=== PATIENT | female | born 1955 | race Caucasian/White ===

== ENCOUNTER 2017-12-01 12:46 | Emergency (ER) | payer BC, SELFPAY ==
--- NOTE | 2017-12-01 12:51 | ED.HA ---
HPI - Headache <CHERYL Cruz - Last Filed: 12/01/17 20:50> General Chief Complaint: Headache Stated Complaint: MIGRAINES Time Seen by Provider: 12/01/17 12:51 History of Present Illness HPI Narrative: 62-year-old female with history of migraine sent here by primary care provider office for treatment of her migraine. She states that she had a migraine that started since yesterday her migraine is to the right forehead area and into her area behind her right eye ball. She has positive photophobia and nausea vomiting. She presents today with a fever. She denies any cold-like symptoms. She denies any abdominal pain no urinary symptoms. She denies any decreased range of motion in her neck or pain into her neck or back area. No other symptoms in the headache is reported. She states that this is a typical headache for her. Patient is ambulatory no other concerns or complaints MD Complaint: headache Related Data Home Medications Medication Instructions Recorded Confirmed Vitamin C 1 tab PO QDAY #0 11/18/16 12/02/17 multivitamin tablet 1 tab PO QDAY #0 12/01/17 12/02/17 Previous Rx's Medication Instructions Recorded metoprolol succinate [Toprol XL] 25 mg PO QDAY #90 ter 07/21/17 rosuvastatin 10 mg PO HS #90 tab 07/21/17 ondansetron 4 mg disintegrating 4 mg PO TID PRN #20 tab 12/01/17 tablet sumatriptan 50 mg tablet 50 mg PO ONCE #10 tab 12/01/17 Allergies Allergy/AdvReac Type Severity Reaction Status Date / Time No Known Drug Allergies Allergy Verified 12/02/17 11:32 Review of Systems <CHERYL Cruz - Last Filed: 12/01/17 20:50> Constitutional Reports fever(s) and Reports headache(s) Eyes Comments: Photophobia ENT Ears, Nose, Mouth, and Throat: Reports headache(s) Cardiovascular Denies chest pain, Denies irregular heart rhythm, Denies lightheadedness, Denies palpitations, Denies dyspnea, Denies dyspnea on exertion and Denies orthopnea Respiratory Denies cough, Denies dyspnea, Denies dyspnea on exertion and Denies wheezing Gastrointestinal Gastrointestinal: Reports vomiting Genitourinary Denies hematuria, Denies flank pain, Denies urinary incontinence and Denies urinary urgency Musculoskeletal Denies back pain, Denies muscle weakness, Denies numbness and Denies tingling Integumentary/Breasts Denies pruritus, Denies erythema, Denies rash and Denies wounds Neurologic Denies confusion, Reports headache(s), Denies numbness and Denies tingling Psychiatric Denies anxiety, Denies confusion, Denies depression, Denies homicidal ideation and Denies suicidal ideation Endocrine Denies palpitations Allergic/Immunologic Denies wheezing Exam <CHERYL Cruz - Last Filed: 12/01/17 20:50> Initial Vital Signs Initial Vital Signs: Vital Signs Temperature 102.1 F H 12/01/17 12:52 Pulse Rate 73 12/01/17 12:52 Respiratory Rate 18 12/01/17 12:52 Blood Pressure 130/53 H 12/01/17 12:52 Pulse Oximetry 98 12/01/17 12:52 Const General: cooperative and well developed Nutritional Appearance: well nourished Orientation: alert, awake, oriented x3 and not confused HENMT Head: normal to inspection, normocephalic, atraumatic and No temporal artery tenderness Mouth: oropharynx normal and mucous membranes abnormal (Mucous membranes are pink and dry) Eyes Conjunctivae: conjunctivae normal Sclera: sclerae normal Pupils: PERRL EOM: EOM intact bilaterally Neck Neck: normal visual inspection, full ROM, trachea midline, No lymphadenopathy, No midline deformity and No JVD Lymphatic: No lymphedema Resp Effort & Inspection: normal respiratory effort, able to speak in complete sentences, no respiratory distress and no use of accessory muscles Auscultation: clear to auscultation bilaterally, no rales, no rhonchi and no wheezes Cardio Rate: regular rate Rhythm: regular rhythm Heart Sounds: no click, no gallops, no murmurs and no rubs GI Inspection: non-distended Palpation: soft, no hepatosplenomegaly, No guarding, No pulsatile mass and No tender Auscultation: normal bowel sounds General: No CVA tenderness Skin General: no rashes or lesions noted, No jaundice and No petechiae Neuro Cognition: normal cognition Speech: speech normal <Nuno Gomez DO - Last Filed: 12/04/17 08:37> Initial Vital Signs Initial Vital Signs: Vital Signs Temperature 102.1 F H 12/01/17 12:52 Pulse Rate 73 12/01/17 12:52 Respiratory Rate 18 12/01/17 12:52 Blood Pressure 130/53 H 12/01/17 12:52 Pulse Oximetry 98 12/01/17 12:52 Course <CEHRYL Cruz - Last Filed: 12/01/17 20:50> Orders Ordered: Discontinued Medications Diphenhydramine HCl (Benadryl) 25 mg IV NOW ONE Stop: 12/01/17 13:02 Last Admin: 12/01/17 13:19 Dose: 25 mg Sodium Chloride (Normal Saline 0.9%) 1,000 mls @ 1,000 mls/hr IV BOLUS ONE Stop: 12/01/17 14:00 Last Infusion: 12/01/17 15:38 Dose: 0 mls/hr Admin: 12/01/17 13:23 Dose: 1,000 mls/hr Ketorolac Tromethamine (Toradol) 30 mg IV NOW ONE Stop: 12/01/17 13:02 Last Admin: 12/01/17 13:22 Dose: 30 mg Prochlorperazine (Compazine) 10 mg IV NOW ONE Stop: 12/01/17 13:02 Last Admin: 12/01/17 13:21 Dose: 10 mg Vital Signs - 8 hr 12/01/17 12:52 12/01/17 13:21 12/01/17 13:44 Temperature 102.1 F H Pulse Rate 73 78 93 H Respiratory Rate 18 18 Blood Pressure 130/53 H 130/53 H Blood Pressure [Left Arm] 148/65 H Pulse Oximetry 98 99 12/01/17 15:05 Temperature 100.7 F H Pulse Rate 88 Respiratory Rate Blood Pressure Blood Pressure [Left Arm] 123/49 H Pulse Oximetry 98 <Nuno Gomez DO - Last Filed: 12/04/17 08:37> Orders Ordered: Discontinued Medications Diphenhydramine HCl (Benadryl) 25 mg IV NOW ONE Stop: 12/01/17 13:02 Last Admin: 12/01/17 13:19 Dose: 25 mg Sodium Chloride (Normal Saline 0.9%) 1,000 mls @ 1,000 mls/hr IV BOLUS ONE Stop: 12/01/17 14:00 Last Infusion: 12/01/17 15:38 Dose: 0 mls/hr Admin: 12/01/17 13:23 Dose: 1,000 mls/hr Ketorolac Tromethamine (Toradol) 30 mg IV NOW ONE Stop: 12/01/17 13:02 Last Admin: 12/01/17 13:22 Dose: 30 mg Prochlorperazine (Compazine) 10 mg IV NOW ONE Stop: 12/01/17 13:02 Last Admin: 12/01/17 13:21 Dose: 10 mg Vital Signs - 8 hr 12/01/17 12:52 12/01/17 13:21 12/01/17 13:44 Temperature 102.1 F H Pulse Rate 73 78 93 H Respiratory Rate 18 18 Blood Pressure 130/53 H 130/53 H Blood Pressure [Left Arm] 148/65 H Pulse Oximetry 98 99 12/01/17 15:05 Temperature 100.7 F H Pulse Rate 88 Respiratory Rate Blood Pressure Blood Pressure [Left Arm] 123/49 H Pulse Oximetry 98 MDM - Headache <CHERYL Cruz - Last Filed: 12/01/17 20:50> Lab Data Result diagrams: 12/01/17 13:15 12/01/17 13:15 Lab Results 12/01/17 12/01/17 12/01/17 Range/Units 13:15 13:15 13:15 WBC 14.3 H (4.5-11.0) X10^3/uL RBC 5.11 (4.0-5.2) X10^6/uL Hgb 15.0 (12.0-16.0) g/dL Hct 44.3 (36-46) % MCV 86.6 (80-100) fL MCH 29.3 (26-34) PG MCHC 33.9 (30-36) % RDW 13.5 (11.6-14.8) % Plt Count 265 (150-400) X10^3/uL Neut % (Auto) 87.0 H (50-75) % Lymph % (Auto) 8.4 L (25-40) % [place] % (Auto) 4.4 (3-14) % Eos % (Auto) 0.0 L (2-4) % Baso % (Auto) 0.2 (0-2) % Neut # (Auto) 12045 H (5451-3291) /uL Sodium 139 (137-145) mmol/L Potassium 3.9 (3.4-5.1) mmol/L Chloride 100 (98-107) mmol/L Carbon Dioxide 24 (22-32) mmol/L BUN 12 (7-17) mg/dL Creatinine 0.70 (0.52-1.04) mg/dL Estimated GFR > 60.0 (>60) mL/min BUN/Creatinine Ratio 17.1 (6-22) Glucose 113 H (80-110) mg/dL Lactate (0.7-2.1) mmol/L Calcium 9.7 (8.4-10.2) mg/dL Total Bilirubin 1.2 (0.2-1.3) mg/dL AST 26 (14-36) IU/L ALT 30 (9-52) IU/L Alkaline Phosphatase 93 (38-126) U/L Total Protein 8.2 (6.3-8.2) g/dL Albumin 4.8 (3.5-5.0) g/dL Globulin 3.4 (1.7-4.1) g/dL Albumin/Globulin Ratio 1.4 (1.0-2.8) Procalcitonin < 0.05 (<0.5) ng/mL Urine RBC (0-5/HPF) Urine WBC (0-5/HPF) Ur Squamous Epith Cells Urine Bacteria (None) Urine Mucus (Negative) Ur Culture Indicated? Micro UA Comment Influenza A & B (PCR) (Negative) 12/01/17 12/01/17 12/01/17 Range/Units 13:15 13:42 13:58 WBC (4.5-11.0) X10^3/uL RBC (4.0-5.2) X10^6/uL Hgb (12.0-16.0) g/dL Hct (36-46) % MCV (80-100) fL MCH (26-34) PG MCHC (30-36) % RDW (11.6-14.8) % Plt Count (150-400) X10^3/uL Neut % (Auto) (50-75) % Lymph % (Auto) (25-40) % [place] % (Auto) (3-14) % Eos % (Auto) (2-4) % Baso % (Auto) (0-2) % Neut # (Auto) (3529-6122) /uL Sodium (137-145) mmol/L Potassium (3.4-5.1) mmol/L Chloride (98-107) mmol/L Carbon Dioxide (22-32) mmol/L BUN (7-17) mg/dL Creatinine (0.52-1.04) mg/dL Estimated GFR (>60) mL/min BUN/Creatinine Ratio (6-22) Glucose (80-110) mg/dL Lactate 1.5 (0.7-2.1) mmol/L Calcium (8.4-10.2) mg/dL Total Bilirubin (0.2-1.3) mg/dL AST (14-36) IU/L ALT (9-52) IU/L Alkaline Phosphatase (38-126) U/L Total Protein (6.3-8.2) g/dL Albumin (3.5-5.0) g/dL Globulin (1.7-4.1) g/dL Albumin/Globulin Ratio (1.0-2.8) Procalcitonin (<0.5) ng/mL Urine RBC None seen (0-5/HPF) Urine WBC 5-10/hpf H (0-5/HPF) Ur Squamous Epith Cells 10-30 /hpf H Urine Bacteria Few (2-10) H (None) Urine Mucus 2+ H (Negative) Ur Culture Indicated? Cult not indicated Micro UA Comment Not Reportable Influenza A & B (PCR) Negative (Negative) Imaging Data CT scan - head: Radiologist's impression: PROCEDURE: CT HEAD/BRAIN WO CON INDICATIONS: 62 year-old female with headaches and fever. TECHNIQUE: Noncontrast 4.5 mm thick angled axial sections acquired from the foramen magnum to the vertex, with coronal and sagittal reformats. For radiation dose reduction, the following was used: automated exposure control, adjustment of mA and/or kV according to patient size. COMPARISON: None. FINDINGS: Image quality: Excellent. CSF spaces: Basal cisterns are patent. No extra-axial fluid collections. Ventricles are normal in size and shape. Brain: No midline shift. No intracranial masses or hemorrhage. [place]lee-white matter interface is normal. Skull and face: Calvarium and visualized facial bones are intact, without suspicious lesions. Sinuses: Visualized sinuses and mastoids are clear. IMPRESSION: No acute intracranial abnormalities. Dictated by: Matt Wang M.D. on 12/01/2017 at 13:59 Approved by: Matt Wang M.D. on 12/01/2017 at 14:01 [facility] Narrative Medical decision making narrative: Patient presents with headache today is consistent with her prior migraines she states it is 1 of her more painful once however the characteristics or similar to her prior migraines. She does not have any neck rigidity or neck pain. Pain is limited to the right frontal area and scalp and behind the eye. She does not have any temporal tenderness. She presents with fever. She had elevated white count of 14 k . Urinalysis was negative for urinary tract infection. Influenza swab was also obtained was negative. No source of infection is found. Her symptoms of headache and nausea reduced after medications and fluids. Had in-depth conversation with patient with risks versus reward for LP puncture to rule out meningitis/encephalitis. Patient decided that she was not comfortable and obtaining LP at this time. Differential between viral illness causing fever and possible trigger for her headache versus meningitis. She is encouraged to follow up with her primary care provider in the next day or 2 for re-evaluation. For any worsening symptoms return to the emergency room. Plenty of fluids and rest. [id number] Tylenol Motrin as needed for any discomfort. Follow up with primary care provider. For any worsening symptoms return emergency room. <Nuno Gomez, DO - Last Filed: 12/04/17 08:37> Lab Data Lab Results 12/01/17 12/01/17 12/01/17 Range/Units 13:15 13:15 13:15 WBC 14.3 H (4.5-11.0) X10^3/uL RBC 5.11 (4.0-5.2) X10^6/uL Hgb 15.0 (12.0-16.0) g/dL Hct 44.3 (36-46) % MCV 86.6 (80-100) fL MCH 29.3 (26-34) PG MCHC 33.9 (30-36) % RDW 13.5 (11.6-14.8) % Plt Count 265 (150-400) X10^3/uL Neut % (Auto) 87.0 H (50-75) % Lymph % (Auto) 8.4 L (25-40) % [place] % (Auto) 4.4 (3-14) % Eos % (Auto) 0.0 L (2-4) % Baso % (Auto) 0.2 (0-2) % Neut # (Auto) 20726 H (1143-3664) /uL Sodium 139 (137-145) mmol/L Potassium 3.9 (3.4-5.1) mmol/L Chloride 100 (98-107) mmol/L Carbon Dioxide 24 (22-32) mmol/L BUN 12 (7-17) mg/dL Creatinine 0.70 (0.52-1.04) mg/dL Estimated GFR > 60.0 (>60) mL/min BUN/Creatinine Ratio 17.1 (6-22) Glucose 113 H (80-110) mg/dL Lactate (0.7-2.1) mmol/L Calcium 9.7 (8.4-10.2) mg/dL Total Bilirubin 1.2 (0.2-1.3) mg/dL AST 26 (14-36) IU/L ALT 30 (9-52) IU/L Alkaline Phosphatase 93 (38-126) U/L Total Protein 8.2 (6.3-8.2) g/dL Albumin 4.8 (3.5-5.0) g/dL Globulin 3.4 (1.7-4.1) g/dL Albumin/Globulin Ratio 1.4 (1.0-2.8) Procalcitonin < 0.05 (<0.5) ng/mL Urine RBC (0-5/HPF) Urine WBC (0-5/HPF) Ur Squamous Epith Cells Urine Bacteria (None) Urine Mucus (Negative) Ur Culture Indicated? Micro UA Comment Influenza A & B (PCR) (Negative) 12/01/17 12/01/17 12/01/17 Range/Units 13:15 13:42 13:58 WBC (4.5-11.0) X10^3/uL RBC (4.0-5.2) X10^6/uL Hgb (12.0-16.0) g/dL Hct (36-46) % MCV (80-100) fL MCH (26-34) PG MCHC (30-36) % RDW (11.6-14.8) % Plt Count (150-400) X10^3/uL Neut % (Auto) (50-75) % Lymph % (Auto) (25-40) % [place] % (Auto) (3-14) % Eos % (Auto) (2-4) % Baso % (Auto) (0-2) % Neut # (Auto) (0845-9319) /uL Sodium (137-145) mmol/L Potassium (3.4-5.1) mmol/L Chloride (98-107) mmol/L Carbon Dioxide (22-32) mmol/L BUN (7-17) mg/dL Creatinine (0.52-1.04) mg/dL Estimated GFR (>60) mL/min BUN/Creatinine Ratio (6-22) Glucose (80-110) mg/dL Lactate 1.5 (0.7-2.1) mmol/L Calcium (8.4-10.2) mg/dL Total Bilirubin (0.2-1.3) mg/dL AST (14-36) IU/L ALT (9-52) IU/L Alkaline Phosphatase (38-126) U/L Total Protein (6.3-8.2) g/dL Albumin (3.5-5.0) g/dL Globulin (1.7-4.1) g/dL Albumin/Globulin Ratio (1.0-2.8) Procalcitonin (<0.5) ng/mL Urine RBC None seen (0-5/HPF) Urine WBC 5-10/hpf H (0-5/HPF) Ur Squamous Epith Cells 10-30 /hpf H Urine Bacteria Few (2-10) H (None) Urine Mucus 2+ H (Negative) Ur Culture Indicated? Cult not indicated Micro UA Comment Not Reportable Influenza A & B (PCR) Negative (Negative) Discharge Plan Departure Patient Disposition: Home, Self-Care Clinical Impression: Migraine headache, Fever Discharge Date/Time: 12/01/17 15:39 Interventions: ED Discharge Assessment Last Done: 12/01/17 15:38 Instructions: DI for Migraine Activity Restrictions/Additional Instructions: Signs and symptoms progress as migraine headache. Although with fever and elevated white count there is possibility that there could be an infection called meningitis. Use [id number] Tylenol or Motrin as needed for any discomfort. Plenty of fluids and rest. Follow up with her primary care provider in the next day or 2 for re-evaluation. Home to quite environment and rest. If there are any worsening symptoms such as worsening fever and neck pain worsening headache or change in cognition return to the emergency room. Prescriptions: No Action sumatriptan succinate 50 mg tablet 50 mg PO ONCE Qty: 10 RF: 3 ondansetron 4 mg tablet,disintegrating 4 mg PO TID PRN (Reason: nausea and vomiting) Qty: 20 RF: 0 Vitamin C 1 tab PO QDAY Qty: 0 RF: 0 metoprolol succinate [Toprol XL] 25 MG tablet extended release 24 hr 25 mg PO QDAY Qty: 90 RF: 3 rosuvastatin 10 MG tablet 10 mg PO HS Qty: 90 RF: 1 multivitamin [Multiple Vitamins] tablet 1 tab PO QDAY Qty: 0 RF: 0 Referrals: Debbie Paredes PA-C [Primary Care Provider] - <Nuno Gomez DO - Last Filed: 12/04/17 08:37> Cosign ED Attending Merry Attestation: I was available for consultation during this patient's emergency department encounter
[2017-12-01 12:52] VITALS: BP 130/53; PULSE 73; RESP 18; TEMP 38.9; O2SAT 98; BMI 25.7
[2017-12-01] MEDS: diphenhydrAMINE 50 MG/ML VIAL 25 MG IV (13:19)
[2017-12-01 13:21] VITALS: BP 130/53; PULSE 78
[2017-12-01] MEDS: PROCHLORPERAZINE 10 MG/2 ML VIAL IV (13:21)
[2017-12-01] MEDS: KETOROLAC 60 MG/2 ML VIAL 30 MG IV (13:22)
[2017-12-01] MEDS: SODIUM CHLORIDE 0.9% 1,000 ML 1000 ML IV (13:23)
[2017-12-01 13:29] LABS: Add Manual Diff / Slide Review NO; Basophils Percent Auto 0.2 % (0-2); Hematocrit 44.3 % (36-46); Lymphocytes Percent Auto 8.4 % (25-40); Mean Corpuscular HGB Conc 33.9 % (30-36); Mean Corpuscular Hemoglobin 29.3 PG (26-34); Mean Corpuscular Volume 86.6 fL (80-100); Monocytes Percent Auto 4.4 % (3-14); Neutrophils Absolute Auto 12500 /uL (3000-5900); Platelet Count 265 X10^3/uL (150-400); Red Blood Cell Count 5.11 X10^6/uL (4.0-5.2); Red Cell Distribution Width 13.5 % (11.6-14.8); White Blood Cell Count 14.3 X10^3/uL (4.5-11.0)
--- NOTE | 2017-12-01 13:38 | DI.CT.S_ITS ---
PROCEDURE: CT HEAD/BRAIN WO CON INDICATIONS: 62 year-old female with headaches and fever. TECHNIQUE: Noncontrast 4.5 mm thick angled axial sections acquired from the foramen magnum to the vertex, with coronal and sagittal reformats. For radiation dose reduction, the following was used: automated exposure control, adjustment of mA and/or kV according to patient size. COMPARISON: None. FINDINGS: Image quality: Excellent. CSF spaces: Basal cisterns are patent. No extra-axial fluid collections. Ventricles are normal in size and shape. Brain: No midline shift. No intracranial masses or hemorrhage. [place]lee-white matter interface is normal. Skull and face: Calvarium and visualized facial bones are intact, without suspicious lesions. Sinuses: Visualized sinuses and mastoids are clear. IMPRESSION: No acute intracranial abnormalities. Dictated by: Matt Wang M.D. on 12/01/2017 at 13:59 Approved by: Matt Wang M.D. on 12/01/2017 at 14:01
[2017-12-01 13:43] LABS: Alanine Aminotransferase 30 IU/L (9-52); Albumin 4.8 g/dL (3.5-5.0); Albumin Globulin Ratio 1.4 (1.0-2.8); Alkaline Phosphatase 93 U/L (38-126); Aspartate Aminotransferase 26 IU/L (14-36); BUN Creatinine Ratio 17.1 (6-22); Bilirubin Total 1.2 mg/dL (0.2-1.3); Blood Urea Nitrogen 12 mg/dL (7-17); Calcium 9.7 mg/dL (8.4-10.2); Carbon Dioxide 24 mmol/L (22-32); Chloride 100 mmol/L (98-107); Estimated Glomerular Filt Rate > 60.0 mL/min (>60); Globulin 3.4 g/dL (1.7-4.1); Glucose 113 mg/dL (80-110); HEMOLYSIS < 15 (0-50); Lactate (Lactic Acid) 1.5 mmol/L (0.7-2.1); Potassium 3.9 mmol/L (3.4-5.1); Sodium 139 mmol/L (137-145); Total Protein 8.2 g/dL (6.3-8.2)
[2017-12-01 13:44] VITALS: BP 148/65; PULSE 93; RESP 18; O2SAT 99
[2017-12-01 14:11] LABS: Procalcitonin < 0.05 ng/mL (<0.5)
[2017-12-01 14:14] LABS: RBC Urine None Seen (0-5/HPF)
[2017-12-01 14:14] LABS: Influenza A and B by PCR Rapid Negative (Negative)
[2017-12-01 14:29] LABS: WBC Urine 5-10/HPF (0-5/HPF)
[2017-12-01 14:30] LABS: Bacteria Urine Few (2-10); Culture Indicated Urine Cult Not Indicated; Mucus Urine 2+ (Negative); Squamous Epithelial Cell Urine 10-30 /HPF
[2017-12-01 15:05] VITALS: BP 123/49; PULSE 88; TEMP 38.2; O2SAT 98
== END 2017-12-01 15:39 | disposition home or self-care (01) ==
PROVIDERS: Emergency Provider Nurse Practitioner Family; PCP Physician Assistant
DX: G43.909 Migraine, unspecified, not intractable, without status migrainosus (principal); R50.9 Fever, unspecified
CPT/HCPCS: 36591; 70450; 80053; 81003; 81015; 83605; 84145; 85025; 87400; 96361; 96374; 96375; 99283; 99284; J0780; J1200; J1885

== ENCOUNTER → 2017-12-07 14:36 | Outpatient (CLI) | payer BC, SELFPAY ==
[2017-12-07 16:06] LABS: Add Manual Diff / Slide Review NO; Basophils Percent Auto 0.9 % (0-2); Eosinophils Percent Auto 2.4 % (2-4); Hematocrit 41.7 % (36-46); Lymphocytes Percent Auto 29.1 % (25-40); Mean Corpuscular HGB Conc 33.5 % (30-36); Mean Corpuscular Hemoglobin 29.6 PG (26-34); Mean Corpuscular Volume 88.2 fL (80-100); Neutrophils Absolute Auto 5600 /uL (3000-5900); Neutrophils Percent Auto 61.6 % (50-75); Platelet Count 251 X10^3/uL (150-400); Red Blood Cell Count 4.73 X10^6/uL (4.0-5.2); Red Cell Distribution Width 13.4 % (11.6-14.8); White Blood Cell Count 9.1 X10^3/uL (4.5-11.0)
== END ==
PROVIDERS: PCP Physician Assistant; Visit Provider Physician Assistant
DX: D72.829 Elevated white blood cell count, unspecified (principal)
CPT/HCPCS: 36415; 85025

== ENCOUNTER → 2018-01-04 12:00 | Outpatient (CLI) | payer BC, SELFPAY | PROVIDERS: PCP Physician Assistant; Visit Provider Physician Assistant | DX: Z12.11 Encounter for screening for malignant neoplasm of colon (principal) | CPT/HCPCS: 82274 ==

== ENCOUNTER → 2018-03-09 14:20 | Outpatient (CLI) | payer BC, SELFPAY ==
[2018-03-09 18:04] LABS: Creatinine Urine Random 21.5 mg/dL
[2018-03-09 18:13] LABS: Microalbumi Creatinin Ratio Ur 27.9 ug/mg CR (<30); Microalbumin Urine Random < 0.6 mg/dL (0-1.6)
== END ==
PROVIDERS: PCP Physician Assistant; Visit Provider Physician Assistant
DX: I10 Essential (primary) hypertension (principal)
CPT/HCPCS: 82043; 82570

== ENCOUNTER 2018-07-08 11:56 | Inpatient (IN) | payer MEDICARE, SELFPAY ==
[2018-07-08] VITALS (12 sets, daily range): BP systolic 115–149; BP diastolic 55–72; PULSE 62–86; RESP 13–25; TEMP 37.1–38.2; O2SAT 95–100; BMI 29.5
--- NOTE | 2018-07-08 12:17 | DI.CT.S_ITS ---
PROCEDURE: CT HEAD/BRAIN WO CON INDICATIONS: aphasia, h/o migraines. TECHNIQUE: Noncontrast 4.5 mm thick angled axial sections acquired from the foramen magnum to the vertex, with coronal and sagittal reformats. For radiation dose reduction, the following was used: automated exposure control, adjustment of mA and/or kV according to patient size. COMPARISON: [facility], CT, CT HEAD/BRAIN WO CON, 12/01/2017, 13:34. FINDINGS: Image quality: Excellent. CSF spaces: Basal cisterns are patent. No extra-axial fluid collections. The ventricles are symmetric in size and shape. Brain: No intracranial bleeds or masses. There is cerebral volume loss for age, with resultant ventricular and sulcal prominence. There are periventricular and deep white matter chronic small vessel ischemic changes. There is intracranial internal carotid artery atherosclerosis. Skull and face: Calvarium and visualized facial bones appear intact, without suspicious lesions. Sinuses: Visualized sinuses and mastoids are clear. IMPRESSION: No CT evidence of acute intracranial pathology. Dictated by: Fransico Kate M.D. on 07/08/2018 at 12:24 Approved by: Fransico Kate M.D. on 07/08/2018 at 12:25
[2018-07-08 12:41] LABS: Add Manual Diff / Slide Review NO; Basophils Absolute Auto 0 /uL (0-100); Basophils Percent Auto 0.3 % (0-2); Eosinophils Absolute Auto 0 /uL (0-450); Eosinophils Percent Auto 0.3 % (2-4); Hematocrit 44.3 % (36-46); Hemoglobin 14.9 g/dL (12.0-16.0); Lymphocytes Absolute Auto 1400 /uL (1100-4500); Lymphocytes Percent Auto 9.4 % (25-40); Mean Corpuscular HGB Conc 33.6 % (30-36); Mean Corpuscular Hemoglobin 29.5 PG (26-34); Mean Corpuscular Volume 87.6 fL (80-100); Monocytes Absolute Auto 700 /uL (0-900); Monocytes Percent Auto 4.7 % (3-14); Neutrophils Absolute Auto 12800 /uL (1500-7000); Neutrophils Percent Auto 85.3 % (50-75); Platelet Count 258 X10^3/uL (150-400); Red Blood Cell Count 5.06 X10^6/uL (4.0-5.2)
[2018-07-08 12:47] LABS: INR 1.1 (0.9-1.3); Prothrombin Time 12.8 SECONDS (10.1-12.7)
[2018-07-08 12:50] LABS: PTT Partial Thromboplastin Tim 26 SECONDS (26.4-36.2)
[2018-07-08] MEDS: METOCLOPRAMIDE 10 MG/2 ML INJ IV (12:59)
[2018-07-08] MEDS: SODIUM CHLORIDE 0.9% 1,000 ML 1000 ML IV (12:59)
[2018-07-08] MEDS: KETOROLAC 60 MG/2 ML VIAL 30 MG IV (12:59)
--- NOTE | 2018-07-08 13:16 | ED_ITS ---
HPI - Neuro Symptoms/Deficit General Chief Complaint: Neuro Symptoms/Deficit Stated Complaint: sent by walk in for stroke like symptoms Time Seen by Provider: 07/08/18 12:05 Source: patient and family Mode of arrival: ambulatory Limitations: no limitations History of Present Illness HPI Narrative: Patient comes emergency department with her family complaining of a migraine headache. Patient has a longstanding history of migraines, for which she takes Imitrex. She has had this headache since yesterday, but it has been accompanied by confusion, according to her family. Patient states that she hurts just a little bit, in the front of her head and behind her right eye. Her family denies any neurologic deficits the patient, other than the confusion. Patient denies neck pain. No back pain. Her family states that she has had 2 other episodes like this, where she has had what seems to be a migraine, accompanied by confusion. They state the confusion last anywhere from hours to a few days, over which the patient slowly improves. The patient' s family denies any head injuries or recent illness. She began to complain of headache yesterday, and also began to become more confused. She did not take her full dose of Imitrex yesterday. Patient had some episodes of vomiting over the last 24 hr. Patient last episode like this involved what seemed to be a migraine with an elevated white blood cell count and a temperature of 102.1?. At that time, the patient refused an LP, and was discharged home to follow up with her primary care physician, who the next day I treated the fever to dehydration. The patient did improve on her own at that time, and recovered without incident. Family states they believe that the same thing is going on today, despite the fact that the patient has a low-grade fever in the emergency department today. On Anticoagulants: No Related Data Home Medications Medication Instructions Recorded Confirmed Vitamin C 1 tab PO QDAY #0 11/18/16 07/08/18 multivitamin tablet 1 tab PO QDAY #0 12/01/17 07/08/18 sumatriptan 50 mg tablet See Label Instructions .ROUTE 01/26/18 07/08/18 .COMPLEX rosuvastatin 10 mg PO BEDTIME 07/08/18 07/08/18 Previous Rx's Medication Instructions Recorded metoprolol succinate [Toprol XL] 25 mg PO QDAY #90 ter 07/21/17 ondansetron 4 mg disintegrating 4 mg PO TID PRN #20 tab 12/01/17 tablet Allergies Allergy/AdvReac Type Severity Reaction Status Date / Time No Known Drug Allergies Allergy Verified 01/26/18 12:39 Review of Systems Review of Systems ROS Unobtainable: Unobtainable due to mental status/LOC Constitutional Denies chills, Denies fever(s), Denies lethargy and Denies weakness Eyes Denies change in vision, Denies eye discharge, Denies irritation and Denies loss of vision ENT Ears, Nose, Mouth, and Throat: Denies change in voice, Denies neck pain and Denies sore throat Cardiovascular Denies chest pain, Denies irregular heart rhythm, Denies lightheadedness, Denies palpitations, Denies dyspnea, Denies dyspnea on exertion and Denies orthopnea Respiratory Denies cough, Denies dyspnea, Denies dyspnea on exertion and Denies wheezing Gastrointestinal Gastrointestinal: Denies abdominal pain, Denies change in bowel habits, Denies diarrhea, Denies nausea and Denies vomiting Genitourinary Denies hematuria, Denies flank pain, Denies urinary incontinence and Denies urinary urgency Musculoskeletal Denies neck pain Integumentary/Breasts Denies pruritus, Denies erythema, Denies rash and Denies wounds Neurologic Denies confusion, Denies loss of vision and Denies weakness Psychiatric Denies anxiety, Denies confusion, Denies depression, Denies homicidal ideation and Denies suicidal ideation Endocrine Denies palpitations Hematologic/Lymphatic Denies easy bruising Allergic/Immunologic Denies wheezing [facility] Medical History Essential hypertension (Chronic 05/28/16) Mixed hyperlipidemia (Chronic 05/28/16) Anxiety (Chronic) Migraines (Chronic) Surgical History Hx of section (Resolved ~1980) Family History Father History of high blood pressure Social History Smoking Status: Never smoker second hand exposure: No alcohol intake: never substance use type: does not use Family History Father History of high blood pressure Social History household members: spouse Smoking Status: Never smoker second hand exposure: No alcohol intake: never substance use type: does not use Exam Initial Vital Signs Initial Vital Signs: Vital Signs Temperature 100.8 F H 07/08/18 11:57 Pulse Rate 74 07/08/18 11:57 Respiratory Rate 14 07/08/18 11:57 Blood Pressure 115/57 L 07/08/18 11:57 Pulse Oximetry 97 07/08/18 11:57 Const General: cooperative and well developed Nutritional Appearance: well nourished Orientation: awake and not confused Other: Patient is awake and answering questions, but mildly drowsy. HENMT Head: normocephalic and atraumatic Ears: external ears normal and TM's normal bilaterally Nose: external nose normal and No nasal discharge Face and sinus: sinuses nontender, face symmetric, no sinus tenderness and No dry mucous membranes Mouth: oral mucosae normal and moist mucous membranes Teeth and gingiva: dentition normal Throat: tonsils normal and uvula midline Eyes General: appearance normal, both eyes and all related structures Eyelids: eyelids normal Conjunctivae: conjunctivae normal Sclera: sclerae normal Pupils: PERRL EOM: EOM intact bilaterally Neck Neck: normal visual inspection, trachea midline, No lymphadenopathy, No midline deformity and No JVD Lymphatic: No lymphedema Chest Chest: normal inspection of the chest Resp Effort & Inspection: normal respiratory effort, able to speak in complete sentences, no respiratory distress and no use of accessory muscles Auscultation: clear to auscultation bilaterally, no rales, no rhonchi and no wheezes Cardio Rate: regular rate Rhythm: regular rhythm Heart Sounds: no click, no gallops, no murmurs and no rubs Pulses: normal peripheral pulses GI Inspection: non-distended Palpation: soft, no hepatosplenomegaly, No guarding, No pulsatile mass and No tender Auscultation: normal bowel sounds Back/Spine/Pelvis Back: No CVA tenderness Cervical Spine: cervical ROM normal and No pain with cervical ROM Thoracic/Lumbar Spine: thoracic and lumbar spine normal to inspection Skin General: no rashes or lesions noted, No jaundice and No petechiae Neuro General: alert, oriented (Patient is oriented to self only. When question on symptoms and time lines, patient seems confused, and gives inappropriate answers.), gait normal, no focal motor deficits and CN's II-XI intact bilaterally Other: Patient is moving all 4 extremities without difficulty. Extrem General: full ROM, no clubbing, cyanosis or edema, no pedal edema and no calf tenderness Psych Appearance: well kempt Mental Status: mental status grossly normal Attitude: cooperative Thought Content: normal and suicidality Judgment: judgment good Procedures Lumbar Puncture Patient Position: upright Skin Prep: 0.5% Chlorhexidine/Alcohol Local Anesthetic: lidocaine 2% Amount of anesthesia used (mL): 5 Spinal Needle Gauge: 20G Interspace Used: L3-L4 Fluid Initially Obtained: bloody (Blood tinged) Complications: traumatic tap Course Course Narrative: Patient was given IV fluids, Toradol, and Reglan, and worked up with labs. She was [place] [id number] scan was unremarkable. I had discussed with the family that while the patient has a history of these symptoms prior, that from the emergency department perspective the most important thing to evaluate for and rule out it would be meningitis. The patient is otherwise stable, and has minimal temperature elevation, but none the less, she does have a fever, altered mental status, and elevated white blood cell count. The family was reluctant to go this route, stating that last time, the family practitioner told them that it was a good thing the spinal tap was not done, because it was not meningitis. Ultimately, on re-evaluation, the patient was found to be on improved from when she 1st presented to the emergency department. I did explain to the and son that the next step in evaluation of this patient's altered mental status , fever, and headache is a lumbar puncture to evaluate for meningitis, and that as the patient is not competent to decide for herself, they need to make a decision as to whether they will agree to lumbar puncture or not. We had a very lengthy discussion about the risks and benefits of lumbar puncture, the features and concerns surrounding meningitis, the focus of emergency department evaluation, the reasons for concern over meningitis, and possible causes of the patient's symptoms other than meningitis. Ultimately, the patient's son and did decide to proceed with the lumbar puncture, and this was performed by myself with nursing assistance, as noted under the procedure section. The initial CSF evaluation was negative. However, the patient still was very confused, and could not name either her or her son. She continued to give answers to questions which had nothing to do with the question that was asked. I did speak at length with the and son again, and I felt the patient should be admitted to the hospital for observation. Ultimately, the patient's agreed, and I did speak with Dr. Uribe, who did agree to admit the patient to his service. Orders Ordered: ED Orders 07/08/18 12:06 EKG-12 Lead Stat 07/08/18 12:17 CT head/brain wo con Stat 07/08/18 12:30 Complete Blood Count AUTO DIFF Stat Partial Thromboplastin Time Stat Prothrombin Time INR Stat 07/08/18 13:15 Comprehensive Metabolic Panel Stat Ethanol (ETOH) Stat 07/08/18 15:20 Influenza A and B by PCR Rapid Stat 07/08/18 16:40 CSF culture Stat Cell Count w Diff CSF Stat Glucose CSF Stat HOLD TUBE CSF Stat Meningitis Panel (Film Array) Stat Total Protein CSF Stat 07/08/18 17:30 Urine Drug Screen, Rapid Stat 07/08/18 18:41 XR chest 1V Stat 07/08/18 19:59 Consult to Discharge Planning Routine 07/08/18 20:00 Procalcitonin Routine Acetaminophen (Tylenol) 650 mg PO Q6HR PRN PRN Reason: As Needed for Fever/Mild Pain Al Hydrox/Mg Hydrox/Simethicone (Maalox Plus) 30 ml PO Q6HR PRN PRN Reason: Dyspepsia Calcium Carbonate (Tums) 1,000 mg PO Q4HR PRN PRN Reason: Dyspepsia Sodium Chloride (Normal Saline 0.9%) 1,000 mls @ 100 mls/hr IV CONT LUIS Morphine Sulfate (Morphine) 2 mg IV Q4HR PRN PRN Reason: Pain, Moderate (4-6) Morphine Sulfate (Morphine) 4 mg IV Q4HR PRN PRN Reason: Pain, Severe (7-10) Naloxone HCl (Narcan) 0.2 mg IV Q2MIN PRN PRN Reason: Opiate Reversal Ondansetron HCl (Zofran) 4 mg IV Q8HR PRN PRN Reason: Nausea And Vomiting Pantoprazole Sodium (Protonix) 20 mg PO 0600 LUIS Discontinued Medications Sodium Chloride (Normal Saline 0.9%) 1,000 mls @ 1,000 mls/hr IV BOLUS ONE Stop: 07/08/18 13:40 Last Infusion: 07/08/18 14:15 Dose: 0 mls/hr Admin: 07/08/18 12:59 Dose: 1,000 mls/hr Ketorolac Tromethamine (Toradol) 30 mg IV NOW ONE Stop: 07/08/18 12:42 Last Admin: 07/08/18 12:59 Dose: 30 mg Metoclopramide HCl (Reglan) 10 mg IV NOW ONE Stop: 07/08/18 12:43 Last Admin: 07/08/18 12:59 Dose: 10 mg Vital Signs - 8 hr 07/08/18 13:03 07/08/18 14:00 07/08/18 14:30 Temperature Pulse Rate 67 62 63 Respiratory Rate 16 17 22 Blood Pressure Blood Pressure [Right Arm] 149/72 H 132/58 L 137/62 Pulse Oximetry 99 95 97 07/08/18 15:00 07/08/18 15:44 07/08/18 16:30 Temperature Pulse Rate 86 69 64 Respiratory Rate 25 H 13 19 Blood Pressure Blood Pressure [Right Arm] 126/64 136/62 125/55 L Pulse Oximetry 100 07/08/18 16:57 07/08/18 18:00 07/08/18 19:53 Temperature 98.8 F 99.1 F Pulse Rate 75 64 Respiratory Rate 19 18 Blood Pressure 143/68 H Blood Pressure [Right Arm] 126/66 Pulse Oximetry 100 MDM - Neuro Symptoms/Deficit Medical Records Attestation: I reviewed the patient's medical records. Lab Data Attestation: I reviewed the patient's lab results. Result diagrams: 07/08/18 12:30 07/08/18 13:15 Lab Results 07/08/18 07/08/18 07/08/18 Range/Units 12:30 12:30 13:15 WBC 15.0 H (4.5-11.0) X10^3/uL RBC 5.06 (4.0-5.2) X10^6/uL Hgb 14.9 (12.0-16.0) g/dL Hct 44.3 (36-46) % MCV 87.6 (80-100) fL MCH 29.5 (26-34) PG MCHC 33.6 (30-36) % RDW 14.0 (11.6-14.8) % Plt Count 258 (150-400) X10^3/uL Neut % (Auto) 85.3 H (50-75) % Lymph % (Auto) 9.4 L (25-40) % [place] % (Auto) 4.7 (3-14) % Eos % (Auto) 0.3 L (2-4) % Baso % (Auto) 0.3 (0-2) % Neut # (Auto) 55806 H (2972-0455) /uL Lymph # (Auto) 1400 (6602-8424) /uL [place] # (Auto) 700 (0-900) /uL Eos # (Auto) 0 (0-450) /uL Baso # (Auto) 0 (0-100) /uL PT 12.8 H (10.1-12.7) SECONDS INR 1.1 (0.9-1.3) APTT 26 L (26.4-36.2) SECONDS Sodium 136 L (137-145) mmol/L Potassium 3.8 (3.4-5.1) mmol/L Chloride 98 (98-107) mmol/L Carbon Dioxide 22 (22-32) mmol/L BUN 14 (7-17) mg/dL Creatinine 0.70 (0.52-1.04) mg/dL Estimated GFR > 60.0 (>60) mL/min BUN/Creatinine Ratio 20.0 (6-22) Glucose 118 H (80-110) mg/dL Calcium 9.5 (8.4-10.2) mg/dL Total Bilirubin 1.1 (0.2-1.3) mg/dL AST 28 (14-36) IU/L ALT 26 (9-52) IU/L Alkaline Phosphatase 91 (38-126) U/L Total Protein 8.2 (6.3-8.2) g/dL Albumin 4.8 (3.5-5.0) g/dL Globulin 3.4 (1.7-4.1) g/dL Albumin/Globulin Ratio 1.4 (1.0-2.8) CSF Tube Number CSF Volume CSF Appearance (Clear) CSF Color (Colorless) CSF WBC (0-5) MONO/uL CSF RBC RBC /uL CSF Mononuclear WBCs CSF Polynuclear WBCs CSF Glucose (40-70) mg/dL CSF Total Protein (12-60) mg/dL CSF C.neoform/gat PCR (Not Detect) CSF CMV DNA (PCR) (Not Detect) CSF Enterovirus (PCR) (Not Detect) CSF E. coli (PCR) (Not Detect) CSF H. influenzae (PCR) (Not Detect) CSF HSV I (PCR) (Not Detect) CSF HSV II (PCR) (Not Detect) CSF HHV 6 (PCR) (Not Detect) CSF L.monocytogenes PCR (Not Detect) CSF N. meningitidis PCR (Not Detect) CSF Parechovirus (PCR) (Not Detect) CSF S. agalactiae (PCR) (Not Detect) CSF S. pneumoniae (PCR) (Not Detect) CSF VZV (PCR) Urine Opiates Screen (Negative) Ur Oxycodone Screen (Negative) Urine Methadone Screen (Negative) Ur Barbiturates Screen (Negative) U Tricyclic Antidepress (Negative) Ur Phencyclidine Scrn (Negative) Ur Amphetamines Screen (Negative) U Methamphetamines Scrn (Negative) Ur MDMA Scrn (Ecstasy) (Negative) U Benzodiazepines Scrn (Negative) Urine Cocaine Screen (Negative) U Marijuana (THC) Screen (Negative) Ethyl Alcohol < 10 mg/dL Influenza A & B (PCR) (Negative) 07/08/18 07/08/18 07/08/18 Range/Units 15:20 16:40 16:40 WBC (4.5-11.0) X10^3/uL RBC (4.0-5.2) X10^6/uL Hgb (12.0-16.0) g/dL Hct (36-46) % MCV (80-100) fL MCH (26-34) PG MCHC (30-36) % RDW (11.6-14.8) % Plt Count (150-400) X10^3/uL Neut % (Auto) (50-75) % Lymph % (Auto) (25-40) % [place] % (Auto) (3-14) % Eos % (Auto) (2-4) % Baso % (Auto) (0-2) % Neut # (Auto) (4960-4778) /uL Lymph # (Auto) (1757-2686) /uL [place] # (Auto) (0-900) /uL Eos # (Auto) (0-450) /uL Baso # (Auto) (0-100) /uL PT (10.1-12.7) SECONDS INR (0.9-1.3) APTT (26.4-36.2) SECONDS Sodium (137-145) mmol/L Potassium (3.4-5.1) mmol/L Chloride (98-107) mmol/L Carbon Dioxide (22-32) mmol/L BUN (7-17) mg/dL Creatinine (0.52-1.04) mg/dL Estimated GFR (>60) mL/min BUN/Creatinine Ratio (6-22) Glucose (80-110) mg/dL Calcium (8.4-10.2) mg/dL Total Bilirubin (0.2-1.3) mg/dL AST (14-36) IU/L ALT (9-52) IU/L Alkaline Phosphatase (38-126) U/L Total Protein (6.3-8.2) g/dL Albumin (3.5-5.0) g/dL Globulin (1.7-4.1) g/dL Albumin/Globulin Ratio (1.0-2.8) CSF Tube Number 4 CSF Volume 2.0 ml CSF Appearance C (Clear) CSF Color Colorless (Colorless) CSF WBC 3 (0-5) MONO/uL CSF RBC 32 RBC /uL CSF Mononuclear WBCs Not Reportable CSF Polynuclear WBCs Not Reportable CSF Glucose 67 (40-70) mg/dL CSF Total Protein 27 (12-60) mg/dL CSF C.neoform/gat PCR Not detected (Not Detect) CSF CMV DNA (PCR) Not detected (Not Detect) CSF Enterovirus (PCR) Not detected (Not Detect) CSF E. coli (PCR) Not detected (Not Detect) CSF H. influenzae (PCR) Not detected (Not Detect) CSF HSV I (PCR) Not detected (Not Detect) CSF HSV II (PCR) Not detected (Not Detect) CSF HHV 6 (PCR) Not detected (Not Detect) CSF L.monocytogenes PCR Not detected (Not Detect) CSF N. meningitidis PCR Not detected (Not Detect) CSF Parechovirus (PCR) Not detected (Not Detect) CSF S. agalactiae (PCR) Not detected (Not Detect) CSF S. pneumoniae (PCR) Not detected (Not Detect) CSF VZV (PCR) Not detected Urine Opiates Screen (Negative) Ur Oxycodone Screen (Negative) Urine Methadone Screen (Negative) Ur Barbiturates Screen (Negative) U Tricyclic Antidepress (Negative) Ur Phencyclidine Scrn (Negative) Ur Amphetamines Screen (Negative) U Methamphetamines Scrn (Negative) Ur MDMA Scrn (Ecstasy) (Negative) U Benzodiazepines Scrn (Negative) Urine Cocaine Screen (Negative) U Marijuana (THC) Screen (Negative) Ethyl Alcohol mg/dL Influenza A & B (PCR) Negative (Negative) 07/08/18 Range/Units 17:30 WBC (4.5-11.0) X10^3/uL RBC (4.0-5.2) X10^6/uL Hgb (12.0-16.0) g/dL Hct (36-46) % MCV (80-100) fL MCH (26-34) PG MCHC (30-36) % RDW (11.6-14.8) % Plt Count (150-400) X10^3/uL Neut % (Auto) (50-75) % Lymph % (Auto) (25-40) % [place] % (Auto) (3-14) % Eos % (Auto) (2-4) % Baso % (Auto) (0-2) % Neut # (Auto) (8561-5979) /uL Lymph # (Auto) (7375-9048) /uL [place] # (Auto) (0-900) /uL Eos # (Auto) (0-450) /uL Baso # (Auto) (0-100) /uL PT (10.1-12.7) SECONDS INR (0.9-1.3) APTT (26.4-36.2) SECONDS Sodium (137-145) mmol/L Potassium (3.4-5.1) mmol/L Chloride (98-107) mmol/L Carbon Dioxide (22-32) mmol/L BUN (7-17) mg/dL Creatinine (0.52-1.04) mg/dL Estimated GFR (>60) mL/min BUN/Creatinine Ratio (6-22) Glucose (80-110) mg/dL Calcium (8.4-10.2) mg/dL Total Bilirubin (0.2-1.3) mg/dL AST (14-36) IU/L ALT (9-52) IU/L Alkaline Phosphatase (38-126) U/L Total Protein (6.3-8.2) g/dL Albumin (3.5-5.0) g/dL Globulin (1.7-4.1) g/dL Albumin/Globulin Ratio (1.0-2.8) CSF Tube Number CSF Volume CSF Appearance (Clear) CSF Color (Colorless) CSF WBC (0-5) MONO/uL CSF RBC RBC /uL CSF Mononuclear WBCs CSF Polynuclear WBCs CSF Glucose (40-70) mg/dL CSF Total Protein (12-60) mg/dL CSF C.neoform/gat PCR (Not Detect) CSF CMV DNA (PCR) (Not Detect) CSF Enterovirus (PCR) (Not Detect) CSF E. coli (PCR) (Not Detect) CSF H. influenzae (PCR) (Not Detect) CSF HSV I (PCR) (Not Detect) CSF HSV II (PCR) (Not Detect) CSF HHV 6 (PCR) (Not Detect) CSF L.monocytogenes PCR (Not Detect) CSF N. meningitidis PCR (Not Detect) CSF Parechovirus (PCR) (Not Detect) CSF S. agalactiae (PCR) (Not Detect) CSF S. pneumoniae (PCR) (Not Detect) CSF VZV (PCR) Urine Opiates Screen Negative (Negative) Ur Oxycodone Screen Negative (Negative) Urine Methadone Screen Negative (Negative) Ur Barbiturates Screen Negative (Negative) U Tricyclic Antidepress Negative (Negative) Ur Phencyclidine Scrn Negative (Negative) Ur Amphetamines Screen Negative (Negative) U Methamphetamines Scrn Negative (Negative) Ur MDMA Scrn (Ecstasy) Negative (Negative) U Benzodiazepines Scrn Negative (Negative) Urine Cocaine Screen Negative (Negative) U Marijuana (THC) Screen Negative (Negative) Ethyl Alcohol mg/dL Influenza A & B (PCR) (Negative) Point of Care Testing Glucose POC 124 Urine Dip Bedside Urine Glucose Negative Bedside Urine Bilirubin - Negative Bedside Urine Ketone ++ 40 Urine Specific [place] 1.025 Bedside Urine Occult Blood - Negative Bedside Urine pH 6.0 Bedside Urine Protein +/- 15 Bedside Urine Urobilinogen - Negative Bedside Urine Nitrite - Negative Bedside Urine Leukocytes - Negative Esterase Imaging Data CT scan - head: Attestation: I personally reviewed and interpreted this imaging study as follows: (Negative) Radiologist's impression: PROCEDURE: CT HEAD/BRAIN WO CON INDICATIONS: aphasia, h/o migraines. TECHNIQUE: Noncontrast 4.5 mm thick angled axial sections acquired from the foramen magnum to the vertex, with coronal and sagittal reformats. For radiation dose reduction, the following was used: automated exposure control, adjustment of mA and/or kV according to patient size. COMPARISON: [facility], CT, CT HEAD/BRAIN WO [facility], 12/01/2017, 13:34. FINDINGS: Image quality: Excellent. CSF spaces: Basal cisterns are patent. No extra-axial fluid collections. The ventricles are symmetric in size and shape. Brain: No intracranial bleeds or masses. There is cerebral volume loss for age , with resultant ventricular and sulcal prominence. There are periventricular and deep white matter chronic small vessel ischemic changes. There is intracranial internal carotid artery atherosclerosis. Skull and face: Calvarium and visualized facial bones appear intact, without suspicious lesions. Sinuses: Visualized sinuses and mastoids are clear. IMPRESSION: No CT evidence of acute intracranial pathology. Dictated by: Fransico Kate M.D. on 07/08/2018 at 12:24 Approved by: Fransico Kate M.D. on 07/08/2018 at 12:25 Chest x-ray: Attestation: I personally reviewed and interpreted this imaging study as follows: My impression: Negative Radiologist's impression: ROCEDURE: XR CHEST 1V INDICATIONS: fever TECHNIQUE: One view of the chest was acquired. COMPARISON: None. FINDINGS: Surgical changes and devices: None. Lungs and pleura: Lungs are clear. No pleural effusions or pneumothorax. Mediastinum: Mediastinal contours appear normal. Heart size is normal. Bones and chest wall: No suspicious bony lesions. Overlying soft tissues appear unremarkable. IMPRESSION: No acute process. Dictated by: Madhu Martin M.D. on 07/08/2018 at 19:06 Approved by: Madhu Martin M.D. on 07/08/2018 at 19:06 ECG Data Attestation: I personally reviewed and interpreted this ECG as follows: (See below) Interpretation: Twelve lead EKG performed July 08, 2018 at 12:23 p.m., as follows: Regular ventricular rhythm with a rate of 68 beats per minute ID Interval 146 milliseconds QRS duration 85 milliseconds QTC interval [address] T wave changes No ectopy Interpretation: Normal sinus rhythm; borderline left axis deviation; moderate voltage criteria for LVH, consider normal variant; no STEMI; borderline EKG as interpreted by ED MD. Discharge Plan Departure Patient Disposition: Admitted as Observation Clinical Impression: Acute alteration in mental status, Fever, Headache Discharge Date/Time: 07/08/18 19:12 Interventions: ED Discharge Assessment Last Done: 07/08/18 19:11 Admit Date/Time: 07/08/18 19:06 Admit Provider: Thomas Uribe
[2018-07-08 13:48] LABS: Alanine Aminotransferase 26 IU/L (9-52); Albumin 4.8 g/dL (3.5-5.0); Albumin Globulin Ratio 1.4 (1.0-2.8); Alkaline Phosphatase 91 U/L (38-126); Aspartate Aminotransferase 28 IU/L (14-36); Bilirubin Total 1.1 mg/dL (0.2-1.3); Blood Urea Nitrogen 14 mg/dL (7-17); Calcium 9.5 mg/dL (8.4-10.2); Carbon Dioxide 22 mmol/L (22-32); Chloride 98 mmol/L (98-107); Estimated Glomerular Filt Rate > 60.0 mL/min (>60); Ethanol (ETOH) < 10 mg/dL; Globulin 3.4 g/dL (1.7-4.1); Glucose 118 mg/dL (80-110); HEMOLYSIS < 15 (0-50); Potassium 3.8 mmol/L (3.4-5.1); Sodium 136 mmol/L (137-145); Total Protein 8.2 g/dL (6.3-8.2)
[2018-07-08 15:40] LABS: Influenza A and B by PCR Rapid Negative (Negative)
[2018-07-08 17:08] LABS: Glucose CSF 67 mg/dL (40-70); Total Protein CSF 27 mg/dL (12-60)
--- NOTE | 2018-07-08 17:23 | PC.NURSE ---
Pt is more verbal, she continues at times to not say the correct thing or the answer doesn't match the question. Pt is starting to make her needs known.
[2018-07-08 17:44] LABS: Urine Amphetamines Negative (Negative); Urine Barbiturates Negative (Negative); Urine Benzodiazepines Negative (Negative); Urine Cocaine Negative (Negative); Urine MDMA Negative (Negative); Urine Methadone Negative (Negative); Urine Methamphetamines Negative (Negative); Urine Morphine/Opi cutoff 2000 Negative (Negative); Urine Oxycodone Negative (Negative); Urine Phencyclidine Negative (Negative); Urine Tetrahydrocannabinol Negative (Negative); Urine Tricyclic Antidepressant Negative (Negative)
[2018-07-08 17:55] LABS: Appearance CSF C (Clear); CSF Tube Number 4; CSF Tube Volume 2.0 mL; Color CSF Colorless (Colorless)
[2018-07-08 17:56] LABS: HOLD TUBE CSF 1; Red Blood Cell CSF 32 RBC /uL; White Blood Cell CSF 3 MONO/uL (0-5)
--- NOTE | 2018-07-08 18:41 | DI.RAD.S_ITS ---
PROCEDURE: XR CHEST 1V INDICATIONS: fever TECHNIQUE: One view of the chest was acquired. COMPARISON: None. FINDINGS: Surgical changes and devices: None. Lungs and pleura: Lungs are clear. No pleural effusions or pneumothorax. Mediastinum: Mediastinal contours appear normal. Heart size is normal. Bones and chest wall: No suspicious bony lesions. Overlying soft tissues appear unremarkable. IMPRESSION: No acute process. Dictated by: Madhu Martin M.D. on 07/08/2018 at 19:06 Approved by: Madhu Martin M.D. on 07/08/2018 at 19:06
[2018-07-08 18:44] LABS: Enterovirus Not Detected (Not Detect); Escherichia coli K1 Not Detected (Not Detect); Herpes simplex virus 1 Not Detected (Not Detect); Herpes simplex virus 2 Not Detected (Not Detect); Human herpesvirus 6 Not Detected (Not Detect); Human parechovirus Not Detected (Not Detect); Streptococcus pneumoniae Not Detected (Not Detect)
[2018-07-08 18:45] LABS: Cryptococcus neoformans/gattii Not Detected (Not Detect); Haemophilus influenzae Not Detected (Not Detect); Listeria monocytogenes Not Detected (Not Detect); Neisseria meningitidis Not Detected (Not Detect); Streptococcus agalactiae Not Detected (Not Detect); Varicella Zoster Virus Not Detected
--- NOTE | 2018-07-08 20:10 | PM.HP.1 ---
History of Present Illness Date Patient Seen: 07/08/18 Time Patient Seen: 19:25 Chief complaint: sent by walk in for stroke like symptoms Narrative: This is a 63-year-old female with a history of migraines, hypertension, mixed hyperlipidemia and anxiety who presents to the emergency department with headache and altered mental status. Patient reports having a frontal and right-sided migrainous headache typical of her previous pattern that started yesterday. The patient took 1/2 for usual dose of Imitrex because per family report the patient does not like taking medicines. The patient developed a change in mentation difficulty recognizing people communicating an inappropriate response to questions. The family reports that altered mental status has been a feature of her last severe migraine for which she was seen in the emergency department on December 01, 2017. Patient has associated nausea with vomiting. She vomited 3 times yesterday. She reports continuing nausea but no vomiting today. Patient has a low low-grade temperature at 100.8 on her prior episode last November she had a similar temperature elevations the higher at 102.1. No spinal tap was completed at that time due to family refusal. With family describes a prodromal of possibly runny nose but has also been under increased stress. At this time the patient has persistent headache rated at 5 to 6/10, altered mentation perseveration, fever, photophobia, neck tenderness without nuchal rigidity, nausea without vomiting. She denies trauma or injury, dizziness, focal weakness or ataxia, numbness or tingling, fevers or chills, chest pain, cough or shortness of breath, no complaints of constipation or diarrhea, no urinary symptoms of frequency urgency or hematuria. Family as the patient has been exercising regularly and improved her diet and attempt to control her cholesterol level. In the ER the patient received Toradol with improvement in her headache but no change in mental status and Reglan for her nausea. She received a saline bolus. Labs were completed showing an elevated white blood cell count of 15 increase in neutrophils decrease in lymphocytes. No anemia with thrombocytopenia is evident. Blood chemistries all values are within range however she does have a BUN creatinine ratio 20-1. Flu a and B were tested which were negative a tox screen was completed which is negative, she is negative for alcohol. Lumbar puncture was performed with no significant findings on CSF which is to be cultured. Chest x-ray is unremarkable and head CT shows no acute intracranial pathology does note chronic periventricular and white matter ischemic changes. Patient History Medical History Essential hypertension (Chronic 05/28/16) Mixed hyperlipidemia (Chronic 05/28/16) Anxiety (Chronic) Migraines (Chronic) Surgical History Hx of section (Resolved ~1980) Family History Father History of high blood pressure Social History household members: spouse Smoking Status: Never smoker second hand exposure: No alcohol intake: never substance use type: does not use Family & Social History Family History Father History of high blood pressure Social History: household members spouse Prior Living Arrangements House Safety & Behavioral: Feels Safe in Current Yes Environment Been Physically Hurt or No Threatened By a Person Suicidal Ideation Description None Suicide Plan Description No Plan Tobacco & Substance use: Smoking Status Never smoker alcohol intake never alcohol intake frequency 0-2 drinks per day Substance Use Type does not use Comment: The patient has been for 44 years and lives with her her son and daughter in a single family home. Her parents are both living with her father having hypertension and her mother previously having hypertension no longer on medication. She has 1 brother and 1 sister, her sister has migraine headaches as does her grandmother. She has a son who is in good health. Smoking history: Never smoked Alcohol consumption: Does not drink alcohol Substance use: No recreational pharmaceuticals or cannabis products Advanced directives: The patient is unable to declare choice repeatedly stating ?I am okay?. Her surrogate decision maker is her spouse, Jomar Starks. Meds Home Medications Medication Instructions Recorded Confirmed Type Vitamin C 1 tab PO QDAY #0 11/18/16 07/08/18 History metoprolol succinate [Toprol XL] 25 mg PO QDAY #90 ter 07/21/17 07/08/18 Rx multivitamin tablet 1 tab PO QDAY #0 12/01/17 07/08/18 History ondansetron 4 mg disintegrating 4 mg PO TID PRN #20 tab 12/01/17 07/08/18 Rx tablet sumatriptan 50 mg tablet See Label Instructions .ROUTE 01/26/18 07/08/18 History .COMPLEX rosuvastatin 10 mg PO BEDTIME 07/08/18 07/08/18 History Allergies Allergy/AdvReac Type Severity Reaction Status Date / Time No Known Drug Allergies Allergy Verified 01/26/18 12:39 Review of Systems Review of Systems Subjective analysis significantly impaired due to altered mental status of the patient, additional information obtained from family present at bedside. Constitutional: Positive for possible prodromal URI, fevers, poor appetite, Denies chills, sweats, stable weight Eyes: Positive for photophobia, denies diplopia ENT: Positive for migraine headaches last headache over 6 months ago, runny nose, neck pain Denies ear pain, dysphagia, sore throat or dentalgia, no neck stiffness Respiratory: Denies SOB, cough, exertional dyspnea, wheezing Cardiovascular: Denies chest pain, orthostatic dizziness, syncope, edema Gastrointestinal: Positive for nausea and vomiting, Denies abdominal pain, heartburn, constipation or diarrhea, denies blood in stool. Genitourinary: denies complains of frequency, burning or urgency, hematuria on voiding Musculoskeletal: denies falls, weakness, limited movement, cramps, edema, myalgia or joint swelling. Integumentary: denies skin lesions, masses, rashes, hives, itching Neurological: Positive for confusion, denies dizziness, ataxia numbness or tingling, speech difficulties or seizures Psychiatric: Positive for perseveration, nonlinear thought, anxiety, per family report denies changes in mood, substance abuse Endocrine: denies excessive thirst, frequent urination, goiter, lethargy, abnormal sweating, and heat/cold intolerance. Heme/lymph: Denies lymphadenopathy, abnormal bleeding or bruising Exam Vital Signs (past 8 hours): - 07/08/18 13:03 07/08/18 14:00 07/08/18 14:30 Temperature Pulse Rate 67 62 63 Respiratory Rate 16 17 22 Blood Pressure Blood Pressure [Right Arm] 149/72 H 132/58 L 137/62 Pulse Oximetry 99 95 97 07/08/18 15:00 07/08/18 15:44 07/08/18 16:30 Temperature Pulse Rate 86 69 64 Respiratory Rate 25 H 13 19 Blood Pressure Blood Pressure [Right Arm] 126/64 136/62 125/55 L Pulse Oximetry 100 07/08/18 16:57 07/08/18 18:00 07/08/18 19:53 Temperature 98.8 F 99.1 F Pulse Rate 75 64 Respiratory Rate 19 18 Blood Pressure 143/68 H Blood Pressure [Right Arm] 126/66 Pulse Oximetry 100 Oxygen Delivery Method Room Air Narrative Exam Narrative: General: Well developed, overweight female with BMI of 29.5, uncomfortable appearing, in no acute distress. Skin: Warm, dry, pink, no rashes, no visible lesions HEENT: Normocephalic, symmetrical face ease, photophobia, PERRLA at 3 mm bilaterally, limited EOMs intact without nystagmus, conjunctiva moist, sclera is anicteric, no ear pain, hearing grossly normal, no rhinorrhea, oropharynx is moist and pink without lesions or exudate, uvula midline, posterior pharynx without inflammation, no cervical lymphadenopathy Neck: Supple, no palpable muscle spasms, no masses, no thyromegaly or nodules, trachea midline, no carotid bruits or JVD, no supraclavicular lymphadenopathy Cardiac: Regular rate and rhythm, S1-S2, no murmur, no gallops or rubs, 2+ radial pulse, 1+ dorsalis pedis pulse, capillary refill is brisk, bilateral feet slightly cool to touch, no edema Chest: Symmetrical movement, breathing non labored, no cough present, BS equal bilateral without coarseness, crackles or wheezes Abdomen: Soft, no epigastric or abdominal tenderness or guarding, no masses or organomegaly, no suprapubic pain, BS normal. Back: Normal curvature, no tenderness to palpation, no bleeding or CSF from lumbar puncture site, no CVA tenderness on percussion Extremities: Intact ROM, no synovial effusions or deformities, strength appears normal limited by ability to follow commands, symmetrical Neuro: Alert, oriented to person only cranial nerve exam limited by ability of patient cooperate, symmetrical faces, no ptosis, no facial droop, no dysphonia, speech is clear, distal sensation intact to light touch Psych: Withdrawn, perseverating, thought nonlinear, stable mood and congruent affect Objective Labs Result Diagrams: 07/08/18 12:30 07/08/18 13:15 Labs: Laboratory Results - last 24 hr 07/08/18 07/08/18 07/08/18 12:30 12:30 13:15 WBC 15.0 H RBC 5.06 Hgb 14.9 Hct 44.3 MCV 87.6 MCH 29.5 MCHC 33.6 RDW 14.0 Plt Count 258 Neut % (Auto) 85.3 H Lymph % (Auto) 9.4 L [place] % (Auto) 4.7 Eos % (Auto) 0.3 L Baso % (Auto) 0.3 Neut # (Auto) 57877 H Lymph # (Auto) 1400 [place] # (Auto) 700 Eos # (Auto) 0 Baso # (Auto) 0 PT 12.8 H INR 1.1 APTT 26 L Sodium 136 L Potassium 3.8 Chloride 98 Carbon Dioxide 22 BUN 14 Creatinine 0.70 Estimated GFR > 60.0 BUN/Creatinine Ratio 20.0 Glucose 118 H Calcium 9.5 Total Bilirubin 1.1 AST 28 ALT 26 Alkaline Phosphatase 91 Total Protein 8.2 Albumin 4.8 Globulin 3.4 Albumin/Globulin Ratio 1.4 CSF Tube Number CSF Volume CSF Appearance CSF Color CSF WBC CSF RBC CSF Mononuclear WBCs CSF Polynuclear WBCs CSF Glucose CSF Total Protein CSF C.neoform/gat PCR CSF CMV DNA (PCR) CSF Enterovirus (PCR) CSF E. coli (PCR) CSF H. influenzae (PCR) CSF HSV I (PCR) CSF HSV II (PCR) CSF HHV 6 (PCR) CSF L.monocytogenes PCR CSF N. meningitidis PCR CSF Parechovirus (PCR) CSF S. agalactiae (PCR) CSF S. pneumoniae (PCR) CSF VZV (PCR) Urine Opiates Screen Ur Oxycodone Screen Urine Methadone Screen Ur Barbiturates Screen U Tricyclic Antidepress Ur Phencyclidine Scrn Ur Amphetamines Screen U Methamphetamines Scrn Ur MDMA Scrn (Ecstasy) U Benzodiazepines Scrn Urine Cocaine Screen U Marijuana (THC) Screen Ethyl Alcohol < 10 Influenza A & B (PCR) 07/08/18 07/08/18 07/08/18 15:20 16:40 16:40 WBC RBC Hgb Hct MCV MCH MCHC RDW Plt Count Neut % (Auto) Lymph % (Auto) [place] % (Auto) Eos % (Auto) Baso % (Auto) Neut # (Auto) Lymph # (Auto) [place] # (Auto) Eos # (Auto) Baso # (Auto) PT INR APTT Sodium Potassium Chloride Carbon Dioxide BUN Creatinine Estimated GFR BUN/Creatinine Ratio Glucose Calcium Total Bilirubin AST ALT Alkaline Phosphatase Total Protein Albumin Globulin Albumin/Globulin Ratio CSF Tube Number 4 CSF Volume 2.0 ml CSF Appearance C CSF Color Colorless CSF WBC 3 CSF RBC 32 CSF Mononuclear WBCs Not Reportable CSF Polynuclear WBCs Not Reportable CSF Glucose 67 CSF Total Protein 27 CSF C.neoform/gat PCR Not detected CSF CMV DNA (PCR) Not detected CSF Enterovirus (PCR) Not detected CSF E. coli (PCR) Not detected CSF H. influenzae (PCR) Not detected CSF HSV I (PCR) Not detected CSF HSV II (PCR) Not detected CSF HHV 6 (PCR) Not detected CSF L.monocytogenes PCR Not detected CSF N. meningitidis PCR Not detected CSF Parechovirus (PCR) Not detected CSF S. agalactiae (PCR) Not detected CSF S. pneumoniae (PCR) Not detected CSF VZV (PCR) Not detected Urine Opiates Screen Ur Oxycodone Screen Urine Methadone Screen Ur Barbiturates Screen U Tricyclic Antidepress Ur Phencyclidine Scrn Ur Amphetamines Screen U Methamphetamines Scrn Ur MDMA Scrn (Ecstasy) U Benzodiazepines Scrn Urine Cocaine Screen U Marijuana (THC) Screen Ethyl Alcohol Influenza A & B (PCR) Negative 07/08/18 17:30 WBC RBC Hgb Hct MCV MCH MCHC RDW Plt Count Neut % (Auto) Lymph % (Auto) [place] % (Auto) Eos % (Auto) Baso % (Auto) Neut # (Auto) Lymph # (Auto) [place] # (Auto) Eos # (Auto) Baso # (Auto) PT INR APTT Sodium Potassium Chloride Carbon Dioxide BUN Creatinine Estimated GFR BUN/Creatinine Ratio Glucose Calcium Total Bilirubin AST ALT Alkaline Phosphatase Total Protein Albumin Globulin Albumin/Globulin Ratio CSF Tube Number CSF Volume CSF Appearance CSF Color CSF WBC CSF RBC CSF Mononuclear WBCs CSF Polynuclear WBCs CSF Glucose CSF Total Protein CSF C.neoform/gat PCR CSF CMV DNA (PCR) CSF Enterovirus (PCR) CSF E. coli (PCR) CSF H. influenzae (PCR) CSF HSV I (PCR) CSF HSV II (PCR) CSF HHV 6 (PCR) CSF L.monocytogenes PCR CSF N. meningitidis PCR CSF Parechovirus (PCR) CSF S. agalactiae (PCR) CSF S. pneumoniae (PCR) CSF VZV (PCR) Urine Opiates Screen Negative Ur Oxycodone Screen Negative Urine Methadone Screen Negative Ur Barbiturates Screen Negative U Tricyclic Antidepress Negative Ur Phencyclidine Scrn Negative Ur Amphetamines Screen Negative U Methamphetamines Scrn Negative Ur MDMA Scrn (Ecstasy) Negative U Benzodiazepines Scrn Negative Urine Cocaine Screen Negative U Marijuana (THC) Screen Negative Ethyl Alcohol Influenza A & B (PCR) Assessment & Plan Plan: Assessment/Plan Narrative: 63-year-old female patient is admitted to the medical-surgical floor for altered mental status and leukocytosis with a history of migraines. 1. Migraine headache, acute -patient with history of migraine headaches with patient seen in the emergency department for last migraine headache on 12/01/2017. -1 previous episode the patient had elevated temperature and altered mental status and resolved with rehydration. -CT of the head is negative with only periventricular and white matter ischemic changes, lumbar puncture done with CSF that is unremarkable, neck pain predating onset of headache, no nuchal rigidity -significantly dense altered mental status with inability to communicate effectively, perseverates, follows commands inconsistently, no reports ataxia weakness or altered sensation -patient is on sumatriptan at home and will be continued during hospitalization is needed -IV normal saline for dehydration evidenced by BUN to creatinine ratio of 20:1 -bedside swallow screen demonstrated difficulty with manipulating cup and straw, slight drooling, patient is made NPO and will have speech evaluate -will monitor the patient overnight and consider MRI in the morning 2. Leukocytosis, acute -unknown etiology, no infective source identified, elevated neutrophil feels, low lymphocytes, procalcitonin is less than 0.05 -will obtain a respiratory panel 3. Hypertension, chronic, active -patient with mildly elevated systolic pressure likely related to her pain -will monitor pressures and continue patient's home medication of metoprolol XL 25 mg daily 4. Hyperlipidemia, chronic, presume stable -will continue patient's 10 mg rosuvastatin daily 5. Anxiety -family describes patient with history of anxiety was temporally on medication -they report no mood disturbance although the patient has been under a great deal of stress per family report -may be contributory to migraine but unable to assess due to patient's altered mental status, will re-evaluate S patient's status improves Patient is admitted observation to the medical floor related to risk of complication and ongoing monitoring and evaluation. Expected length of stay is less than 2 midnights. Time Spent With Patient Time with patient: 25 - 35 minutes Scores GCS [place] coma scale eye opening: To sound [place] coma scale verbal response: Confused [place] coma scale motor response: Obey commands (Inconsistently) Yanci coma scale total score: 13 ABCD2 Age >= 60 years: yes Initial BP. Either SBP >= 140 or DBP >= 90.: no Clinical features of the TIA: other symptoms (Cognitive impairment, dysphagia) Duration of symptoms: >= 60 minutes History of diabetes: no ABCD2 Score: 3 Quality VTE Deep Vein Thrombosis/Pulmonary Embolism Present on Admission: No
[2018-07-08] MEDS: SODIUM CHLORIDE 0.9% 1,000 ML 100 ML IV (20:21)
[2018-07-08 20:51] LABS: Procalcitonin < 0.05 ng/mL (<0.5)
[2018-07-08] MEDS: ONDANSETRON 4 MG/2 ML INJ IV (21:47)
[2018-07-08] MEDS: METOPROLOL ER 25 MG TABLET PO (22:55)
[2018-07-09] VITALS (14 sets, daily range): BP systolic 119–151; BP diastolic 51–77; PULSE 64–75; RESP 16–18; TEMP 36.8–38.4; O2SAT 91–100
--- NOTE | 2018-07-09 | DI.MRI.S_ITS ---
PROCEDURE: MR STROKE Pre- and post-contrast brain MRI, non-contrast brain MR angiogram, pre- and postcontrast neck MR angiogram INDICATIONS: stoke like symptoms TECHNIQUE: Brain: Noncontrast axial T1 spin echo, axial T2 fast spin echo, sagittal and axial FLAIR, coronal T2 fast spin echo, axial gradient echo, axial diffusion and ADC through the brain. After the administration of contrast, axial 3D VIBE of the cranial vasculature and brain. Brain MRA: Non-contrast 3-D time of flight MR angiogram, with multiple yitwfjz-vukhsxfbd-hsnrmaypmc (MIP) reformats performed. Neck MRA: Axial and sagittal TruFISP through the neck. Coronal dynamic MR angiogram during administration of contrast in the arterial and venous phases, with 3-dimenstional mezkcto-jszhpdcfh-jfbnpsiajf (MIP) reformats constructed from subtraction images. COMPARISON: [facility], CT, CT HEAD/BRAIN WO CON, 07/08/2018, 12:04. FINDINGS: Image quality: Excellent. BRAIN: CSF spaces: Ventricles are normal in size and shape. Basal cisterns are patent. No extra-axial fluid collections. Brain: No intracranial bleeds or mass effects. [place]lee-white matter interface is normal. Diffusion weighted images show no acute ischemic insults. Brainstem appears normal. Normal intravascular flow voids are present. No abnormal intracranial enhancement. Skull and face: Calvarial marrow signal is normal. Orbits appear normal. Sinuses: Sinuses and mastoids are clear. BRAIN MR ANGIOGRAM: Anterior circulation: Intracranial internal carotid arteries are normal in size and enhancement. The flow within the paired anterior cerebral arteries is normal and symmetric. The flow within the middle cerebral arteries is normal and symmetric. The anterior communicating artery is seen. No stenoses, occlusions, or aneurysms. Posterior circulation: The visualized portions of the vertebral arteries demonstrate normal caliber, and join to form a normal appearing basilar artery. The flow within the posterior cerebral arteries is normal and symmetric. No stenoses, occlusions, or aneurysms. NECK MR ANGIOGRAM: Carotids: Great vessels demonstrate a conventional anatomy as they arise from the aortic arch. The origins of the common carotid arteries appear patent. The calibers and courses of both common carotid arteries are normal. The bifurcation regions appear normal bilaterally. The internal carotid arteries demonstrate normal course and caliber. Posterior circulation: The origins of the vertebral arteries appear patent. More superior portions of both vertebral arteries demonstrate normal course and caliber, and join to form a normal appearing basilar artery. Miscellaneous: Subclavian arteries appear patent. Pre-contrast images through the neck show no soft tissue abnormalities. IMPRESSION: BRAIN MRI: No acute process. No recent infarct. BRAIN MR ANGIOGRAM: Negative cerebral MR angiography. NECK MR ANGIOGRAM: 1. No internal carotid artery stenosis bilaterally. 2. Patent bilateral vertebral arteries. Dictated by: Madhu Martin M.D. on 07/09/2018 at 11:15 Approved by: Madhu Martin M.D. on 07/09/2018 at 11:24
[2018-07-09 00:18] LABS: Adenovirus Not Detected (Not Detect); Bordetella pertussis Not Detected (Not Detect); Chlamydophila pneumoniae Not Detected (Not Detect); Coronavirus 229E Not Detected (Not Detect); Coronavirus HKU1 Not Detected (Not Detect); Coronavirus NL 63 Not Detected (Not Detect); Coronavirus OC43 Not Detected (Not Detect); Human Metapneumovirus Not Detected (Not Detect); Human Rhinovirus/Enterovirus Not Detected (Not Detect); Influenza A Not Detected (Not Detect); Influenza B Not Detected (Not Detect); Mycoplasma pneumoniae Not Detected (Not Detect); Parainfluenza Virus 1 Not Detected (Not Detect); Parainfluenza Virus 2 Not Detected (Not Detect); Parainfluenza Virus 3 Not Detected (Not Detect); Parainfluenza Virus 4 Not Detected (Not Detect); Respiratory Syncytial Virus Not Detected (Not Detect)
[2018-07-09] MEDS: ACETAMINOPHEN 325 MG TABLET 650 MG PO ×3 (00:38→20:21)
--- NOTE | 2018-07-09 04:02 | PC.NURSE ---
shift nurse manager 2330: Assumed care of pt with safe hand off. Safety checks done. Pt sleepy. 0040: Neurological assessment done. Pt unable to tell me where she is or her name. Pt opens eyes to verbal commands. Able to track finger. Unable to touch nose and then finger in front of her face. Pt able to lift bilateral arms in air and hold. Pt able to squeeze hands with equal strength. Pt unable to follow commands when assessing lower extremities. Pt appeared to be a little more confused as assessment continued. Repeated feeling tired and same at the end of her neurological assessment. 0300: Son Rodriguez updated on pt's condition.
[2018-07-09 06:16] LABS: Add Manual Diff / Slide Review NO; Basophils Absolute Auto 0 /uL (0-100); Basophils Percent Auto 0.3 % (0-2); Eosinophils Absolute Auto 0 /uL (0-450); Hematocrit 38.2 % (36-46); Lymphocytes Absolute Auto 1800 /uL (1100-4500); Lymphocytes Percent Auto 14.5 % (25-40); Mean Corpuscular HGB Conc 34.1 % (30-36); Mean Corpuscular Hemoglobin 29.6 PG (26-34); Mean Corpuscular Volume 86.9 fL (80-100); Monocytes Absolute Auto 700 /uL (0-900); Monocytes Percent Auto 6.1 % (3-14); Neutrophils Absolute Auto 9600 /uL (1500-7000); Neutrophils Percent Auto 79.1 % (50-75); Platelet Count 211 X10^3/uL (150-400); Red Blood Cell Count 4.39 X10^6/uL (4.0-5.2); Red Cell Distribution Width 13.6 % (11.6-14.8); White Blood Cell Count 12.1 X10^3/uL (4.5-11.0)
[2018-07-09] MEDS: PANTOPRAZOLE 20 MG TABLET PO (06:17)
[2018-07-09] MEDS: SODIUM CHLORIDE 0.9% 1,000 ML 100 ML IV ×2 (06:17→16:12)
[2018-07-09 06:32] LABS: BUN Creatinine Ratio 21.4 (6-22); Blood Urea Nitrogen 15 mg/dL (7-17); Calcium 8.6 mg/dL (8.4-10.2); Carbon Dioxide 22 mmol/L (22-32); Chloride 105 mmol/L (98-107); Estimated Glomerular Filt Rate > 60.0 mL/min (>60); Glucose 107 mg/dL (80-110); HEMOLYSIS < 15 (0-50); Potassium 3.7 mmol/L (3.4-5.1); Sodium 137 mmol/L (137-145)
[2018-07-09] MEDS: DEXAMETHASONE 4 MG/ML VIAL IV (09:16)
[2018-07-09 09:17] LABS: C-Reactive Protein Quant 1.2 mg/dL (<1.0)
[2018-07-09 09:30] LABS: Erythrocyte Sedimentation Rate 7 MM/HR (0-20)
[2018-07-09 12:39] LABS: Bacteria Urine None Seen; RBC Urine None Seen (0-5/HPF); WBC Urine None Seen (0-5/HPF)
[2018-07-09 12:44] LABS: Bilirubin Urine UA NEGATIVE (NEGATIVE); Color Urine UA YELLOW; Glucose Urine UA NEGATIVE (Negative); Ketones Urine UA 2+ (NEGATIVE); Leukocyte Esterase Urine UA NEGATIVE (NEGATIVE); Nitrite Urine UA NEGATIVE (Negative); Occult Blood Urine UA NEGATIVE (Negative); Protein Urine UA TRACE (Negative); Specific Gravity Urine UA >=1.030 (1.000-1.035); Urobilinogen Urine UA 0.2 E.U./dL (0.2)
[2018-07-09 13:02] LABS: Appearance Urine UA Cloudy
[2018-07-09 13:05] LABS: Amorphous Sediment Urine 4+; Culture Indicated Urine Cult Not Indicated
--- NOTE | 2018-07-09 13:21 | ST.IPCSEOM ---
Past Medical History (Last Reviewed 07/08/18 @ 20:24 by CHERYL Spaulding) Essential hypertension (Chronic Medical 05/28/16) Controlled Mixed hyperlipidemia (Chronic Medical 05/28/16) controlled Anxiety (Chronic Medical) Migraines (Chronic Medical) Speech-Language Pathology Swallow Evaluation [employer] Clinical Swallow Evaluation Start: 07/09/18 13:08 Freq: Status: Active Protocol: Document 07/09/18 13:08 TLC (Rec: 07/09/18 13:21 TLC [id number]) Clinical Swallow Evaluation Session Time Visit Start Time 12:35 Visit Stop Time 13:05 Total Visit Minutes [address] Uribe Reason for Referral Failed swallow screen Setting Assessment Location Acute Care Visit Type Note Type Initial Evaluation Next Note Type Next Note Type Treatment Note Patient Information Identification Type Name Subjective Observations Patient's son in room. Patient agreed to sit up to participate in evaluation. Requested a few minutes before getting started with evaluation and stated I just woke up - I need a minute Evaluation Liquids Trialed Ice Chips Thin Solids Trialed Puree Mechanical Soft Regular Administration Type Tea Spoon Cup Consecutive Sips Dependent Feeding Oral Impairment Mildly Impaired Oral Strategies Upright at 90 degrees Controlled Bite/Sip Size Alternate Liquids/Solids Oral Phase Comments Patient did not follow directions or imitate visual cues; therefore, oral mech eval was limited. Patient attempted to drink from apple sauce cup during trials of self-feeding. Given feeding assistance, oral acceptance was functional. Mastication and bolus transport appeared to be timely. Mild oral residue present with emanuel crackers. Patient did not respond to verbal cue to swallow. Mechanical soft textures recommended to minimize oral residue given patient's inability to follow cues. Pharyngeal Phase Comments No signs or symptoms of aspiration observed with any textures including self- administered cup sips. Findings Dysphagia Type Mild Rehabilitation Potential Good Impressions Patient presents with mild oral phase dysphagia secondary to altered mental status which impairs her ability to follow verbal cues such as a double swallow to clear oral residue. For this reason, patient needs 1:1 feeding assistance and implementation of strategies such as small bite/sip size and alternating liquids/solids when being fed to minimize oral residue. Diet Recommendations Liquids Order Thin Diet Order Mechanical Soft Medication Recommendations As Tolerated Comments Meds not trialed during evaluation Additional Dietary Needs No Straws 1:1 Assistance Aspiration Precautions Recommended Precautions Upright at 90 Degrees Alternate Liquids/Solids Small Bites/Sips Treatment Plan Placement Recommendations after Home Discharge Appropriate for Therapy Yes Therapy Recommendations Dysphagia management in the presence of altered mental status. Patient may be appropriate for speech/ language evaluation if symptoms do not improve. Dysphagia Goals Jhoana will demonstrate the ability to adequately self- monitor swallowing skills and perform appropriate compensatory techniques to consume meals safely and independently.
[2018-07-09] MEDS: diphenhydrAMINE 25 MG TABLET 50 MG PO (14:11)
[2018-07-09] MEDS: DIVALPROEX DR 250 MG TABLET 1000 MG PO (14:11)
--- NOTE | 2018-07-09 14:20 | PM.PN.1 ---
Subjective Date Patient Seen: 07/09/18 Interval history: She is seen today to follow-up her migraine headache condition, fevers, altered mental status and an apparently rare phenomena of fevers associated with migraines. She has had a thorough workup looking for evidence of meningitis or encephalitis. I have reviewed the CSF studies. We gave her a single dose of dexamethasone 4 mg IV without benefit. A brain MRI was done this morning which was normal. The CSF viral panel was negative. The CRP is mildly elevated. The ESR is normal. The anti double stranded DNA is still pending and the heavy metals are still pending. I have spoken with Dr. Puga, the on-call neurologist at [facility] in [place]. I am not familiar with a fever/leukocytosis condition that is related to migraines but he tells me that it is a published and rare phenomena that should be worked up as we have done but then if no infection is evident should be treated with a traditional migraine intervention. Exam Vital Signs (past 8 hours): - 07/09/18 07:25 07/09/18 09:05 Temperature 100.1 F H Pulse Rate 69 Respiratory Rate 18 Blood Pressure 119/65 Pulse Oximetry 91 91 Oxygen Delivery Method Room Air Oxygen Flow Rate 0 Narrative Exam Narrative: She is alert but sounds confused. Her choice of words is best described as word salad. It is unclear whether she is understanding what I am asking or saying. Her neurological exam is noted for following some instructions and not others. Her dance professor strength is weak symmetrically. DTRs are symmetrically decreased. There is no lateralizing deficits and cranial nerves appear to be functioning. There is photophobia behaviors although she denies that. She is unable to open her eyes or stick out her tongue when requested. Heart is regular rate and rhythm without murmur. Lungs are clear to auscultation bilaterally. Abdomen is soft, bowel sounds positive, nontender, no organomegaly. Extremities no ankle edema. There is no nuchal rigidity or neck tenderness. Objective Labs Result Diagrams: 07/09/18 05:52 07/09/18 05:52 Labs: Laboratory Results - last 24 hr 07/08/18 07/08/18 07/08/18 15:20 16:40 16:40 WBC RBC Hgb Hct MCV MCH MCHC RDW Plt Count Neut % (Auto) Lymph % (Auto) [place] % (Auto) Eos % (Auto) Baso % (Auto) Neut # (Auto) Lymph # (Auto) [place] # (Auto) Eos # (Auto) Baso # (Auto) ESR Sodium Potassium Chloride Carbon Dioxide BUN Creatinine Estimated GFR BUN/Creatinine Ratio Glucose Calcium C-Reactive Protein Procalcitonin Urine Color Urine Appearance Urine pH Ur Specific [place] Urine Protein Urine Glucose (UA) Urine Ketones Urine Occult Blood Urine Nitrate Urine Bilirubin Urine Urobilinogen Ur Leukocyte Esterase Urine RBC Urine WBC Amorphous Sediment Urine Bacteria Ur Culture Indicated? CSF Tube Number 4 CSF Volume 2.0 ml CSF Appearance C CSF Color Colorless CSF WBC 3 CSF RBC 32 CSF Mononuclear WBCs Not Reportable CSF Polynuclear WBCs Not Reportable CSF Glucose 67 CSF Total Protein 27 CSF C.neoform/gat PCR Not detected CSF CMV DNA (PCR) Not detected CSF Enterovirus (PCR) Not detected CSF E. coli (PCR) Not detected CSF H. influenzae (PCR) Not detected CSF HSV I (PCR) Not detected CSF HSV II (PCR) Not detected CSF HHV 6 (PCR) Not detected CSF L.monocytogenes PCR Not detected CSF N. meningitidis PCR Not detected CSF Parechovirus (PCR) Not detected CSF S. agalactiae (PCR) Not detected CSF S. pneumoniae (PCR) Not detected CSF VZV (PCR) Not detected Urine Opiates Screen Ur Oxycodone Screen Urine Methadone Screen Ur Barbiturates Screen U Tricyclic Antidepress Ur Phencyclidine Scrn Ur Amphetamines Screen U Methamphetamines Scrn Ur MDMA Scrn (Ecstasy) U Benzodiazepines Scrn Urine Cocaine Screen U Marijuana (THC) Screen Chlamy pneumoniae PCR Adenovirus (PCR) B.parapertussis DNA PCR Coronavirus OC43 (PCR) Coronavirus HKU1 (PCR) Coronavirus 229E (PCR) Coronavirus NL63 (PCR) Human Metapneumovir PCR Influenza Type A (PCR) Influenza Type B (PCR) Influenza A & B (PCR) Negative M. pneumoniae (PCR) Parainfluenza 1 (PCR) Parainfluenza 2 (PCR) Parainfluenza 3 (PCR) Parainfluenza 4 (PCR) RSV (PCR) Entero/Rhino (PCR) 07/08/18 07/08/18 07/08/18 17:30 20:00 21:57 WBC RBC Hgb Hct MCV MCH MCHC RDW Plt Count Neut % (Auto) Lymph % (Auto) [place] % (Auto) Eos % (Auto) Baso % (Auto) Neut # (Auto) Lymph # (Auto) [place] # (Auto) Eos # (Auto) Baso # (Auto) ESR Sodium Potassium Chloride Carbon Dioxide BUN Creatinine Estimated GFR BUN/Creatinine Ratio Glucose Calcium C-Reactive Protein Procalcitonin < 0.05 Urine Color Urine Appearance Urine pH Ur Specific [place] Urine Protein Urine Glucose (UA) Urine Ketones Urine Occult Blood Urine Nitrate Urine Bilirubin Urine Urobilinogen Ur Leukocyte Esterase Urine RBC Urine WBC Amorphous Sediment Urine Bacteria Ur Culture Indicated? CSF Tube Number CSF Volume CSF Appearance CSF Color CSF WBC CSF RBC CSF Mononuclear WBCs CSF Polynuclear WBCs CSF Glucose CSF Total Protein CSF C.neoform/gat PCR CSF CMV DNA (PCR) CSF Enterovirus (PCR) CSF E. coli (PCR) CSF H. influenzae (PCR) CSF HSV I (PCR) CSF HSV II (PCR) CSF HHV 6 (PCR) CSF L.monocytogenes PCR CSF N. meningitidis PCR CSF Parechovirus (PCR) CSF S. agalactiae (PCR) CSF S. pneumoniae (PCR) CSF VZV (PCR) Urine Opiates Screen Negative Ur Oxycodone Screen Negative Urine Methadone Screen Negative Ur Barbiturates Screen Negative U Tricyclic Antidepress Negative Ur Phencyclidine Scrn Negative Ur Amphetamines Screen Negative U Methamphetamines Scrn Negative Ur MDMA Scrn (Ecstasy) Negative U Benzodiazepines Scrn Negative Urine Cocaine Screen Negative U Marijuana (THC) Screen Negative Chlamy pneumoniae PCR Not detected Adenovirus (PCR) Not detected B.parapertussis DNA PCR Not detected Coronavirus OC43 (PCR) Not detected Coronavirus HKU1 (PCR) Not detected Coronavirus 229E (PCR) Not detected Coronavirus NL63 (PCR) Not detected Human Metapneumovir PCR Not detected Influenza Type A (PCR) Not detected Influenza Type B (PCR) Not detected Influenza A & B (PCR) M. pneumoniae (PCR) Not detected Parainfluenza 1 (PCR) Not detected Parainfluenza 2 (PCR) Not detected Parainfluenza 3 (PCR) Not detected Parainfluenza 4 (PCR) Not detected RSV (PCR) Not detected Entero/Rhino (PCR) Not detected 07/09/18 07/09/18 07/09/18 04:22 05:52 05:52 WBC 12.1 H RBC 4.39 Hgb 13.0 Hct 38.2 MCV 86.9 MCH 29.6 MCHC 34.1 RDW 13.6 Plt Count 211 Neut % (Auto) 79.1 H Lymph % (Auto) 14.5 L [place] % (Auto) 6.1 Eos % (Auto) 0.0 L Baso % (Auto) 0.3 Neut # (Auto) 9600 H Lymph # (Auto) 1800 [place] # (Auto) 700 Eos # (Auto) 0 Baso # (Auto) 0 ESR Sodium 137 Potassium 3.7 Chloride 105 Carbon Dioxide 22 BUN 15 Creatinine 0.70 Estimated GFR > 60.0 BUN/Creatinine Ratio 21.4 Glucose 107 Calcium 8.6 C-Reactive Protein Procalcitonin Urine Color Yellow Urine Appearance Cloudy Urine pH 5.0 Ur Specific [place] >=1.030 H Urine Protein Trace H Urine Glucose (UA) Negative Urine Ketones 2+ H Urine Occult Blood Negative Urine Nitrate Negative Urine Bilirubin Negative Urine Urobilinogen 0.2 Ur Leukocyte Esterase Negative Urine RBC None seen Urine WBC None seen Amorphous Sediment 4+ Urine Bacteria None seen Ur Culture Indicated? Cult not indicated CSF Tube Number CSF Volume CSF Appearance CSF Color CSF WBC CSF RBC CSF Mononuclear WBCs CSF Polynuclear WBCs CSF Glucose CSF Total Protein CSF C.neoform/gat PCR CSF CMV DNA (PCR) CSF Enterovirus (PCR) CSF E. coli (PCR) CSF H. influenzae (PCR) CSF HSV I (PCR) CSF HSV II (PCR) CSF HHV 6 (PCR) CSF L.monocytogenes PCR CSF N. meningitidis PCR CSF Parechovirus (PCR) CSF S. agalactiae (PCR) CSF S. pneumoniae (PCR) CSF VZV (PCR) Urine Opiates Screen Ur Oxycodone Screen Urine Methadone Screen Ur Barbiturates Screen U Tricyclic Antidepress Ur Phencyclidine Scrn Ur Amphetamines Screen U Methamphetamines Scrn Ur MDMA Scrn (Ecstasy) U Benzodiazepines Scrn Urine Cocaine Screen U Marijuana (THC) Screen Chlamy pneumoniae PCR Adenovirus (PCR) B.parapertussis DNA PCR Coronavirus OC43 (PCR) Coronavirus HKU1 (PCR) Coronavirus 229E (PCR) Coronavirus NL63 (PCR) Human Metapneumovir PCR Influenza Type A (PCR) Influenza Type B (PCR) Influenza A & B (PCR) M. pneumoniae (PCR) Parainfluenza 1 (PCR) Parainfluenza 2 (PCR) Parainfluenza 3 (PCR) Parainfluenza 4 (PCR) RSV (PCR) Entero/Rhino (PCR) 07/09/18 07/09/18 05:52 05:52 WBC RBC Hgb Hct MCV MCH MCHC RDW Plt Count Neut % (Auto) Lymph % (Auto) [place] % (Auto) Eos % (Auto) Baso % (Auto) Neut # (Auto) Lymph # (Auto) [place] # (Auto) Eos # (Auto) Baso # (Auto) ESR 7 Sodium Potassium Chloride Carbon Dioxide BUN Creatinine Estimated GFR BUN/Creatinine Ratio Glucose Calcium C-Reactive Protein 1.2 H Procalcitonin Urine Color Urine Appearance Urine pH Ur Specific [place] Urine Protein Urine Glucose (UA) Urine Ketones Urine Occult Blood Urine Nitrate Urine Bilirubin Urine Urobilinogen Ur Leukocyte Esterase Urine RBC Urine WBC Amorphous Sediment Urine Bacteria Ur Culture Indicated? CSF Tube Number CSF Volume CSF Appearance CSF Color CSF WBC CSF RBC CSF Mononuclear WBCs CSF Polynuclear WBCs CSF Glucose CSF Total Protein CSF C.neoform/gat PCR CSF CMV DNA (PCR) CSF Enterovirus (PCR) CSF E. coli (PCR) CSF H. influenzae (PCR) CSF HSV I (PCR) CSF HSV II (PCR) CSF HHV 6 (PCR) CSF L.monocytogenes PCR CSF N. meningitidis PCR CSF Parechovirus (PCR) CSF S. agalactiae (PCR) CSF S. pneumoniae (PCR) CSF VZV (PCR) Urine Opiates Screen Ur Oxycodone Screen Urine Methadone Screen Ur Barbiturates Screen U Tricyclic Antidepress Ur Phencyclidine Scrn Ur Amphetamines Screen U Methamphetamines Scrn Ur MDMA Scrn (Ecstasy) U Benzodiazepines Scrn Urine Cocaine Screen U Marijuana (THC) Screen Chlamy pneumoniae PCR Adenovirus (PCR) B.parapertussis DNA PCR Coronavirus OC43 (PCR) Coronavirus HKU1 (PCR) Coronavirus 229E (PCR) Coronavirus NL63 (PCR) Human Metapneumovir PCR Influenza Type A (PCR) Influenza Type B (PCR) Influenza A & B (PCR) M. pneumoniae (PCR) Parainfluenza 1 (PCR) Parainfluenza 2 (PCR) Parainfluenza 3 (PCR) Parainfluenza 4 (PCR) RSV (PCR) Entero/Rhino (PCR) Assessment & Plan Plan: Assessment/Plan Narrative: 1. Migraine headache, acute , atypical with rare phenomena of concurrent fevers. -discussed with Dr. Puga, on-call Neurology, with discussion as noted above. Will treat as traditional migraine, anticipating clearing in the next 1-2 days. He also advises Depakote 1 g and Benadryl 50 mg, in addition to the dexamethasone that was already given today. He guides that now that this has been proven on multiple tests to be a fever/migraine combination, that no further workup would be needed when this presents again. He also advises that she be on migraine prophylactic medicine for the rest of her life. -patient with history of migraine headaches with patient seen in the emergency department for last migraine headache on 12/01/2017. -1 previous episode the patient had elevated temperature and altered mental status and resolved with rehydration. -brain MRI is normal, without evidence of multiple sclerosis, abscess, mass. -patient is on sumatriptan at home and will be continued during hospitalization is needed -IV normal saline for dehydration evidenced by BUN to creatinine ratio of 20:1 -plan swallow evaluation and then move on to routine diet. 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 2. Leukocytosis, acute, resolving -procalcitonin was negative and all CSF and other studies for infection have been negative. 3. Hypertension, chronic, active -patient with mildly elevated systolic pressure likely related to her pain -will monitor pressures and continue patient's home medication of metoprolol XL 25 mg daily 4. Hyperlipidemia, chronic, presume stable -will continue patient's 10 mg rosuvastatin daily 5. Anxiety -family describes patient with history of anxiety was t temporarily on medication -they report no mood disturbance although the patient has been under a great deal of stress per family report -may be contributory to migraine but unable to assess due to patient's altered mental status, will re-evaluate S patient's status improves This is discussed at length with her and her son. Time Spent With Patient Time with patient: Greater than 35 minutes Quality VTE Deep Vein Thrombosis/Pulmonary Embolism Present on Admission: No
--- NOTE | 2018-07-09 15:30 | CM.IDA ---
Discharge Planning/Care Management CM Discharge Assessment Start: 07/09/18 15:17 Freq: Status: Active Protocol: Document 07/09/18 15:17 DIANA (Rec: 07/09/18 15:30 DIANA [id number]) Discharge Planning Assessment Assigned [employer] Examiner ALHAJI Ambrose DPOA/Assigned Designee Name Esdras Starks, spouse Contact Information [phone] Advance Directives? No History Provided By Family Member Prior Living Arrangements House Household Members spouse children Type of transporation used prior to Drives own vehicle admit Independent with ADL's Yes Is patient alert and oriented? Yes Barriers to Discharge No Comment Reviewed chart, spoke w/Dr Uribe, then met w/pt's son Rodriguez outside of pt's rm (pt using the BR). Pt still disoriented this morning. Pt has h/o severe migraines and Dr Uribe has indicated in his prog note, after consultation w/neurologist, that pt likely is suffering from a rare phenomena that links fever w/migraines. MRI is negative, as is w/u for infection. Traditional migraine intervention is recommended by neurologist. Son Rodriguez explains he, his Dad, mom and his sister all live together and together are able to address pt's needs as they arise. Pt's spouse just returned home after being w/pt since admission. Rodriguez states pt is indp at baseline and often knows when her Migraines are going to hit. Family feels pt will not need anything upon DC although appreciative for Care Management contact information . Dr Uribe in agreement, pt will DC back home w/family when medically cleared. ALHAJI Serrano Discharge Plan Home Transportation Arrangement Family Referrals Initiated None needed Whiteboard Updated in Patient Room with Yes name and ext. # of School Psychological Examiner Review Status In Process
--- NOTE | 2018-07-09 17:21 | PC.NURSE ---
Shift note: Jhoana resting in bed, disoriented to place, time & situation. Saying few words at a time, kept repeating I think we are done now. Son said she keeps talking about taking so many pills. Slight temp 100.3, other VS stable. NS infusing to LFA, pump beeping occasional due to arm positioning. Refused meal. Family at bedside.
[2018-07-10] VITALS (10 sets, daily range): BP systolic 132–157; BP diastolic 63–94; PULSE 60–78; RESP 15–17; TEMP 36.9–37.6; O2SAT 94–99
[2018-07-10] MEDS: SODIUM CHLORIDE 0.9% 1,000 ML 100 ML IV (00:10)
[2018-07-10] MEDS: PANTOPRAZOLE 20 MG TABLET PO (05:48)
--- NOTE | 2018-07-10 06:48 | P.PN_ITS ---
Subjective Date Patient Seen: 07/10/18 Interval history: Jhoana Starks is a 63-year-old female with a past medical history significant for hypertension, hyperlipidemia, anxiety, and migraine headaches who presented with frontal right-sided migraine headache with associated high fevers, leukocytosis, nausea, vomiting, and altered mental status. The patient is resting in bed comfortably. She is able to communicate and speak in 3 or 4 word sentences. However, when asked certain questions she is unable to respond altogether in repeats the same statement over. Her and son endorse that she was able to say their names without prompting. However , when asked who each of them were she is unable to name them. She endorses headache and subjective shortness of breath. She denies cough, chest pain, abdominal pain, nausea, vomiting, fever, chills, dysuria, diarrhea or constipation. She is voiding and eliminating without difficulty. He or she is up ambulating without or with assistance. Exam Vital Signs (past 8 hours): - 07/09/18 23:00 07/10/18 00:00 07/10/18 04:00 Temperature 98.9 F 98.4 F Pulse Rate 70 78 Respiratory Rate 16 16 Blood Pressure 147/69 H 156/78 H Pulse Oximetry 95 95 94 Oxygen Delivery Method Room Air Oxygen Flow Rate 0 Narrative Exam Narrative: General: Older female lying in bed and in no acute distress, well-developed, well-nourished, exhibits mild expressive aphasia making it somewhat difficult to communicate but appears mildly confused. HEENT: Normocephalic, atraumatic. External ears without defect. Pupils equal, round, and reactive to light. Anicteric sclerae, moist conjunctivae, and no lid lag. Neck: Supple with full range of motion. No lymphadenopathy or thyromegaly. Cardiovascular: Regular rate and rhythm without murmurs, rubs, or gallops appreciated. Pulmonary: Clear to auscultation bilaterally without crackles, wheezes, or rhonchi. Normal respiratory effort with no use of accessory muscles. Abdomen: Soft, bowel sounds present, nontender, nondistended. No hepatosplenomegaly or masses appreciated. Extremities: No clubbing, cyanosis, or edema. Skin: Normal temperature, turgor, and texture; no rash, ulcers, or subcutaneous nodules appreciated. Neurological: Cranial nerves grossly intact. Mild expressive aphasia. Mild confusion. Objective Labs Result Diagrams: 07/09/18 05:52 07/09/18 05:52 Labs: Laboratory Results - last 24 hr 07/09/18 07/09/18 07/09/18 04:22 05:52 05:52 ESR 7 Sodium 137 Potassium 3.7 Chloride 105 Carbon Dioxide 22 BUN 15 Creatinine 0.70 Estimated GFR > 60.0 BUN/Creatinine Ratio 21.4 Glucose 107 Calcium 8.6 C-Reactive Protein Urine Color Yellow Urine Appearance Cloudy Urine pH 5.0 Ur Specific [place] >=1.030 H Urine Protein Trace H Urine Glucose (UA) Negative Urine Ketones 2+ H Urine Occult Blood Negative Urine Nitrate Negative Urine Bilirubin Negative Urine Urobilinogen 0.2 Ur Leukocyte Esterase Negative Urine RBC None seen Urine WBC None seen Amorphous Sediment 4+ Urine Bacteria None seen Ur Culture Indicated? Cult not indicated 07/09/18 05:52 ESR Sodium Potassium Chloride Carbon Dioxide BUN Creatinine Estimated GFR BUN/Creatinine Ratio Glucose Calcium C-Reactive Protein 1.2 H Urine Color Urine Appearance Urine pH Ur Specific [place] Urine Protein Urine Glucose (UA) Urine Ketones Urine Occult Blood Urine Nitrate Urine Bilirubin Urine Urobilinogen Ur Leukocyte Esterase Urine RBC Urine WBC Amorphous Sediment Urine Bacteria Ur Culture Indicated? Assessment & Plan Plan: Assessment/Plan Narrative: Jhoana Starks is a 63-year-old female with a past medical history significant for hypertension, hyperlipidemia, anxiety, and migraine headaches who presented with frontal right-sided migraine headache with associated high fevers, leukocytosis, nausea, vomiting, and altered mental status. 1. Acute migraine headache, atypical with rare phenomena of concurrent fevers, present on admission. Active. -Dr Uribe discussed with Dr. Puga, on-call Neurology who recommended he treat as a traditional migraine, anticipating clearing in the next 1-2 days. He also advised 1 time dose of Depakote 1 g and Benadryl 50 mg, in addition to the dexamethasone given. He guides that now that this has been proven on multiple tests to be a fever/migraine combination, that no further workup would be needed when this presents again. He also advises that she be on migraine prophylactic medicine for the rest of her life. -History of migraine headaches last seen in ED 12/01/2017. Also, one previous episode of fevers and altered mental status in setting of migraine headache that resolved with rehydration. -Brain MRI is normal, without evidence of multiple sclerosis, abscess, mass, CVA. -Patient is on sumatriptan at home and will be continued during hospitalization is needed. -Decreased normal saline 100 mL/hr for maintenance fluid hydration. Started for dehydration evidenced by BUN to creatinine ratio of 20:1 -Ordered speech therapy to assess swallow as well as work with patient on expressive aphasia. 2. Acute leukocytosis, present on admission. Resolving. -Procalcitonin was negative and all CSF and other studies for infection have been negative. 3. Hypertension, chronic, present on admission. Stable. -Patient with mildly elevated systolic pressure likely related to her migraine pain. -Continue metoprolol XL 25 mg daily. Continue to monitor BP daily. -Hypertension may be playing a role with atypical migraine headache and will try to control blood pressure tightly. Ordered labetalol 10 mg IV every 6 hr as needed for SBP>160 sustained for 30 min. 4. Hyperlipidemia, chronic, present on admission. Stable. -Continue rosuvastatin 10 mg daily at bedtime. 5. Anxiety, chronic, present on admission. Stable. -Not medically treated. No history of mood disturbance although the patient has been under a great deal of stress per family report. -May be contributory to migraine but unable to assess due to patient's altered mental status. Disposition: Likely to discharge in 1-2 days depending on improvement in mentation and resolution of atypical migraine headache. Quality VTE Deep Vein Thrombosis/Pulmonary Embolism Present on Admission: No
[2018-07-10] MEDS: SODIUM CHLORIDE 0.9% 1,000 ML 125 ML IV ×2 (07:53→17:23)
--- NOTE | 2018-07-10 09:57 | PC.NURSE ---
Pt restful, keeping lights off in room, Pt's answers confused though follows commands. attentive at bedside believes she is better today. Continue as ordered.
--- NOTE | 2018-07-10 12:45 | PT.IIE ---
Surgical History (Last Reviewed 07/08/18 @ 20:24 by CHERYL Spaulding) Hx of section (Resolved ~1980) Medical History (Last Reviewed 07/08/18 @ 20:24 by CHERYL Spaulding) Essential hypertension (Chronic 05/28/16) Mixed hyperlipidemia (Chronic 05/28/16) Anxiety (Chronic) Migraines (Chronic) Physical Therapy Inpatient Evaluation/Re-Eval M1 PT/OT-IP Prior Functional Status Start: 07/10/18 13:03 Freq: NEEDED Status: Active Protocol: Document 07/10/18 12:45 [facility] (Rec: 07/10/18 13:18 [facility] [id number]) Medical Review Prior Functional Status Medical History Reviewed Yes Mobility and Gait indep. community ambulator without device Activities of Daily Living and IADL's indep. I/ADLs Social History Household Members spouse children Living Arrangements House Number of Floors (Floors) One Floor Number of Stairs To Enter/Railing? no steps to enter/exit; one step to/from laundry room Home Environment Standard Height Toilet Walk in Shower Additional Social History Comment Spouse- Jose is retired, and son also lives @ home. Someone will always be there, per spouse. Pt admitted with c/o severe migraine EMERY, AMS, nausea, vomiting, and found to have a fever. MD discussed with a neurologist, MRI, chest radiograph, head CT all negative. M2 PT-IP Current Condition Start: 07/10/18 13:03 Freq: NEEDED Status: Active Protocol: Document 07/10/18 12:45 [facility] (Rec: 07/10/18 13:18 [facility] [id number]) Physical Therapy Current Condition Current Condition Evaluation Date 07/10/18 Treatment Diagnosis EMERY, AMS, impaired gait M3 PT-IP Subjective Start: 07/10/18 13:03 Freq: NEEDED Status: Active Protocol: Document 07/10/18 12:45 [facility] (Rec: 07/10/18 13:18 [facility] [id number]) Subjective Physical Therapy Visit Type Type Initial Evaluation Visit Start Time 12:20 Visit Stop Time 12:25 Total Visit Minutes 25 Notes spouse Jose and son Rodriguez present during session Number of CURBING STONECUTTER Visits 0 Physical Therapy Visit Comments Patient Comments family reports pt just got comfortable, but pt willing to mobilize Patient Goals get rid of EMERY M4 PT-IP Mobility and Gait Start: 07/10/18 13:03 Freq: NEEDED Status: Active Protocol: Document 07/10/18 12:45 [facility] (Rec: 07/10/18 13:18 [facility] [id number]) PT-Bed Mobility Assessment Supine to Sit Supine to Sit Independent Sit to Supine Sit to Supine Independent PT-Transfer Assessment Sit to and From Stand Sit to and from Stand Standby Assistance Equipment Transfer Assistive Device None Gait Belt Transfers Transfer Destination Bed Transfer Technique Stand Step Pivot Transfer Ability Level of Assist Standby Assistance Gait Assessment Gait Gait Assistance Required: Standby Assistance Distance (Feet) 50 Assistive Devices Assistive Device None Gait Belt Gait Deviations General Gait Pattern Decreased Stride Length Factors Limiting Gait Function Factors Limiting Gait Function Decreased Activity Tolerance Pain Comments Gait Comments increased lateral sway with gait, but no loss of balance; increased gait speed after initial 20 ft. PT-Balance Assessment Sitting Balance and Reactions Static Sitting Balance Ability Good Dynamic Sitting Balance Ability Good Standing Balance and Reactions Static Standing Balance Ability Fair Dynamic Standing Balance Ability Fair Device Used none M5 PT-IP Objective Assessments Start: 07/10/18 13:03 Freq: NEEDED Status: Active Protocol: Document 07/10/18 12:45 [facility] (Rec: 07/10/18 13:18 [facility] [id number]) Orientation Orientation/Cognition Level of Alertness Lethargic Strength Lower Extremity Strength Assessment Within Functional Limits M6 PT-IP Treatment Start: 07/10/18 13:03 Freq: NEEDED Status: Active Protocol: Document 07/10/18 12:45 [facility] (Rec: 07/10/18 13:18 [facility] [id number]) Physical Therapy Treatment Education Education Provided Safety M7 PT-IP Assessment and Plan Start: 07/10/18 13:03 Freq: NEEDED Status: Active Protocol: Document 07/10/18 12:45 [facility] (Rec: 07/10/18 13:18 [facility] [id number]) PT Summary Assessment and Plan Summary Impairments Pain Balance Gait Activity Tolerance Assessment Summary Pt lethargic, but able to respond well to simple 1-2 word commands. Family very supportive, and after about 20 ft of ambulation pt able to improve steadiness and increase gait speed. Due to EMERY , pt requested to sit. At this time, pt appears to safe to return home when medically stable, but would benefit from continued skilled physical therapy to safely progress her gait tolerance and dynamic standing balance. Goals Transfer Goal Independent Gait Goal Independent Gait Distance 300 Other Goals STG: SBA with gait x150 ft with gait belt and no AD, in 1 day. Days to Meet Goals 3 Frequency of Treatment Frequency Of Treatment Once a Day Treatment Plan Physical Therapy Treatment Plan Transfer Training Gait Training Therapeutic Exercise Balance Retraining Neuromuscular Re-ed Other Recommendations and Next Treatment progress gait as tolerated ( Focus may need to wear sunglasses in hallway due to light sensitivity) Recommendations To Nursing Amount of Assist Needed 1 Person Assist Discharge Recommendations PT Discharge Recommendations Home with Assistance
[2018-07-10] MEDS: ROSUVASTATIN 10 MG TABLET PO (20:54)
[2018-07-11] VITALS (11 sets, daily range): BP systolic 137–156; BP diastolic 56–94; PULSE 54–66; RESP 16–19; TEMP 37.1–37.6; O2SAT 94–99
[2018-07-11] MEDS: SODIUM CHLORIDE 0.9% 1,000 ML 125 ML IV (00:05)
[2018-07-11] MEDS: PANTOPRAZOLE 20 MG TABLET PO (05:36)
--- NOTE | 2018-07-11 06:42 | P.PN_ITS ---
Subjective Date Patient Seen: 07/11/18 Interval history: Jhoana Starks is a 63-year-old female with a past medical history significant for hypertension, hyperlipidemia, anxiety, and migraine headaches who presented with frontal right-sided migraine headache with associated high fevers, leukocytosis, nausea, vomiting, and altered mental status. The patient is resting in bed comfortably. She continues to speak in small phrase sentences. She is able to speak clearly and does not seem to have much issue with expressive aphasia. However, when questioned/probed she seems to have more expressive aphasia due to pressure possibly from mental fogginess. She continues to exhibit photophobia and has her sunglasses on in the room. She denies headache, cough, chest pain, abdominal pain, nausea, vomiting, fever , chills, dysuria, diarrhea or constipation. She is voiding and eliminating without difficulty. She is up minimally ambulating with assistance and physical therapy. Exam Vital Signs (past 8 hours): - 07/10/18 23:00 07/11/18 00:10 07/11/18 03:34 Temperature 99.6 F 99.1 F Pulse Rate 66 65 Respiratory Rate 16 16 Blood Pressure 152/58 H 140/88 Pulse Oximetry 94 94 94 Oxygen Delivery Method Room Air Oxygen Flow Rate 0 Narrative Exam Narrative: General: Older female lying in bed and in no acute distress, well-developed, well-nourished, exhibits mild expressive aphasia making it somewhat difficult to communicate, no longer confused. HEENT: Normocephalic, atraumatic. External ears without defect. Pupils equal, round, and reactive to light. Anicteric sclerae, moist conjunctivae, and no lid lag. Neck: Supple with full range of motion. No lymphadenopathy or thyromegaly. Cardiovascular: Regular rate and rhythm without murmurs, rubs, or gallops appreciated. Pulmonary: Clear to auscultation bilaterally without crackles, wheezes, or rhonchi. Normal respiratory effort with no use of accessory muscles. Abdomen: Soft, bowel sounds present, nontender, nondistended. No hepatosplenomegaly or masses appreciated. Extremities: No clubbing, cyanosis, or edema. Skin: Normal temperature, turgor, and texture; no rash, ulcers, or subcutaneous nodules appreciated. Neurological: Cranial nerves grossly intact. Mild expressive aphasia. Confusion resolved. Objective Labs Result Diagrams: 07/11/18 06:25 02/04/19 06:25 Assessment & Plan Plan: Assessment/Plan Narrative: Jhoana Starks is a 63-year-old female with a past medical history significant for hypertension, hyperlipidemia, anxiety, and migraine headaches who presented with frontal right-sided migraine headache with associated high fevers, leukocytosis, nausea, vomiting, and altered mental status. 1. Acute migraine headache, atypical with rare phenomena of concurrent encephalopathy, fevers, leukocytosis, and expressive aphasia, present on admission. Active. -Dr Uribe discussed with Dr. Puga, on-call Neurology who recommended he treat as a traditional migraine, anticipating clearing in the next 1-2 days. He also advised 1 time dose of Depakote 1 g and Benadryl 50 mg, in addition to the dexamethasone given. He guides that now that this has been proven on multiple tests to be a fever/migraine combination, that no further workup would be needed when this presents again. He also advises that she be on migraine prophylactic medicine for the rest of her life. -History of migraine headaches last seen in ED 12/01/2017. Also, one previous episode of fevers and altered mental status in setting of migraine headache that resolved with rehydration. -Brain MRI is normal, without evidence of multiple sclerosis, abscess, mass, CVA. -Patient is on sumatriptan at home and will be continued during hospitalization is needed. -Decreased normal saline 100 mL/hr for maintenance fluid hydration. Started for dehydration evidenced by BUN to creatinine ratio of 20:1. -Ordered speech therapy to assess swallow, as well as, work with patient on expressive aphasia. 2. Acute hypokalemia, not present on admission. Active. -Likely secondary to dilution and decreased p.o. intake. 3. Hypertension, chronic, present on admission. Stable. -Continue metoprolol XL 25 mg daily. Hypertension may be playing a role with atypical migraine headache and will try to control blood pressure tightly. Started losartan daily at bedtime for nocturnal spiking. Ordered labetalol 10 mg IV every 6 hr as needed for SBP>160 sustained for 30 min. -Continue to monitor blood pressure closely. 4. Hyperlipidemia, chronic, present on admission. Stable. -Continue rosuvastatin 10 mg daily at bedtime. 5. Anxiety, chronic, present on admission. Stable. -Not medically treated. No history of mood disturbance although the patient has been under a great deal of stress per family report. -May be contributory to recovery from migraine. Disposition: Likely to discharge home tomorrow with home health for PT/OT/ST or with outpatient therapies. Quality VTE Deep Vein Thrombosis/Pulmonary Embolism Present on Admission: No
[2018-07-11 07:00] LABS: Add Manual Diff / Slide Review NO; Basophils Absolute Auto 0 /uL (0-100); Basophils Percent Auto 0.3 % (0-2); Eosinophils Absolute Auto 0 /uL (0-450); Eosinophils Percent Auto 0.1 % (2-4); Hematocrit 37.5 % (36-46); Hemoglobin 12.7 g/dL (12.0-16.0); Lymphocytes Absolute Auto 2100 /uL (1100-4500); Lymphocytes Percent Auto 19.4 % (25-40); Mean Corpuscular HGB Conc 33.8 % (30-36); Mean Corpuscular Hemoglobin 29.3 PG (26-34); Mean Corpuscular Volume 86.6 fL (80-100); Monocytes Absolute Auto 900 /uL (0-900); Monocytes Percent Auto 7.9 % (3-14); Neutrophils Absolute Auto 8000 /uL (1500-7000); Neutrophils Percent Auto 72.3 % (50-75); Platelet Count 172 X10^3/uL (150-400); Red Blood Cell Count 4.33 X10^6/uL (4.0-5.2); Red Cell Distribution Width 13.1 % (11.6-14.8)
--- NOTE | 2018-07-11 07:08 | PC.NURSE ---
mold shifter Pt continues to be confused and is AOx0. Bed alarm on, will continue to monitor.
[2018-07-11 07:11] LABS: BUN Creatinine Ratio 14.3 (6-22); Blood Urea Nitrogen 10 mg/dL (7-17); Calcium 8.1 mg/dL (8.4-10.2); Carbon Dioxide 22 mmol/L (22-32); Chloride 104 mmol/L (98-107); Estimated Glomerular Filt Rate > 60.0 mL/min (>60); Glucose 87 mg/dL (80-110); HEMOLYSIS 25 (0-50); Magnesium 1.9 mg/dL (1.6-2.3); Potassium 3.2 mmol/L (3.4-5.1); Sodium 135 mmol/L (137-145)
[2018-07-11] MEDS: METOPROLOL ER 25 MG TABLET PO (08:58)
--- NOTE | 2018-07-11 10:38 | PT.IPTN ---
Current Diagnoses Migraine, unspecified, not intractable, without status migrainosus (07/09/18) Physical Therapy Treatment Note M2 PT-IP Current Condition Start: 07/10/18 13:03 Freq: NEEDED Status: Active Protocol: Document 07/10/18 12:45 [facility] (Rec: 07/10/18 13:18 [facility] [id number]) Physical Therapy Current Condition Current Condition Evaluation Date 07/10/18 Treatment Diagnosis EMERY, AMS, impaired gait M3 PT-IP Subjective Start: 07/10/18 13:03 Freq: NEEDED Status: Active Protocol: Document 07/11/18 08:55 [facility] (Rec: 07/11/18 10:38 [facility] [id number]) Subjective Physical Therapy Visit Type Type Treatment Note Visit Start Time 08:30 Visit Stop Time 08:55 Total Visit Minutes 25 Number of PROGRAM MGR Visits 0 Physical Therapy Visit Comments Patient Comments Pt agreeable to walk M4 PT-IP Mobility and Gait Start: 07/10/18 13:03 Freq: NEEDED Status: Active Protocol: Document 07/11/18 08:55 [facility] (Rec: 07/11/18 10:38 [facility] [id number]) PT-Bed Mobility Assessment Rolling Type of Rolling Log Rolling Supine to Sit Supine to Sit Independent Bedrails Sit to Supine Sit to Supine Independent Scooting Scooting to Edge of Bed Independent PT-Transfer Assessment Sit to and From Stand Sit to and from Stand Standby Assistance Equipment Transfer Assistive Device Gait Belt Orthotic/Prosthetic Devices or Brace: No Transfers Transfer Destination Chair Transfer Technique Stand Step Pivot Transfer Ability Level of Assist Standby Assistance Comments Mobility Comments Pt stood from bed and toilet to amb, each with SBA. Pt stood from bed to transfer to chair SBA but max cueing. Pt was able to wipe and don and doff brief with SBA Gait Assessment Gait Gait Assistance Required: Standby Assistance Contact Guard Assist Distance (Feet) 150 Able to Maintain Weight Bearing Status Yes During Gait Assistive Devices Assistive Device Gait Belt Orthotic/Prosthetic Devices or Brace: No Factors Limiting Gait Function Factors Limiting Gait Function Decreased Strength Difficulty Following Directions Poor Balance Poor Safety Awareness Comments Gait Comments Pt had 1 LOB when turing to return to room which she recovered with use of door frame. Pt amb slowly with path deviation and stops to turn corners. Overall good foot clearance and step length, but just amb at a slower speed. M5 PT-IP Objective Assessments Start: 07/10/18 13:03 Freq: NEEDED Status: Active Protocol: Document 07/10/18 12:45 [facility] (Rec: 07/10/18 13:18 [facility] [id number]) Orientation Orientation/Cognition Level of Alertness Lethargic Strength Lower Extremity Strength Assessment Within Functional Limits M6 PT-IP Treatment Start: 07/10/18 13:03 Freq: NEEDED Status: Active Protocol: Document 07/11/18 08:55 [facility] (Rec: 07/11/18 10:38 [facility] [id number]) Physical Therapy Treatment Education Education Provided Safety M7 PT-IP Assessment and Plan Start: 07/10/18 13:03 Freq: NEEDED Status: Active Protocol: Document 07/11/18 08:55 [facility] (Rec: 07/11/18 10:38 [facility] [id number]) PT Summary Assessment and Plan Summary Progress Towards Goals Progressing Toward Goals Assessment Summary Pt is lethargic but is able to follow 1 step directions, occasionally requiring mult repetitions. She was able to amb further distance but did demonstrate some imbalance with path deviation and 1 LOB when turning. Goals Transfer Goal Independent Gait Goal Independent Gait Distance 300 Other Goals STG: SBA with gait x150 ft with gait belt and no AD, in 1 day. Days to Meet Goals 3 Frequency of Treatment Frequency Of Treatment Once a Day Treatment Plan Physical Therapy Treatment Plan Transfer Training Gait Training Therapeutic Exercise Balance Retraining Neuromuscular Re-ed Other Recommendations and Next Treatment Advance gait and standing Focus balance(may need to wear sunglasses in hallway due to light sensitivity) Recommendations To Nursing Amount of Assist Needed 1 Person Assist Discharge Recommendations PT Discharge Recommendations Home with Assistance
--- NOTE | 2018-07-11 12:45 | ST.IPIE ---
Care Team Visit Care Team Role Provider Type Debbie Paredes PA-C Primary Care Provider Advanced Saddle And Side Wire Stitcher Specialty: Medical Address: [address] [place] [address], [id number] Email: [email or web address] Lise Mcmahon MD Emergency Provider Physician Specialty: Emergency Medicine Address: [address] [place] [address], [id number] Email: Thomas Uribe MD Admit Provider Physician Attending Provider Specialty: Medical Address: [address] [place] [address], [phone] Email: Current Diagnoses Migraine, unspecified, not intractable, without status migrainosus (07/09/18) Past Medical History (Last Reviewed 07/08/18 @ 20:24 by CHERYL Spaulding) Essential hypertension (Chronic Medical 05/28/16) Controlled Mixed hyperlipidemia (Chronic Medical 05/28/16) controlled Anxiety (Chronic Medical) Migraines (Chronic Medical) ST IP Initial Evaulation Report RISK REDUCTION COUNSELOR Clinical Swallow Evaluation Start: 07/09/18 13:08 Freq: Status: Active Protocol: Document 07/09/18 13:08 [facility] (Rec: 07/09/18 13:21 [facility] [id number]) Clinical Swallow Evaluation Session Time Visit Start Time 12:35 Visit Stop Time 13:05 Total Visit Minutes [address] Uribe Reason for Referral Failed swallow screen Setting Assessment Location Acute Care Visit Type Note Type Initial Evaluation Next Note Type Next Note Type Treatment Note Patient Information Identification Type Name Subjective Observations Patient's son in room. Patient agreed to sit u to participate in evaluation. Requested a few minutes before getting started with evaluation and stated I just woke up - I need a minute Evaluation Liquids Trialed Ice Chips Thin Solids Trialed Puree Mechanical Soft Regular Administration Type Tea Spoon Cup Consecutive Sips Dependent Feeding Oral Impairment Mildly Impaired Oral Strategies Upright at 90 degrees Controlled Bite/Sip Size Alternate Liquids/Solids Oral Phase Comments Patient did not follow directions or imitate visual cues; therefore, oral mech eval was limited. Patient attempted to drink from apple sauce cup during trials of self-feeding. Given feeding assistance, oral acceptance was functional. Mastication and bolus transport appeared to be timely. Mild oral residue present with emanuel crackers. Patient did not respond to verbal cue to swallow. Mechanical soft textures recommended to minimize oral residue given patient's inability to follow cues. Pharyngeal Phase Comments No signs or symptoms of aspiration observed with any textures including self- administered cup sips. Findings Dysphagia Type Mild Rehabilitation Potential Good Impressions Patient presents with mild oral phase dysphagia secondary to altered mental status which impairs her ability to follow verbal cues such as a double swallow to clear oral residue. For this reason, patient needs 1:1 feeding assistance and implementation of strategies such as small bite/sip size and alternating liquids/solids when being fed to minimize oral residue. Diet Recommendations Liquids Order Thin Diet Order Mechanical Soft Medication Recommendations As Tolerated Comments Meds not trialed during evaluation Additional Dietary Needs No Straws 1:1 Assistance Aspiration Precautions Recommended Precautions Upright at 90 Degrees Alternate Liquids/Solids Small Bites/Sips Treatment Plan Placement Recommendations after Home Discharge Appropriate for Therapy Yes Therapy Recommendations Dysphagia management in the presence of altered mental status. Patient may be appropriate for speech/ language evaluation if symptoms do not improve. Dysphagia Goals Jhoana will demonstrate the ability to adequately self- monitor swallowing skills and perform appropriate compensatory techniques to consume meals safely and independently. RISK REDUCTION COUNSELOR Language Evaluation Start: 07/11/18 11:57 Freq: Status: Active Protocol: Document 07/11/18 12:11 [facility] (Rec: 07/11/18 12:44 [facility] [id number]) Language Evaluation Session Time Visit Start Time 10:30 Visit Stop Time 11:15 Total Visit Minutes [address] Macias Language Evaluation Assessment Type Apahsia/cognition Past Medical History Patient History Pt is a 63-year-old female with a history of migraines, hypertension, mixed hyperlipidemia and anxiety who presents to the emergency department with headache and altered mental status. Patient reports having a frontal and right-sided migrainous headache typical of her previous pattern that started yesterday. The patient developed a change in mentation difficulty recognizing people communicating an inappropriate response to questions. The family reports that altered mental status has been a feature of her last severe migraine for which she was seen in the emergency department on December 01, 2017 [place] Language Language(s) Spoken in the Home [place] Oral Motor Examination Results Informal assessment indicated oromotor skills WNL Subjective Subjective Pt in her bed with in the room. Pt agreed to sit up and participate in evaluation . Pt appears tired. - Informal Assessment Receptive Language Normal No Expressive Language Normal No Articulation Normal Yes Cognition Normal Unable to assess secondary to limited receptive/expressive deficits Assessment Findings Transient Aphasia secondary to migraines: Informal assessment of language/cognition was attempted. Pt presents with s/ sx of global aphasia. Unable to formally assess pt as she was unable to follow directions, appeared to be confused and unable to name items in the room. She tried to speak at times. Sometimes in disjoined sentences, other times jargon speech. Automatic speech was observed: okay, uh-huh, etc. Pt's noted that this has happened at least 4 times in the past, the most recent was in November 2017. Typically her language skills return in a few days; however, this episode is the longest to date . Recommendations Pt is scheduled to be discharged home today. Recommended to the that if there is no change within the near future, she should see her physician/ neurologist and get a referral for speech therapy. - Receptive Language - Expressive Language - Treatment Goals Short Term Goals Pt's ability to follow directions will improve while in patient to 3/5 attempts. Pt will demonstrate consistent yes/no responses to a visual prompt at 5/7 opportunities.
--- NOTE | 2018-07-11 20:17 | P.DS_ITS ---
History of Present Illness Date Patient Seen: 07/08/18 Chief complaint: sent by walk in for stroke like symptoms Narrative: Written by Brendon LUNA: This is a 63-year-old female with a history of migraines, hypertension, mixed hyperlipidemia and anxiety who presents to the emergency department with headache and altered mental status. Patient reports having a frontal and right- sided migrainous headache typical of her previous pattern that started yesterday. The patient took 1/2 for usual dose of Imitrex because per family report the patient does not like taking medicines. The patient developed a change in mentation difficulty recognizing people communicating an inappropriate response to questions. The family reports that altered mental status has been a feature of her last severe migraine for which she was seen in the emergency department on December 01, 2017. Patient has associated nausea with vomiting. She vomited 3 times yesterday. She reports continuing nausea but no vomiting today. Patient has a low low-grade temperature at 100.8 on her prior episode last November she had a similar temperature elevations the higher at 102.1. No spinal tap was completed at that time due to family refusal. With family describes a prodromal of possibly runny nose but has also been under increased stress. At this time the patient has persistent headache rated at 5 to 6/10, altered mentation perseveration, fever, photophobia, neck tenderness without nuchal rigidity, nausea without vomiting. She denies trauma or injury, dizziness, focal weakness or ataxia, numbness or tingling, fevers or chills, chest pain, cough or shortness of breath, no complaints of constipation or diarrhea, no urinary symptoms of frequency urgency or hematuria. Family as the patient has been exercising regularly and improved her diet and attempt to control her cholesterol level. In the ER the patient received Toradol with improvement in her headache but no change in mental status and Reglan for her nausea. She received a saline bolus. Labs were completed showing an elevated white blood cell count of 15 increase in neutrophils decrease in lymphocytes. No anemia with thrombocytopenia is evident. Blood chemistries all values are within range however she does have a BUN creatinine ratio 20-1. Flu a and B were tested which were negative a tox screen was completed which is negative, she is negative for alcohol. Lumbar puncture was performed with no significant findings on CSF which is to be cultured. Chest x-ray is unremarkable and head CT shows no acute intracranial pathology does note chronic periventricular and white matter ischemic changes. Discharge Providers Date of admission: 07/09/18 15:00 Primary care physician: Debbie Paredes PA-C Consults: 07/08/18 19:59 Consult to Discharge Planning Routine Comment: 07/08/18 21:01 Consult to Speech Therapy Evaluate & Treat Comment: Physician Instructions: Evaluate and treat 07/09/18 09:05 Consult to Speech Therapy Evaluate & Treat Comment: Physician Instructions: Evaluate and treat 07/10/18 12:01 Consult to Physical Therapy Evaluate & Treat Comment: also include speech therapy. Physician Instructions: Evaluate and Treat 07/10/18 15:25 Consult to Speech Therapy Evaluate & Treat Comment: Expressive aphasia secondary to atypical migraine Physician Instructions: Evaluate and treat Discharge provider: Elvia Macias DO Discharge Date: 07/12/18 Summary Discharge Diagnosis: 1. Acute migraine headache, atypical with rare phenomena of concurrent encephalopathy, fevers, leukocytosis, and expressive aphasia, present on admission. Resolving. 2. Acute hypokalemia, not present on admission. Active. 3. Hypertension, chronic, present on admission. Stable. 4. Hyperlipidemia, chronic, present on admission. Stable. 5. Anxiety, chronic, present on admission. Stable. Hospital Course: Jhoana Starks is a 63-year-old female with a past medical history significant for hypertension, hyperlipidemia, anxiety, and migraine headaches who presented with frontal right-sided migraine headache with associated high fevers, leukocytosis, nausea, vomiting, and altered mental status. 1. Acute migraine headache, atypical with rare phenomena of concurrent encephalopathy, fevers, leukocytosis, and expressive aphasia, present on admission. Resolving. -Dr Uribe discussed with Dr. Puga, on-call Neurology who recommended he treat as a traditional migraine, anticipating clearing in the next 1-2 days. He also advised 1 time dose of Depakote 1 g and Benadryl 50 mg, in addition to the dexamethasone given. He guides that now that this has been proven on multiple tests to be a fever/migraine combination, that no further workup would be needed when this presents again. He also advises that she be on migraine prophylactic medicine for the rest of her life. -History of migraine headaches last seen in ED 12/01/2017. Also, one previous episode of fevers and altered mental status in setting of migraine headache that resolved with rehydration. -Brain MRI is normal, without evidence of multiple sclerosis, abscess, mass, CVA. -Patient is on sumatriptan at home and will be continued during hospitalization as needed. -Patient received IV fluid until adequately hydrated. -Ordered ST to assess swallow, as well as, work with patient on expressive aphasia who recommend outpatient ST. PT/OT also recommend outpatient therapy. 2. Acute hypokalemia, not present on admission. Active. -Likely secondary to dilution and decreased p.o. intake. 3. Hypertension, chronic, present on admission. Stable. -Continued metoprolol XL 25 mg daily. Hypertension may be playing a role with atypical migraine headache and will try to control blood pressure tightly. Started and provided prescription for losartan 20 mg daily at bedtime for nocturnal spiking. Ordered labetalol 10 mg IV every 6 hr as needed for SBP>160 sustained for 30 min. -Continued to monitor blood pressure closely. 4. Hyperlipidemia, chronic, present on admission. Stable. -Continued rosuvastatin 10 mg daily at bedtime. 5. Anxiety, chronic, present on admission. Stable. -Not medically treated. No history of mood disturbance although the patient has been under a great deal of stress per family report. -May be contributory to recovery from migraine. Status at Discharge Overall status at discharge: patient is progressing back to baseline Exam Vital Signs (past 8 hours): - 07/11/18 15:00 07/11/18 17:27 Temperature 98.7 F Pulse Rate 58 L Respiratory Rate 17 Blood Pressure 156/87 H Pulse Oximetry 94 99 Oxygen Delivery Method Room Air Oxygen Flow Rate 0 Narrative Exam Narrative: General: Older female lying in bed and in no acute distress, well-developed, well-nourished, exhibits mild expressive aphasia when prompted, no longer confused. HEENT: Normocephalic, atraumatic. External ears without defect. Pupils equal, round, and reactive to light. Anicteric sclerae, moist conjunctivae, and no lid lag. Neck: Supple with full range of motion. No lymphadenopathy or thyromegaly. Cardiovascular: Regular rate and rhythm without murmurs, rubs, or gallops appreciated. Pulmonary: Clear to auscultation bilaterally without crackles, wheezes, or rhonchi. Normal respiratory effort with no use of accessory muscles. Abdomen: Soft, bowel sounds present, nontender, nondistended. No hepatosplenomegaly or masses appreciated. Extremities: No clubbing, cyanosis, or edema. Skin: Normal temperature, turgor, and texture; no rash, ulcers, or subcutaneous nodules appreciated. Neurological: Cranial nerves grossly intact. Mild expressive aphasia. Confusion resolved. Objective Labs Result Diagrams: 07/11/18 06:25 07/12/18 06:16 Labs: Laboratory Results - last 24 hr 07/11/18 07/11/18 06:25 06:25 WBC 11.0 RBC 4.33 Hgb 12.7 Hct 37.5 MCV 86.6 MCH 29.3 MCHC 33.8 RDW 13.1 Plt Count 172 Neut % (Auto) 72.3 Lymph % (Auto) 19.4 L [place] % (Auto) 7.9 Eos % (Auto) 0.1 L Baso % (Auto) 0.3 Neut # (Auto) 8000 H Lymph # (Auto) 2100 [place] # (Auto) 900 Eos # (Auto) 0 Baso # (Auto) 0 Sodium 135 L Potassium 3.2 L Chloride 104 Carbon Dioxide 22 BUN 10 Creatinine 0.70 Estimated GFR > 60.0 BUN/Creatinine Ratio 14.3 Glucose 87 Calcium 8.1 L Magnesium 1.9 Discharge Plan Discharge Plan Patient Disposition: Home Discharge comment: You are being discharged home. It is recommended that you obtain physical, occupational and speech therapy for the next week or so as your symptoms resolve. If your symptoms resolve altogether you may not need therapy at all. Please follow-up with your primary care provider, Debbie Paredes , at your scheduled appointment next Wednesday to discuss your hospitalization and discuss starting a prophylactic migraine medication. Recommend that you are referred to Neurology to assess migraine type and further tailor therapy later on. Please continue to advance your diet. You will likely have a bowel movement in several days once you are eating full meals. Discharge Med Rec/Prescriptions Prescriptions: New losartan 25 mg Tablet 25 mg PO BEDTIME Qty: 30 RF: 0 Continue sumatriptan succinate 50 mg Tablet See Patient Comments .ROUTE .COMPLEX RF: 0 ondansetron 4 mg tablet,disintegrating 4 mg PO TID PRN (Reason: nausea and vomiting) Qty: 20 RF: 0 Vitamin C 1 tab PO QDAY Qty: 0 RF: 0 metoprolol succinate [Toprol XL] 25 MG tablet extended release 24 hr 25 mg PO QDAY Qty: 90 RF: 3 multivitamin [Multiple Vitamins] tablet 1 tab PO QDAY Qty: 0 RF: 0 rosuvastatin 10 mg tablet 10 mg PO BEDTIME RF: 0 Follow up/Referrals: Debbie Paredes PA-C [Primary Care Provider] - 1 Week Provider Discharge Instructions Diet: Diet as Tolerated, Low-fat, Low-sodium and Low-cholesterol Visit Report/Discharge Packet Instructions: Recommendations to Help Prevent High Blood Pressure, DI for Migraine Discharge Data Primary Care Provider: Debbie Paredes Attending Provider: Thomas Uribe Admit Date/Time: 07/09/18 15:00 Quality VTE Deep Vein Thrombosis/Pulmonary Embolism Present on Admission: No
[2018-07-11] MEDS: ROSUVASTATIN 10 MG TABLET PO (20:59)
[2018-07-11] MEDS: LOSARTAN 25 MG TABLET PO (20:59)
[2018-07-11] MEDS: POTASSIUM CHLORIDE 20 MEQ TAB 40 MEQ PO (20:59)
[2018-07-12 05:45] VITALS: BP 147/77; PULSE 58; RESP 16; TEMP 37.2; O2SAT 97
[2018-07-12 06:43] LABS: BUN Creatinine Ratio 13.3 (6-22); Blood Urea Nitrogen 8 mg/dL (7-17); Calcium 8.7 mg/dL (8.4-10.2); Carbon Dioxide 25 mmol/L (22-32); Chloride 101 mmol/L (98-107); Estimated Glomerular Filt Rate > 60.0 mL/min (>60); Glucose 90 mg/dL (80-110); HEMOLYSIS 15 (0-50); Potassium 3.4 mmol/L (3.4-5.1); Sodium 136 mmol/L (137-145)
[2018-07-12] MEDS: PANTOPRAZOLE 20 MG TABLET PO (06:50)
[2018-07-12 07:25] VITALS: BP 133/63; PULSE 56; RESP 18; TEMP 37.2; O2SAT 97
[2018-07-12 08:45] VITALS: O2SAT 99
[2018-07-12 08:51] VITALS: BP 135/64; PULSE 64
[2018-07-12] MEDS: METOPROLOL ER 25 MG TABLET PO (08:51)
[2018-07-12] MEDS: SODIUM CHLORIDE 0.9% FLUSH 10 ML IV (08:54)
[2018-07-12 10:00] VITALS: BP 127/60; PULSE 58
--- NOTE | 2018-07-12 10:40 | PC.NURSE ---
Addendum entered by Angelique Vila R.N. 07/12/18 10:50: Urine for UA sent to lab and after speaking with Dr. Macias at 1040, urine was tested already, and to cancel urinalysis today. Lab called and made aware. Original Note: Day Shift-Pt unable to state her name, . Pt responds with a little bit. Follows direction. Jose at bedside. Pt states some pain to right side forehead. OOB with SBA, steady gait. Pt tolerated approx 15% of breakfast assisted by her . Pt had 2 bites scrambled egg, 5 bites cream of rice, 1/3 yogurt per her . Pt has not had a recorded BM since admit and her is unaware of when her last BM was at home. No abd distention, tenderness, BSX4, no nausea. Dr. Macias made aware at 1040, no further intervention, monitor intake and flatus, BM at home. Plan for discharge home today.
--- NOTE | 2018-07-12 11:54 | PT.IPTN ---
Current Diagnoses Migraine, unspecified, not intractable, without status migrainosus (07/09/18) Physical Therapy Treatment Note M2 PT-IP Current Condition Start: 07/10/18 13:03 Freq: NEEDED Status: Active Protocol: Document 07/10/18 12:45 RCC (Rec: 07/10/18 13:18 RCC [id number]) Physical Therapy Current Condition Current Condition Evaluation Date 07/10/18 Treatment Diagnosis EMERY, AMS, impaired gait M3 PT-IP Subjective Start: 07/10/18 13:03 Freq: NEEDED Status: Active Protocol: Document 07/12/18 10:30 HH (Rec: 07/12/18 11:54 HH [email or web address]) Subjective Physical Therapy Visit Type Type Treatment Note Visit Start Time 10:30 Visit Stop Time 11:00 Total Visit Minutes 30 Notes Pt was sleeping on her R side but she agreed to mobilize with PT. Number of SCALLOPER Visits 0 Physical Therapy Visit Comments Patient Comments let's walk M4 PT-IP Mobility and Gait Start: 07/10/18 13:03 Freq: NEEDED Status: Active Protocol: Document 07/12/18 10:30 HH (Rec: 07/12/18 11:54 HH [email or web address]) PT-Bed Mobility Assessment Rolling Type of Rolling Log Rolling Supine to Sit Supine to Sit Independent Bedrails Sit to Supine Sit to Supine Independent Scooting Scooting to Edge of Bed Independent PT-Transfer Assessment Sit to and From Stand Sit to and from Stand Independent Equipment Transfer Assistive Device Gait Belt Orthotic/Prosthetic Devices or Brace: No Transfers Transfer Destination Bed Transfer Technique Stand Step Pivot Transfer Ability Level of Assist Standby Assistance Comments Mobility Comments Pt stood from bed with SBA, she then amb to bathroom for toileting. Pt was able to transfer from or to toilet I without AD. She was able to wipe and don and doff brief under supervision Gait Assessment Gait Gait Assistance Required: Standby Assistance Distance (Feet) 150 Able to Maintain Weight Bearing Status Yes During Gait Assistive Devices Assistive Device Gait Belt Orthotic/Prosthetic Devices or Brace: No Factors Limiting Gait Function Factors Limiting Gait Function Decreased Strength Difficulty Following Directions Poor Balance Poor Safety Awareness Comments Gait Comments Pt amb from bed to hallway and returned to bed with SBA no AD. Pt presents overall steady gait but she did need to look for support from mejia and grab bars occasionally especially during turns. She amb slows and required to stop when she answered questions. M5 PT-IP Objective Assessments Start: 07/10/18 13:03 Freq: NEEDED Status: Active Protocol: Document 07/10/18 12:45 RCC (Rec: 07/10/18 13:18 RCC [id number]) Orientation Orientation/Cognition Level of Alertness Lethargic Strength Lower Extremity Strength Assessment Within Functional Limits M6 PT-IP Treatment Start: 07/10/18 13:03 Freq: NEEDED Status: Active Protocol: Document 07/12/18 10:30 HH (Rec: 07/12/18 11:54 HH [email or web address]) Physical Therapy Treatment Education Education Provided Safety M7 PT-IP Assessment and Plan Start: 07/10/18 13:03 Freq: NEEDED Status: Active Protocol: Document 07/12/18 10:30 HH (Rec: 07/12/18 11:54 HH [email or web address]) PT Summary Assessment and Plan Summary Progress Towards Goals Progressing Toward Goals Assessment Summary Pt was able to follow simple command and she did need cues for directions. Pt was able to tolerate longer session and amb distance. Pt required SBA for overall mobility today. Pt is safe to d/c home today with A Frequency of Treatment Frequency Of Treatment Discharge Treatment Plan Physical Therapy Treatment Plan Transfer Training Gait Training Therapeutic Exercise Balance Retraining Neuromuscular Re-ed Recommendations To Nursing Amount of Assist Needed 1 Person Assist Discharge Recommendations PT Discharge Recommendations Home with Assistance
--- NOTE | 2018-07-12 11:54 | CM.DPC ---
DCP/continued: Reviewed chart. Received notification in AM rounds that patient most likely will discharge home today. Outpatient therapy currently recommended. Patient's spouse/Esdras requesting to speak with [employer] re: insurance. Patient currently with Medicare only and patient/spouse looking into supplement. Provided spouse with updated 2019 Medicare coverage sheet. Patient currently inpatient status and spouse updated. Sheet provides patient/spouse with costs during hospitalization if Medicare is the only insurance. Spouse encouraged to complete supplement research for future needs. P: Home today. Insurance resources provided. ALHAJI Edwards
[2018-07-12 12:40] VITALS: BP 158/70; PULSE 58; RESP 18; TEMP 36.8; O2SAT 99
--- NOTE | 2018-07-12 14:34 | PC.NURSE ---
Day Shift- reviewed discharge information packet reviewed with pt's Jose. He states pt has a follow up appointment already made with her PCP Dr. Paredes on Wednesday 07/19 at 11:15 am. No voiced concerns. Prescription confirmed at [facility] in [place] pt husbands request. Pt left unit with all belongings at 1435 in no distress via wheelchair with [employer] MACHINE OPERATOR. present to drive pt home. Attempted to contact Dr. Cochran to help fill out [place] paperwork for pt's son Rodriguez. Unable to reach at this time. Requested that Rodriguez follows up with pt's PCP office.
[2018-07-12 15:55] LABS: DNA (DS) Antibody < 1 IU/mL (< 5)
[2018-07-13 14:38] LABS: RPR Screen Nonreactive (Nonreactive)
== END 2018-07-12 14:35 | disposition home or self-care (01) | DRG 103 ==
LOC: ED 18:51 → AC 19:06
PROVIDERS: Internal Medicine; Nurse Practitioner Adult Health; Admitting Provider Family Medicine; Emergency Provider Emergency Medicine; PCP Physician Assistant; Visit Provider Family Medicine
DX: G43.909 Migraine, unspecified, not intractable, without status migrainosus (principal); G93.49 Other encephalopathy; R40.2353 Coma scale, best motor response, localizes pain, at hospital admission; R40.2133 Coma scale, eyes open, to sound, at hospital admission; R40.2243 Coma scale, best verbal response, confused conversation, at hospital admission; D72.829 Elevated white blood cell count, unspecified; R50.9 Fever, unspecified; I10 Essential (primary) hypertension; E78.5 Hyperlipidemia, unspecified; F41.9 Anxiety disorder, unspecified; E87.6 Hypokalemia
CPT/HCPCS: 36415; 36591; 62270; 70450; 70553; 71045; 80048; 80053; 80305; 80320; 81001; 81003; 82945; 82962; 83735; 84145; 84157; 85025; 85610; 85651; 85730; 86140; 86225; 86592; 87070; 87205; 87400; 87633; 87798; 89051; 92610; 93005; 96105; 96361; 96374; 96375; 97116; 97161; 97530; 99285; 99291; G0378; A9579; J1100; J1885; J2405; J2765

== ENCOUNTER 2018-07-15 08:47 | Emergency (ER) | payer MEDICARE, SELFPAY ==
[2018-07-08 19:36] VITALS: BMI 29.5
[2018-07-15] VITALS (8 sets, daily range): BP systolic 121–151; BP diastolic 45–72; PULSE 55–83; RESP 18–23; TEMP 37.2; O2SAT 95–97
--- NOTE | 2018-07-15 | DI.CT.S_ITS ---
PROCEDURE: CT ANGIO HEAD AND NECK INDICATIONS: FACIAL DROOP TECHNIQUE: Noncontrast brain CT images were performed earlier in the day and not repeated. After the administration of intravenous contrast, 1 mm thick sections acquired from the aortic arch through the [place] of [place]. Post-contrast 4.5 mm thick sections then re-acquired from the foramen magnum to the vertex. 3-dimensional dlpttsm-qtcahkdcx-suynlormmu (MIP) and/or volume rendering reformats were acquired of the central intracranial vasculature and neck separately. COMPARISON: [facility], CT, CT HEAD/BRAIN WO CON, 07/15/2018, 8:46. [facility], MR, MR STROKE, 07/09/2018, 10:08. [facility], CT, CT HEAD/BRAIN WO CON, 07/08/2018, 12:04. [facility], CT, CT HEAD/BRAIN WO CON, 12/01/2017, 13:34. [facility], US, CAROTID ARTERY DOPPLER BILAT, 06/02/2010, 10:15. FINDINGS: Image quality: Excellent. BRAIN: CSF spaces: Ventricles are normal in size and shape. Basal cisterns are patent. No extra-axial fluid collections. Brain: No midline shift. No intracranial bleeds or masses. Brownlee-white matter interface appears intact. Skull and face: Calvarium and facial bones appear intact, without suspicious lesions. Orbits appear normal. Sinuses: Sinuses and mastoids are clear. HEAD CT ANGIOGRAPHY: Anterior circulation: Intracranial internal carotid arteries are normal in size and flow. The flow within the paired anterior cerebral arteries is normal and symmetric. The flow within the middle cerebral arteries is normal and symmetric. The anterior communicating artery is seen. No aneurysms are seen. Posterior circulation: Visualized portions of the vertebral arteries demonstrate normal caliber, and join to form a normal appearing basilar artery. Flow within the posterior cerebral arteries is normal and symmetric. No aneurysms are seen. NECK CT ANGIOGRAPHY: Carotid system: The great vessels demonstrate a conventional anatomy as they arise from the aortic arch. The origins of the common carotid arteries appear patent. The common carotid arteries demonstrate normal caliber and courses. The bifurcation regions are both widely patent. The internal carotid arteries demonstrate normal calibers and courses. Posterior circulation: The origins of the vertebral arteries both appear widely patent. The more superior extracranial portions of both vertebral arteries also demonstrate normal courses and calibers. They join to form a normal appearing basilar artery. Soft tissues: Visualized neck soft tissues demonstrate no suspicious abnormalities. Bones: No suspicious bony lesions. Visualized cervical spine appears normally aligned. Degenerative changes are seen throughout, including moderate disc space narrowing at C5-C6 and C6-C7. IMPRESSION: No significant or arterial abnormality is seen. No hemodynamically significant stenosis can be seen of the arteries of the neck. Lower cervical degenerative changes are incidentally noted. Any quantitative measurements of stenosis were performed using NASCET criteria. Dictated by: Clayton Estrada M.D. on 07/15/2018 at 8:36 Approved by: Clayton Estrada M.D. on 07/15/2018 at 8:57
--- NOTE | 2018-07-15 | DI.CT.S_ITS ---
PROCEDURE: CT HEAD/BRAIN WO CON INDICATIONS: FACIAL DROOP TECHNIQUE: Noncontrast 4.5 mm thick angled axial sections acquired from the foramen magnum to the vertex, with coronal and sagittal reformats. For radiation dose reduction, the following was used: automated exposure control, adjustment of mA and/or kV according to patient size. COMPARISON: [facility], MR, MR STROKE, 07/09/2018, 10:08. [facility], CT, CT HEAD/BRAIN WO CON, 07/08/2018, 12:04. FINDINGS: Image quality: Excellent. CSF spaces: Basal cisterns are patent. No extra-axial fluid collections. The ventricles are symmetric in size and shape. Brain: No intracranial bleeds or masses. There is cerebral volume loss for age, with resultant ventricular and sulcal prominence. There are periventricular and deep white matter chronic small vessel ischemic changes. There is intracranial internal carotid artery atherosclerosis. Skull and face: Calvarium and visualized facial bones appear intact, without suspicious lesions. Sinuses: Visualized sinuses and mastoids are clear. IMPRESSION: No findings of acute hemorrhage. No CT findings of early stroke cannot be seen. If there is strong clinical suspicion for an acute stroke, please consider a repeat MRI for further evaluation, as it is more sensitive (assuming that there is no contraindication to MRI). Note: Case discussed by telephone with Dr. Han at 9:12 AM [place] time on July 15, 2018. Dictated by: Clayton Estrada M.D. on 07/15/2018 at 8:10 Approved by: Clayton Estrada M.D. on 07/15/2018 at 8:14
--- NOTE | 2018-07-15 08:56 | DI.RAD.S_ITS ---
PROCEDURE: XR CHEST 1V INDICATIONS: cva - left sided facial droop TECHNIQUE: One view of the chest was acquired. COMPARISON: [facility], CR, XR CHEST 1V, 07/08/2018, 18:46. FINDINGS: Surgical changes and devices: None. Lungs and pleura: Lung volumes are low. No acute consolidation. Scattered subsegmental atelectasis and/or scarring. No pleural effusions or pneumothorax. Mediastinum: Mediastinal contours appear normal. Heart size is normal. Bones and chest wall: No suspicious bony lesions. Overlying soft tissues appear unremarkable. Chronic appearing deformity of the visualized right humerus IMPRESSION: No acute consolidation. Scattered subsegmental atelectasis and/or scarring. Dictated by: Luis Eduardo Ricketts M.D. on 07/15/2018 at 9:35 Approved by: Luis Eduardo Ricketts M.D. on 07/15/2018 at 9:36
--- NOTE | 2018-07-15 09:05 | ED.NEUROSD ---
HPI - Neuro Symptoms/Deficit General Chief Complaint: Neuro Symptoms/Deficit Stated Complaint: 'LOOKS LIKE HAVING A STROKE' Time Seen by Provider: 07/15/18 08:56 Source: patient Mode of arrival: ambulatory Limitations: no limitations History of Present Illness HPI Narrative: This is a 63-year-old female who comes to the emergency department with complaint difficulty with speech, facial droop difficulty with movement. Patient was admitted here recently with complaint headache, difficulty speech and altered mental status. She had a lumbar puncture, imaging as well as MRI without a clear definition of cause. It was suspected possibly a complicated migraine variant patient has not seen Neurology yet. Her family brings her in today because her symptoms seem to have worsened. They state yesterday she was speaking her speech seemed a little bit better, she was ambulating. This morning they walked into the room she had woken up and was sitting on the edge of the bed. They states that she is not really talking all, she was able to ambulate to the car but seemed a little bit more balance. They state that she facial droop on the left which does seem different. They felt like her hands were both working properly but that her squeeze was may be off. They did not know if she was dragging her leg. Patient had these episodes about 4 times in the past she was diagnosed in the past specifically with ocular migraines and then has had these episodes. The 1st 2 were about 4 years apart the 3rd when her was her most recent hospitalization which she states she never totally returned to baseline and then today she seems worse. Patient is unable to give me much history. Related Data Home Medications Medication Instructions Recorded Confirmed Vitamin C 1 tab PO DAILY #0 11/18/16 07/15/18 multivitamin tablet 1 tab PO DAILY #0 12/01/17 07/15/18 sumatriptan 50 mg tablet 50 mg PO PRN PRN 01/26/18 07/15/18 rosuvastatin 10 mg PO BEDTIME 07/08/18 07/15/18 metoprolol succinate [Toprol XL] 25 mg PO DAILY 07/15/18 07/15/18 Previous Rx's Medication Instructions Recorded ondansetron 4 mg disintegrating 4 mg PO TID PRN #20 tab 12/01/17 tablet losartan 25 mg PO BEDTIME #30 tab 07/12/18 Allergies Allergy/AdvReac Type Severity Reaction Status Date / Time No Known Drug Allergies Allergy Verified 07/15/18 11:10 Review of Systems Review of Systems ROS Unobtainable: Other (Patient nods head/yes no but not consistently, she does follow some command) [facility] Medical History Essential hypertension (Chronic 05/28/16) Mixed hyperlipidemia (Chronic 05/28/16) Anxiety (Chronic) Migraines (Chronic) Surgical History Hx of section (Resolved ~1980) Family History Father History of high blood pressure Social History household members: spouse and children Smoking Status: Never smoker second hand exposure: No alcohol intake: never substance use type: does not use Family History Father History of high blood pressure Social History household members: spouse and children Smoking Status: Never smoker second hand exposure: No alcohol intake: never substance use type: does not use Exam Narrative Exam Narrative: GEN: well nourished, well appearing female, alert, follows most commands but not all, patient appears to be in mild distress. HEENT: Atraumatic, pupils are equal round reactive to light, extraocular movements are intact, nares are clear, TMs are clear with no fluid, there is no conjunctival pallor. Throat is clear without any exudates, erythema, tonsillar enlargement or uvular deviation, mild right facial droop, patient does not smile to assess if present with smile. HEART: Regular rate and rhythm without murmur, clicks, rubs. Pulses are equal in upper and lower extremities LUNGS:Lungs clear to auscultation, no wheezes, rales, crackles, chest moves symmetrically ABD:bowel sounds normal, soft, non-tender, no guarding, rebound, rigidity, no masses noted, no hepatosplenomegaly :No CVA tenderness MSCL: Non-tender, no muscle atrophy, muscles strength 5/5 upper and lower extremities, full range of motion, patient barely squeezes with both hands but is able to hold both arms without drift for 10 sec, she does not perform qpiarw-nyfo-sezxwd but is able to independently move her arms and point to different areas of her body. Patient is also able to hold both of her legs up. I demonstrated heel-arnold for her on own body as well as on myself patient was not able to perform but she was able to move her legs independently with no signs of weakness. NEURO:CN 2-12 intact, sensation normal, reflexes 2/4 upper and lower extremities. Initial Vital Signs Initial Vital Signs: Vital Signs Temperature 99.0 F 07/15/18 09:00 Pulse Rate 58 L 07/15/18 09:00 Respiratory Rate 23 07/15/18 09:00 Blood Pressure 123/56 L 07/15/18 09:00 Pulse Oximetry 97 07/15/18 09:00 Scores GCS Yanci coma scale eye opening: Spontaneous Yanci coma scale verbal response: Orientated [place] coma scale motor response: Obey commands [place] coma scale total score: 15 NIH Stroke Scale Level of Conciousness: Alert, keenly responsive Ask month/age: Answers neither question correctly, aphasic, stuporous, coma (does not answer) Open/close eyes, close hand: Performs both tasks correctly Best gaze horizontal: Normal Visual pan: No visual loss Facial palsy: Minor paralysis, flattened nasolabial fold, asymmetry on smiling Left arm drift: No drift for full 10 sec Right arm drift: No drift for full 10 sec Left leg drift: No drift for full 10 sec Right leg drift: No drift for full 10 sec Limb ataxia: Absent Sensory on face/arms/legs: Mild to moderate sensory loss, can tell touch (indicated with arm) Best language: Mute, global aphasia Dysarthria: Physical barrier to speech, intubated (patient does not attempt to speak) Extinction or inattention: No abnormality Total NIH Stroke scale score: 10 Course Orders Ordered: ED Orders 07/15/18 08:56 XR chest 1V Stat 07/15/18 09:07 EKG-12 Lead Stat 07/15/18 09:13 Basic Metabolic Panel Stat Complete Blood Count AUTO DIFF Stat Partial Thromboplastin Time Stat Prothrombin Time INR Stat Troponin I Stat 07/15/18 10:46 Urinalysis and Microscopic Stat Urine Drug Screen, Rapid Stat Sodium Chloride (Normal Saline 0.9%) 1,000 mls @ 150 mls/hr IV CONT LUIS Last Infusion: 07/15/18 13:44 Dose: 0 mls/hr Admin: 07/15/18 10:02 Dose: 150 mls/hr Discontinued Medications Lorazepam (Ativan) 1 mg IV NOW ONE Stop: 07/15/18 10:55 Last Admin: 07/15/18 10:55 Dose: 1 mg Vital Signs - 8 hr 07/15/18 09:00 07/15/18 09:04 07/15/18 09:19 Temperature 99.0 F 99.0 F Pulse Rate 58 L 83 Respiratory Rate 23 22 Blood Pressure 123/56 L Blood Pressure [Right Arm] 145/66 H Pulse Oximetry 97 95 07/15/18 10:41 07/15/18 11:07 07/15/18 11:56 Temperature Pulse Rate 66 58 L 70 Respiratory Rate 23 23 19 Blood Pressure Blood Pressure [Right Arm] 151/65 H 131/45 L 121/52 L Pulse Oximetry 97 97 95 07/15/18 12:42 07/15/18 13:18 Temperature Pulse Rate 55 L 55 L Respiratory Rate 19 18 Blood Pressure 130/64 Blood Pressure [Right Arm] 142/72 H Pulse Oximetry 96 96 MDM - Neuro Symptoms/Deficit Lab Data Result diagrams: 07/15/18 09:13 07/15/18 09:13 Lab Results 07/15/18 07/15/18 07/15/18 Range/Units 09:13 09:13 09:13 WBC 9.8 (4.5-11.0) X10^3/uL RBC 5.15 (4.0-5.2) X10^6/uL Hgb 15.2 (12.0-16.0) g/dL Hct 44.7 (36-46) % MCV 86.8 (80-100) fL MCH 29.6 (26-34) PG MCHC 34.1 (30-36) % RDW 13.4 (11.6-14.8) % Plt Count 262 (150-400) X10^3/uL Neut % (Auto) 73.1 (50-75) % Lymph % (Auto) 20.3 L (25-40) % [place] % (Auto) 5.7 (3-14) % Eos % (Auto) 0.4 L (2-4) % Baso % (Auto) 0.5 (0-2) % Neut # (Auto) 7200 H (7210-9285) /uL Lymph # (Auto) 2000 (0908-1867) /uL [place] # (Auto) 600 (0-900) /uL Eos # (Auto) 0 (0-450) /uL Baso # (Auto) 100 (0-100) /uL PT 13.3 H (10.1-12.7) SECONDS INR 1.2 (0.9-1.3) APTT 30 D (26.4-36.2) SECONDS Sodium 139 (137-145) mmol/L Potassium 3.4 (3.4-5.1) mmol/L Chloride 99 (98-107) mmol/L Carbon Dioxide 28 (22-32) mmol/L BUN 11 (7-17) mg/dL Creatinine 0.70 (0.52-1.04) mg/dL Estimated GFR > 60.0 (>60) mL/min BUN/Creatinine Ratio 15.7 (6-22) Glucose 104 (80-110) mg/dL Calcium 9.3 (8.4-10.2) mg/dL Troponin I < 0.012 (0.01-0.034) ng/mL Urine Color Urine Appearance Urine pH (4.5-8.0) Ur Specific [place] (1.000-1.035) Urine Protein (Negative) Urine Glucose (UA) (Negative) g/dL Urine Ketones (NEGATIVE) Urine Occult Blood (Negative) Urine Nitrate (Negative) Urine Bilirubin (NEGATIVE) Urine Urobilinogen (0.2) E.U./dL Ur Leukocyte Esterase (NEGATIVE) Urine RBC (0-5/HPF) Urine WBC (0-5/HPF) Urine Bacteria (None) Ur Culture Indicated? Urine Opiates Screen (Negative) Ur Oxycodone Screen (Negative) Urine Methadone Screen (Negative) Ur Barbiturates Screen (Negative) U Tricyclic Antidepress (Negative) Ur Phencyclidine Scrn (Negative) Ur Amphetamines Screen (Negative) U Methamphetamines Scrn (Negative) Ur MDMA Scrn (Ecstasy) (Negative) U Benzodiazepines Scrn (Negative) Urine Cocaine Screen (Negative) U Marijuana (THC) Screen (Negative) 07/15/18 07/15/18 Range/Units 10:46 10:46 WBC (4.5-11.0) X10^3/uL RBC (4.0-5.2) X10^6/uL Hgb (12.0-16.0) g/dL Hct (36-46) % MCV (80-100) fL MCH (26-34) PG MCHC (30-36) % RDW (11.6-14.8) % Plt Count (150-400) X10^3/uL Neut % (Auto) (50-75) % Lymph % (Auto) (25-40) % [place] % (Auto) (3-14) % Eos % (Auto) (2-4) % Baso % (Auto) (0-2) % Neut # (Auto) (4434-5276) /uL Lymph # (Auto) (9425-3915) /uL [place] # (Auto) (0-900) /uL Eos # (Auto) (0-450) /uL Baso # (Auto) (0-100) /uL PT (10.1-12.7) SECONDS INR (0.9-1.3) APTT (26.4-36.2) SECONDS Sodium (137-145) mmol/L Potassium (3.4-5.1) mmol/L Chloride (98-107) mmol/L Carbon Dioxide (22-32) mmol/L BUN (7-17) mg/dL Creatinine (0.52-1.04) mg/dL Estimated GFR (>60) mL/min BUN/Creatinine Ratio (6-22) Glucose (80-110) mg/dL Calcium (8.4-10.2) mg/dL Troponin I (0.01-0.034) ng/mL Urine Color Yellow Urine Appearance Clear Urine pH 7.5 (4.5-8.0) Ur Specific [place] <=1.005 (1.000-1.035) Urine Protein Negative (Negative) Urine Glucose (UA) Negative (Negative) g/dL Urine Ketones Negative (NEGATIVE) Urine Occult Blood 2+ H (Negative) Urine Nitrate Negative (Negative) Urine Bilirubin Negative (NEGATIVE) Urine Urobilinogen 0.2 (0.2) E.U./dL Ur Leukocyte Esterase Negative (NEGATIVE) Urine RBC 5-10/hpf H (0-5/HPF) Urine WBC None seen (0-5/HPF) Urine Bacteria None seen (None) Ur Culture Indicated? Cult not indicated Urine Opiates Screen Negative (Negative) Ur Oxycodone Screen Negative (Negative) Urine Methadone Screen Negative (Negative) Ur Barbiturates Screen Negative (Negative) U Tricyclic Antidepress Negative (Negative) Ur Phencyclidine Scrn Negative (Negative) Ur Amphetamines Screen Negative (Negative) U Methamphetamines Scrn Negative (Negative) Ur MDMA Scrn (Ecstasy) Negative (Negative) U Benzodiazepines Scrn Negative (Negative) Urine Cocaine Screen Negative (Negative) U Marijuana (THC) Screen Negative (Negative) Point of Care Testing Glucose POC [address] scan - head: Radiologist's impression: negative for acute changes, called to me by radiologist [address] [address] [address] Scan Report Signed Patient: Jhoana Starks KMR#: [id number] : 3Acct:[id number] Age/Sex: 63 / FDate of Service: 07/15/18 Loc: ED Accession Number: [id number] Procedure: CT head/brain wo con Ordering Provider: Yanci Han D.O. PROCEDURE: CT HEAD/BRAIN WO CON INDICATIONS: FACIAL DROOP TECHNIQUE: Noncontrast 4.5 mm thick angled axial sections acquired from the foramen magnum to the vertex, with coronal and sagittal reformats. For radiation dose reduction, the following was used: automated exposure control, adjustment of mA and/or kV according to patient size. COMPARISON: [facility], MR, MR STROKE, 07/09/2018, 10:08. [facility], CT, CT HEAD/BRAIN WO CON, 07/08/2018, 12:04. FINDINGS: Image quality: Excellent. CSF spaces: Basal cisterns are patent. No extra-axial fluid collections. The ventricles are symmetric in size and shape. Brain: No intracranial bleeds or masses. There is cerebral volume loss for age, with resultant ventricular and sulcal prominence. There are periventricular and deep white matter chronic small vessel ischemic changes. There is intracranial internal carotid artery atherosclerosis. Skull and face: Calvarium and visualized facial bones appear intact, without suspicious lesions. Sinuses: Visualized sinuses and mastoids are clear. IMPRESSION: No findings of acute hemorrhage. No CT findings of early stroke cannot be seen. If there is strong clinical suspicion for an acute stroke, please consider a repeat MRI for further evaluation, as it is more sensitive (assuming that there is no contraindication to MRI). Note: Case discussed by telephone with Dr. Han at 9:12 AM Carlotta time on July 15, 2018. Dictated by: Clayton Estrada M.D. on 07/15/2018 at 8:10 Approved by: Clayton Estrada M.D. on 07/15/2018 at 8:14 cta head/neck: Radiologist's impression: [place] [address] CT Scan Report Signed Patient: Jhoana Starks KMR#: [id number] : 1955cct:[id number] Age/Sex: 63 / FDate of Service: 07/15/18 Loc: ED Accession Number: [id number] Procedure: CT angio head and neck Ordering Provider: Yanci Han D.O. PROCEDURE: CT ANGIO HEAD AND NECK INDICATIONS: FACIAL DROOP TECHNIQUE: Noncontrast brain CT images were performed earlier in the day and not repeated. After the administration of intravenous contrast, 1 mm thick sections acquired from the aortic arch through the [place] of [place]. Post-contrast 4.5 mm thick sections then re-acquired from the foramen magnum to the vertex. 3-dimensional qbcznxl-ezvjosxcq-ncdtlaneqx (MIP) and/or volume rendering reformats were acquired of the central intracranial vasculature and neck separately. COMPARISON: [facility], CT, CT HEAD/BRAIN WO CON, 07/15/2018, 8:46. [facility], MR, MR STROKE, 07/09/2018, 10:08. [facility], CT, CT HEAD/BRAIN WO CON, 07/08/2018, 12:04. [facility], CT, CT HEAD/BRAIN WO CON, 12/01/2017, 13:34. [facility], US, CAROTID ARTERY DOPPLER BILAT, 06/02/2010, 10:15. FINDINGS: Image quality: Excellent. BRAIN: CSF spaces: Ventricles are normal in size and shape. Basal cisterns are patent. No extra-axial fluid collections. Brain: No midline shift. No intracranial bleeds or masses. [place]-white matter interface appears intact. Skull and face: Calvarium and facial bones appear intact, without suspicious lesions. Orbits appear normal. Sinuses: Sinuses and mastoids are clear. HEAD CT ANGIOGRAPHY: Anterior circulation: Intracranial internal carotid arteries are normal in size and flow. The flow within the paired anterior cerebral arteries is normal and symmetric. The flow within the middle cerebral arteries is normal and symmetric. The anterior communicating artery is seen. No aneurysms are seen. Posterior circulation: Visualized portions of the vertebral arteries demonstrate normal caliber, and join to form a normal appearing basilar artery. Flow within the posterior cerebral arteries is normal and symmetric. No aneurysms are seen. NECK CT ANGIOGRAPHY: Carotid system: The great vessels demonstrate a conventional anatomy as they arise from the aortic arch. The origins of the common carotid arteries appear patent. The common carotid arteries demonstrate normal caliber and courses. The bifurcation regions are both widely patent. The internal carotid arteries demonstrate normal calibers and courses. Posterior circulation: The origins of the vertebral arteries both appear widely patent. The more superior extracranial portions of both vertebral arteries also demonstrate normal courses and calibers. They join to form a normal appearing basilar artery. Soft tissues: Visualized neck soft tissues demonstrate no suspicious abnormalities. Bones: No suspicious bony lesions. Visualized cervical spine appears normally aligned. Degenerative changes are seen throughout, including moderate disc space narrowing at C5-C6 and C6-C7. IMPRESSION: No significant or arterial abnormality is seen. No hemodynamically significant stenosis can be seen of the arteries of the neck. Lower cervical degenerative changes are incidentally noted. Any quantitative measurements of stenosis were performed using NASCET criteria. Dictated by: Clayton Estrada M.D. on 07/15/2018 at 8:36 Approved by: Clayton Estrada M.D. on 07/15/2018 at 8:57 Chest x-ray: Radiologist's impression: Jhoana Starks 63 F [address] [address] XRay Report Signed Patient: Jhoana Starks KMR#: [id number] : 1955cct:[id number] Age/Sex: 63 / FDate of Service: 07/15/18 Loc: ED Accession Number: [id number] Procedure: XR chest 1V Ordering Provider: Yanci Han D.O. PROCEDURE: XR CHEST 1V INDICATIONS: cva - left sided facial droop TECHNIQUE: One view of the chest was acquired. COMPARISON: [facility], CR, XR CHEST 1V, 07/08/2018, 18:46. FINDINGS: Surgical changes and devices: None. Lungs and pleura: Lung volumes are low. No acute consolidation. Scattered subsegmental atelectasis and/or scarring. No pleural effusions or pneumothorax. Mediastinum: Mediastinal contours appear normal. Heart size is normal. Bones and chest wall: No suspicious bony lesions. Overlying soft tissues appear unremarkable. Chronic appearing deformity of the visualized right humerus IMPRESSION: No acute consolidation. Scattered subsegmental atelectasis and/or scarring. Dictated by: Luis Eduardo Ricketts M.D. on 07/15/2018 at 9:35 Approved by: Luis Eduardo Ricketts M.D. on 07/15/2018 at 9:36 ECG Data Attestation: I personally reviewed and interpreted this ECG as follows: Interpretation: Sinus rhythm with a rate of 84 P are interval of 140 QRS 82 and QTC of 409. Patient has left axis deviation, no ST changes are appreciated. MDM Narrative Medical decision making narrative: Patient's prior imaging and lab work as well as hospital stay was revisited. Patient had head CT and MR I which was negative for any changes. Patient had a lumbar puncture which did not show signs infection. Patient evaluated suspected possibly a migraine variant and was discharged plan for follow-up with Neurology but this has not established. Patient has worsened today. Her physical exam is not consistent with a true stroke. Patient is able to follow some commands but does not follow others. It is unclear if this is because she does not understand or another cause. Patient has had a long-standing history of similar episodes total in for including today on as well as a history of ocular migraines, blood pressure history and dyslipidemia history. Per family no prior surgical history she is not taking any blood thinners a denies any tobacco, illicit or alcohol. Spoke with Dr. Altamirano from [facility] in [place] [facility], she feels patient would benefit from transfer, EEG and further evaluation. We did discussed prior MRI from recent hospitalization as well as reviewed patient's CSF labs. Patient had twitching episode of the face, not extremities while urinating on bedside commode, was able to stand and pull up clothes during this episode. Neurology does not want any anti-epileptic medications at this time until EEG. No clear psychiatric history per family. Images, including MRI were pushed to [place]. Patient discussed with Dr. Shrestha the hospitalist and he accepts. Discharge Plan Departure Patient Disposition: [facility] Clinical Impression: Altered mental status, Aphasia Interventions: ED Discharge Assessment Last Done: 07/15/18 13:18 Prescriptions: No Action sumatriptan succinate 50 mg Tablet 50 mg PO PRN PRN (Reason: Migraine Headache) RF: 0 ondansetron 4 mg tablet,disintegrating 4 mg PO TID PRN (Reason: nausea and vomiting) Qty: 20 RF: 0 Vitamin C 1 tab PO DAILY Qty: 0 RF: 0 multivitamin [Multiple Vitamins] tablet 1 tab PO DAILY Qty: 0 RF: 0 metoprolol succinate [Toprol XL] 25 MG tablet extended release 24 hr 25 mg PO DAILY RF: 0 rosuvastatin 10 mg tablet 10 mg PO BEDTIME RF: 0 losartan 25 mg Tablet 25 mg PO BEDTIME Qty: 30 RF: 0 Referrals: Debbie Paredes PA-C [Primary Care Provider] -
[2018-07-15 09:27] LABS: Add Manual Diff / Slide Review NO; Basophils Absolute Auto 100 /uL (0-100); Basophils Percent Auto 0.5 % (0-2); Eosinophils Absolute Auto 0 /uL (0-450); Eosinophils Percent Auto 0.4 % (2-4); Hematocrit 44.7 % (36-46); Hemoglobin 15.2 g/dL (12.0-16.0); Lymphocytes Absolute Auto 2000 /uL (1100-4500); Lymphocytes Percent Auto 20.3 % (25-40); Mean Corpuscular HGB Conc 34.1 % (30-36); Mean Corpuscular Hemoglobin 29.6 PG (26-34); Mean Corpuscular Volume 86.8 fL (80-100); Monocytes Absolute Auto 600 /uL (0-900); Monocytes Percent Auto 5.7 % (3-14); Neutrophils Absolute Auto 7200 /uL (1500-7000); Neutrophils Percent Auto 73.1 % (50-75); Platelet Count 262 X10^3/uL (150-400); Red Blood Cell Count 5.15 X10^6/uL (4.0-5.2); Red Cell Distribution Width 13.4 % (11.6-14.8); White Blood Cell Count 9.8 X10^3/uL (4.5-11.0)
[2018-07-15 09:31] LABS: INR 1.2 (0.9-1.3); Prothrombin Time 13.3 SECONDS (10.1-12.7)
[2018-07-15 09:33] LABS: PTT Partial Thromboplastin Tim 30 SECONDS (26.4-36.2)
--- NOTE | 2018-07-15 09:34 | PC.NURSE ---
Family reports pt had been Dc'd from hospital wednesday after being admitted [address], MRI per . Noticed this am at 0800 that pt had l facial droop and drooling. Unclear if that is when it started. Son states noticed that she was not as verbal as she was yesterday. She continued to have trouble finding words but he thought her voice seemed more quiet. Was eating and drinking yesterday. Amb with wobble out to car but had been getting up with husbands help to BR previously. CT and CT angio
[2018-07-15 09:35] LABS: BUN Creatinine Ratio 15.7 (6-22); Blood Urea Nitrogen 11 mg/dL (7-17); Calcium 9.3 mg/dL (8.4-10.2); Carbon Dioxide 28 mmol/L (22-32); Chloride 99 mmol/L (98-107); Estimated Glomerular Filt Rate > 60.0 mL/min (>60); Glucose 104 mg/dL (80-110); HEMOLYSIS < 15 (0-50); Potassium 3.4 mmol/L (3.4-5.1); Sodium 139 mmol/L (137-145)
[2018-07-15 09:48] LABS: Troponin I < 0.012 ng/mL (0.01-0.034)
--- NOTE | 2018-07-15 09:48 | ED_ITS ---
HPI - Neuro Symptoms/Deficit General Chief Complaint: Neuro Symptoms/Deficit Stated Complaint: 'LOOKS LIKE HAVING A STROKE' Time Seen by Provider: 07/15/18 08:56 Source: patient Mode of arrival: ambulatory Limitations: no limitations History of Present Illness HPI Narrative: This is a 63-year-old female who comes to the emergency department with complaint difficulty with speech, facial droop difficulty with movement. Patient was admitted here recently with complaint headache, difficulty speech and altered mental status. She had a lumbar puncture, imaging as well as MRI without a clear definition of cause. It was suspected possibly a complicated migraine variant patient has not seen Neurology yet. Her family brings her in today because her symptoms seem to have worsened. They state yesterday she was speaking her speech seemed a little bit better, she was ambulating. This morning they walked into the room she had woken up and was sitting on the edge of the bed. They states that she is not really talking all, she was able to ambulate to the car but seemed a little bit more balance. They state that she facial droop on the left which does seem different. They felt like her hands were both working properly but that her squeeze was may be off. They did not know if she was dragging her leg. Patient had these episodes about 4 times in the past she was diagnosed in the past specifically with ocular migraines and then has had these episodes. The 1st 2 were about 4 years apart the 3rd when her was her most recent hospitalization which she states she never totally returned to baseline and then today she seems worse. Patient is unable to give me much history. Related Data Home Medications Medication Instructions Recorded Confirmed Vitamin C 1 tab PO DAILY #0 11/18/16 07/15/18 multivitamin tablet 1 tab PO DAILY #0 12/01/17 07/15/18 sumatriptan 50 mg tablet 50 mg PO PRN PRN 01/26/18 07/15/18 rosuvastatin 10 mg PO BEDTIME 07/08/18 07/15/18 metoprolol succinate [Toprol XL] 25 mg PO DAILY 07/15/18 07/15/18 Previous Rx's Medication Instructions Recorded ondansetron 4 mg disintegrating 4 mg PO TID PRN #20 tab 12/01/17 tablet losartan 25 mg PO BEDTIME #30 tab 07/12/18 Allergies Allergy/AdvReac Type Severity Reaction Status Date / Time No Known Drug Allergies Allergy Verified 07/15/18 11:10 Review of Systems Review of Systems ROS Unobtainable: Other (Patient nods head/yes no but not consistently, she does follow some command) [facility] Medical History Essential hypertension (Chronic 05/28/16) Mixed hyperlipidemia (Chronic 05/28/16) Anxiety (Chronic) Migraines (Chronic) Surgical History Hx of section (Resolved ~1980) Family History Father History of high blood pressure Social History household members: spouse and children Smoking Status: Never smoker second hand exposure: No alcohol intake: never substance use type: does not use Family History Father History of high blood pressure Social History household members: spouse and children Smoking Status: Never smoker second hand exposure: No alcohol intake: never substance use type: does not use Exam Narrative Exam Narrative: GEN: well nourished, well appearing female, alert, follows most commands but not all, patient appears to be in mild distress. HEENT: Atraumatic, pupils are equal round reactive to light, extraocular movements are intact, nares are clear, TMs are clear with no fluid, there is no conjunctival pallor. Throat is clear without any exudates, erythema, tonsillar enlargement or uvular deviation, mild right facial droop, patient does not smile to assess if present with smile. HEART: Regular rate and rhythm without murmur, clicks, rubs. Pulses are equal in upper and lower extremities LUNGS:Lungs clear to auscultation, no wheezes, rales, crackles, chest moves symmetrically ABD:bowel sounds normal, soft, non-tender, no guarding, rebound, rigidity, no masses noted, no hepatosplenomegaly :No CVA tenderness MSCL: Non-tender, no muscle atrophy, muscles strength 5/5 upper and lower extremities, full range of motion, patient barely squeezes with both hands but is able to hold both arms without drift for 10 sec, she does not perform cevrjh-bqti-yhqyod but is able to independently move her arms and point to different areas of her body. Patient is also able to hold both of her legs up. I demonstrated heel-arnold for her on own body as well as on myself patient was not able to perform but she was able to move her legs independently with no signs of weakness. NEURO:CN 2-12 intact, sensation normal, reflexes 2/4 upper and lower extremities. Initial Vital Signs Initial Vital Signs: Vital Signs Temperature 99.0 F 07/15/18 09:00 Pulse Rate 58 L 07/15/18 09:00 Respiratory Rate 23 07/15/18 09:00 Blood Pressure 123/56 L 07/15/18 09:00 Pulse Oximetry 97 07/15/18 09:00 Scores GCS Yanci coma scale eye opening: Spontaneous Yanci coma scale verbal response: Orientated [place] coma scale motor response: Obey commands [place] coma scale total score: 15 NIH Stroke Scale Level of Conciousness: Alert, keenly responsive Ask month/age: Answers neither question correctly, aphasic, stuporous, coma (does not answer) Open/close eyes, close hand: Performs both tasks correctly Best gaze horizontal: Normal Visual pan: No visual loss Facial palsy: Minor paralysis, flattened nasolabial fold, asymmetry on smiling Left arm drift: No drift for full 10 sec Right arm drift: No drift for full 10 sec Left leg drift: No drift for full 10 sec Right leg drift: No drift for full 10 sec Limb ataxia: Absent Sensory on face/arms/legs: Mild to moderate sensory loss, can tell touch (indicated with arm) Best language: M[place], global aphasia Dysarthria: Physical barrier to speech, intubated (patient does not attempt to speak) Extinction or inattention: No abnormality Total NIH Stroke scale score: 10 Course Orders Ordered: ED Orders 07/15/18 08:56 XR chest 1V Stat 07/15/18 09:07 EKG-12 Lead Stat 07/15/18 09:13 Basic Metabolic Panel Stat Complete Blood Count AUTO DIFF Stat Partial Thromboplastin Time Stat Prothrombin Time INR Stat Troponin I Stat 07/15/18 10:46 Urinalysis and Microscopic Stat Urine Drug Screen, Rapid Stat Sodium Chloride (Normal Saline 0.9%) 1,000 mls @ 150 mls/hr IV CONT LUIS Last Infusion: 07/15/18 13:44 Dose: 0 mls/hr Admin: 07/15/18 10:02 Dose: 150 mls/hr Discontinued Medications Lorazepam (Ativan) 1 mg IV NOW ONE Stop: 07/15/18 10:55 Last Admin: 07/15/18 10:55 Dose: 1 mg Vital Signs - 8 hr 07/15/18 09:00 07/15/18 09:04 07/15/18 09:19 Temperature 99.0 F 99.0 F Pulse Rate 58 L 83 Respiratory Rate 23 22 Blood Pressure 123/56 L Blood Pressure [Right Arm] 145/66 H Pulse Oximetry 97 95 07/15/18 10:41 07/15/18 11:07 07/15/18 11:56 Temperature Pulse Rate 66 58 L 70 Respiratory Rate 23 23 19 Blood Pressure Blood Pressure [Right Arm] 151/65 H 131/45 L 121/52 L Pulse Oximetry 97 97 95 07/15/18 12:42 07/15/18 13:18 Temperature Pulse Rate 55 L 55 L Respiratory Rate 19 18 Blood Pressure 130/64 Blood Pressure [Right Arm] 142/72 H Pulse Oximetry 96 96 MDM - Neuro Symptoms/Deficit Lab Data Result diagrams: 07/15/18 09:13 07/15/18 09:13 Lab Results 07/15/18 07/15/18 07/15/18 Range/Units 09:13 09:13 09:13 WBC 9.8 (4.5-11.0) X10^3/uL RBC 5.15 (4.0-5.2) X10^6/uL Hgb 15.2 (12.0-16.0) g/dL Hct 44.7 (36-46) % MCV 86.8 (80-100) fL MCH 29.6 (26-34) PG MCHC 34.1 (30-36) % RDW 13.4 (11.6-14.8) % Plt Count 262 (150-400) X10^3/uL Neut % (Auto) 73.1 (50-75) % Lymph % (Auto) 20.3 L (25-40) % Louisa % (Auto) 5.7 (3-14) % Eos % (Auto) 0.4 L (2-4) % Baso % (Auto) 0.5 (0-2) % Neut # (Auto) 7200 H (6065-4750) /uL Lymph # (Auto) 2000 (5477-7829) /uL Louisa # (Auto) 600 (0-900) /uL Eos # (Auto) 0 (0-450) /uL Baso # (Auto) 100 (0-100) /uL PT 13.3 H (10.1-12.7) SECONDS INR 1.2 (0.9-1.3) APTT 30 D (26.4-36.2) SECONDS Sodium 139 (137-145) mmol/L Potassium 3.4 (3.4-5.1) mmol/L Chloride 99 (98-107) mmol/L Carbon Dioxide 28 (22-32) mmol/L BUN 11 (7-17) mg/dL Creatinine 0.70 (0.52-1.04) mg/dL Estimated GFR > 60.0 (>60) mL/min BUN/Creatinine Ratio 15.7 (6-22) Glucose 104 (80-110) mg/dL Calcium 9.3 (8.4-10.2) mg/dL Troponin I < 0.012 (0.01-0.034) ng/mL Urine Color Urine Appearance Urine pH (4.5-8.0) Ur Specific [place] (1.000-1.035) Urine Protein (Negative) Urine Glucose (UA) (Negative) g/dL Urine Ketones (NEGATIVE) Urine Occult Blood (Negative) Urine Nitrate (Negative) Urine Bilirubin (NEGATIVE) Urine Urobilinogen (0.2) E.U./dL Ur Leukocyte Esterase (NEGATIVE) Urine RBC (0-5/HPF) Urine WBC (0-5/HPF) Urine Bacteria (None) Ur Culture Indicated? Urine Opiates Screen (Negative) Ur Oxycodone Screen (Negative) Urine Methadone Screen (Negative) Ur Barbiturates Screen (Negative) U Tricyclic Antidepress (Negative) Ur Phencyclidine Scrn (Negative) Ur Amphetamines Screen (Negative) U Methamphetamines Scrn (Negative) Ur MDMA Scrn (Ecstasy) (Negative) U Benzodiazepines Scrn (Negative) Urine Cocaine Screen (Negative) U Marijuana (THC) Screen (Negative) 07/15/18 07/15/18 Range/Units 10:46 10:46 WBC (4.5-11.0) X10^3/uL RBC (4.0-5.2) X10^6/uL Hgb (12.0-16.0) g/dL Hct (36-46) % MCV (80-100) fL MCH (26-34) PG MCHC (30-36) % RDW (11.6-14.8) % Plt Count (150-400) X10^3/uL Neut % (Auto) (50-75) % Lymph % (Auto) (25-40) % Louisa % (Auto) (3-14) % Eos % (Auto) (2-4) % Baso % (Auto) (0-2) % Neut # (Auto) (4230-0914) /uL Lymph # (Auto) (5288-8005) /uL Louisa # (Auto) (0-900) /uL Eos # (Auto) (0-450) /uL Baso # (Auto) (0-100) /uL PT (10.1-12.7) SECONDS INR (0.9-1.3) APTT (26.4-36.2) SECONDS Sodium (137-145) mmol/L Potassium (3.4-5.1) mmol/L Chloride (98-107) mmol/L Carbon Dioxide (22-32) mmol/L BUN (7-17) mg/dL Creatinine (0.52-1.04) mg/dL Estimated GFR (>60) mL/min BUN/Creatinine Ratio (6-22) Glucose (80-110) mg/dL Calcium (8.4-10.2) mg/dL Troponin I (0.01-0.034) ng/mL Urine Color Yellow Urine Appearance Clear Urine pH 7.5 (4.5-8.0) Ur Specific [place] <=1.005 (1.000-1.035) Urine Protein Negative (Negative) Urine Glucose (UA) Negative (Negative) g/dL Urine Ketones Negative (NEGATIVE) Urine Occult Blood 2+ H (Negative) Urine Nitrate Negative (Negative) Urine Bilirubin Negative (NEGATIVE) Urine Urobilinogen 0.2 (0.2) E.U./dL Ur Leukocyte Esterase Negative (NEGATIVE) Urine RBC 5-10/hpf H (0-5/HPF) Urine WBC None seen (0-5/HPF) Urine Bacteria None seen (None) Ur Culture Indicated? Cult not indicated Urine Opiates Screen Negative (Negative) Ur Oxycodone Screen Negative (Negative) Urine Methadone Screen Negative (Negative) Ur Barbiturates Screen Negative (Negative) U Tricyclic Antidepress Negative (Negative) Ur Phencyclidine Scrn Negative (Negative) Ur Amphetamines Screen Negative (Negative) U Methamphetamines Scrn Negative (Negative) Ur MDMA Scrn (Ecstasy) Negative (Negative) U Benzodiazepines Scrn Negative (Negative) Urine Cocaine Screen Negative (Negative) U Marijuana (THC) Screen Negative (Negative) Point of Care Testing Glucose POC [address] scan - head: Radiologist's impression: negative for acute changes, called to me by radiologist [address] [address] [address] Scan Report Signed Patient: Jhoana Starks KMR#: [id number] : 3Acct:[id number] Age/Sex: 63 / FDate of Service: 07/15/18 Loc: ED Accession Number: [id number] Procedure: CT head/brain wo con Ordering Provider: Yanci Han D.O. PROCEDURE: CT HEAD/BRAIN WO CON INDICATIONS: FACIAL DROOP TECHNIQUE: Noncontrast 4.5 mm thick angled axial sections acquired from the foramen magnum to the vertex, with coronal and sagittal reformats. For radiation dose reduction, the following was used: automated exposure control, adjustment of mA and/or kV according to patient size. COMPARISON: [facility], MR, MR STROKE, 07/09/2018, 10:08. [facility], CT, CT HEAD/BRAIN WO CON, 07/08/2018, 12:04. FINDINGS: Image quality: Excellent. CSF spaces: Basal cisterns are patent. No extra-axial fluid collections. The ventricles are symmetric in size and shape. Brain: No intracranial bleeds or masses. There is cerebral volume loss for age, with resultant ventricular and sulcal prominence. There are periventricular and deep white matter chronic small vessel ischemic changes. There is intracranial internal carotid artery atherosclerosis. Skull and face: Calvarium and visualized facial bones appear intact, without suspicious lesions. Sinuses: Visualized sinuses and mastoids are clear. IMPRESSION: No findings of acute hemorrhage. No CT findings of early stroke cannot be seen. If there is strong clinical suspicion for an acute stroke, please consider a repeat MRI for further evaluation, as it is more sensitive (assuming that there is no contraindication to MRI). Note: Case discussed by telephone with Dr. Han at 9:12 AM [place] time on July 15, 2018. Dictated by: Clayton Estrada M.D. on 07/15/2018 at 8:10 Approved by: Clayton Estrada M.D. on 07/15/2018 at 8:14 cta head/neck: Radiologist's impression: [place] [address] CT Scan Report Signed Patient: Jhoana Starks KMR#: [id number] : 1955cct:[id number] Age/Sex: 63 / FDate of Service: 07/15/18 Loc: ED Accession Number: [id number] Procedure: CT angio head and neck Ordering Provider: Yanci Han D.O. PROCEDURE: CT ANGIO HEAD AND NECK INDICATIONS: FACIAL DROOP TECHNIQUE: Noncontrast brain CT images were performed earlier in the day and not repeated. After the administration of intravenous contrast, 1 mm thick sections acquired from the aortic arch through the [place]. Post-contrast 4.5 mm thick sections then re- acquired from the foramen magnum to the vertex. 3-dimensional maximum -intensity-projection (MIP) and/or volume rendering reformats were acquired of the central intracranial vasculature and neck separately. COMPARISON: [facility], CT, CT HEAD/BRAIN WO CON, 07/15/2018, 8:46. [facility], MR, MR STROKE, 07/09/2018, 10:08. [facility], CT, CT HEAD/BRAIN WO CON, 07/08/2018, 12:04. [facility], CT, CT HEAD/BRAIN WO CON, 12/01/2017, 13:34. [facility], US, CAROTID ARTERY DOPPLER BILAT, 06/02/2010, 10:15. FINDINGS: Image quality: Excellent. BRAIN: CSF spaces: Ventricles are normal in size and shape. Basal cisterns are patent. No extra-axial fluid collections. Brain: No midline shift. No intracranial bleeds or masses. [place]-white matter interface appears intact. Skull and face: Calvarium and facial bones appear intact, without suspicious lesions. Orbits appear normal. Sinuses: Sinuses and mastoids are clear. HEAD CT ANGIOGRAPHY: Anterior circulation: Intracranial internal carotid arteries are normal in size and flow. The flow within the paired anterior cerebral arteries is normal and symm etric. The flow within the middle cerebral arteries is normal and symmetric. The anterior communicating artery is seen. No aneurysms are seen. Posterior circulation: Visualized portions of the vertebral arteries demonstrate normal caliber, and join to form a normal appearing basilar artery. Flow within the posterior cerebral arteries is normal and symmetric. No aneurysms are seen. NECK CT ANGIOGRAPHY: Carotid system: The great vessels demonstrate a conventional anatomy as they arise from the aortic arch. The origins of the common carotid arteries appear patent. The common carotid arteries demonstrate normal caliber and courses. The bifurcation regions are both widely patent. The internal carotid arteries demonstrate normal calibers and courses. Posterior circulation: The origins of the vertebral arteries both appear widely patent. The more superior extracranial portions of both vertebral arteries also demonstrate normal courses and calibers. They join to form a normal appearing basilar artery. Soft tissues: Visualized neck soft tissues demonstrate no suspicious abnormalities. Bones: No suspicious bony lesions. Visualized cervical spine appears normally aligned. Degenerative changes are seen throughout, including moderate disc space narrowing at C5-C6 and C6-C7. IMPRESSION: No significant or arterial abnormality is seen. No hemodynamically significant stenosis can be seen of the arteries of the neck. Lower cervical degenerative changes are incidentally noted. Any quantitative measurements of stenosis were performed using NASCET criteria. Dictated by: Clayton Estrada M.D. on 07/15/2018 at 8:36 Approved by: Clayton Estrada M.D. on 07/15/2018 at 8:57 Chest x-ray: Radiologist's impression: Jhoana Starks 63 F [address] [address] XRay Report Signed Patient: Jhoana Starks KMR#: [id number] : 1955cct:[id number] Age/Sex: 63 / FDate of Service: 07/15/18 Loc: ED Accession Number: [id number] Procedure: XR chest 1V Ordering Provider: Yanci Han D.O. PROCEDURE: XR CHEST 1V INDICATIONS: cva - left sided facial droop TECHNIQUE: One view of the chest was acquired. COMPARISON: [facility], CR, XR CHEST 1V, 07/08/2018, 18:46. FINDINGS: Surgical changes and devices: None. Lungs and pleura: Lung volumes are low. No acute consolidation. Scattered subsegmental atelectasis and/or scarring. No pleural effusions or pneumothorax. Mediastinum: Mediastinal contours appear normal. Heart size is normal. Bones and chest wall: No suspicious bony lesions. Overlying soft tissues appear unremarkable. Chronic appearing deformity of the visualized right humerus IMPRESSION: No acute consolidation. Scattered subsegmental atelectasis and/or scarring. Dictated by: Luis Eduardo Ricketts M.D. on 07/15/2018 at 9:35 Approved by: Luis Eduardo Ricketts M.D. on 07/15/2018 at 9:36 ECG Data Attestation: I personally reviewed and interpreted this ECG as follows: Interpretation: Sinus rhythm with a rate of 84 P are interval of 140 QRS 82 and QTC of 409. Patient has left axis deviation, no ST changes are appreciated. MDM Narrative Medical decision making narrative: Patient's prior imaging and lab work as well as hospital stay was revisited. Patient had head CT and MR I which was negative for any changes. Patient had a lumbar puncture which did not show signs infection. Patient evaluated suspected possibly a migraine variant and was discharged plan for follow-up with Neurology but this has not established. Patient has worsened today. Her physical exam is not consistent with a true stroke. Patient is able to follow some commands but does not follow others. It is unclear if this is because she does not understand or another cause. Patient has had a long-standing history of similar episodes total in for including today on as well as a history of ocular migraines, blood pressure history and dyslipidemia history. Per family no prior surgical history she is not taking any blood thinners a denies any tobacco, illicit or alcohol. Spoke with Dr. Altamirano from [facility] in [place] neurolog[facility], she feels patient would benefit from transfer, EEG and further evaluation. We did discussed prior MRI from recent hospitalization as well as reviewed patient's CSF labs. Patient had twitching episode of the face, not extremities while urinating on bedside commode, was able to stand and pull up clothes during this episode. Neurology does not want any anti-epileptic medications at this time until EEG. No clear psychiatric h istory per family. Images, including MRI were pushed to [facility]. Patient discussed with Dr. hSrestha the hospitalist and he accepts. Discharge Plan Departure Patient Disposition: [facility] Clinical Impression: Altered mental status, Aphasia Interventions: ED Discharge Assessment Last Done: 07/15/18 13:18 Prescriptions: No Action sumatriptan succinate 50 mg Tablet 50 mg PO PRN PRN (Reason: Migraine Headache) RF: 0 ondansetron 4 mg tablet,disintegrating 4 mg PO TID PRN (Reason: nausea and vomiting) Qty: 20 RF: 0 Vitamin C 1 tab PO DAILY Qty: 0 RF: 0 multivitamin [Multiple Vitamins] tablet 1 tab PO DAILY Qty: 0 RF: 0 metoprolol succinate [Toprol XL] 25 MG tablet extended release 24 hr 25 mg PO DAILY RF: 0 rosuvastatin 10 mg tablet 10 mg PO BEDTIME RF: 0 losartan 25 mg Tablet 25 mg PO BEDTIME Qty: 30 RF: 0 Referrals: Debbie Paredes PA-C [Primary Care Provider] -
[2018-07-15] MEDS: SODIUM CHLORIDE 0.9% 1,000 ML 150 ML IV (10:02)
[2018-07-15 10:49] LABS: Bacteria Urine None Seen; WBC Urine None Seen (0-5/HPF)
[2018-07-15 10:51] LABS: Appearance Urine UA CLEAR; Bilirubin Urine UA NEGATIVE (NEGATIVE); Color Urine UA YELLOW; Glucose Urine UA NEGATIVE (Negative); Ketones Urine UA NEGATIVE (NEGATIVE); Leukocyte Esterase Urine UA NEGATIVE (NEGATIVE); Nitrite Urine UA NEGATIVE (Negative); Occult Blood Urine UA 2+ (Negative); Protein Urine UA NEGATIVE (Negative); Specific Gravity Urine UA <=1.005 (1.000-1.035); Urobilinogen Urine UA 0.2 E.U./dL (0.2); pH Urine UA 7.5 (4.5-8.0)
[2018-07-15] MEDS: LORazepam 2 MG/ML SYRINGE 1 MG IV (10:55)
[2018-07-15 10:56] LABS: Culture Indicated Urine Cult Not Indicated; RBC Urine 5-10/HPF (0-5/HPF)
[2018-07-15 10:59] LABS: Urine Amphetamines Negative (Negative); Urine Barbiturates Negative (Negative); Urine Benzodiazepines Negative (Negative); Urine Cocaine Negative (Negative); Urine MDMA Negative (Negative); Urine Methadone Negative (Negative); Urine Methamphetamines Negative (Negative); Urine Morphine/Opi cutoff 2000 Negative (Negative); Urine Oxycodone Negative (Negative); Urine Phencyclidine Negative (Negative); Urine Tetrahydrocannabinol Negative (Negative); Urine Tricyclic Antidepressant Negative (Negative)
--- NOTE | 2018-07-15 11:06 | PC.NURSE ---
At about 1030, with assisting pt off the commode, pt began facial twitching. She responds to verbal cues, reaches for her pants to assist pulling them up. Makes eye contact. Stands. MD is notified. No post ictal period noted. Twitching stopped prior. Facial twitching started again after getting back to bed and MD again is called and twitching stops. Meds per MD VO.
--- NOTE | 2018-07-15 13:44 | PC.NURSE ---
Report to transportation department head. To transfer to [facility]
--- NOTE | 2018-07-15 15:11 | PC.NURSE ---
Late entry-some documentation says l facial drrop, it was right facial droop
== END 2018-07-15 13:45 | disposition short-term general hospital (02) ==
PROVIDERS: Emergency Provider Emergency Medicine; PCP Physician Assistant
DX: R41.82 Altered mental status, unspecified (principal); R47.01 Aphasia; R29.810 Facial weakness
CPT/HCPCS: 36415; 36591; 70450; 70496; 70498; 71045; 80048; 80305; 81001; 82962; 84484; 85025; 85610; 85730; 93005; 96361; 96374; 99285; J2060; Q9967

== ENCOUNTER → 2018-08-18 09:55 | Outpatient (CLI) | payer MEDICARE, OTHER, SELFPAY ==
[2018-07-08 19:36] VITALS: BMI 29.5
[2018-08-18 11:07] LABS: Alanine Aminotransferase 35 IU/L (9-52); Albumin Globulin Ratio 1.5 (1.0-2.8); Alkaline Phosphatase 59 U/L (38-126); Aspartate Aminotransferase 26 IU/L (14-36); Bilirubin Total 0.4 mg/dL (0.2-1.3); Bilirubin Unconjugated 0.2 mg/dL (0.0-1.1); Globulin 2.6 g/dL (1.7-4.1); HEMOLYSIS < 15 (0-50); Total Protein 6.6 g/dL (6.3-8.2)
[2018-08-19 17:38] LABS: Valproic Acid (Depakene) Total 55.1 mg/L (50.0-100.0)
== END ==
PROVIDERS: Family Provider Physician Assistant; PCP Physician Assistant; Visit Provider Psychiatry & Neurology Neurology
DX: G40.109 Localization-related (focal) (partial) symptomatic epilepsy and epileptic syndromes with simple partial seizures, not intractable, without status epilepticus (principal); R56.9 Unspecified convulsions
CPT/HCPCS: 36415; 80076; 80164; 80299

== ENCOUNTER → 2018-08-27 09:28 | Outpatient (CLI) | payer MEDICARE, OTHER, SELFPAY ==
[2018-07-08 19:36] VITALS: BMI 29.5
[2018-08-27 11:05] LABS: Alanine Aminotransferase 25 IU/L (9-52); Albumin 3.8 g/dL (3.5-5.0); Albumin Globulin Ratio 1.5 (1.0-2.8); Alkaline Phosphatase 73 U/L (38-126); Aspartate Aminotransferase 20 IU/L (14-36); Bilirubin Total 0.4 mg/dL (0.2-1.3); Bilirubin Unconjugated 0.4 mg/dL (0.0-1.1); Globulin 2.6 g/dL (1.7-4.1); HEMOLYSIS < 15 (0-50); Total Protein 6.4 g/dL (6.3-8.2)
== END ==
PROVIDERS: Family Provider Physician Assistant; PCP Physician Assistant; Visit Provider Psychiatry & Neurology Neurology
DX: Z79.899 Other long term (current) drug therapy (principal)
CPT/HCPCS: 36415; 80076

== ENCOUNTER → 2018-10-08 11:08 | Outpatient (CLI) | payer MEDICARE, OTHER, SELFPAY ==
[2018-07-08 19:36] VITALS: BMI 29.5
[2018-10-10 18:02] LABS: ANA Screen, IFA Negative (Negative)
== END ==
PROVIDERS: PCP Physician Assistant; Visit Provider Psychiatry & Neurology Neurology
DX: G04.90 Encephalitis and encephalomyelitis, unspecified (principal)
CPT/HCPCS: 36415; 86038; 86341

== ENCOUNTER → 2018-10-20 13:25 | Outpatient (CLI) | payer MEDICARE, OTHER, SELFPAY ==
[2018-07-08 19:36] VITALS: BMI 29.5
[2018-10-23 14:09] LABS: Valproic Acid (Depakene) Total 95.9 mg/L (50.0-100.0)
== END ==
PROVIDERS: PCP Physician Assistant; Visit Provider Psychiatry & Neurology Neurology
DX: Z51.81 Encounter for therapeutic drug level monitoring (principal)
CPT/HCPCS: 36415; 80164; 80299

== ENCOUNTER 2018-11-29 12:15 | Outpatient (RCR) | payer MEDICARE, OTHER, SELFPAY ==
[2018-07-08 19:36] VITALS: BMI 29.5
[2018-09-15 16:41] VITALS: BP 130/80
--- NOTE | 2018-09-15 17:37 | PT.OIE ---
Current Diagnoses Epilepsy, unspecified, not intractable, without status epilepticus (09/15/18) Migraine, unspecified, not intractable, without status migrainosus (09/15/18) Altered mental status, unspecified (09/15/18) Past Medical History (Last Reviewed 07/15/18 @ 09:40 by Yanci Han DO) Essential hypertension (Chronic 05/28/16) Mixed hyperlipidemia (Chronic 05/28/16) Anxiety (Chronic) Migraines (Chronic) Past Surgical History (Last Reviewed 07/15/18 @ 09:40 by Yanci Han DO) Hx of section (Resolved ~1980) Provider Visit Care Team Role Provider Type Debbie Paredes PA-C Primary Care Provider Advanced Quality Nurse Specialty: Medical Address: [address] [place] [address], [id number] Email: [email or web address] Melquiades Vazquez ND Attending Provider Non-Staff Specialty: Internal Medicine Address: [address] [place] [address], [address], [address] Email: Physical Therapy Initial Evaluation PT-OP-A Visit Information Start: 09/15/18 15:24 Freq: Status: Active Protocol: Document 09/15/18 16:36 EA (Rec: 09/15/18 16:39 EA [id number]) Out-Patient Physical Therapy Visit Information Visit Information Visit Type Initial Evaluation Visit Start Time 13:45 Visit Stop Time 14:30 Total Visit Minutes 40 Visit Number 1 Number of SHINE WORKER Visits 0 Evaluation Information Evaluation Date 09/15/18 PT-OP-B Current Condition Start: 09/15/18 15:24 Freq: Status: Active Protocol: Document 09/15/18 16:41 EA (Rec: 09/15/18 17:14 EA [id number]) Current Condition History of Current Condition Onset Date June/2018 Current Complaints general body weakness, gait and balance History of Current Condition Narrative: Patient's reports that patient was hospitalized at [facility] due to epilepsy on August 07 2018 . mentioned that patient was confined to bed for almost 1 1/2 month then started to rehab at [facility]. Pt discharged to home but requires assist and mobility aid with limited mobility. Recalled fall 4x at SNF with no major injury. stated that patient is currently out of walker and has been walking with him most of the days of the week. He stated that she requires supervision as patient dizziness and balance tends to limit her mobility. Prior Treatments and Tests Most recent after onset: MRI, CT x 2 at and [facility] with no significant results [facility] EEG: Epilepsy Currently medicated for epileplsy Future Testing and Treatments Planned 09/22/18: MRI at [facility] Treatment Goals Patient/Caregiver Goals 1. Patient wants to be able to walk for more than 10 blocks 2. Patient wants to be independent again in all ADL's Prior Functional Status Baseline Function- ADL's Independent Baseline Function- Mobility Independent Baseline Function- Gait unlimited with no AD Baseline Function- Work/School Retired Baseline Function- Recreation/Hobbies Used to perform daily fitness routine Current Functional Impairments (Reported) Functional Limitations- ADL's Indep in all ADL's except with driving, showering, outdoor walks, cooking Functional Limitations- Mobility/Gait Limited to < 8 blocks with SBA Functional Limitations- Work/School Retired Functional Limitations- Recreation/ Unable to performe regular Hobbies fitnesss routine Personal Factors Other Personal Factors That May Effect Decreased cognitive function Therapy/Recovery PT-OP-C Subjective Start: 09/15/18 15:24 Freq: Status: Active Protocol: Document 09/15/18 16:41 EA (Rec: 09/15/18 17:14 EA [id number]) OP-PT Subjective Patient Comments Patient Comments Sometimes I see the wall double. Patient Reported Progress Improving PT-OP-D Balance Start: 09/15/18 15:24 Freq: Status: Active Protocol: Document 09/15/18 16:41 EA (Rec: 09/15/18 17:14 EA [id number]) OP-PT Balance Assessment Standing Balance Static Standing Balance Ability Good Dynamic Standing Balance Ability Fair Balance Tests Functional Reach Functional Reach Impairment Rating 1 to <20% Impaired (Score 9) Single Limb Standing Single Limb- Right < 3 second on each side Tandem Tandem Standing < 10 second [place] Balance Assessment Evaluation Sitting to Standing Ability Independent w/out Hands Unsupported Stance Safely- 2 minutes Standing to Sitting Ability Safely, Minimal Hand Use Transfer Ability Safely, Minimal Hand Use Unsupported Stance- Eyes Closed Supervision, 10 seconds Unsupported Stance- Eyes Open Independent, 1 minute Reaching Forward Standing Safely, 5 inches Pick- Up Object From Floor Independent/Safe Look Behind Shoulder - Standing Shifts Weight Well Turning 360 Degrees Turns , < 4 secs Unsupported Stance, Alternating Feet on (I)- 8 Steps in > 20 secs Stair Unsupported Tandem Stance Small Step- 30 seconds Unilateral Leg Stance Lifts Leg/Holds 5-10 secs Total Score [place] Total Score (out of 56 points) 45 [place] Impairment Rating 1 to 19% Impaired (Score 45-55 ) Tinetti Balance Assessment Sitting Balance Sitting Balance Steady, safe Arising from Chair Ability to Arise Able, w/o using arms Standing Balance Immediate Standing Balance Steady w/o support Standing Balance Narrow stance w/o support Nudged Response Steady Standing with Eyes Closed Steady Turning Step Pattern Turning 360 Degrees Continuous steps Stability Turning 360 Degrees Steady Sitting Down Sitting Down Safe, steady Gait and Step Initiation of Gait No hesitancy Right Foot Step Length Does pass stance foot Right Foot Step Height Completely clears floor Left Foot Step Length Does pass stance foot Left Foot Step Height Completely clears floor Step Description Step Symmetry Step length appears equal Step Continuity Steps appear continuous Gait Description Path Description Mild/moderate deviation Trunk Description No sway Walking Stance Heels together Scoring and Interpretation Tinetti Composite Score (points) 25 Interpretation of Scores Low risk for falls (>24) Tinetti Impairment Rating from Composite 1 to <20% Impaired (Score 23- Score 27) Linton Fall Scale Copyright Permission Royer REZA, Royer RM, Charley SJ. Development of a scale to identify the fall- prone patient. Can J Aging 1989;8;366-7. Facundo Linton (2009). Preventing patient falls. (2nd ed). [place]: Butt. PT-OP-E Functional Tests Start: 09/15/18 15:24 Freq: Status: Active Protocol: Document 09/15/18 16:41 EA (Rec: 09/15/18 17:14 EA [id number]) Functional Tests Timed Up and Go (TUG) Score 11 TUG Impairment Rating 1 to <20% Impaired (Score 11) PT-OP-G Mobility & Gait Start: 09/15/18 15:24 Freq: Status: Active Protocol: Document 09/15/18 16:41 EA (Rec: 09/15/18 17:14 EA [id number]) OP Mobility Evaluation Bed Mobility Rolling indep Supine to and from Sit indep Transfers Sit to Stand indep Bed to Chair Transfers Indep OP Gait Assessment Gait Gait Assistance Required: Standby Assistance Distance (Feet) 100 Able to Maintain Weight Bearing Status Yes During Gait Assistive Devices Assistive Device None Gait Deviations General Gait Pattern Within Normal Limits Factors Limiting Gait Function Factors Limiting Gait Function Decreased Activity Tolerance Decreased Strength Poor Safety Awareness Stair Climbing Evaluation Evaluation Level of Assist On Stairs Standby Assistance Technique/Endurance Stair Climbing Direction Ascend and Descend Stair Climbing Technique Step to Step Number of Steps Climbed 6 Stair Climbing Set # Repetitions (reps) 1 PT-OP-H Neuro Start: 09/15/18 15:24 Freq: Status: Active Protocol: Document 09/15/18 16:41 EA (Rec: 09/15/18 17:14 EA [id number]) Coordination Evaluation Upper Extremity Tests Left Finger to Nose Test normal performance but requires few practice/cues Finger to Therapist's Finger Test Normal but requires cues and practices Finger Opposition Test Normal Performance Pronation/Supination Test Normal Performance Pointing and Past Pointing Test Normal Performance Lower Extremity Tests Heel on Moreno Test Normal Performance Foot Tapping Test Normal Performance Toe to Examiner's Finger Test Normal Performance Deep Tendon Reflex & Clonus Assessment Deep Tendon Reflex Bilateral Brachioradialis Deep Tendon Reflex 3+ Normal But Brisk Bilateral Patellar Deep Tendon Reflex 3+ Normal But Brisk Ankle Clonus Bilateral Clonus Assessment Absent Vital Signs Blood Pressure Sitting Blood Pressure (90/60-120/80 mmHg) 130/80 H Blood Pressure Source Automatic Cuff Manual Cuff Respirations Respiratory Rate at Rest (12-24 breaths/ 17 min) Respiratory Effort Non-Labored PT-OP-J Posture/Palpation/Skin Start: 09/15/18 15:24 Freq: Status: Active Protocol: Document 09/15/18 16:41 EA (Rec: 09/15/18 17:14 EA [id number]) Posture Evaluation Comments Posture Comments WNL Palpation Assessment Location One Palpation Location Both upper and lower limbs Palpation Findings None/Normal PT-OP-K Range of Motion Start: 09/15/18 15:24 Freq: Status: Active Protocol: Document 09/15/18 17:16 EA (Rec: 09/15/18 17:18 EA [id number]) Shoulder Goniometric Range of Motion Shoulder Measured in Degrees Right Active Shoulder ROM WFL Yes Left Active Shoulder ROM WFL Yes Elbow/Forearm Range of Motion Elbow/Forearm Measured in Degrees Right Active Elbow/Forearm ROM WFL Yes Left Active Elbow/Forearm ROM WFL Yes Hip Goniometric Range of Motion Hip Measured in Degrees Right Active Hip ROM WFL Yes Left Active Hip ROM WFL Yes Knee Goniometric Range of Motion Knee Measured in Degrees Right Knee ROM WFL Yes Left Knee ROM WFL Yes Ankle and Foot Goniometric Range of Motion Ankle and Foot Measured in Degrees Right Active Ankle/Foot ROM WFL Yes Left Active Ankle/Foot ROM WFL Yes PT-OP-M Strength Start: 09/15/18 15:24 Freq: Status: Active Protocol: Document 09/15/18 16:41 EA (Rec: 09/15/18 17:14 EA [id number]) Trunk Strength Trunk Manual Muscle Testing Reason Not Measured WFL Shoulder Strength Shoulder Manual Muscle Testing Right Flexion 4 Good Extension 4 Good Abduction (C5) 4 Good Adduction 4 Good External Rotation 4 Good Internal Rotation 4 Good Horizontal Abduction 4 Good Horizontal Adduction 4 Good Left Flexion 4 Good Extension 4 Good Abduction (C5) 4 Good Adduction 4 Good External Rotation 4 Good Internal Rotation 4 Good Horizontal Abduction 4 Good Horizontal Adduction 4 Good Hip Strength Hip Manual Muscle Testing Right Flexion (L2) 4 Good Extension (S1) 4 Good Abduction 4 Good Adduction 4 Good External Rotation 4 Good Internal Rotation 4 Good Left Flexion (L2) 4 Good Extension (S1) 4 Good Abduction 4 Good Adduction 4 Good External Rotation 4 Good Internal Rotation 4 Good Knee Strength Knee Manual Muscle Testing Right Flexion (S2) 4+ Good+ Extension (L3) 4+ Good+ Left Flexion (S2) 4+ Good+ Extension (L3) 4+ Good+ Ankle/Foot Strength Ankle and Foot Manual Muscle Testing Right Dorsiflexion (L4) 4+ Good+ Plantarflexion (S1) 4+ Good+ Inversion 4+ Good+ Eversion (S1) 4+ Good+ Left Dorsiflexion (L4) 4+ Good+ Plantarflexion (S1) 4+ Good+ Inversion 4+ Good+ Eversion (S1) 4+ Good+ PT-OP-Q Treatments Start: 09/15/18 15:24 Freq: Status: Active Protocol: Document 09/15/18 16:39 EA (Rec: 09/15/18 16:40 EA [id number]) Self-Care/Home Management Treatment Education Patient Education Home Exercise Program Safety PT-OP-T Assessment and Plan Start: 09/15/18 15:24 Freq: Status: Active Protocol: Document 09/15/18 16:36 EA (Rec: 09/15/18 16:39 EA [id number]) Physical Therapy Assessment Rehab Potential Rehabilitation Potential Good Evaluation Complexity Number of Personal Factors/Comorbidities 1-2 Number of Body Systems Impaired 3 Clinical Presentation at Evaluation Evolving Impairments Impairments Activity Tolerance Balance Coordination Functional Activities Strength Goals Four Impairment Gait assistance with uneven and obstacles Custodial Goal (LTG) Patient will navigate uneven surfaces and obstacles without fall. LTG Duration 6 wks Three Impairment Stand Functional reach score of < 10 Nurse Informatics Educator Goal (LTG) Stand functional reach result of > 10 LTG Duration 6 wks Two Impairment Impaired distance mobility Nurse Informatics Educator Goal (LTG) Patient will ambulate > 10 blocks with distant supervision LTG Duration 6 wks One Impairment TUG 11 secs Custodial Goal (LTG) TUG results of < 10 LTG Duration 5 wks Assessment Summary Assessment Pleasant 63/ y/o F patient who is aphasic during the evaluation with a current medical diagnosis fo acute altered mental status, epilepsy and seizures. Today Patient demonstrates limitation with balance, gait, general body weakness, and fair safety awareness. Tests and assessment reveals no significant loss of coordination, loss of strength , loss of balance, however requires cues in all functional mobility and transfers for safety due to decreased cognition. Patient would benefit with skilled PT to reach maximum independence or be able to get back to [facility] . Physical Therapy Plan Frequency and Duration Frequency of Treatment 2x/Week Duration of Treatment 10 wks Plan of Care Start Date 09/15/18 Plan of Care End Date 11/24/18 Therapeutic Interventions Therapeutic Interventions Balance Training Home Exercise Program Patient/Caregiver Education Self-Care/Home Management Soft Tissue Mobilization Therapeutic Activities Therapeutic Exercises
--- NOTE | 2018-09-15 17:37 | PT.OPPOC ---
Current Diagnoses Epilepsy, unspecified, not intractable, without status epilepticus (09/15/18) Migraine, unspecified, not intractable, without status migrainosus (09/15/18) Altered mental status, unspecified (09/15/18) Provider Visit Care Team Role Provider Type Debbie Paredes PA-C Primary Care Provider Advanced Maintenance Engineer Specialty: Medical Address: [address] [place] [address], [address] Email: [email or web address] Melquiades Vazquez ND Attending Provider Non-Staff Specialty: Internal Medicine Address: [address] [place] [address], [address], [address] Email: Plan Of Care PT-OP-T Assessment and Plan Start: 09/15/18 15:24 Freq: Status: Active Protocol: Document 09/15/18 16:36 EA (Rec: 09/15/18 16:39 EA [id number]) Physical Therapy Assessment Rehab Potential Rehabilitation Potential Good Evaluation Complexity Number of Personal Factors/Comorbidities 1-2 Number of Body Systems Impaired 3 Clinical Presentation at Evaluation Evolving Impairments Impairments Activity Tolerance Balance Coordination Functional Activities Strength Goals Four Impairment Gait assistance with uneven and obstacles Intermediate Goal (LTG) Patient will navigate uneven surfaces and obstacles without fall. LTG Duration 6 wks Three Impairment Stand Functional reach score of < 10 Machining Technician Goal (LTG) Stand functional reach result of > 10 LTG Duration 6 wks Two Impairment Impaired distance mobility Machining Technician Goal (LTG) Patient will ambulate > 10 blocks with distant supervision LTG Duration 6 wks One Impairment TUG 11 secs Intermediate Goal (LTG) TUG results of < 10 LTG Duration 5 wks Assessment Summary Assessment Pleasant 63/ y/o F patient who is aphasic during the evaluation with a current medical diagnosis of acute altered mental status, epilepsy and seizures. Today Patient demonstrates limitation with balance, gait, general body weakness, and fair safety awareness. Tests and assessment reveals no significant loss of coordination, loss of strength , loss of balance, however requires cues in all functional mobility and transfers for safety due to decreased cognition. Patient would benefit with skilled PT to reach maximum independence or be able to get back to [facility] . Physical Therapy Plan Frequency and Duration Frequency of Treatment 2x/Week Duration of Treatment 10 wks Plan of Care Start Date 09/15/18 Plan of Care End Date 11/24/18 Therapeutic Interventions Therapeutic Interventions Balance Training Home Exercise Program Patient/Caregiver Education Self-Care/Home Management Soft Tissue Mobilization Therapeutic Activities Therapeutic Exercises Plan of Care Dates Plan of Care Start Date 09/15/18 Plan of Care End Date 11/24/18 Please Sign and Return: I have reviewed this Plan of Care and certify that the skilled therapy services above are required to meet the patient?s needs. Physician Signature Date Printed Name and Credentials Clinical Instructor Signature Printed Name and Credentials
--- NOTE | 2018-09-20 17:10 | PT.OTN ---
Current Diagnoses Epilepsy, unspecified, not intractable, without status epilepticus (09/20/18) Migraine, unspecified, not intractable, without status migrainosus (09/20/18) Altered mental status, unspecified (09/20/18) Physical Therapy Treatment Note PT-OP-A Visit Information Start: 09/15/18 15:24 Freq: Status: Active Protocol: Document 09/20/18 17:03 EA (Rec: 09/20/18 17:10 EA [id number]) Out-Patient Physical Therapy Visit Information Visit Information Visit Type Treatment Note Visit Start Time 16:00 Visit Stop Time 16:38 Total Visit Minutes 38 Visit Number 2 PT-OP-B Current Condition Start: 09/15/18 15:24 Freq: Status: Active Protocol: Document 09/15/18 16:41 EA (Rec: 09/15/18 17:14 EA [id number]) Current Condition History of Current Condition Onset Date June/2018 Current Complaints general body weakness, gait and balance History of Current Condition Narrative: Patient's reports that patient was hospitalized at [place] due to epilepsy on August 07 2018 . mentioned that patient was confined to bed for almost 1 1/2 month then started to rehab at [facility]. Pt discharged to home but requires assist and mobility aid with limited mobility. Recalled fall 4x at SNF with no major injury. stated that patient is currently out of walker and has been walking with him most of the days of the week. He stated that she requires supervision as patient dizziness and balance tends to limit her mobility. Prior Treatments and Tests Most recent after onset: MRI, CT x 2 at and [facility] with no significant results [place] EEG: Epilepsy Currently medicated for epileplsy Future Testing and Treatments Planned 09/22/18: MRI at [facility] Treatment Goals Patient/Caregiver Goals 1. Patient wants to be able to walk for more than 10 blocks 2. Patient wants to be independent again in all ADL's Prior Functional Status Baseline Function- ADL's Independent Baseline Function- Mobility Independent Baseline Function- Gait unlimited with no AD Baseline Function- Work/School Retired Baseline Function- Recreation/Hobbies Used to perform daily fitness routine Current Functional Impairments (Reported) Functional Limitations- ADL's Indep in all ADL's except with driving, showering, outdoor walks, cooking Functional Limitations- Mobility/Gait Limited to < 8 blocks with SBA Functional Limitations- Work/School Retired Functional Limitations- Recreation/ Unable to performe regular Hobbies fitnesss routine Personal Factors Other Personal Factors That May Effect Decreased cognitive function Therapy/Recovery PT-OP-C Subjective Start: 09/15/18 15:24 Freq: Status: Active Protocol: Document 09/20/18 17:03 EA (Rec: 09/20/18 17:10 EA [id number]) OP-PT Subjective Patient Comments Patient Comments Pt reports bought an umbrella so she can walk outside even with rain. Patient Reported Progress Improving PT-OP-D Balance Start: 09/15/18 15:24 Freq: Status: Active Protocol: Document 09/15/18 16:41 EA (Rec: 09/15/18 17:14 EA [id number]) OP-PT Balance Assessment Standing Balance Static Standing Balance Ability Good Dynamic Standing Balance Ability Fair Balance Tests Functional Reach Functional Reach Impairment Rating 1 to <20% Impaired (Score 9) Single Limb Standing Single Limb- Right < 3 second on each side Tandem Tandem Standing < 10 second [place] Balance Assessment Evaluation Sitting to Standing Ability Independent w/out Hands Unsupported Stance Safely- 2 minutes Standing to Sitting Ability Safely, Minimal Hand Use Transfer Ability Safely, Minimal Hand Use Unsupported Stance- Eyes Closed Supervision, 10 seconds Unsupported Stance- Eyes Open Independent, 1 minute Reaching Forward Standing Safely, 5 inches Pick- Up Object From Floor Independent/Safe Look Behind Shoulder - Standing Shifts Weight Well Turning 360 Degrees Turns , < 4 secs Unsupported Stance, Alternating Feet on (I)- 8 Steps in > 20 secs Stair Unsupported Tandem Stance Small Step- 30 seconds Unilateral Leg Stance Lifts Leg/Holds 5-10 secs Total Score [place] Total Score (out of 56 points) 45 [place] Impairment Rating 1 to 19% Impaired (Score 45-55 ) Tinetti Balance Assessment Sitting Balance Sitting Balance Steady, safe Arising from Chair Ability to Arise Able, w/o using arms Standing Balance Immediate Standing Balance Steady w/o support Standing Balance Narrow stance w/o support Nudged Response Steady Standing with Eyes Closed Steady Turning Step Pattern Turning 360 Degrees Continuous steps Stability Turning 360 Degrees Steady Sitting Down Sitting Down Safe, steady Gait and Step Initiation of Gait No hesitancy Right Foot Step Length Does pass stance foot Right Foot Step Height Completely clears floor Left Foot Step Length Does pass stance foot Left Foot Step Height Completely clears floor Step Description Step Symmetry Step length appears equal Step Continuity Steps appear continuous Gait Description Path Description Mild/moderate deviation Trunk Description No sway Walking Stance Heels together Scoring and Interpretation Tinetti Composite Score (points) 25 Interpretation of Scores Low risk for falls (>24) Tinetti Impairment Rating from Composite 1 to <20% Impaired (Score 23- Score 27) Linton Fall Scale Copyright Permission Royer JM, Royer RM, Charley SJ. Development of a scale to identify the fall- prone patient. Can J Aging 1989;8;366-7. Facundo Linton (2009). Preventing patient falls. (2nd ed). [place]: Butt. PT-OP-E Functional Tests Start: 09/15/18 15:24 Freq: Status: Active Protocol: Document 09/15/18 16:41 EA (Rec: 09/15/18 17:14 EA [id number]) Functional Tests Timed Up and Go (TUG) Score 11 TUG Impairment Rating 1 to <20% Impaired (Score 11) PT-OP-G Mobility & Gait Start: 09/15/18 15:24 Freq: Status: Active Protocol: Document 09/15/18 16:41 EA (Rec: 09/15/18 17:14 EA [id number]) OP Mobility Evaluation Bed Mobility Rolling indep Supine to and from Sit indep Transfers Sit to Stand indep Bed to Chair Transfers Indep OP Gait Assessment Gait Gait Assistance Required: Standby Assistance Distance (Feet) 100 Able to Maintain Weight Bearing Status Yes During Gait Assistive Devices Assistive Device None Gait Deviations General Gait Pattern Within Normal Limits Factors Limiting Gait Function Factors Limiting Gait Function Decreased Activity Tolerance Decreased Strength Poor Safety Awareness Stair Climbing Evaluation Evaluation Level of Assist On Stairs Standby Assistance Technique/Endurance Stair Climbing Direction Ascend and Descend Stair Climbing Technique Step to Step Number of Steps Climbed 6 Stair Climbing Set # Repetitions (reps) 1 PT-OP-H Neuro Start: 09/15/18 15:24 Freq: Status: Active Protocol: Document 09/15/18 16:41 EA (Rec: 09/15/18 17:14 EA [id number]) Coordination Evaluation Upper Extremity Tests Left Finger to Nose Test normal performance but requires few practice/cues Finger to Therapist's Finger Test Normal but requires cues and practices Finger Opposition Test Normal Performance Pronation/Supination Test Normal Performance Pointing and Past Pointing Test Normal Performance Lower Extremity Tests Heel on Moreno Test Normal Performance Foot Tapping Test Normal Performance Toe to Examiner's Finger Test Normal Performance Deep Tendon Reflex & Clonus Assessment Deep Tendon Reflex Bilateral Brachioradialis Deep Tendon Reflex 3+ Normal But Brisk Bilateral Patellar Deep Tendon Reflex 3+ Normal But Brisk Ankle Clonus Bilateral Clonus Assessment Absent Vital Signs Blood Pressure Sitting Blood Pressure (90/60-120/80 mmHg) 130/80 H Blood Pressure Source Automatic Cuff Manual Cuff Respirations Respiratory Rate at Rest (12-24 breaths/ 17 min) Respiratory Effort Non-Labored PT-OP-J Posture/Palpation/Skin Start: 09/15/18 15:24 Freq: Status: Active Protocol: Document 09/15/18 16:41 EA (Rec: 09/15/18 17:14 EA [id number]) Posture Evaluation Comments Posture Comments WNL Palpation Assessment Location One Palpation Location Both upper and lower limbs Palpation Findings None/Normal PT-OP-K Range of Motion Start: 09/15/18 15:24 Freq: Status: Active Protocol: Document 09/15/18 17:16 EA (Rec: 09/15/18 17:18 EA [id number]) Shoulder Goniometric Range of Motion Shoulder Measured in Degrees Right Active Shoulder ROM WFL Yes Left Active Shoulder ROM WFL Yes Elbow/Forearm Range of Motion Elbow/Forearm Measured in Degrees Right Active Elbow/Forearm ROM WFL Yes Left Active Elbow/Forearm ROM WFL Yes Hip Goniometric Range of Motion Hip Measured in Degrees Right Active Hip ROM WFL Yes Left Active Hip ROM WFL Yes Knee Goniometric Range of Motion Knee Measured in Degrees Right Knee ROM WFL Yes Left Knee ROM WFL Yes Ankle and Foot Goniometric Range of Motion Ankle and Foot Measured in Degrees Right Active Ankle/Foot ROM WFL Yes Left Active Ankle/Foot ROM WFL Yes PT-OP-M Strength Start: 09/15/18 15:24 Freq: Status: Active Protocol: Document 09/15/18 16:41 EA (Rec: 09/15/18 17:14 EA [id number]) Trunk Strength Trunk Manual Muscle Testing Reason Not Measured WFL Shoulder Strength Shoulder Manual Muscle Testing Right Flexion 4 Good Extension 4 Good Abduction (C5) 4 Good Adduction 4 Good External Rotation 4 Good Internal Rotation 4 Good Horizontal Abduction 4 Good Horizontal Adduction 4 Good Left Flexion 4 Good Extension 4 Good Abduction (C5) 4 Good Adduction 4 Good External Rotation 4 Good Internal Rotation 4 Good Horizontal Abduction 4 Good Horizontal Adduction 4 Good Hip Strength Hip Manual Muscle Testing Right Flexion (L2) 4 Good Extension (S1) 4 Good Abduction 4 Good Adduction 4 Good External Rotation 4 Good Internal Rotation 4 Good Left Flexion (L2) 4 Good Extension (S1) 4 Good Abduction 4 Good Adduction 4 Good External Rotation 4 Good Internal Rotation 4 Good Knee Strength Knee Manual Muscle Testing Right Flexion (S2) 4+ Good+ Extension (L3) 4+ Good+ Left Flexion (S2) 4+ Good+ Extension (L3) 4+ Good+ Ankle/Foot Strength Ankle and Foot Manual Muscle Testing Right Dorsiflexion (L4) 4+ Good+ Plantarflexion (S1) 4+ Good+ Inversion 4+ Good+ Eversion (S1) 4+ Good+ Left Dorsiflexion (L4) 4+ Good+ Plantarflexion (S1) 4+ Good+ Inversion 4+ Good+ Eversion (S1) 4+ Good+ PT-OP-Q Treatments Start: 09/15/18 15:24 Freq: Status: Active Protocol: Document 09/20/18 17:03 EA (Rec: 09/20/18 17:10 EA [id number]) Cardio Equipment Recumbent Stepper (Sci-Fit) Duration (Minutes) 7 Resistance 3 Seat Position 7 Gym Equipment Cable Column (Body Solid) Leg Extension Resistance x10# x 15 reps Hip Abduction Resistance x20# x 15 reps Rows Resistance 15# Reps/Time x15 rep Shuttle Recovery Unilateral Squats Resistance 1 cord Shuttle Recovery Platform Stable Reps/Time x 15 reps Bilateral Squats Resistance 2cords Shuttle Recovery Platform Stable Reps/Time x15 reps x 2 Therapeutic Exercises Standing Exercises 4 Standing Exercise Name Biceps curls Side bilateral Resistance 3lbs Reps/Minutes x15 reps 3 Standing Exercise Name DB shoulder press Side bilateral Resistance 2 lbs Reps/Minutes x12 reps 2 Standing Exercise Name DB side raises Side bilateral Resistance 2lbs Reps/Minutes x12 reps 1 Standing Exercise Name rails side step squat Side bilateral Resistance YTB Reps/Minutes x 12ft x 2 lines PT-OP-T Assessment and Plan Start: 09/15/18 15:24 Freq: Status: Active Protocol: Document 09/20/18 17:03 EA (Rec: 09/20/18 17:10 EA [id number]) Physical Therapy Assessment Assessment Summary Assessment Tolerated treatment well. Requires constant VCs with side step squatting. Physical Therapy Plan Next Visit Focus/Plan Next Note Type Treatment Note
--- NOTE | 2018-09-27 16:07 | PT.OTN ---
Current Diagnoses Epilepsy, unspecified, not intractable, without status epilepticus (09/27/18) Migraine, unspecified, not intractable, without status migrainosus (09/27/18) Altered mental status, unspecified (09/27/18) Physical Therapy Treatment Note PT-OP-A Visit Information Start: 09/15/18 15:24 Freq: Status: Active Protocol: Document 09/27/18 16:01 EA (Rec: 09/27/18 16:06 EA [id number]) Out-Patient Physical Therapy Visit Information Visit Information Visit Type Treatment Note Visit Start Time 15:15 Visit Stop Time 16:00 Total Visit Minutes 40 Visit Number 3 PT-OP-B Current Condition Start: 09/15/18 15:24 Freq: Status: Active Protocol: Document 09/15/18 16:41 EA (Rec: 09/15/18 17:14 EA [id number]) Current Condition History of Current Condition Onset Date June/2018 Current Complaints general body weakness, gait and balance History of Current Condition Narrative: Patient's reports that patient was hospitalized at [place] due to epilepsy on August 07 2018 . mentioned that patient was confined to bed for almost 1 1/2 month then started to rehab at [facility]. Pt discharged to home but requires assist and mobility aid with limited mobility. Recalled fall 4x at SNF with no major injury. stated that patient is currently out of walker and has been walking with him most of the days of the week. He stated that she requires supervision as patient dizziness and balance tends to limit her mobility. Prior Treatments and Tests Most recent after onset: MRI, CT x 2 at and [facility] with no significant results [place] EEG: Epilepsy Currently medicated for epileplsy Future Testing and Treatments Planned 09/22/18: MRI at [facility] Treatment Goals Patient/Caregiver Goals 1. Patient wants to be able to walk for more than 10 blocks 2. Patient wants to be independent again in all ADL's Prior Functional Status Baseline Function- ADL's Independent Baseline Function- Mobility Independent Baseline Function- Gait unlimited with no AD Baseline Function- Work/School Retired Baseline Function- Recreation/Hobbies Used to perform daily fitness routine Current Functional Impairments (Reported) Functional Limitations- ADL's Indep in all ADL's except with driving, showering, outdoor walks, cooking Functional Limitations- Mobility/Gait Limited to < 8 blocks with SBA Functional Limitations- Work/School Retired Functional Limitations- Recreation/ Unable to performe regular Hobbies fitnesss routine Personal Factors Other Personal Factors That May Effect Decreased cognitive function Therapy/Recovery PT-OP-C Subjective Start: 09/15/18 15:24 Freq: Status: Active Protocol: Document 09/27/18 16:01 EA (Rec: 09/27/18 16:06 EA [id number]) OP-PT Subjective Patient Comments Patient Comments Pt reports went to [place] for MRI and will go back his doctor again on to see the results. PT-OP-D Balance Start: 09/15/18 15:24 Freq: Status: Active Protocol: Document 09/15/18 16:41 EA (Rec: 09/15/18 17:14 EA [id number]) OP-PT Balance Assessment Standing Balance Static Standing Balance Ability Good Dynamic Standing Balance Ability Fair Balance Tests Functional Reach Functional Reach Impairment Rating 1 to <20% Impaired (Score 9) Single Limb Standing Single Limb- Right < 3 second on each side Tandem Tandem Standing < 10 second [place] Balance Assessment Evaluation Sitting to Standing Ability Independent w/out Hands Unsupported Stance Safely- 2 minutes Standing to Sitting Ability Safely, Minimal Hand Use Transfer Ability Safely, Minimal Hand Use Unsupported Stance- Eyes Closed Supervision, 10 seconds Unsupported Stance- Eyes Open Independent, 1 minute Reaching Forward Standing Safely, 5 inches Pick- Up Object From Floor Independent/Safe Look Behind Shoulder - Standing Shifts Weight Well Turning 360 Degrees Turns , < 4 secs Unsupported Stance, Alternating Feet on (I)- 8 Steps in > 20 secs Stair Unsupported Tandem Stance Small Step- 30 seconds Unilateral Leg Stance Lifts Leg/Holds 5-10 secs Total Score [place] Total Score (out of 56 points) 45 [place] Impairment Rating 1 to 19% Impaired (Score 45-55 ) Tinetti Balance Assessment Sitting Balance Sitting Balance Steady, safe Arising from Chair Ability to Arise Able, w/o using arms Standing Balance Immediate Standing Balance Steady w/o support Standing Balance Narrow stance w/o support Nudged Response Steady Standing with Eyes Closed Steady Turning Step Pattern Turning 360 Degrees Continuous steps Stability Turning 360 Degrees Steady Sitting Down Sitting Down Safe, steady Gait and Step Initiation of Gait No hesitancy Right Foot Step Length Does pass stance foot Right Foot Step Height Completely clears floor Left Foot Step Length Does pass stance foot Left Foot Step Height Completely clears floor Step Description Step Symmetry Step length appears equal Step Continuity Steps appear continuous Gait Description Path Description Mild/moderate deviation Trunk Description No sway Walking Stance Heels together Scoring and Interpretation Tinetti Composite Score (points) 25 Interpretation of Scores Low risk for falls (>24) Tinetti Impairment Rating from Composite 1 to <20% Impaired (Score 23- Score 27) Linton Fall Scale Copyright Permission Royer JM, Royer RM, Charley SJ. Development of a scale to identify the fall- prone patient. Can J Aging 1989;8;366-7. Facundo Linton (2009). Preventing patient falls. (2nd ed). [place]: Butt. PT-OP-E Functional Tests Start: 09/15/18 15:24 Freq: Status: Active Protocol: Document 09/15/18 16:41 EA (Rec: 09/15/18 17:14 EA [id number]) Functional Tests Timed Up and Go (TUG) Score 11 TUG Impairment Rating 1 to <20% Impaired (Score 11) PT-OP-G Mobility & Gait Start: 09/15/18 15:24 Freq: Status: Active Protocol: Document 09/15/18 16:41 EA (Rec: 09/15/18 17:14 EA [id number]) OP Mobility Evaluation Bed Mobility Rolling indep Supine to and from Sit indep Transfers Sit to Stand indep Bed to Chair Transfers Indep OP Gait Assessment Gait Gait Assistance Required: Standby Assistance Distance (Feet) 100 Able to Maintain Weight Bearing Status Yes During Gait Assistive Devices Assistive Device None Gait Deviations General Gait Pattern Within Normal Limits Factors Limiting Gait Function Factors Limiting Gait Function Decreased Activity Tolerance Decreased Strength Poor Safety Awareness Stair Climbing Evaluation Evaluation Level of Assist On Stairs Standby Assistance Technique/Endurance Stair Climbing Direction Ascend and Descend Stair Climbing Technique Step to Step Number of Steps Climbed 6 Stair Climbing Set # Repetitions (reps) 1 PT-OP-H Neuro Start: 09/15/18 15:24 Freq: Status: Active Protocol: Document 09/15/18 16:41 EA (Rec: 09/15/18 17:14 EA [id number]) Coordination Evaluation Upper Extremity Tests Left Finger to Nose Test normal performance but requires few practice/cues Finger to Therapist's Finger Test Normal but requires cues and practices Finger Opposition Test Normal Performance Pronation/Supination Test Normal Performance Pointing and Past Pointing Test Normal Performance Lower Extremity Tests Heel on Moreno Test Normal Performance Foot Tapping Test Normal Performance Toe to Examiner's Finger Test Normal Performance Deep Tendon Reflex & Clonus Assessment Deep Tendon Reflex Bilateral Brachioradialis Deep Tendon Reflex 3+ Normal But Brisk Bilateral Patellar Deep Tendon Reflex 3+ Normal But Brisk Ankle Clonus Bilateral Clonus Assessment Absent Vital Signs Blood Pressure Sitting Blood Pressure (90/60-120/80 mmHg) 130/80 H Blood Pressure Source Automatic Cuff Manual Cuff Respirations Respiratory Rate at Rest (12-24 breaths/ 17 min) Respiratory Effort Non-Labored PT-OP-J Posture/Palpation/Skin Start: 09/15/18 15:24 Freq: Status: Active Protocol: Document 09/15/18 16:41 EA (Rec: 09/15/18 17:14 EA [id number]) Posture Evaluation Comments Posture Comments WNL Palpation Assessment Location One Palpation Location Both upper and lower limbs Palpation Findings None/Normal PT-OP-K Range of Motion Start: 09/15/18 15:24 Freq: Status: Active Protocol: Document 09/15/18 17:16 EA (Rec: 09/15/18 17:18 EA [id number]) Shoulder Goniometric Range of Motion Shoulder Measured in Degrees Right Active Shoulder ROM WFL Yes Left Active Shoulder ROM WFL Yes Elbow/Forearm Range of Motion Elbow/Forearm Measured in Degrees Right Active Elbow/Forearm ROM WFL Yes Left Active Elbow/Forearm ROM WFL Yes Hip Goniometric Range of Motion Hip Measured in Degrees Right Active Hip ROM WFL Yes Left Active Hip ROM WFL Yes Knee Goniometric Range of Motion Knee Measured in Degrees Right Knee ROM WFL Yes Left Knee ROM WFL Yes Ankle and Foot Goniometric Range of Motion Ankle and Foot Measured in Degrees Right Active Ankle/Foot ROM WFL Yes Left Active Ankle/Foot ROM WFL Yes PT-OP-M Strength Start: 09/15/18 15:24 Freq: Status: Active Protocol: Document 09/15/18 16:41 EA (Rec: 09/15/18 17:14 EA [id number]) Trunk Strength Trunk Manual Muscle Testing Reason Not Measured WFL Shoulder Strength Shoulder Manual Muscle Testing Right Flexion 4 Good Extension 4 Good Abduction (C5) 4 Good Adduction 4 Good External Rotation 4 Good Internal Rotation 4 Good Horizontal Abduction 4 Good Horizontal Adduction 4 Good Left Flexion 4 Good Extension 4 Good Abduction (C5) 4 Good Adduction 4 Good External Rotation 4 Good Internal Rotation 4 Good Horizontal Abduction 4 Good Horizontal Adduction 4 Good Hip Strength Hip Manual Muscle Testing Right Flexion (L2) 4 Good Extension (S1) 4 Good Abduction 4 Good Adduction 4 Good External Rotation 4 Good Internal Rotation 4 Good Left Flexion (L2) 4 Good Extension (S1) 4 Good Abduction 4 Good Adduction 4 Good External Rotation 4 Good Internal Rotation 4 Good Knee Strength Knee Manual Muscle Testing Right Flexion (S2) 4+ Good+ Extension (L3) 4+ Good+ Left Flexion (S2) 4+ Good+ Extension (L3) 4+ Good+ Ankle/Foot Strength Ankle and Foot Manual Muscle Testing Right Dorsiflexion (L4) 4+ Good+ Plantarflexion (S1) 4+ Good+ Inversion 4+ Good+ Eversion (S1) 4+ Good+ Left Dorsiflexion (L4) 4+ Good+ Plantarflexion (S1) 4+ Good+ Inversion 4+ Good+ Eversion (S1) 4+ Good+ PT-OP-Q Treatments Start: 09/15/18 15:24 Freq: Status: Active Protocol: Document 09/27/18 16:01 EA (Rec: 09/27/18 16:06 EA [id number]) Cardio Equipment Recumbent Stepper (Sci-Fit) Duration (Minutes) 7 Resistance 3 Seat Position 7 Gym Equipment Cable Column (Body Solid) Leg Extension Resistance x10# x 15 reps Shuttle Recovery Bilateral Squats Resistance 2-4cords Shuttle Recovery Platform Stable Reps/Time x15 reps x 3 Shuttle Balance 1 Details FWD/BWD Comments WBOS/NBOS arm challenge head turning Therapeutic Exercises Standing Exercises 4 Standing Exercise Name Biceps curls Side bilateral Resistance 3lbs Reps/Minutes x15 reps 3 Standing Exercise Name DB shoulder press Side bilateral Resistance 2 lbs Reps/Minutes x12 reps 2 Standing Exercise Name DB side raises Side bilateral Resistance 2lbs Reps/Minutes x12 reps 1 Standing Exercise Name rails side step squat Side bilateral Resistance YTB Reps/Minutes x 12ft x 2 lines Neuro Re-Education Treatment Balance Activities 1 Details heel to to gait/tandem walk Comments x 10 ft x 4 lines CGA Coordination Activities 1 Details Cross stepping/great avila Reps/Duration x 12 ft x 2 sets Comments CGA PT-OP-T Assessment and Plan Start: 09/15/18 15:24 Freq: Status: Active Protocol: Document 09/27/18 16:01 ASHLEE (Rec: 09/27/18 16:06 ASHLEE [id number]) Physical Therapy Assessment Assessment Summary Assessment Patient still requires lots of demonstrations in all exercises for form and execution. Physical Therapy Plan Next Visit Focus/Plan Next Note Type Treatment Note Next Visit Plan cont with current plan.
--- NOTE | 2018-10-03 15:13 | PT.OTN ---
Current Diagnoses Epilepsy, unspecified, not intractable, without status epilepticus (10/03/18) Migraine, unspecified, not intractable, without status migrainosus (10/03/18) Altered mental status, unspecified (10/03/18) Physical Therapy Treatment Note PT-OP-A Visit Information Start: 09/15/18 15:24 Freq: Status: Active Protocol: Document 10/03/18 14:30 DCW (Rec: 10/03/18 15:13 DCW [id number]) Out-Patient Physical Therapy Visit Information Visit Information Visit Type Treatment Note Visit Start Time 14:30 Visit Stop Time 15:15 Total Visit Minutes 45 Visit Number 4 Evaluation Information Evaluation Date 09/15/18 PT-OP-B Current Condition Start: 09/15/18 15:24 Freq: Status: Active Protocol: Document 09/15/18 16:41 EA (Rec: 09/15/18 17:14 EA [id number]) Current Condition History of Current Condition Onset Date June/2018 Current Complaints general body weakness, gait and balance History of Current Condition Narrative: Patient's reports that patient was hospitalized at [facility] due to epilepsy on August 07 2018 . mentioned that patient was confined to bed for almost 1 1/2 month then started to rehab at [facility]. Pt discharged to home but requires assist and mobility aid with limited mobility. Recalled fall 4x at SNF with no major injury. stated that patient is currently out of walker and has been walking with him most of the days of the week. He stated that she requires supervision as patient dizziness and balance tends to limit her mobility. Prior Treatments and Tests Most recent after onset: MRI, CT x 2 at and [facility] with no significant results [facility] EEG: Epilepsy Currently medicated for epileplsy Future Testing and Treatments Planned 09/22/18: MRI at [facility] Treatment Goals Patient/Caregiver Goals 1. Patient wants to be able to walk for more than 10 blocks 2. Patient wants to be independent again in all ADL's Prior Functional Status Baseline Function- ADL's Independent Baseline Function- Mobility Independent Baseline Function- Gait unlimited with no AD Baseline Function- Work/School Retired Baseline Function- Recreation/Hobbies Used to perform daily fitness routine Current Functional Impairments (Reported) Functional Limitations- ADL's Indep in all ADL's except with driving, showering, outdoor walks, cooking Functional Limitations- Mobility/Gait Limited to < 8 blocks with SBA Functional Limitations- Work/School Retired Functional Limitations- Recreation/ Unable to performe regular Hobbies fitnesss routine Personal Factors Other Personal Factors That May Effect Decreased cognitive function Therapy/Recovery PT-OP-C Subjective Start: 09/15/18 15:24 Freq: Status: Active Protocol: Document 10/03/18 14:30 DCW (Rec: 10/03/18 15:13 DCW [id number]) OP-PT Subjective Patient Comments Patient Comments Pt reports that she just feels a little wobbly after taking her pills today. Notes her MRI results from last week were really good, and she was able to get off one of her medications. PT-OP-D Balance Start: 09/15/18 15:24 Freq: Status: Active Protocol: Document 09/15/18 16:41 EA (Rec: 09/15/18 17:14 EA [id number]) OP-PT Balance Assessment Standing Balance Static Standing Balance Ability Good Dynamic Standing Balance Ability Fair Balance Tests Functional Reach Functional Reach Impairment Rating 1 to <20% Impaired (Score 9) Single Limb Standing Single Limb- Right < 3 second on each side Tandem Tandem Standing < 10 second [place] Balance Assessment Evaluation Sitting to Standing Ability Independent w/out Hands Unsupported Stance Safely- 2 minutes Standing to Sitting Ability Safely, Minimal Hand Use Transfer Ability Safely, Minimal Hand Use Unsupported Stance- Eyes Closed Supervision, 10 seconds Unsupported Stance- Eyes Open Independent, 1 minute Reaching Forward Standing Safely, 5 inches Pick- Up Object From Floor Independent/Safe Look Behind Shoulder - Standing Shifts Weight Well Turning 360 Degrees Turns , < 4 secs Unsupported Stance, Alternating Feet on (I)- 8 Steps in > 20 secs Stair Unsupported Tandem Stance Small Step- 30 seconds Unilateral Leg Stance Lifts Leg/Holds 5-10 secs Total Score [place] Total Score (out of 56 points) 45 [place] Impairment Rating 1 to 19% Impaired (Score 45-55 ) Tinetti Balance Assessment Sitting Balance Sitting Balance Steady, safe Arising from Chair Ability to Arise Able, w/o using arms Standing Balance Immediate Standing Balance Steady w/o support Standing Balance Narrow stance w/o support Nudged Response Steady Standing with Eyes Closed Steady Turning Step Pattern Turning 360 Degrees Continuous steps Stability Turning 360 Degrees Steady Sitting Down Sitting Down Safe, steady Gait and Step Initiation of Gait No hesitancy Right Foot Step Length Does pass stance foot Right Foot Step Height Completely clears floor Left Foot Step Length Does pass stance foot Left Foot Step Height Completely clears floor Step Description Step Symmetry Step length appears equal Step Continuity Steps appear continuous Gait Description Path Description Mild/moderate deviation Trunk Description No sway Walking Stance Heels together Scoring and Interpretation Tinetti Composite Score (points) 25 Interpretation of Scores Low risk for falls (>24) [place] Impairment Rating from Composite 1 to <20% Impaired (Score 23- Score 27) Royer Fall Scale Copyright Permission Royer JM, Royer RM, Charley SJ. Development of a scale to identify the fall- prone patient. Can J Aging 1989;8;366-7. Facundo Linton (2009). Preventing patient falls. (2nd ed). [place]: Butt. PT-OP-E Functional Tests Start: 09/15/18 15:24 Freq: Status: Active Protocol: Document 09/15/18 16:41 EA (Rec: 09/15/18 17:14 EA [id number]) Functional Tests Timed Up and Go (TUG) Score 11 TUG Impairment Rating 1 to <20% Impaired (Score 11) PT-OP-G Mobility & Gait Start: 09/15/18 15:24 Freq: Status: Active Protocol: Document 09/15/18 16:41 EA (Rec: 09/15/18 17:14 EA [id number]) OP Mobility Evaluation Bed Mobility Rolling indep Supine to and from Sit indep Transfers Sit to Stand indep Bed to Chair Transfers Indep OP Gait Assessment Gait Gait Assistance Required: Standby Assistance Distance (Feet) 100 Able to Maintain Weight Bearing Status Yes During Gait Assistive Devices Assistive Device None Gait Deviations General Gait Pattern Within Normal Limits Factors Limiting Gait Function Factors Limiting Gait Function Decreased Activity Tolerance Decreased Strength Poor Safety Awareness Stair Climbing Evaluation Evaluation Level of Assist On Stairs Standby Assistance Technique/Endurance Stair Climbing Direction Ascend and Descend Stair Climbing Technique Step to Step Number of Steps Climbed 6 Stair Climbing Set # Repetitions (reps) 1 PT-OP-H Neuro Start: 09/15/18 15:24 Freq: Status: Active Protocol: Document 09/15/18 16:41 EA (Rec: 09/15/18 17:14 EA [id number]) Coordination Evaluation Upper Extremity Tests Left Finger to Nose Test normal performance but requires few practice/cues Finger to Therapist's Finger Test Normal but requires cues and practices Finger Opposition Test Normal Performance Pronation/Supination Test Normal Performance Pointing and Past Pointing Test Normal Performance Lower Extremity Tests Heel on Moreno Test Normal Performance Foot Tapping Test Normal Performance Toe to Examiner's Finger Test Normal Performance Deep Tendon Reflex & Clonus Assessment Deep Tendon Reflex Bilateral Brachioradialis Deep Tendon Reflex 3+ Normal But Brisk Bilateral Patellar Deep Tendon Reflex 3+ Normal But Brisk Ankle Clonus Bilateral Clonus Assessment Absent Vital Signs Blood Pressure Sitting Blood Pressure (90/60-120/80 mmHg) 130/80 H Blood Pressure Source Automatic Cuff Manual Cuff Respirations Respiratory Rate at Rest (12-24 breaths/ 17 min) Respiratory Effort Non-Labored PT-OP-J Posture/Palpation/Skin Start: 09/15/18 15:24 Freq: Status: Active Protocol: Document 09/15/18 16:41 EA (Rec: 09/15/18 17:14 EA [id number]) Posture Evaluation Comments Posture Comments WNL Palpation Assessment Location One Palpation Location Both upper and lower limbs Palpation Findings None/Normal PT-OP-K Range of Motion Start: 09/15/18 15:24 Freq: Status: Active Protocol: Document 09/15/18 17:16 EA (Rec: 09/15/18 17:18 EA [id number]) Shoulder Goniometric Range of Motion Shoulder Measured in Degrees Right Active Shoulder ROM WFL Yes Left Active Shoulder ROM WFL Yes Elbow/Forearm Range of Motion Elbow/Forearm Measured in Degrees Right Active Elbow/Forearm ROM WFL Yes Left Active Elbow/Forearm ROM WFL Yes Hip Goniometric Range of Motion Hip Measured in Degrees Right Active Hip ROM WFL Yes Left Active Hip ROM WFL Yes Knee Goniometric Range of Motion Knee Measured in Degrees Right Knee ROM WFL Yes Left Knee ROM WFL Yes Ankle and Foot Goniometric Range of Motion Ankle and Foot Measured in Degrees Right Active Ankle/Foot ROM WFL Yes Left Active Ankle/Foot ROM WFL Yes PT-OP-M Strength Start: 09/15/18 15:24 Freq: Status: Active Protocol: Document 09/15/18 16:41 EA (Rec: 09/15/18 17:14 EA [id number]) Trunk Strength Trunk Manual Muscle Testing Reason Not Measured WFL Shoulder Strength Shoulder Manual Muscle Testing Right Flexion 4 Good Extension 4 Good Abduction (C5) 4 Good Adduction 4 Good External Rotation 4 Good Internal Rotation 4 Good Horizontal Abduction 4 Good Horizontal Adduction 4 Good Left Flexion 4 Good Extension 4 Good Abduction (C5) 4 Good Adduction 4 Good External Rotation 4 Good Internal Rotation 4 Good Horizontal Abduction 4 Good Horizontal Adduction 4 Good Hip Strength Hip Manual Muscle Testing Right Flexion (L2) 4 Good Extension (S1) 4 Good Abduction 4 Good Adduction 4 Good External Rotation 4 Good Internal Rotation 4 Good Left Flexion (L2) 4 Good Extension (S1) 4 Good Abduction 4 Good Adduction 4 Good External Rotation 4 Good Internal Rotation 4 Good Knee Strength Knee Manual Muscle Testing Right Flexion (S2) 4+ Good+ Extension (L3) 4+ Good+ Left Flexion (S2) 4+ Good+ Extension (L3) 4+ Good+ Ankle/Foot Strength Ankle and Foot Manual Muscle Testing Right Dorsiflexion (L4) 4+ Good+ Plantarflexion (S1) 4+ Good+ Inversion 4+ Good+ Eversion (S1) 4+ Good+ Left Dorsiflexion (L4) 4+ Good+ Plantarflexion (S1) 4+ Good+ Inversion 4+ Good+ Eversion (S1) 4+ Good+ PT-OP-Q Treatments Start: 09/15/18 15:24 Freq: Status: Active Protocol: Document 10/03/18 14:30 DCW (Rec: 10/03/18 15:13 DCW [id number]) Cardio Equipment Recumbent Stepper (Sci-Fit) Duration (Minutes) 7 Resistance 4 Seat Position 6 Gym Equipment Shuttle Recovery Unilateral Squats Resistance 37# Shuttle Recovery Platform Stable Reps/Time 2x20 Bilateral Squats Resistance 75# Shuttle Recovery Platform Stable Reps/Time 2x20 Shuttle Balance 1 Details FWD/BWD Comments WBOS/NBOS, Staggerd Stance Balloon Volleyball Therapeutic Exercises Standing Exercises 4 Standing Exercise Name Biceps curls Side bilateral Resistance 3lbs Reps/Minutes x15 reps 3 Standing Exercise Name DB shoulder press Side bilateral Resistance 2 lbs Reps/Minutes x15 reps 2 Standing Exercise Name DB side raises Side bilateral Resistance 2lbs Reps/Minutes x15 reps 1 Standing Exercise Name rails side step squat Side bilateral Resistance GTB Reps/Minutes x 12ft x 2 lines Neuro Re-Education Treatment Balance Activities 1 Details heel to to gait/tandem walk Comments x 10 ft x 4 lines CGA PT-OP-T Assessment and Plan Start: 09/15/18 15:24 Freq: Status: Active Protocol: Document 10/03/18 14:30 DCW (Rec: 10/03/18 15:13 DCW [id number]) Physical Therapy Assessment Goals Four Impairment Gait assitance with uneven and obstacles Wood Router Goal (LTG) Patient will navigate uneven surfaces and obstacles wihtout fall. LTG Duration 6 wks Three Impairment Stand Functional reach score of < 10 Shelter Goal (LTG) Stand functional reach result of > 10 LTG Duration 6 wks Two Impairment Impaired distance mobility Shelter Goal (LTG) Patient will ambulate > 10 blocks with distant supervision LTG Duration 6 wks One Impairment TUG 11 secs Shelter Goal (LTG) TUG results of < 10 LTG Duration 5 wks Assessment Summary Assessment Pt becoming more independent in her daily activities, still having trouble with balance and slight difficulty with instruction following. Physical Therapy Plan Frequency and Duration Frequency of Treatment 2x/Week Duration of Treatment 10 wks Plan of Care Start Date 09/15/18 Plan of Care End Date 11/24/18 Therapeutic Interventions Therapeutic Interventions Balance Training Home Exercise Program Patient/Caregiver Education Self-Care/Home Management Soft Tissue Mobilization Therapeutic Activities Therapeutic Exercises Next Visit Focus/Plan Next Note Type Treatment Note Next Visit Plan cont with current plan.
--- NOTE | 2018-10-05 14:47 | PT.OTN ---
Current Diagnoses Epilepsy, unspecified, not intractable, without status epilepticus (10/05/18) Migraine, unspecified, not intractable, without status migrainosus (10/05/18) Altered mental status, unspecified (10/05/18) Physical Therapy Treatment Note PT-OP-A Visit Information Start: 09/15/18 15:24 Freq: Status: Active Protocol: Document 10/05/18 13:51 EA (Rec: 10/05/18 13:55 EA [id number]) Out-Patient Physical Therapy Visit Information Visit Information Visit Type Treatment Note Visit Start Time 15:15 Visit Stop Time 16:00 Total Visit Minutes 40 Visit Number 5 PT-OP-B Current Condition Start: 09/15/18 15:24 Freq: Status: Active Protocol: Document 09/15/18 16:41 EA (Rec: 09/15/18 17:14 EA [id number]) Current Condition History of Current Condition Onset Date June/2018 Current Complaints general body weakness, gait and balance History of Current Condition Narrative: Patient's reports that patient was hospitalized at [facility] due to epilepsy on August 07 2018 . mentioned that patient was confined to bed for almost 1 1/2 month then started to rehab at [facility]. Pt discharged to home but requires assist and mobility aid with limited mobility. Recalled fall 4x at SNF with no major injury. stated that patient is currently out of walker and has been walking with him most of the days of the week. He stated that she requires supervision as patient dizziness and balance tends to limit her mobility. Prior Treatments and Tests Most recent after onset: MRI, CT x 2 at and [facility] with no significant results [facility] EEG: Epilepsy Currently medicated for epileplsy Future Testing and Treatments Planned 09/22/18: MRI at [facility] Treatment Goals Patient/Caregiver Goals 1. Patient wants to be able to walk for more than 10 blocks 2. Patient wants to be independent again in all ADL's Prior Functional Status Baseline Function- ADL's Independent Baseline Function- Mobility Independent Baseline Function- Gait unlimited with no AD Baseline Function- Work/School Retired Baseline Function- Recreation/Hobbies Used to perform daily fitness routine Current Functional Impairments (Reported) Functional Limitations- ADL's Indep in all ADL's except with driving, showering, outdoor walks, cooking Functional Limitations- Mobility/Gait Limited to < 8 blocks with SBA Functional Limitations- Work/School Retired Functional Limitations- Recreation/ Unable to performe regular Hobbies fitnesss routine Personal Factors Other Personal Factors That May Effect Decreased cognitive function Therapy/Recovery PT-OP-C Subjective Start: 09/15/18 15:24 Freq: Status: Active Protocol: Document 10/05/18 13:51 EA (Rec: 10/05/18 13:55 EA [id number]) OP-PT Subjective Patient Comments Patient Comments Pt reports m doing cleaning in the house and dishes my daughter helps me lot. PT-OP-D Balance Start: 09/15/18 15:24 Freq: Status: Active Protocol: Document 09/15/18 16:41 EA (Rec: 09/15/18 17:14 EA [id number]) OP-PT Balance Assessment Standing Balance Static Standing Balance Ability Good Dynamic Standing Balance Ability Fair Balance Tests Functional Reach Functional Reach Impairment Rating 1 to <20% Impaired (Score 9) Single Limb Standing Single Limb- Right < 3 second on each side Tandem Tandem Standing < 10 second [place] Balance Assessment Evaluation Sitting to Standing Ability Independent w/out Hands Unsupported Stance Safely- 2 minutes Standing to Sitting Ability Safely, Minimal Hand Use Transfer Ability Safely, Minimal Hand Use Unsupported Stance- Eyes Closed Supervision, 10 seconds Unsupported Stance- Eyes Open Independent, 1 minute Reaching Forward Standing Safely, 5 inches Pick- Up Object From Floor Independent/Safe Look Behind Shoulder - Standing Shifts Weight Well Turning 360 Degrees Turns , < 4 secs Unsupported Stance, Alternating Feet on (I)- 8 Steps in > 20 secs Stair Unsupported Tandem Stance Small Step- 30 seconds Unilateral Leg Stance Lifts Leg/Holds 5-10 secs Total Score [place] Total Score (out of 56 points) 45 [place] Impairment Rating 1 to 19% Impaired (Score 45-55 ) Tinetti Balance Assessment Sitting Balance Sitting Balance Steady, safe Arising from Chair Ability to Arise Able, w/o using arms Standing Balance Immediate Standing Balance Steady w/o support Standing Balance Narrow stance w/o support Nudged Response Steady Standing with Eyes Closed Steady Turning Step Pattern Turning 360 Degrees Continuous steps Stability Turning 360 Degrees Steady Sitting Down Sitting Down Safe, steady Gait and Step Initiation of Gait No hesitancy Right Foot Step Length Does pass stance foot Right Foot Step Height Completely clears floor Left Foot Step Length Does pass stance foot Left Foot Step Height Completely clears floor Step Description Step Symmetry Step length appears equal Step Continuity Steps appear continuous Gait Description Path Description Mild/moderate deviation Trunk Description No sway Walking Stance Heels together Scoring and Interpretation Tinetti Composite Score (points) 25 Interpretation of Scores Low risk for falls (>24) Tinetti Impairment Rating from Composite 1 to <20% Impaired (Score 23- Score 27) Linton Fall Scale Copyright Permission Royer JM, Royer RM, Charley SJ. Development of a scale to identify the fall- prone patient. Can J Aging 1989;8;366-7. Facundo Linton (2009). Preventing patient falls. (2nd ed). [place]: Butt. PT-OP-E Functional Tests Start: 09/15/18 15:24 Freq: Status: Active Protocol: Document 09/15/18 16:41 EA (Rec: 09/15/18 17:14 EA [id number]) Functional Tests Timed Up and Go (TUG) Score 11 TUG Impairment Rating 1 to <20% Impaired (Score 11) PT-OP-G Mobility & Gait Start: 09/15/18 15:24 Freq: Status: Active Protocol: Document 09/15/18 16:41 EA (Rec: 09/15/18 17:14 EA [id number]) OP Mobility Evaluation Bed Mobility Rolling indep Supine to and from Sit indep Transfers Sit to Stand indep Bed to Chair Transfers Indep OP Gait Assessment Gait Gait Assistance Required: Standby Assistance Distance (Feet) 100 Able to Maintain Weight Bearing Status Yes During Gait Assistive Devices Assistive Device None Gait Deviations General Gait Pattern Within Normal Limits Factors Limiting Gait Function Factors Limiting Gait Function Decreased Activity Tolerance Decreased Strength Poor Safety Awareness Stair Climbing Evaluation Evaluation Level of Assist On Stairs Standby Assistance Technique/Endurance Stair Climbing Direction Ascend and Descend Stair Climbing Technique Step to Step Number of Steps Climbed 6 Stair Climbing Set # Repetitions (reps) 1 PT-OP-H Neuro Start: 09/15/18 15:24 Freq: Status: Active Protocol: Document 09/15/18 16:41 EA (Rec: 09/15/18 17:14 EA [id number]) Coordination Evaluation Upper Extremity Tests Left Finger to Nose Test normal performance but requires few practice/cues Finger to Therapist's Finger Test Normal but requires cues and practices Finger Opposition Test Normal Performance Pronation/Supination Test Normal Performance Pointing and Past Pointing Test Normal Performance Lower Extremity Tests Heel on Moreno Test Normal Performance Foot Tapping Test Normal Performance Toe to Examiner's Finger Test Normal Performance Deep Tendon Reflex & Clonus Assessment Deep Tendon Reflex Bilateral Brachioradialis Deep Tendon Reflex 3+ Normal But Brisk Bilateral Patellar Deep Tendon Reflex 3+ Normal But Brisk Ankle Clonus Bilateral Clonus Assessment Absent Vital Signs Blood Pressure Sitting Blood Pressure (90/60-120/80 mmHg) 130/80 H Blood Pressure Source Automatic Cuff Manual Cuff Respirations Respiratory Rate at Rest (12-24 breaths/ 17 min) Respiratory Effort Non-Labored PT-OP-J Posture/Palpation/Skin Start: 09/15/18 15:24 Freq: Status: Active Protocol: Document 09/15/18 16:41 EA (Rec: 09/15/18 17:14 EA [id number]) Posture Evaluation Comments Posture Comments WNL Palpation Assessment Location One Palpation Location Both upper and lower limbs Palpation Findings None/Normal PT-OP-K Range of Motion Start: 09/15/18 15:24 Freq: Status: Active Protocol: Document 09/15/18 17:16 EA (Rec: 09/15/18 17:18 EA [id number]) Shoulder Goniometric Range of Motion Shoulder Measured in Degrees Right Active Shoulder ROM WFL Yes Left Active Shoulder ROM WFL Yes Elbow/Forearm Range of Motion Elbow/Forearm Measured in Degrees Right Active Elbow/Forearm ROM WFL Yes Left Active Elbow/Forearm ROM WFL Yes Hip Goniometric Range of Motion Hip Measured in Degrees Right Active Hip ROM WFL Yes Left Active Hip ROM WFL Yes Knee Goniometric Range of Motion Knee Measured in Degrees Right Knee ROM WFL Yes Left Knee ROM WFL Yes Ankle and Foot Goniometric Range of Motion Ankle and Foot Measured in Degrees Right Active Ankle/Foot ROM WFL Yes Left Active Ankle/Foot ROM WFL Yes PT-OP-M Strength Start: 09/15/18 15:24 Freq: Status: Active Protocol: Document 09/15/18 16:41 EA (Rec: 09/15/18 17:14 EA [id number]) Trunk Strength Trunk Manual Muscle Testing Reason Not Measured WFL Shoulder Strength Shoulder Manual Muscle Testing Right Flexion 4 Good Extension 4 Good Abduction (C5) 4 Good Adduction 4 Good External Rotation 4 Good Internal Rotation 4 Good Horizontal Abduction 4 Good Horizontal Adduction 4 Good Left Flexion 4 Good Extension 4 Good Abduction (C5) 4 Good Adduction 4 Good External Rotation 4 Good Internal Rotation 4 Good Horizontal Abduction 4 Good Horizontal Adduction 4 Good Hip Strength Hip Manual Muscle Testing Right Flexion (L2) 4 Good Extension (S1) 4 Good Abduction 4 Good Adduction 4 Good External Rotation 4 Good Internal Rotation 4 Good Left Flexion (L2) 4 Good Extension (S1) 4 Good Abduction 4 Good Adduction 4 Good External Rotation 4 Good Internal Rotation 4 Good Knee Strength Knee Manual Muscle Testing Right Flexion (S2) 4+ Good+ Extension (L3) 4+ Good+ Left Flexion (S2) 4+ Good+ Extension (L3) 4+ Good+ Ankle/Foot Strength Ankle and Foot Manual Muscle Testing Right Dorsiflexion (L4) 4+ Good+ Plantarflexion (S1) 4+ Good+ Inversion 4+ Good+ Eversion (S1) 4+ Good+ Left Dorsiflexion (L4) 4+ Good+ Plantarflexion (S1) 4+ Good+ Inversion 4+ Good+ Eversion (S1) 4+ Good+ PT-OP-Q Treatments Start: 09/15/18 15:24 Freq: Status: Active Protocol: Document 10/05/18 13:51 EA (Rec: 10/05/18 13:55 EA [id number]) Cardio Equipment Recumbent Stepper (Sci-Fit) Duration (Minutes) 7 Resistance 3.5 Seat Position 6 Gym Equipment Cable Column (Body Solid) Leg Extension Resistance x10# x 15 reps Hip Abduction Resistance x20# x 15 reps Rows Resistance 15# Reps/Time x15 rep Shuttle Recovery Unilateral Squats Resistance 37# Shuttle Recovery Platform Stable Reps/Time 2x20 Bilateral Squats Resistance 75# Shuttle Recovery Platform Stable Reps/Time 2x20 Shuttle Balance 1 Details FWD/BWD Comments WBOS/NBOS, Staggerd Stance Balloon Volleyball Therapeutic Exercises Standing Exercises 4 Standing Exercise Name Biceps curls Side bilateral Resistance 3lbs Reps/Minutes x15 reps 3 Standing Exercise Name DB shoulder press Side bilateral Resistance 2 lbs Reps/Minutes x15 reps 2 Standing Exercise Name DB side raises Side bilateral Resistance 2lbs Reps/Minutes x15 reps 1 Standing Exercise Name rails side step squat Side bilateral Resistance GTB Reps/Minutes x 12ft x 2 lines Neuro Re-Education Treatment Balance Activities 1 Details heel to to gait/tandem walk Comments x 10 ft x 4 lines CGA Coordination Activities 1 Details Cross stepping/great avila Reps/Duration x 12 ft x 2 sets Comments CGA PT-OP-T Assessment and Plan Start: 09/15/18 15:24 Freq: Status: Active Protocol: Document 10/05/18 14:45 EA (Rec: 10/05/18 14:47 EA [id number]) Physical Therapy Assessment Assessment Summary Assessment Improved exercises tolerance at today's session. Patient will continue with the current plan. Physical Therapy Plan Next Visit Focus/Plan Next Note Type Treatment Note
--- NOTE | 2018-10-07 14:28 | PT.OTN ---
Current Diagnoses Epilepsy, unspecified, not intractable, without status epilepticus (10/07/18) Migraine, unspecified, not intractable, without status migrainosus (10/07/18) Altered mental status, unspecified (10/07/18) Physical Therapy Treatment Note PT-OP-A Visit Information Start: 09/15/18 15:24 Freq: Status: Active Protocol: Document 10/07/18 13:45 DCW (Rec: 10/07/18 14:28 DCW [id number]) Out-Patient Physical Therapy Visit Information Visit Information Visit Type Treatment Note Visit Start Time 13:45 Visit Stop Time 14:30 Total Visit Minutes 45 Visit Number 6 Evaluation Information Evaluation Date 09/15/18 PT-OP-B Current Condition Start: 09/15/18 15:24 Freq: Status: Active Protocol: Document 09/15/18 16:41 EA (Rec: 09/15/18 17:14 EA [id number]) Current Condition History of Current Condition Onset Date June/2018 Current Complaints general body weakness, gait and balance History of Current Condition Narrative: Patient's reports that patient was hospitalized at [facility] due to epilepsy on August 07 2018 . mentioned that patient was confined to bed for almost 1 1/2 month then started to rehab at [facility]. Pt discharged to home but requires assist and mobility aid with limited mobility. Recalled fall 4x at SNF with no major injury. stated that patient is currently out of walker and has been walking with him most of the days of the week. He stated that she requires supervision as patient dizziness and balance tends to limit her mobility. Prior Treatments and Tests Most recent after onset: MRI, CT x 2 at and [facility] with no significant results [facility] EEG: Epilepsy Currently medicated for epileplsy Future Testing and Treatments Planned 09/22/18: MRI at [facility] Treatment Goals Patient/Caregiver Goals 1. Patient wants to be able to walk for more than 10 blocks 2. Patient wants to be independent again in all ADL's Prior Functional Status Baseline Function- ADL's Independent Baseline Function- Mobility Independent Baseline Function- Gait unlimited with no AD Baseline Function- Work/School Retired Baseline Function- Recreation/Hobbies Used to perform daily fitness routine Current Functional Impairments (Reported) Functional Limitations- ADL's Indep in all ADL's except with driving, showering, outdoor walks, cooking Functional Limitations- Mobility/Gait Limited to < 8 blocks with SBA Functional Limitations- Work/School Retired Functional Limitations- Recreation/ Unable to performe regular Hobbies fitnesss routine Personal Factors Other Personal Factors That May Effect Decreased cognitive function Therapy/Recovery PT-OP-C Subjective Start: 09/15/18 15:24 Freq: Status: Active Protocol: Document 10/07/18 13:45 DCW (Rec: 10/07/18 14:28 DCW [id number]) OP-PT Subjective Patient Comments Patient Comments Pt notes that she feels a little off balance today, admits that she normally starts feeling that way in the afternoons around 1:00. Admits she is a little sore after planting a lot of mchugh yesterday. PT-OP-D Balance Start: 09/15/18 15:24 Freq: Status: Active Protocol: Document 09/15/18 16:41 EA (Rec: 09/15/18 17:14 EA [id number]) OP-PT Balance Assessment Standing Balance Static Standing Balance Ability Good Dynamic Standing Balance Ability Fair Balance Tests Functional Reach Functional Reach Impairment Rating 1 to <20% Impaired (Score 9) Single Limb Standing Single Limb- Right < 3 second on each side Tandem Tandem Standing < 10 second [place] Balance Assessment Evaluation Sitting to Standing Ability Independent w/out Hands Unsupported Stance Safely- 2 minutes Standing to Sitting Ability Safely, Minimal Hand Use Transfer Ability Safely, Minimal Hand Use Unsupported Stance- Eyes Closed Supervision, 10 seconds Unsupported Stance- Eyes Open Independent, 1 minute Reaching Forward Standing Safely, 5 inches Pick- Up Object From Floor Independent/Safe Look Behind Shoulder - Standing Shifts Weight Well Turning 360 Degrees Turns , < 4 secs Unsupported Stance, Alternating Feet on (I)- 8 Steps in > 20 secs Stair Unsupported Tandem Stance Small Step- 30 seconds Unilateral Leg Stance Lifts Leg/Holds 5-10 secs Total Score [place] Total Score (out of 56 points) 45 [place] Impairment Rating 1 to 19% Impaired (Score 45-55 ) Tinetti Balance Assessment Sitting Balance Sitting Balance Steady, safe Arising from Chair Ability to Arise Able, w/o using arms Standing Balance Immediate Standing Balance Steady w/o support Standing Balance Narrow stance w/o support Nudged Response Steady Standing with Eyes Closed Steady Turning Step Pattern Turning 360 Degrees Continuous steps Stability Turning 360 Degrees Steady Sitting Down Sitting Down Safe, steady Gait and Step Initiation of Gait No hesitancy Right Foot Step Length Does pass stance foot Right Foot Step Height Completely clears floor Left Foot Step Length Does pass stance foot Left Foot Step Height Completely clears floor Step Description Step Symmetry Step length appears equal Step Continuity Steps appear continuous Gait Description Path Description Mild/moderate deviation Trunk Description No sway Walking Stance Heels together Scoring and Interpretation Tinetti Composite Score (points) 25 Interpretation of Scores Low risk for falls (>24) Tinetti Impairment Rating from Composite 1 to <20% Impaired (Score 23- Score 27) Linton Fall Scale Copyright Permission Royer REZA, Royer RM, Charley SJ. Development of a scale to identify the fall- prone patient. Can J Aging 1989;8;366-7. Facundo Linton (2009). Preventing patient falls. (2nd ed). [place]: Butt. PT-OP-E Functional Tests Start: 09/15/18 15:24 Freq: Status: Active Protocol: Document 09/15/18 16:41 EA (Rec: 09/15/18 17:14 EA [id number]) Functional Tests Timed Up and Go (TUG) Score 11 TUG Impairment Rating 1 to <20% Impaired (Score 11) PT-OP-G Mobility & Gait Start: 09/15/18 15:24 Freq: Status: Active Protocol: Document 09/15/18 16:41 EA (Rec: 09/15/18 17:14 EA [id number]) OP Mobility Evaluation Bed Mobility Rolling indep Supine to and from Sit indep Transfers Sit to Stand indep Bed to Chair Transfers Indep OP Gait Assessment Gait Gait Assistance Required: Standby Assistance Distance (Feet) 100 Able to Maintain Weight Bearing Status Yes During Gait Assistive Devices Assistive Device None Gait Deviations General Gait Pattern Within Normal Limits Factors Limiting Gait Function Factors Limiting Gait Function Decreased Activity Tolerance Decreased Strength Poor Safety Awareness Stair Climbing Evaluation Evaluation Level of Assist On Stairs Standby Assistance Technique/Endurance Stair Climbing Direction Ascend and Descend Stair Climbing Technique Step to Step Number of Steps Climbed 6 Stair Climbing Set # Repetitions (reps) 1 PT-OP-H Neuro Start: 09/15/18 15:24 Freq: Status: Active Protocol: Document 09/15/18 16:41 EA (Rec: 09/15/18 17:14 EA [id number]) Coordination Evaluation Upper Extremity Tests Left Finger to Nose Test normal performance but requires few practice/cues Finger to Therapist's Finger Test Normal but requires cues and practices Finger Opposition Test Normal Performance Pronation/Supination Test Normal Performance Pointing and Past Pointing Test Normal Performance Lower Extremity Tests Heel on Moreno Test Normal Performance Foot Tapping Test Normal Performance Toe to Examiner's Finger Test Normal Performance Deep Tendon Reflex & Clonus Assessment Deep Tendon Reflex Bilateral Brachioradialis Deep Tendon Reflex 3+ Normal But Brisk Bilateral Patellar Deep Tendon Reflex 3+ Normal But Brisk Ankle Clonus Bilateral Clonus Assessment Absent Vital Signs Blood Pressure Sitting Blood Pressure (90/60-120/80 mmHg) 130/80 H Blood Pressure Source Automatic Cuff Manual Cuff Respirations Respiratory Rate at Rest (12-24 breaths/ 17 min) Respiratory Effort Non-Labored PT-OP-J Posture/Palpation/Skin Start: 09/15/18 15:24 Freq: Status: Active Protocol: Document 09/15/18 16:41 EA (Rec: 09/15/18 17:14 EA [id number]) Posture Evaluation Comments Posture Comments WNL Palpation Assessment Location One Palpation Location Both upper and lower limbs Palpation Findings None/Normal PT-OP-K Range of Motion Start: 09/15/18 15:24 Freq: Status: Active Protocol: Document 09/15/18 17:16 EA (Rec: 09/15/18 17:18 EA [id number]) Shoulder Goniometric Range of Motion Shoulder Measured in Degrees Right Active Shoulder ROM WFL Yes Left Active Shoulder ROM WFL Yes Elbow/Forearm Range of Motion Elbow/Forearm Measured in Degrees Right Active Elbow/Forearm ROM WFL Yes Left Active Elbow/Forearm ROM WFL Yes Hip Goniometric Range of Motion Hip Measured in Degrees Right Active Hip ROM WFL Yes Left Active Hip ROM WFL Yes Knee Goniometric Range of Motion Knee Measured in Degrees Right Knee ROM WFL Yes Left Knee ROM WFL Yes Ankle and Foot Goniometric Range of Motion Ankle and Foot Measured in Degrees Right Active Ankle/Foot ROM WFL Yes Left Active Ankle/Foot ROM WFL Yes PT-OP-M Strength Start: 09/15/18 15:24 Freq: Status: Active Protocol: Document 09/15/18 16:41 EA (Rec: 09/15/18 17:14 EA [id number]) Trunk Strength Trunk Manual Muscle Testing Reason Not Measured WFL Shoulder Strength Shoulder Manual Muscle Testing Right Flexion 4 Good Extension 4 Good Abduction (C5) 4 Good Adduction 4 Good External Rotation 4 Good Internal Rotation 4 Good Horizontal Abduction 4 Good Horizontal Adduction 4 Good Left Flexion 4 Good Extension 4 Good Abduction (C5) 4 Good Adduction 4 Good External Rotation 4 Good Internal Rotation 4 Good Horizontal Abduction 4 Good Horizontal Adduction 4 Good Hip Strength Hip Manual Muscle Testing Right Flexion (L2) 4 Good Extension (S1) 4 Good Abduction 4 Good Adduction 4 Good External Rotation 4 Good Internal Rotation 4 Good Left Flexion (L2) 4 Good Extension (S1) 4 Good Abduction 4 Good Adduction 4 Good External Rotation 4 Good Internal Rotation 4 Good Knee Strength Knee Manual Muscle Testing Right Flexion (S2) 4+ Good+ Extension (L3) 4+ Good+ Left Flexion (S2) 4+ Good+ Extension (L3) 4+ Good+ Ankle/Foot Strength Ankle and Foot Manual Muscle Testing Right Dorsiflexion (L4) 4+ Good+ Plantarflexion (S1) 4+ Good+ Inversion 4+ Good+ Eversion (S1) 4+ Good+ Left Dorsiflexion (L4) 4+ Good+ Plantarflexion (S1) 4+ Good+ Inversion 4+ Good+ Eversion (S1) 4+ Good+ PT-OP-Q Treatments Start: 09/15/18 15:24 Freq: Status: Active Protocol: Document 10/07/18 13:45 DCW (Rec: 10/07/18 14:28 DCW [id number]) Cardio Equipment Recumbent Elliptical (Biodex) Duration (Minutes) 7 Resistance 3 Seat Position 5 Gym Equipment Cable Column (Body Solid) Leg Extension Resistance x10# x 15 reps Hip Abduction Resistance x20# x 15 reps Shuttle Recovery Bilateral Heel Raises Resistance 75# Unilateral Squats Resistance 37# Shuttle Recovery Platform Stable Reps/Time 2x20 Bilateral Squats Resistance 75# Shuttle Recovery Platform Stable Reps/Time 2x20 Neuro Re-Education Treatment Balance Activities 1 Details heel to toe gait/tandem walk Comments x 10 ft x 4 lines CGA Coordination Activities 1 Details Cross stepping/grape avila Reps/Duration x 12 ft x 2 sets Comments CGA PT-OP-T Assessment and Plan Start: 09/15/18 15:24 Freq: Status: Active Protocol: Document 10/07/18 13:45 DCW (Rec: 10/07/18 14:28 DCW [id number]) Physical Therapy Assessment Goals Four Impairment Gait assitance with uneven and obstacles [facility] Goal (LTG) Patient will navigate uneven surfaces and obstacles wihtout fall. LTG Duration 6 wks Three Impairment Stand Functional reach score of < 10 [facility] Goal (LTG) Stand functional reach result of > 10 LTG Duration 6 wks Two Impairment Impaired distance mobility [facility] Goal (LTG) Patient will ambulate > 10 blocks with distant supervision LTG Duration 6 wks One Impairment TUG 11 secs [facility] Goal (LTG) TUG results of < 10 LTG Duration 5 wks Assessment Summary Assessment Pt a little more lethargic today, but fully participated in her activities. Pt had mild comprehension difficulty with newer exercises, required repeated instruction. Physical Therapy Plan Frequency and Duration Frequency of Treatment 2x/Week Duration of Treatment 10 wks Plan of Care Start Date 09/15/18 Plan of Care End Date 11/24/18 Therapeutic Interventions Therapeutic Interventions Balance Training Home Exercise Program Patient/Caregiver Education Self-Care/Home Management Soft Tissue Mobilization Therapeutic Activities Therapeutic Exercises Next Visit Focus/Plan Next Note Type Treatment Note Next Visit Plan cont with current plan.
--- NOTE | 2018-10-10 14:29 | PT.OTN ---
Current Diagnoses Epilepsy, unspecified, not intractable, without status epilepticus (10/10/18) Migraine, unspecified, not intractable, without status migrainosus (10/10/18) Altered mental status, unspecified (10/10/18) Physical Therapy Treatment Note PT-OP-A Visit Information Start: 09/15/18 15:24 Freq: Status: Active Protocol: Document 10/10/18 13:45 DCW (Rec: 10/10/18 14:29 DCW [id number]) Out-Patient Physical Therapy Visit Information Visit Information Visit Type Treatment Note Visit Start Time 13:45 Visit Stop Time 14:30 Total Visit Minutes 45 Visit Number 7 Evaluation Information Evaluation Date 09/15/18 PT-OP-B Current Condition Start: 09/15/18 15:24 Freq: Status: Active Protocol: Document 09/15/18 16:41 EA (Rec: 09/15/18 17:14 EA [id number]) Current Condition History of Current Condition Onset Date June/2018 Current Complaints general body weakness, gait and balance History of Current Condition Narrative: Patient's reports that patient was hospitalized at [place] due to epilepsy on August 07 2018 . mentioned that patient was confined to bed for almost 1 1/2 month then started to rehab at [facility]. Pt discharged to home but requires assist and mobility aid with limited mobility. Recalled fall 4x at SNF with no major injury. stated that patient is currently out of walker and has been walking with him most of the days of the week. He stated that she requires supervision as patient dizziness and balance tends to limit her mobility. Prior Treatments and Tests Most recent after onset: MRI, CT x 2 at and [facility] with no significant results [place] EEG: Epilepsy Currently medicated for epileplsy Future Testing and Treatments Planned 09/22/18: MRI at [facility] Treatment Goals Patient/Caregiver Goals 1. Patient wants to be able to walk for more than 10 blocks 2. Patient wants to be independent again in all ADL's Prior Functional Status Baseline Function- ADL's Independent Baseline Function- Mobility Independent Baseline Function- Gait unlimited with no AD Baseline Function- Work/School Retired Baseline Function- Recreation/Hobbies Used to perform daily fitness routine Current Functional Impairments (Reported) Functional Limitations- ADL's Indep in all ADL's except with driving, showering, outdoor walks, cooking Functional Limitations- Mobility/Gait Limited to < 8 blocks with SBA Functional Limitations- Work/School Retired Functional Limitations- Recreation/ Unable to performe regular Hobbies fitnesss routine Personal Factors Other Personal Factors That May Effect Decreased cognitive function Therapy/Recovery PT-OP-C Subjective Start: 09/15/18 15:24 Freq: Status: Active Protocol: Document 10/10/18 13:45 DCW (Rec: 10/10/18 14:29 DCW [id number]) OP-PT Subjective Patient Comments Patient Comments Pt notes that overall she feels okay, but has still been pretty off-balance and wobbly after she takes her medications. PT-OP-D Balance Start: 09/15/18 15:24 Freq: Status: Active Protocol: Document 09/15/18 16:41 EA (Rec: 09/15/18 17:14 EA [id number]) OP-PT Balance Assessment Standing Balance Static Standing Balance Ability Good Dynamic Standing Balance Ability Fair Balance Tests Functional Reach Functional Reach Impairment Rating 1 to <20% Impaired (Score 9) Single Limb Standing Single Limb- Right < 3 second on each side Tandem Tandem Standing < 10 second [place] Balance Assessment Evaluation Sitting to Standing Ability Independent w/out Hands Unsupported Stance Safely- 2 minutes Standing to Sitting Ability Safely, Minimal Hand Use Transfer Ability Safely, Minimal Hand Use Unsupported Stance- Eyes Closed Supervision, 10 seconds Unsupported Stance- Eyes Open Independent, 1 minute Reaching Forward Standing Safely, 5 inches Pick- Up Object From Floor Independent/Safe Look Behind Shoulder - Standing Shifts Weight Well Turning 360 Degrees Turns , < 4 secs Unsupported Stance, Alternating Feet on (I)- 8 Steps in > 20 secs Stair Unsupported Tandem Stance Small Step- 30 seconds Unilateral Leg Stance Lifts Leg/Holds 5-10 secs Total Score [place] Total Score (out of 56 points) 45 [place] Impairment Rating 1 to 19% Impaired (Score 45-55 ) Tinetti Balance Assessment Sitting Balance Sitting Balance Steady, safe Arising from Chair Ability to Arise Able, w/o using arms Standing Balance Immediate Standing Balance Steady w/o support Standing Balance Narrow stance w/o support Nudged Response Steady Standing with Eyes Closed Steady Turning Step Pattern Turning 360 Degrees Continuous steps Stability Turning 360 Degrees Steady Sitting Down Sitting Down Safe, steady Gait and Step Initiation of Gait No hesitancy Right Foot Step Length Does pass stance foot Right Foot Step Height Completely clears floor Left Foot Step Length Does pass stance foot Left Foot Step Height Completely clears floor Step Description Step Symmetry Step length appears equal Step Continuity Steps appear continuous Gait Description Path Description Mild/moderate deviation Trunk Description No sway Walking Stance Heels together Scoring and Interpretation Tinetti Composite Score (points) 25 Interpretation of Scores Low risk for falls (>24) Tinetti Impairment Rating from Composite 1 to <20% Impaired (Score 23- Score 27) Linton Fall Scale Copyright Permission Royer JM, Royer RM, Charley SJ. Development of a scale to identify the fall- prone patient. Can J Aging 1989;8;366-7. Facundo Linton (2009). Preventing patient falls. (2nd ed). [place]: Butt. PT-OP-E Functional Tests Start: 09/15/18 15:24 Freq: Status: Active Protocol: Document 09/15/18 16:41 EA (Rec: 09/15/18 17:14 EA [id number]) Functional Tests Timed Up and Go (TUG) Score 11 TUG Impairment Rating 1 to <20% Impaired (Score 11) PT-OP-G Mobility & Gait Start: 09/15/18 15:24 Freq: Status: Active Protocol: Document 09/15/18 16:41 EA (Rec: 09/15/18 17:14 EA [id number]) OP Mobility Evaluation Bed Mobility Rolling indep Supine to and from Sit indep Transfers Sit to Stand indep Bed to Chair Transfers Indep OP Gait Assessment Gait Gait Assistance Required: Standby Assistance Distance (Feet) 100 Able to Maintain Weight Bearing Status Yes During Gait Assistive Devices Assistive Device None Gait Deviations General Gait Pattern Within Normal Limits Factors Limiting Gait Function Factors Limiting Gait Function Decreased Activity Tolerance Decreased Strength Poor Safety Awareness Stair Climbing Evaluation Evaluation Level of Assist On Stairs Standby Assistance Technique/Endurance Stair Climbing Direction Ascend and Descend Stair Climbing Technique Step to Step Number of Steps Climbed 6 Stair Climbing Set # Repetitions (reps) 1 PT-OP-H Neuro Start: 09/15/18 15:24 Freq: Status: Active Protocol: Document 09/15/18 16:41 EA (Rec: 09/15/18 17:14 EA [id number]) Coordination Evaluation Upper Extremity Tests Left Finger to Nose Test normal performance but requires few practice/cues Finger to Therapist's Finger Test Normal but requires cues and practices Finger Opposition Test Normal Performance Pronation/Supination Test Normal Performance Pointing and Past Pointing Test Normal Performance Lower Extremity Tests Heel on Moreno Test Normal Performance Foot Tapping Test Normal Performance Toe to Examiner's Finger Test Normal Performance Deep Tendon Reflex & Clonus Assessment Deep Tendon Reflex Bilateral Brachioradialis Deep Tendon Reflex 3+ Normal But Brisk Bilateral Patellar Deep Tendon Reflex 3+ Normal But Brisk Ankle Clonus Bilateral Clonus Assessment Absent Vital Signs Blood Pressure Sitting Blood Pressure (90/60-120/80 mmHg) 130/80 H Blood Pressure Source Automatic Cuff Manual Cuff Respirations Respiratory Rate at Rest (12-24 breaths/ 17 min) Respiratory Effort Non-Labored PT-OP-J Posture/Palpation/Skin Start: 09/15/18 15:24 Freq: Status: Active Protocol: Document 09/15/18 16:41 EA (Rec: 09/15/18 17:14 EA [id number]) Posture Evaluation Comments Posture Comments WNL Palpation Assessment Location One Palpation Location Both upper and lower limbs Palpation Findings None/Normal PT-OP-K Range of Motion Start: 09/15/18 15:24 Freq: Status: Active Protocol: Document 09/15/18 17:16 EA (Rec: 09/15/18 17:18 EA [id number]) Shoulder Goniometric Range of Motion Shoulder Measured in Degrees Right Active Shoulder ROM WFL Yes Left Active Shoulder ROM WFL Yes Elbow/Forearm Range of Motion Elbow/Forearm Measured in Degrees Right Active Elbow/Forearm ROM WFL Yes Left Active Elbow/Forearm ROM WFL Yes Hip Goniometric Range of Motion Hip Measured in Degrees Right Active Hip ROM WFL Yes Left Active Hip ROM WFL Yes Knee Goniometric Range of Motion Knee Measured in Degrees Right Knee ROM WFL Yes Left Knee ROM WFL Yes Ankle and Foot Goniometric Range of Motion Ankle and Foot Measured in Degrees Right Active Ankle/Foot ROM WFL Yes Left Active Ankle/Foot ROM WFL Yes PT-OP-M Strength Start: 09/15/18 15:24 Freq: Status: Active Protocol: Document 09/15/18 16:41 EA (Rec: 09/15/18 17:14 EA [id number]) Trunk Strength Trunk Manual Muscle Testing Reason Not Measured WFL Shoulder Strength Shoulder Manual Muscle Testing Right Flexion 4 Good Extension 4 Good Abduction (C5) 4 Good Adduction 4 Good External Rotation 4 Good Internal Rotation 4 Good Horizontal Abduction 4 Good Horizontal Adduction 4 Good Left Flexion 4 Good Extension 4 Good Abduction (C5) 4 Good Adduction 4 Good External Rotation 4 Good Internal Rotation 4 Good Horizontal Abduction 4 Good Horizontal Adduction 4 Good Hip Strength Hip Manual Muscle Testing Right Flexion (L2) 4 Good Extension (S1) 4 Good Abduction 4 Good Adduction 4 Good External Rotation 4 Good Internal Rotation 4 Good Left Flexion (L2) 4 Good Extension (S1) 4 Good Abduction 4 Good Adduction 4 Good External Rotation 4 Good Internal Rotation 4 Good Knee Strength Knee Manual Muscle Testing Right Flexion (S2) 4+ Good+ Extension (L3) 4+ Good+ Left Flexion (S2) 4+ Good+ Extension (L3) 4+ Good+ Ankle/Foot Strength Ankle and Foot Manual Muscle Testing Right Dorsiflexion (L4) 4+ Good+ Plantarflexion (S1) 4+ Good+ Inversion 4+ Good+ Eversion (S1) 4+ Good+ Left Dorsiflexion (L4) 4+ Good+ Plantarflexion (S1) 4+ Good+ Inversion 4+ Good+ Eversion (S1) 4+ Good+ PT-OP-Q Treatments Start: 09/15/18 15:24 Freq: Status: Active Protocol: Document 10/10/18 13:45 DCW (Rec: 10/10/18 14:29 DCW [id number]) Cardio Equipment Recumbent Elliptical (Biodex) Duration (Minutes) 7 Resistance 5 Seat Position 5 Gym Equipment Shuttle Recovery Bilateral Heel Raises Resistance 75# Unilateral Squats Resistance 37# Shuttle Recovery Platform Stable Reps/Time 2x20 Bilateral Squats Resistance 75# Shuttle Recovery Platform Stable Reps/Time 2x20 Shuttle Balance 1 Details FWD/BWD Comments WBOS/NBOS, Staggered Stance Balloon Volleyball Therapeutic Exercises Standing Exercises 4 Standing Exercise Name Biceps curls Side bilateral Resistance 3lbs Reps/Minutes x15 reps 3 Standing Exercise Name DB shoulder press Side bilateral Resistance 2 lbs Reps/Minutes x15 reps 2 Standing Exercise Name DB side raises Side bilateral Resistance 2lbs Reps/Minutes x15 reps 1 Standing Exercise Name rails side step squat Side bilateral Resistance GTB Reps/Minutes x 12ft x 2 lines Neuro Re-Education Treatment Balance Activities 1 Details heel to toe gait/tandem walk Comments x 10 ft x 4 lines CGA PT-OP-T Assessment and Plan Start: 09/15/18 15:24 Freq: Status: Active Protocol: Document 10/10/18 13:45 DCW (Rec: 10/10/18 14:29 DCW [id number]) Physical Therapy Assessment Goals Four Impairment Gait assitance with uneven and obstacles Typesetters Printer Goal (LTG) Patient will navigate uneven surfaces and obstacles wihtout fall. LTG Duration 6 wks Three Impairment Stand Functional reach score of < 10 Fpc Goal (LTG) Stand functional reach result of > 10 LTG Duration 6 wks Two Impairment Impaired distance mobility Typesetters Printer Goal (LTG) Patient will ambulate > 10 blocks with distant supervision LTG Duration 6 wks One Impairment TUG 11 secs Typesetters Printer Goal (LTG) TUG results of < 10 LTG Duration 5 wks Assessment Summary Assessment Pt following direction better today, required fewer cues and demonstrations for her exercises. Physical Therapy Plan Frequency and Duration Frequency of Treatment 2x/Week Duration of Treatment 10 wks Plan of Care Start Date 09/15/18 Plan of Care End Date 11/24/18 Therapeutic Interventions Therapeutic Interventions Balance Training Home Exercise Program Patient/Caregiver Education Self-Care/Home Management Soft Tissue Mobilization Therapeutic Activities Therapeutic Exercises Next Visit Focus/Plan Next Note Type Treatment Note Next Visit Plan cont with current plan.
--- NOTE | 2018-10-12 14:34 | PT.OTN ---
Current Diagnoses Epilepsy, unspecified, not intractable, without status epilepticus (10/12/18) Migraine, unspecified, not intractable, without status migrainosus (10/12/18) Altered mental status, unspecified (10/12/18) Physical Therapy Treatment Note PT-OP-A Visit Information Start: 09/15/18 15:24 Freq: Status: Active Protocol: Document 10/12/18 13:54 EA (Rec: 10/12/18 13:58 EA [id number]) Out-Patient Physical Therapy Visit Information Visit Information Visit Type Treatment Note Visit Start Time 13:45 Visit Stop Time 14:30 Total Visit Minutes 20 Visit Number 8 PT-OP-B Current Condition Start: 09/15/18 15:24 Freq: Status: Active Protocol: Document 09/15/18 16:41 EA (Rec: 09/15/18 17:14 EA [id number]) Current Condition History of Current Condition Onset Date June/2018 Current Complaints general body weakness, gait and balance History of Current Condition Narrative: Patient's reports that patient was hospitalized at [place] due to epilepsy on August 07 2018 . mentioned that patient was confined to bed for almost 1 1/2 month then started to rehab at [facility]. Pt discharged to home but requires assist and mobility aid with limited mobility. Recalled fall 4x at SNF with no major injury. stated that patient is currently out of walker and has been walking with him most of the days of the week. He stated that she requires supervision as patient dizziness and balance tends to limit her mobility. Prior Treatments and Tests Most recent after onset: MRI, CT x 2 at and [facility] with no significant results [place] EEG: Epilepsy Currently medicated for epileplsy Future Testing and Treatments Planned 09/22/18: MRI at [facility] Treatment Goals Patient/Caregiver Goals 1. Patient wants to be able to walk for more than 10 blocks 2. Patient wants to be independent again in all ADL's Prior Functional Status Baseline Function- ADL's Independent Baseline Function- Mobility Independent Baseline Function- Gait unlimited with no AD Baseline Function- Work/School Retired Baseline Function- Recreation/Hobbies Used to perform daily fitness routine Current Functional Impairments (Reported) Functional Limitations- ADL's Indep in all ADL's except with driving, showering, outdoor walks, cooking Functional Limitations- Mobility/Gait Limited to < 8 blocks with SBA Functional Limitations- Work/School Retired Functional Limitations- Recreation/ Unable to performe regular Hobbies fitnesss routine Personal Factors Other Personal Factors That May Effect Decreased cognitive function Therapy/Recovery PT-OP-C Subjective Start: 09/15/18 15:24 Freq: Status: Active Protocol: Document 10/12/18 13:54 EA (Rec: 10/12/18 13:58 EA [id number]) OP-PT Subjective Patient Comments Patient Comments 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 PT-OP-D Balance Start: 09/15/18 15:24 Freq: Status: Active Protocol: Document 09/15/18 16:41 EA (Rec: 09/15/18 17:14 EA [id number]) OP-PT Balance Assessment Standing Balance Static Standing Balance Ability Good Dynamic Standing Balance Ability Fair Balance Tests Functional Reach Functional Reach Impairment Rating 1 to <20% Impaired (Score 9) Single Limb Standing Single Limb- Right < 3 second on each side Tandem Tandem Standing < 10 second [place] Balance Assessment Evaluation Sitting to Standing Ability Independent w/out Hands Unsupported Stance Safely- 2 minutes Standing to Sitting Ability Safely, Minimal Hand Use Transfer Ability Safely, Minimal Hand Use Unsupported Stance- Eyes Closed Supervision, 10 seconds Unsupported Stance- Eyes Open Independent, 1 minute Reaching Forward Standing Safely, 5 inches Pick- Up Object From Floor Independent/Safe Look Behind Shoulder - Standing Shifts Weight Well Turning 360 Degrees Turns , < 4 secs Unsupported Stance, Alternating Feet on (I)- 8 Steps in > 20 secs Stair Unsupported Tandem Stance Small Step- 30 seconds Unilateral Leg Stance Lifts Leg/Holds 5-10 secs Total Score [place] Total Score (out of 56 points) 45 [place] Impairment Rating 1 to 19% Impaired (Score 45-55 ) Tinetti Balance Assessment Sitting Balance Sitting Balance Steady, safe Arising from Chair Ability to Arise Able, w/o using arms Standing Balance Immediate Standing Balance Steady w/o support Standing Balance Narrow stance w/o support Nudged Response Steady Standing with Eyes Closed Steady Turning Step Pattern Turning 360 Degrees Continuous steps Stability Turning 360 Degrees Steady Sitting Down Sitting Down Safe, steady Gait and Step Initiation of Gait No hesitancy Right Foot Step Length Does pass stance foot Right Foot Step Height Completely clears floor Left Foot Step Length Does pass stance foot Left Foot Step Height Completely clears floor Step Description Step Symmetry Step length appears equal Step Continuity Steps appear continuous Gait Description Path Description Mild/moderate deviation Trunk Description No sway Walking Stance Heels together Scoring and Interpretation Tinetti Composite Score (points) 25 Interpretation of Scores Low risk for falls (>24) Tinetti Impairment Rating from Composite 1 to <20% Impaired (Score 23- Score 27) Linton Fall Scale Copyright Permission Royer JM, Royer RM, Charley SJ. Development of a scale to identify the fall- prone patient. Can J Aging 1989;8;366-7. Facundo Linton (2009). Preventing patient falls. (2nd ed). [place]: Butt. PT-OP-E Functional Tests Start: 09/15/18 15:24 Freq: Status: Active Protocol: Document 09/15/18 16:41 EA (Rec: 09/15/18 17:14 EA [id number]) Functional Tests Timed Up and Go (TUG) Score 11 TUG Impairment Rating 1 to <20% Impaired (Score 11) PT-OP-G Mobility & Gait Start: 09/15/18 15:24 Freq: Status: Active Protocol: Document 09/15/18 16:41 EA (Rec: 09/15/18 17:14 EA [id number]) OP Mobility Evaluation Bed Mobility Rolling indep Supine to and from Sit indep Transfers Sit to Stand indep Bed to Chair Transfers Indep OP Gait Assessment Gait Gait Assistance Required: Standby Assistance Distance (Feet) 100 Able to Maintain Weight Bearing Status Yes During Gait Assistive Devices Assistive Device None Gait Deviations General Gait Pattern Within Normal Limits Factors Limiting Gait Function Factors Limiting Gait Function Decreased Activity Tolerance Decreased Strength Poor Safety Awareness Stair Climbing Evaluation Evaluation Level of Assist On Stairs Standby Assistance Technique/Endurance Stair Climbing Direction Ascend and Descend Stair Climbing Technique Step to Step Number of Steps Climbed 6 Stair Climbing Set # Repetitions (reps) 1 PT-OP-H Neuro Start: 09/15/18 15:24 Freq: Status: Active Protocol: Document 09/15/18 16:41 EA (Rec: 09/15/18 17:14 EA [id number]) Coordination Evaluation Upper Extremity Tests Left Finger to Nose Test normal performance but requires few practice/cues Finger to Therapist's Finger Test Normal but requires cues and practices Finger Opposition Test Normal Performance Pronation/Supination Test Normal Performance Pointing and Past Pointing Test Normal Performance Lower Extremity Tests Heel on Moreno Test Normal Performance Foot Tapping Test Normal Performance Toe to Examiner's Finger Test Normal Performance Deep Tendon Reflex & Clonus Assessment Deep Tendon Reflex Bilateral Brachioradialis Deep Tendon Reflex 3+ Normal But Brisk Bilateral Patellar Deep Tendon Reflex 3+ Normal But Brisk Ankle Clonus Bilateral Clonus Assessment Absent Vital Signs Blood Pressure Sitting Blood Pressure (90/60-120/80 mmHg) 130/80 H Blood Pressure Source Automatic Cuff Manual Cuff Respirations Respiratory Rate at Rest (12-24 breaths/ 17 min) Respiratory Effort Non-Labored PT-OP-J Posture/Palpation/Skin Start: 09/15/18 15:24 Freq: Status: Active Protocol: Document 09/15/18 16:41 EA (Rec: 09/15/18 17:14 EA [id number]) Posture Evaluation Comments Posture Comments WNL Palpation Assessment Location One Palpation Location Both upper and lower limbs Palpation Findings None/Normal PT-OP-K Range of Motion Start: 09/15/18 15:24 Freq: Status: Active Protocol: Document 09/15/18 17:16 EA (Rec: 09/15/18 17:18 EA [id number]) Shoulder Goniometric Range of Motion Shoulder Measured in Degrees Right Active Shoulder ROM WFL Yes Left Active Shoulder ROM WFL Yes Elbow/Forearm Range of Motion Elbow/Forearm Measured in Degrees Right Active Elbow/Forearm ROM WFL Yes Left Active Elbow/Forearm ROM WFL Yes Hip Goniometric Range of Motion Hip Measured in Degrees Right Active Hip ROM WFL Yes Left Active Hip ROM WFL Yes Knee Goniometric Range of Motion Knee Measured in Degrees Right Knee ROM WFL Yes Left Knee ROM WFL Yes Ankle and Foot Goniometric Range of Motion Ankle and Foot Measured in Degrees Right Active Ankle/Foot ROM WFL Yes Left Active Ankle/Foot ROM WFL Yes PT-OP-M Strength Start: 09/15/18 15:24 Freq: Status: Active Protocol: Document 09/15/18 16:41 EA (Rec: 09/15/18 17:14 EA [id number]) Trunk Strength Trunk Manual Muscle Testing Reason Not Measured WFL Shoulder Strength Shoulder Manual Muscle Testing Right Flexion 4 Good Extension 4 Good Abduction (C5) 4 Good Adduction 4 Good External Rotation 4 Good Internal Rotation 4 Good Horizontal Abduction 4 Good Horizontal Adduction 4 Good Left Flexion 4 Good Extension 4 Good Abduction (C5) 4 Good Adduction 4 Good External Rotation 4 Good Internal Rotation 4 Good Horizontal Abduction 4 Good Horizontal Adduction 4 Good Hip Strength Hip Manual Muscle Testing Right Flexion (L2) 4 Good Extension (S1) 4 Good Abduction 4 Good Adduction 4 Good External Rotation 4 Good Internal Rotation 4 Good Left Flexion (L2) 4 Good Extension (S1) 4 Good Abduction 4 Good Adduction 4 Good External Rotation 4 Good Internal Rotation 4 Good Knee Strength Knee Manual Muscle Testing Right Flexion (S2) 4+ Good+ Extension (L3) 4+ Good+ Left Flexion (S2) 4+ Good+ Extension (L3) 4+ Good+ Ankle/Foot Strength Ankle and Foot Manual Muscle Testing Right Dorsiflexion (L4) 4+ Good+ Plantarflexion (S1) 4+ Good+ Inversion 4+ Good+ Eversion (S1) 4+ Good+ Left Dorsiflexion (L4) 4+ Good+ Plantarflexion (S1) 4+ Good+ Inversion 4+ Good+ Eversion (S1) 4+ Good+ PT-OP-Q Treatments Start: 09/15/18 15:24 Freq: Status: Active Protocol: Document 10/12/18 13:54 EA (Rec: 10/12/18 13:58 EA [id number]) Cardio Equipment Recumbent Elliptical (Biodex) Duration (Minutes) 7 Resistance 5 Seat Position 5 Gym Equipment Shuttle Recovery Unilateral Squats Resistance 37# Shuttle Recovery Platform Stable Reps/Time 2x20 Bilateral Squats Resistance 75-100# Shuttle Recovery Platform Stable Reps/Time 2x20 Shuttle Balance 1 Details FWD/BWD Comments WBOS/NBOS, Staggered Stance Balloon Volleyball Therapeutic Exercises Standing Exercises 1 Standing Exercise Name rails side step squat Side bilateral Resistance GTB Reps/Minutes x 12ft x 2 lines Neuro Re-Education Treatment Balance Activities 1 Details heel to toe gait/tandem walk Comments x 10 ft x 4 lines CGA: FWD/BWD Coordination Activities 2 Details foot rita step over Reps/Duration x 4 lines Comments CGA. 1 Details Cross stepping/grape avila Reps/Duration x 12 ft x 2 sets Comments CGA PT-OP-T Assessment and Plan Start: 09/15/18 15:24 Freq: Status: Active Protocol: Document 10/12/18 14:32 EA (Rec: 10/12/18 14:34 EA [id number]) Physical Therapy Assessment Assessment Summary Assessment Pt still demonstrates instability with balance exercises. Demonstration prior to each exercises helps patient execute exercises better. Physical Therapy Plan Next Visit Focus/Plan Next Note Type Treatment Note
--- NOTE | 2018-10-17 17:13 | PT.OTN ---
Current Diagnoses Epilepsy, unspecified, not intractable, without status epilepticus (10/17/18) Migraine, unspecified, not intractable, without status migrainosus (10/17/18) Altered mental status, unspecified (10/17/18) Physical Therapy Treatment Note PT-OP-A Visit Information Start: 09/15/18 15:24 Freq: Status: Active Protocol: Document 10/17/18 13:55 EA (Rec: 10/17/18 13:59 EA [id number]) Out-Patient Physical Therapy Visit Information Visit Information Visit Type Treatment Note Visit Start Time 13:50 Visit Stop Time 14:30 Total Visit Minutes 20 Visit Number 9 PT-OP-B Current Condition Start: 09/15/18 15:24 Freq: Status: Active Protocol: Document 09/15/18 16:41 EA (Rec: 09/15/18 17:14 EA [id number]) Current Condition History of Current Condition Onset Date June/2018 Current Complaints general body weakness, gait and balance History of Current Condition Narrative: Patient's reports that patient was hospitalized at [facility] due to epilepsy on August 07 2018 . mentioned that patient was confined to bed for almost 1 1/2 month then started to rehab at [facility]. Pt discharged to home but requires assist and mobility aid with limited mobility. Recalled fall 4x at SNF with no major injury. stated that patient is currently out of walker and has been walking with him most of the days of the week. He stated that she requires supervision as patient dizziness and balance tends to limit her mobility. Prior Treatments and Tests Most recent after onset: MRI, CT x 2 at and [facility] with no significant results [facility] EEG: Epilepsy Currently medicated for epileplsy Future Testing and Treatments Planned 09/22/18: MRI at [facility] Treatment Goals Patient/Caregiver Goals 1. Patient wants to be able to walk for more than 10 blocks 2. Patient wants to be independent again in all ADL's Prior Functional Status Baseline Function- ADL's Independent Baseline Function- Mobility Independent Baseline Function- Gait unlimited with no AD Baseline Function- Work/School Retired Baseline Function- Recreation/Hobbies Used to perform daily fitness routine Current Functional Impairments (Reported) Functional Limitations- ADL's Indep in all ADL's except with driving, showering, outdoor walks, cooking Functional Limitations- Mobility/Gait Limited to < 8 blocks with SBA Functional Limitations- Work/School Retired Functional Limitations- Recreation/ Unable to performe regular Hobbies fitnesss routine Personal Factors Other Personal Factors That May Effect Decreased cognitive function Therapy/Recovery PT-OP-C Subjective Start: 09/15/18 15:24 Freq: Status: Active Protocol: Document 10/17/18 13:55 EA (Rec: 10/17/18 13:59 EA [id number]) OP-PT Subjective Patient Comments Patient Comments Pt reports she has been active at home except walking outside; denies fall. Feels seizure medication made her sway to one side. PT-OP-D Balance Start: 09/15/18 15:24 Freq: Status: Active Protocol: Document 09/15/18 16:41 EA (Rec: 09/15/18 17:14 EA [id number]) OP-PT Balance Assessment Standing Balance Static Standing Balance Ability Good Dynamic Standing Balance Ability Fair Balance Tests Functional Reach Functional Reach Impairment Rating 1 to <20% Impaired (Score 9) Single Limb Standing Single Limb- Right < 3 second on each side Tandem Tandem Standing < 10 second [place] Balance Assessment Evaluation Sitting to Standing Ability Independent w/out Hands Unsupported Stance Safely- 2 minutes Standing to Sitting Ability Safely, Minimal Hand Use Transfer Ability Safely, Minimal Hand Use Unsupported Stance- Eyes Closed Supervision, 10 seconds Unsupported Stance- Eyes Open Independent, 1 minute Reaching Forward Standing Safely, 5 inches Pick- Up Object From Floor Independent/Safe Look Behind Shoulder - Standing Shifts Weight Well Turning 360 Degrees Turns , < 4 secs Unsupported Stance, Alternating Feet on (I)- 8 Steps in > 20 secs Stair Unsupported Tandem Stance Small Step- 30 seconds Unilateral Leg Stance Lifts Leg/Holds 5-10 secs Total Score [place] Total Score (out of 56 points) 45 [place] Impairment Rating 1 to 19% Impaired (Score 45-55 ) Tinetti Balance Assessment Sitting Balance Sitting Balance Steady, safe Arising from Chair Ability to Arise Able, w/o using arms Standing Balance Immediate Standing Balance Steady w/o support Standing Balance Narrow stance w/o support Nudged Response Steady Standing with Eyes Closed Steady Turning Step Pattern Turning 360 Degrees Continuous steps Stability Turning 360 Degrees Steady Sitting Down Sitting Down Safe, steady Gait and Step Initiation of Gait No hesitancy Right Foot Step Length Does pass stance foot Right Foot Step Height Completely clears floor Left Foot Step Length Does pass stance foot Left Foot Step Height Completely clears floor Step Description Step Symmetry Step length appears equal Step Continuity Steps appear continuous Gait Description Path Description Mild/moderate deviation Trunk Description No sway Walking Stance Heels together Scoring and Interpretation Tinetti Composite Score (points) 25 Interpretation of Scores Low risk for falls (>24) Tinetti Impairment Rating from Composite 1 to <20% Impaired (Score 23- Score 27) Linton Fall Scale Copyright Permission Royer JM, Royer RM, Charley SJ. Development of a scale to identify the fall- prone patient. Can J Aging 1989;8;366-7. Facundo Linton (2009). Preventing patient falls. (2nd ed). [place]: Butt. PT-OP-E Functional Tests Start: 09/15/18 15:24 Freq: Status: Active Protocol: Document 09/15/18 16:41 EA (Rec: 09/15/18 17:14 EA [id number]) Functional Tests Timed Up and Go (TUG) Score 11 TUG Impairment Rating 1 to <20% Impaired (Score 11) PT-OP-G Mobility & Gait Start: 09/15/18 15:24 Freq: Status: Active Protocol: Document 09/15/18 16:41 EA (Rec: 09/15/18 17:14 EA [id number]) OP Mobility Evaluation Bed Mobility Rolling indep Supine to and from Sit indep Transfers Sit to Stand indep Bed to Chair Transfers Indep OP Gait Assessment Gait Gait Assistance Required: Standby Assistance Distance (Feet) 100 Able to Maintain Weight Bearing Status Yes During Gait Assistive Devices Assistive Device None Gait Deviations General Gait Pattern Within Normal Limits Factors Limiting Gait Function Factors Limiting Gait Function Decreased Activity Tolerance Decreased Strength Poor Safety Awareness Stair Climbing Evaluation Evaluation Level of Assist On Stairs Standby Assistance Technique/Endurance Stair Climbing Direction Ascend and Descend Stair Climbing Technique Step to Step Number of Steps Climbed 6 Stair Climbing Set # Repetitions (reps) 1 PT-OP-H Neuro Start: 09/15/18 15:24 Freq: Status: Active Protocol: Document 09/15/18 16:41 EA (Rec: 09/15/18 17:14 EA [id number]) Coordination Evaluation Upper Extremity Tests Left Finger to Nose Test normal performance but requires few practice/cues Finger to Therapist's Finger Test Normal but requires cues and practices Finger Opposition Test Normal Performance Pronation/Supination Test Normal Performance Pointing and Past Pointing Test Normal Performance Lower Extremity Tests Heel on Moreno Test Normal Performance Foot Tapping Test Normal Performance Toe to Examiner's Finger Test Normal Performance Deep Tendon Reflex & Clonus Assessment Deep Tendon Reflex Bilateral Brachioradialis Deep Tendon Reflex 3+ Normal But Brisk Bilateral Patellar Deep Tendon Reflex 3+ Normal But Brisk Ankle Clonus Bilateral Clonus Assessment Absent Vital Signs Blood Pressure Sitting Blood Pressure (90/60-120/80 mmHg) 130/80 H Blood Pressure Source Automatic Cuff Manual Cuff Respirations Respiratory Rate at Rest (12-24 breaths/ 17 min) Respiratory Effort Non-Labored PT-OP-J Posture/Palpation/Skin Start: 09/15/18 15:24 Freq: Status: Active Protocol: Document 09/15/18 16:41 EA (Rec: 09/15/18 17:14 EA [id number]) Posture Evaluation Comments Posture Comments WNL Palpation Assessment Location One Palpation Location Both upper and lower limbs Palpation Findings None/Normal PT-OP-K Range of Motion Start: 09/15/18 15:24 Freq: Status: Active Protocol: Document 09/15/18 17:16 EA (Rec: 09/15/18 17:18 EA [id number]) Shoulder Goniometric Range of Motion Shoulder Measured in Degrees Right Active Shoulder ROM WFL Yes Left Active Shoulder ROM WFL Yes Elbow/Forearm Range of Motion Elbow/Forearm Measured in Degrees Right Active Elbow/Forearm ROM WFL Yes Left Active Elbow/Forearm ROM WFL Yes Hip Goniometric Range of Motion Hip Measured in Degrees Right Active Hip ROM WFL Yes Left Active Hip ROM WFL Yes Knee Goniometric Range of Motion Knee Measured in Degrees Right Knee ROM WFL Yes Left Knee ROM WFL Yes Ankle and Foot Goniometric Range of Motion Ankle and Foot Measured in Degrees Right Active Ankle/Foot ROM WFL Yes Left Active Ankle/Foot ROM WFL Yes PT-OP-M Strength Start: 09/15/18 15:24 Freq: Status: Active Protocol: Document 09/15/18 16:41 EA (Rec: 09/15/18 17:14 EA [id number]) Trunk Strength Trunk Manual Muscle Testing Reason Not Measured WFL Shoulder Strength Shoulder Manual Muscle Testing Right Flexion 4 Good Extension 4 Good Abduction (C5) 4 Good Adduction 4 Good External Rotation 4 Good Internal Rotation 4 Good Horizontal Abduction 4 Good Horizontal Adduction 4 Good Left Flexion 4 Good Extension 4 Good Abduction (C5) 4 Good Adduction 4 Good External Rotation 4 Good Internal Rotation 4 Good Horizontal Abduction 4 Good Horizontal Adduction 4 Good Hip Strength Hip Manual Muscle Testing Right Flexion (L2) 4 Good Extension (S1) 4 Good Abduction 4 Good Adduction 4 Good External Rotation 4 Good Internal Rotation 4 Good Left Flexion (L2) 4 Good Extension (S1) 4 Good Abduction 4 Good Adduction 4 Good External Rotation 4 Good Internal Rotation 4 Good Knee Strength Knee Manual Muscle Testing Right Flexion (S2) 4+ Good+ Extension (L3) 4+ Good+ Left Flexion (S2) 4+ Good+ Extension (L3) 4+ Good+ Ankle/Foot Strength Ankle and Foot Manual Muscle Testing Right Dorsiflexion (L4) 4+ Good+ Plantarflexion (S1) 4+ Good+ Inversion 4+ Good+ Eversion (S1) 4+ Good+ Left Dorsiflexion (L4) 4+ Good+ Plantarflexion (S1) 4+ Good+ Inversion 4+ Good+ Eversion (S1) 4+ Good+ PT-OP-Q Treatments Start: 09/15/18 15:24 Freq: Status: Active Protocol: Document 10/17/18 13:55 EA (Rec: 10/17/18 13:59 EA [id number]) Cardio Equipment Recumbent Elliptical (Biodex) Duration (Minutes) 7 Resistance 5 Seat Position 5 Gym Equipment Shuttle Recovery Bilateral Heel Raises Resistance 75# Reps/Time x 15 reps x 2 Unilateral Squats Resistance 37# Shuttle Recovery Platform Stable Reps/Time 2x20 Bilateral Squats Details blue Resistance 75-100# Shuttle Recovery Platform Stable Reps/Time 2x20 Shuttle Balance 1 Details FWD/BWD Comments WBOS/NBOS, Staggered Stance Balloon Volleyball Therapeutic Exercises Standing Exercises 1 Standing Exercise Name rails side step squat Side bilateral Resistance GTB Reps/Minutes x 12ft x 2 lines Neuro Re-Education Treatment Balance Activities 1 Details heel to toe gait/tandem walk Comments x 10 ft x 4 lines CGA: FWD/BWD Coordination Activities 2 Details foot rita step over Reps/Duration x 4 lines Comments CGA. 1 Details Cross stepping/grape avila Reps/Duration x 12 ft x 2 sets Comments CGA PT-OP-T Assessment and Plan Start: 09/15/18 15:24 Freq: Status: Active Protocol: Document 10/17/18 14:29 ASHLEE (Rec: 10/17/18 14:30 ASHLEE [id number]) Physical Therapy Assessment Assessment Summary Assessment Requires mental planning during step obstacle as patient tends to get anxious due to history of fall 3 months ago. Other exercises tolerated well with few cues. Physical Therapy Plan Next Visit Focus/Plan Next Note Type Treatment Note
--- NOTE | 2018-10-24 14:51 | PT.OTN ---
Current Diagnoses Epilepsy, unspecified, not intractable, without status epilepticus (10/24/18) Migraine, unspecified, not intractable, without status migrainosus (10/24/18) Altered mental status, unspecified (10/24/18) Physical Therapy Treatment Note PT-OP-A Visit Information Start: 09/15/18 15:24 Freq: Status: Active Protocol: Document 10/24/18 14:28 EA (Rec: 10/24/18 14:39 EA [id number]) Out-Patient Physical Therapy Visit Information Visit Information Visit Type Treatment Note Visit Start Time 13:50 Visit Stop Time 14:30 Total Visit Minutes 38 Visit Number 10 PT-OP-B Current Condition Start: 09/15/18 15:24 Freq: Status: Active Protocol: Document 09/15/18 16:41 EA (Rec: 09/15/18 17:14 EA [id number]) Current Condition History of Current Condition Onset Date June/2018 Current Complaints general body weakness, gait and balance History of Current Condition Narrative: Patient's reports that patient was hospitalized at [place] due to epilepsy on August 07 2018 . mentioned that patient was confined to bed for almost 1 1/2 month then started to rehab at [facility]. Pt discharged to home but requires assist and mobility aid with limited mobility. Recalled fall 4x at SNF with no major injury. stated that patient is currently out of walker and has been walking with him most of the days of the week. He stated that she requires supervision as patient dizziness and balance tends to limit her mobility. Prior Treatments and Tests Most recent after onset: MRI, CT x 2 at and [facility] with no significant results [place] EEG: Epilepsy Currently medicated for epileplsy Future Testing and Treatments Planned 09/22/18: MRI at [facility] Treatment Goals Patient/Caregiver Goals 1. Patient wants to be able to walk for more than 10 blocks 2. Patient wants to be independent again in all ADL's Prior Functional Status Baseline Function- ADL's Independent Baseline Function- Mobility Independent Baseline Function- Gait unlimited with no AD Baseline Function- Work/School Retired Baseline Function- Recreation/Hobbies Used to perform daily fitness routine Current Functional Impairments (Reported) Functional Limitations- ADL's Indep in all ADL's except with driving, showering, outdoor walks, cooking Functional Limitations- Mobility/Gait Limited to < 8 blocks with SBA Functional Limitations- Work/School Retired Functional Limitations- Recreation/ Unable to performe regular Hobbies fitnesss routine Personal Factors Other Personal Factors That May Effect Decreased cognitive function Therapy/Recovery PT-OP-C Subjective Start: 09/15/18 15:24 Freq: Status: Active Protocol: Document 10/24/18 14:28 EA (Rec: 10/24/18 14:39 EA [id number]) OP-PT Subjective Patient Comments Patient Comments PTg reports almost doing everything at home except can' t stay alone. Pt c/o of regular 1 pm feeling veering to one side; states she thinks it is from the medication. PT-OP-D Balance Start: 09/15/18 15:24 Freq: Status: Active Protocol: Document 09/15/18 16:41 EA (Rec: 09/15/18 17:14 EA [id number]) OP-PT Balance Assessment Standing Balance Static Standing Balance Ability Good Dynamic Standing Balance Ability Fair Balance Tests Functional Reach Functional Reach Impairment Rating 1 to <20% Impaired (Score 9) Single Limb Standing Single Limb- Right < 3 second on each side Tandem Tandem Standing < 10 second [place] Balance Assessment Evaluation Sitting to Standing Ability Independent w/out Hands Unsupported Stance Safely- 2 minutes Standing to Sitting Ability Safely, Minimal Hand Use Transfer Ability Safely, Minimal Hand Use Unsupported Stance- Eyes Closed Supervision, 10 seconds Unsupported Stance- Eyes Open Independent, 1 minute Reaching Forward Standing Safely, 5 inches Pick- Up Object From Floor Independent/Safe Look Behind Shoulder - Standing Shifts Weight Well Turning 360 Degrees Turns , < 4 secs Unsupported Stance, Alternating Feet on (I)- 8 Steps in > 20 secs Stair Unsupported Tandem Stance Small Step- 30 seconds Unilateral Leg Stance Lifts Leg/Holds 5-10 secs Total Score [place] Total Score (out of 56 points) 45 [place] Impairment Rating 1 to 19% Impaired (Score 45-55 ) Tinetti Balance Assessment Sitting Balance Sitting Balance Steady, safe Arising from Chair Ability to Arise Able, w/o using arms Standing Balance Immediate Standing Balance Steady w/o support Standing Balance Narrow stance w/o support Nudged Response Steady Standing with Eyes Closed Steady Turning Step Pattern Turning 360 Degrees Continuous steps Stability Turning 360 Degrees Steady Sitting Down Sitting Down Safe, steady Gait and Step Initiation of Gait No hesitancy Right Foot Step Length Does pass stance foot Right Foot Step Height Completely clears floor Left Foot Step Length Does pass stance foot Left Foot Step Height Completely clears floor Step Description Step Symmetry Step length appears equal Step Continuity Steps appear continuous Gait Description Path Description Mild/moderate deviation Trunk Description No sway Walking Stance Heels together Scoring and Interpretation Tinetti Composite Score (points) 25 Interpretation of Scores Low risk for falls (>24) Tinetti Impairment Rating from Composite 1 to <20% Impaired (Score 23- Score 27) Linton Fall Scale Copyright Permission Royer JM, Royer RM, Charley SJ. Development of a scale to identify the fall- prone patient. Can J Aging 1989;8;366-7. Facundo Linton (2009). Preventing patient falls. (2nd ed). [place]: Butt. PT-OP-E Functional Tests Start: 09/15/18 15:24 Freq: Status: Active Protocol: Document 09/15/18 16:41 EA (Rec: 09/15/18 17:14 EA [id number]) Functional Tests Timed Up and Go (TUG) Score 11 TUG Impairment Rating 1 to <20% Impaired (Score 11) PT-OP-G Mobility & Gait Start: 09/15/18 15:24 Freq: Status: Active Protocol: Document 09/15/18 16:41 EA (Rec: 09/15/18 17:14 EA [id number]) OP Mobility Evaluation Bed Mobility Rolling indep Supine to and from Sit indep Transfers Sit to Stand indep Bed to Chair Transfers Indep OP Gait Assessment Gait Gait Assistance Required: Standby Assistance Distance (Feet) 100 Able to Maintain Weight Bearing Status Yes During Gait Assistive Devices Assistive Device None Gait Deviations General Gait Pattern Within Normal Limits Factors Limiting Gait Function Factors Limiting Gait Function Decreased Activity Tolerance Decreased Strength Poor Safety Awareness Stair Climbing Evaluation Evaluation Level of Assist On Stairs Standby Assistance Technique/Endurance Stair Climbing Direction Ascend and Descend Stair Climbing Technique Step to Step Number of Steps Climbed 6 Stair Climbing Set # Repetitions (reps) 1 PT-OP-H Neuro Start: 09/15/18 15:24 Freq: Status: Active Protocol: Document 09/15/18 16:41 EA (Rec: 09/15/18 17:14 EA [id number]) Coordination Evaluation Upper Extremity Tests Left Finger to Nose Test normal performance but requires few practice/cues Finger to Therapist's Finger Test Normal but requires cues and practices Finger Opposition Test Normal Performance Pronation/Supination Test Normal Performance Pointing and Past Pointing Test Normal Performance Lower Extremity Tests Heel on Moreno Test Normal Performance Foot Tapping Test Normal Performance Toe to Examiner's Finger Test Normal Performance Deep Tendon Reflex & Clonus Assessment Deep Tendon Reflex Bilateral Brachioradialis Deep Tendon Reflex 3+ Normal But Brisk Bilateral Patellar Deep Tendon Reflex 3+ Normal But Brisk Ankle Clonus Bilateral Clonus Assessment Absent Vital Signs Blood Pressure Sitting Blood Pressure (90/60-120/80 mmHg) 130/80 H Blood Pressure Source Automatic Cuff Manual Cuff Respirations Respiratory Rate at Rest (12-24 breaths/ 17 min) Respiratory Effort Non-Labored PT-OP-J Posture/Palpation/Skin Start: 09/15/18 15:24 Freq: Status: Active Protocol: Document 09/15/18 16:41 EA (Rec: 09/15/18 17:14 EA [id number]) Posture Evaluation Comments Posture Comments WNL Palpation Assessment Location One Palpation Location Both upper and lower limbs Palpation Findings None/Normal PT-OP-K Range of Motion Start: 09/15/18 15:24 Freq: Status: Active Protocol: Document 09/15/18 17:16 EA (Rec: 09/15/18 17:18 EA [id number]) Shoulder Goniometric Range of Motion Shoulder Measured in Degrees Right Active Shoulder ROM WFL Yes Left Active Shoulder ROM WFL Yes Elbow/Forearm Range of Motion Elbow/Forearm Measured in Degrees Right Active Elbow/Forearm ROM WFL Yes Left Active Elbow/Forearm ROM WFL Yes Hip Goniometric Range of Motion Hip Measured in Degrees Right Active Hip ROM WFL Yes Left Active Hip ROM WFL Yes Knee Goniometric Range of Motion Knee Measured in Degrees Right Knee ROM WFL Yes Left Knee ROM WFL Yes Ankle and Foot Goniometric Range of Motion Ankle and Foot Measured in Degrees Right Active Ankle/Foot ROM WFL Yes Left Active Ankle/Foot ROM WFL Yes PT-OP-M Strength Start: 09/15/18 15:24 Freq: Status: Active Protocol: Document 09/15/18 16:41 EA (Rec: 09/15/18 17:14 EA [id number]) Trunk Strength Trunk Manual Muscle Testing Reason Not Measured WFL Shoulder Strength Shoulder Manual Muscle Testing Right Flexion 4 Good Extension 4 Good Abduction (C5) 4 Good Adduction 4 Good External Rotation 4 Good Internal Rotation 4 Good Horizontal Abduction 4 Good Horizontal Adduction 4 Good Left Flexion 4 Good Extension 4 Good Abduction (C5) 4 Good Adduction 4 Good External Rotation 4 Good Internal Rotation 4 Good Horizontal Abduction 4 Good Horizontal Adduction 4 Good Hip Strength Hip Manual Muscle Testing Right Flexion (L2) 4 Good Extension (S1) 4 Good Abduction 4 Good Adduction 4 Good External Rotation 4 Good Internal Rotation 4 Good Left Flexion (L2) 4 Good Extension (S1) 4 Good Abduction 4 Good Adduction 4 Good External Rotation 4 Good Internal Rotation 4 Good Knee Strength Knee Manual Muscle Testing Right Flexion (S2) 4+ Good+ Extension (L3) 4+ Good+ Left Flexion (S2) 4+ Good+ Extension (L3) 4+ Good+ Ankle/Foot Strength Ankle and Foot Manual Muscle Testing Right Dorsiflexion (L4) 4+ Good+ Plantarflexion (S1) 4+ Good+ Inversion 4+ Good+ Eversion (S1) 4+ Good+ Left Dorsiflexion (L4) 4+ Good+ Plantarflexion (S1) 4+ Good+ Inversion 4+ Good+ Eversion (S1) 4+ Good+ PT-OP-Q Treatments Start: 09/15/18 15:24 Freq: Status: Active Protocol: Document 10/24/18 14:28 EA (Rec: 10/24/18 14:39 EA [id number]) Cardio Equipment Recumbent Elliptical (Biodex) Duration (Minutes) 7 Resistance 5 Seat Position 5 Gym Equipment Shuttle Recovery Unilateral Squats Resistance 37# Shuttle Recovery Platform Stable Reps/Time 2x20 Bilateral Squats Details blue Resistance 100# Shuttle Recovery Platform Stable Reps/Time 2x20 Shuttle Balance 1 Details FWD/BWD Comments WBOS/NBOS, Staggered Stance Balloon Volleyball Therapeutic Exercises Standing Exercises 4 Standing Exercise Name side stepping ball passing Reps/Minutes x 6 lines 1 Standing Exercise Name rails side step squat Side bilateral Resistance GTB Reps/Minutes x 12ft x 2 lines Neuro Re-Education Treatment Balance Activities 1 Details heel to toe gait/tandem walk Comments x 10 ft x 4 lines FWD/BWD Coordination Activities 2 Details foot rita step over Reps/Duration x 4 lines Comments SBA 1 Details Cross stepping/grape avila Reps/Duration x 12 ft x 2 sets Comments CGA PT-OP-T Assessment and Plan Start: 09/15/18 15:24 Freq: Status: Active Protocol: Document 10/24/18 14:28 EA (Rec: 10/24/18 14:39 EA [id number]) Physical Therapy Assessment Assessment Summary Assessment Quick assessment performed with TUG and showed < 5 seconds. Patient has improved coordination as well during exercises. Patient has an excellent progress at this time. Physical Therapy Plan Next Visit Focus/Plan Next Note Type Treatment Note Next Visit Plan advance as tolerated
--- NOTE | 2018-10-26 17:35 | PT.OTN ---
Current Diagnoses Epilepsy, unspecified, not intractable, without status epilepticus (10/26/18) Migraine, unspecified, not intractable, without status migrainosus (10/26/18) Altered mental status, unspecified (10/26/18) Physical Therapy Treatment Note PT-OP-A Visit Information Start: 09/15/18 15:24 Freq: Status: Active Protocol: Document 10/26/18 14:29 EA (Rec: 10/26/18 14:33 EA [id number]) Out-Patient Physical Therapy Visit Information Visit Information Visit Type Treatment Note Visit Start Time 13:50 Visit Stop Time 14:30 Total Visit Minutes 40 Visit Number 10 PT-OP-B Current Condition Start: 09/15/18 15:24 Freq: Status: Active Protocol: Document 09/15/18 16:41 EA (Rec: 09/15/18 17:14 EA [id number]) Current Condition History of Current Condition Onset Date June/2018 Current Complaints general body weakness, gait and balance History of Current Condition Narrative: Patient's reports that patient was hospitalized at [facility] due to epilepsy on August 07 2018 . mentioned that patient was confined to bed for almost 1 1/2 month then started to rehab at [facility]. Pt discharged to home but requires assist and mobility aid with limited mobility. Recalled fall 4x at SNF with no major injury. stated that patient is currently out of walker and has been walking with him most of the days of the week. He stated that she requires supervision as patient dizziness and balance tends to limit her mobility. Prior Treatments and Tests Most recent after onset: MRI, CT x [address] [facility] with no significant results [facility] EEG: Epilepsy Currently medicated for epileplsy Future Testing and Treatments Planned 09/22/18: MRI at [facility] Treatment Goals Patient/Caregiver Goals 1. Patient wants to be able to walk for more than 10 blocks 2. Patient wants to be independent again in all ADL's Prior Functional Status Baseline Function- ADL's Independent Baseline Function- Mobility Independent Baseline Function- Gait unlimited with no AD Baseline Function- Work/School Retired Baseline Function- Recreation/Hobbies Used to perform daily fitness routine Current Functional Impairments (Reported) Functional Limitations- ADL's Indep in all ADL's except with driving, showering, outdoor walks, cooking Functional Limitations- Mobility/Gait Limited to < 8 blocks with SBA Functional Limitations- Work/School Retired Functional Limitations- Recreation/ Unable to performe regular Hobbies fitnesss routine Personal Factors Other Personal Factors That May Effect Decreased cognitive function Therapy/Recovery PT-OP-C Subjective Start: 09/15/18 15:24 Freq: Status: Active Protocol: Document 10/26/18 14:29 EA (Rec: 10/26/18 14:33 EA [id number]) OP-PT Subjective Patient Comments Patient Comments Pt reports she was able to dance to the music with problem; states is much improved at this time. PT-OP-D Balance Start: 09/15/18 15:24 Freq: Status: Active Protocol: Document 09/15/18 16:41 EA (Rec: 09/15/18 17:14 EA [id number]) OP-PT Balance Assessment Standing Balance Static Standing Balance Ability Good Dynamic Standing Balance Ability Fair Balance Tests Functional Reach Functional Reach Impairment Rating 1 to <20% Impaired (Score 9) Single Limb Standing Single Limb- Right < 3 second on each side Tandem Tandem Standing < 10 second [place] Balance Assessment Evaluation Sitting to Standing Ability Independent w/out Hands Unsupported Stance Safely- 2 minutes Standing to Sitting Ability Safely, Minimal Hand Use Transfer Ability Safely, Minimal Hand Use Unsupported Stance- Eyes Closed Supervision, 10 seconds Unsupported Stance- Eyes Open Independent, 1 minute Reaching Forward Standing Safely, 5 inches Pick- Up Object From Floor Independent/Safe Look Behind Shoulder - Standing Shifts Weight Well Turning 360 Degrees Turns , < 4 secs Unsupported Stance, Alternating Feet on (I)- 8 Steps in > 20 secs Stair Unsupported Tandem Stance Small Step- 30 seconds Unilateral Leg Stance Lifts Leg/Holds 5-10 secs Total Score [place] Total Score (out of 56 points) 45 [place] Impairment Rating 1 to 19% Impaired (Score 45-55 ) Tinetti Balance Assessment Sitting Balance Sitting Balance Steady, safe Arising from Chair Ability to Arise Able, w/o using arms Standing Balance Immediate Standing Balance Steady w/o support Standing Balance Narrow stance w/o support Nudged Response Steady Standing with Eyes Closed Steady Turning Step Pattern Turning 360 Degrees Continuous steps Stability Turning 360 Degrees Steady Sitting Down Sitting Down Safe, steady Gait and Step Initiation of Gait No hesitancy Right Foot Step Length Does pass stance foot Right Foot Step Height Completely clears floor Left Foot Step Length Does pass stance foot Left Foot Step Height Completely clears floor Step Description Step Symmetry Step length appears equal Step Continuity Steps appear continuous Gait Description Path Description Mild/moderate deviation Trunk Description No sway Walking Stance Heels together Scoring and Interpretation Tinetti Composite Score (points) 25 Interpretation of Scores Low risk for falls (>24) Tinetti Impairment Rating from Composite 1 to <20% Impaired (Score 23- Score 27) Linton Fall Scale Copyright Permission Royer JM, Royer RM, Charley SJ. Development of a scale to identify the fall- prone patient. Can J Aging 1989;8;366-7. Facundo Linton (2009). Preventing patient falls. (2nd ed). [place]: Butt. PT-OP-E Functional Tests Start: 09/15/18 15:24 Freq: Status: Active Protocol: Document 09/15/18 16:41 EA (Rec: 09/15/18 17:14 EA [id number]) Functional Tests Timed Up and Go (TUG) Score 11 TUG Impairment Rating 1 to <20% Impaired (Score 11) PT-OP-G Mobility & Gait Start: 09/15/18 15:24 Freq: Status: Active Protocol: Document 09/15/18 16:41 EA (Rec: 09/15/18 17:14 EA [id number]) OP Mobility Evaluation Bed Mobility Rolling indep Supine to and from Sit indep Transfers Sit to Stand indep Bed to Chair Transfers Indep OP Gait Assessment Gait Gait Assistance Required: Standby Assistance Distance (Feet) 100 Able to Maintain Weight Bearing Status Yes During Gait Assistive Devices Assistive Device None Gait Deviations General Gait Pattern Within Normal Limits Factors Limiting Gait Function Factors Limiting Gait Function Decreased Activity Tolerance Decreased Strength Poor Safety Awareness Stair Climbing Evaluation Evaluation Level of Assist On Stairs Standby Assistance Technique/Endurance Stair Climbing Direction Ascend and Descend Stair Climbing Technique Step to Step Number of Steps Climbed 6 Stair Climbing Set # Repetitions (reps) 1 PT-OP-H Neuro Start: 09/15/18 15:24 Freq: Status: Active Protocol: Document 09/15/18 16:41 EA (Rec: 09/15/18 17:14 EA [id number]) Coordination Evaluation Upper Extremity Tests Left Finger to Nose Test normal performance but requires few practice/cues Finger to Therapist's Finger Test Normal but requires cues and practices Finger Opposition Test Normal Performance Pronation/Supination Test Normal Performance Pointing and Past Pointing Test Normal Performance Lower Extremity Tests Heel on Moreno Test Normal Performance Foot Tapping Test Normal Performance Toe to Examiner's Finger Test Normal Performance Deep Tendon Reflex & Clonus Assessment Deep Tendon Reflex Bilateral Brachioradialis Deep Tendon Reflex 3+ Normal But Brisk Bilateral Patellar Deep Tendon Reflex 3+ Normal But Brisk Ankle Clonus Bilateral Clonus Assessment Absent Vital Signs Blood Pressure Sitting Blood Pressure (90/60-120/80 mmHg) 130/80 H Blood Pressure Source Automatic Cuff Manual Cuff Respirations Respiratory Rate at Rest (12-24 breaths/ 17 min) Respiratory Effort Non-Labored PT-OP-J Posture/Palpation/Skin Start: 09/15/18 15:24 Freq: Status: Active Protocol: Document 09/15/18 16:41 EA (Rec: 09/15/18 17:14 EA [id number]) Posture Evaluation Comments Posture Comments WNL Palpation Assessment Location One Palpation Location Both upper and lower limbs Palpation Findings None/Normal PT-OP-K Range of Motion Start: 09/15/18 15:24 Freq: Status: Active Protocol: Document 09/15/18 17:16 EA (Rec: 09/15/18 17:18 EA [id number]) Shoulder Goniometric Range of Motion Shoulder Measured in Degrees Right Active Shoulder ROM WFL Yes Left Active Shoulder ROM WFL Yes Elbow/Forearm Range of Motion Elbow/Forearm Measured in Degrees Right Active Elbow/Forearm ROM WFL Yes Left Active Elbow/Forearm ROM WFL Yes Hip Goniometric Range of Motion Hip Measured in Degrees Right Active Hip ROM WFL Yes Left Active Hip ROM WFL Yes Knee Goniometric Range of Motion Knee Measured in Degrees Right Knee ROM WFL Yes Left Knee ROM WFL Yes Ankle and Foot Goniometric Range of Motion Ankle and Foot Measured in Degrees Right Active Ankle/Foot ROM WFL Yes Left Active Ankle/Foot ROM WFL Yes PT-OP-M Strength Start: 09/15/18 15:24 Freq: Status: Active Protocol: Document 09/15/18 16:41 EA (Rec: 09/15/18 17:14 EA [id number]) Trunk Strength Trunk Manual Muscle Testing Reason Not Measured WFL Shoulder Strength Shoulder Manual Muscle Testing Right Flexion 4 Good Extension 4 Good Abduction (C5) 4 Good Adduction 4 Good External Rotation 4 Good Internal Rotation 4 Good Horizontal Abduction 4 Good Horizontal Adduction 4 Good Left Flexion 4 Good Extension 4 Good Abduction (C5) 4 Good Adduction 4 Good External Rotation 4 Good Internal Rotation 4 Good Horizontal Abduction 4 Good Horizontal Adduction 4 Good Hip Strength Hip Manual Muscle Testing Right Flexion (L2) 4 Good Extension (S1) 4 Good Abduction 4 Good Adduction 4 Good External Rotation 4 Good Internal Rotation 4 Good Left Flexion (L2) 4 Good Extension (S1) 4 Good Abduction 4 Good Adduction 4 Good External Rotation 4 Good Internal Rotation 4 Good Knee Strength Knee Manual Muscle Testing Right Flexion (S2) 4+ Good+ Extension (L3) 4+ Good+ Left Flexion (S2) 4+ Good+ Extension (L3) 4+ Good+ Ankle/Foot Strength Ankle and Foot Manual Muscle Testing Right Dorsiflexion (L4) 4+ Good+ Plantarflexion (S1) 4+ Good+ Inversion 4+ Good+ Eversion (S1) 4+ Good+ Left Dorsiflexion (L4) 4+ Good+ Plantarflexion (S1) 4+ Good+ Inversion 4+ Good+ Eversion (S1) 4+ Good+ PT-OP-Q Treatments Start: 09/15/18 15:24 Freq: Status: Active Protocol: Document 10/26/18 14:29 EA (Rec: 10/26/18 14:33 EA [id number]) Cardio Equipment Recumbent Elliptical (Biodex) Duration (Minutes) 7 Resistance 5 Seat Position 5 Gym Equipment Shuttle Recovery Bilateral Squats Details blue Resistance 125# Shuttle Recovery Platform Stable Reps/Time 2x20 Shuttle Balance 1 Details FWD/BWD Comments WBOS/NBOS, Staggered Stance Balloon Volleyball Therapeutic Exercises Standing Exercises 4 Standing Exercise Name side stepping ball passing Reps/Minutes x 6 lines 1 Standing Exercise Name side step squat Side bilateral Resistance GTB Reps/Minutes x 12ft x 2 lines Neuro Re-Education Treatment Balance Activities 1 Details heel to toe gait/tandem walk Comments x 10 ft x 4 lines FWD/BWD Coordination Activities 2 Details foot rita step over Equipment 4lbs AW Reps/Duration x 4 lines Comments SBA 1 Details Cross stepping/grape avila Reps/Duration x 12 ft x 2 sets Comments SBA PT-OP-T Assessment and Plan Start: 09/15/18 15:24 Freq: Status: Active Protocol: Document 10/26/18 14:29 EA (Rec: 10/26/18 14:33 EA [id number]) Physical Therapy Assessment Assessment Summary Assessment Improved coordination and exercises tolerance noted. Patient cont. to progress. Physical Therapy Plan Next Visit Focus/Plan Next Note Type Treatment Note Next Visit Plan advance as tolerated
--- NOTE | 2018-11-02 14:31 | PT.OTN ---
Current Diagnoses Epilepsy, unspecified, not intractable, without status epilepticus (11/02/18) Migraine, unspecified, not intractable, without status migrainosus (11/02/18) Altered mental status, unspecified (11/02/18) Physical Therapy Treatment Note PT-OP-A Visit Information Start: 09/15/18 15:24 Freq: Status: Active Protocol: Document 10/26/18 14:29 EA (Rec: 10/26/18 14:33 EA [id number]) Out-Patient Physical Therapy Visit Information Visit Information Visit Type Treatment Note Visit Start Time 13:50 Visit Stop Time 14:30 Total Visit Minutes 40 Visit Number 10 PT-OP-B Current Condition Start: 09/15/18 15:24 Freq: Status: Active Protocol: Document 09/15/18 16:41 EA (Rec: 09/15/18 17:14 EA [id number]) Current Condition History of Current Condition Onset Date June/2018 Current Complaints general body weakness, gait and balance History of Current Condition Narrative: Patient's reports that patient was hospitalized at [place] due to epilepsy on August 07 2018 . mentioned that patient was confined to bed for almost 1 1/2 month then started to rehab at [facility]. Pt discharged to home but requires assist and mobility aid with limited mobility. Recalled fall 4x at SNF with no major injury. stated that patient is currently out of walker and has been walking with him most of the days of the week. He stated that she requires supervision as patient dizziness and balance tends to limit her mobility. Prior Treatments and Tests Most recent after onset: MRI, CT x 2 at and [facility] with no significant results [place] EEG: Epilepsy Currently medicated for epileplsy Future Testing and Treatments Planned 09/22/18: MRI at [facility] Treatment Goals Patient/Caregiver Goals 1. Patient wants to be able to walk for more than 10 blocks 2. Patient wants to be independent again in all ADL's Prior Functional Status Baseline Function- ADL's Independent Baseline Function- Mobility Independent Baseline Function- Gait unlimited with no AD Baseline Function- Work/School Retired Baseline Function- Recreation/Hobbies Used to perform daily fitness routine Current Functional Impairments (Reported) Functional Limitations- ADL's Indep in all ADL's except with driving, showering, outdoor walks, cooking Functional Limitations- Mobility/Gait Limited to < 8 blocks with SBA Functional Limitations- Work/School Retired Functional Limitations- Recreation/ Unable to performe regular Hobbies fitnesss routine Personal Factors Other Personal Factors That May Effect Decreased cognitive function Therapy/Recovery PT-OP-C Subjective Start: 09/15/18 15:24 Freq: Status: Active Protocol: Document 11/02/18 13:51 EA (Rec: 11/02/18 14:23 EA [id number]) OP-PT Subjective Patient Comments Patient Comments Pt reports that her seizure medication is now slowly decresing in dosage and she feels much better. Pt is indep in all ADL's at home but not outside. PT-OP-D Balance Start: 09/15/18 15:24 Freq: Status: Active Protocol: Document 09/15/18 16:41 EA (Rec: 09/15/18 17:14 EA [id number]) OP-PT Balance Assessment Standing Balance Static Standing Balance Ability Good Dynamic Standing Balance Ability Fair Balance Tests Functional Reach Functional Reach Impairment Rating 1 to <20% Impaired (Score 9) Single Limb Standing Single Limb- Right < 3 second on each side Tandem Tandem Standing < 10 second [place] Balance Assessment Evaluation Sitting to Standing Ability Independent w/out Hands Unsupported Stance Safely- 2 minutes Standing to Sitting Ability Safely, Minimal Hand Use Transfer Ability Safely, Minimal Hand Use Unsupported Stance- Eyes Closed Supervision, 10 seconds Unsupported Stance- Eyes Open Independent, 1 minute Reaching Forward Standing Safely, 5 inches Pick- Up Object From Floor Independent/Safe Look Behind Shoulder - Standing Shifts Weight Well Turning 360 Degrees Turns , < 4 secs Unsupported Stance, Alternating Feet on (I)- 8 Steps in > 20 secs Stair Unsupported Tandem Stance Small Step- 30 seconds Unilateral Leg Stance Lifts Leg/Holds 5-10 secs Total Score [place] Total Score (out of 56 points) 45 [place] Impairment Rating 1 to 19% Impaired (Score 45-55 ) Tinetti Balance Assessment Sitting Balance Sitting Balance Steady, safe Arising from Chair Ability to Arise Able, w/o using arms Standing Balance Immediate Standing Balance Steady w/o support Standing Balance Narrow stance w/o support Nudged Response Steady Standing with Eyes Closed Steady Turning Step Pattern Turning 360 Degrees Continuous steps Stability Turning 360 Degrees Steady Sitting Down Sitting Down Safe, steady Gait and Step Initiation of Gait No hesitancy Right Foot Step Length Does pass stance foot Right Foot Step Height Completely clears floor Left Foot Step Length Does pass stance foot Left Foot Step Height Completely clears floor Step Description Step Symmetry Step length appears equal Step Continuity Steps appear continuous Gait Description Path Description Mild/moderate deviation Trunk Description No sway Walking Stance Heels together Scoring and Interpretation Tinetti Composite Score (points) 25 Interpretation of Scores Low risk for falls (>24) Tinetti Impairment Rating from Composite 1 to <20% Impaired (Score 23- Score 27) Linton Fall Scale Copyright Permission Royer JM, Royer RM, Charley SJ. Development of a scale to identify the fall- prone patient. Can J Aging 1989;8;366-7. Facundo Linton (2009). Preventing patient falls. (2nd ed). [place]: Butt. PT-OP-E Functional Tests Start: 09/15/18 15:24 Freq: Status: Active Protocol: Document 09/15/18 16:41 EA (Rec: 09/15/18 17:14 EA [id number]) Functional Tests Timed Up and Go (TUG) Score 11 TUG Impairment Rating 1 to <20% Impaired (Score 11) PT-OP-G Mobility & Gait Start: 09/15/18 15:24 Freq: Status: Active Protocol: Document 09/15/18 16:41 EA (Rec: 09/15/18 17:14 EA [id number]) OP Mobility Evaluation Bed Mobility Rolling indep Supine to and from Sit indep Transfers Sit to Stand indep Bed to Chair Transfers Indep OP Gait Assessment Gait Gait Assistance Required: Standby Assistance Distance (Feet) 100 Able to Maintain Weight Bearing Status Yes During Gait Assistive Devices Assistive Device None Gait Deviations General Gait Pattern Within Normal Limits Factors Limiting Gait Function Factors Limiting Gait Function Decreased Activity Tolerance Decreased Strength Poor Safety Awareness Stair Climbing Evaluation Evaluation Level of Assist On Stairs Standby Assistance Technique/Endurance Stair Climbing Direction Ascend and Descend Stair Climbing Technique Step to Step Number of Steps Climbed 6 Stair Climbing Set # Repetitions (reps) 1 PT-OP-H Neuro Start: 09/15/18 15:24 Freq: Status: Active Protocol: Document 09/15/18 16:41 EA (Rec: 09/15/18 17:14 EA [id number]) Coordination Evaluation Upper Extremity Tests Left Finger to Nose Test normal performance but requires few practice/cues Finger to Therapist's Finger Test Normal but requires cues and practices Finger Opposition Test Normal Performance Pronation/Supination Test Normal Performance Pointing and Past Pointing Test Normal Performance Lower Extremity Tests Heel on Moreno Test Normal Performance Foot Tapping Test Normal Performance Toe to Examiner's Finger Test Normal Performance Deep Tendon Reflex & Clonus Assessment Deep Tendon Reflex Bilateral Brachioradialis Deep Tendon Reflex 3+ Normal But Brisk Bilateral Patellar Deep Tendon Reflex 3+ Normal But Brisk Ankle Clonus Bilateral Clonus Assessment Absent Vital Signs Blood Pressure Sitting Blood Pressure (90/60-120/80 mmHg) 130/80 H Blood Pressure Source Automatic Cuff Manual Cuff Respirations Respiratory Rate at Rest (12-24 breaths/ 17 min) Respiratory Effort Non-Labored PT-OP-J Posture/Palpation/Skin Start: 09/15/18 15:24 Freq: Status: Active Protocol: Document 09/15/18 16:41 EA (Rec: 09/15/18 17:14 EA [id number]) Posture Evaluation Comments Posture Comments WNL Palpation Assessment Location One Palpation Location Both upper and lower limbs Palpation Findings None/Normal PT-OP-K Range of Motion Start: 09/15/18 15:24 Freq: Status: Active Protocol: Document 09/15/18 17:16 EA (Rec: 09/15/18 17:18 EA [id number]) Shoulder Goniometric Range of Motion Shoulder Measured in Degrees Right Active Shoulder ROM WFL Yes Left Active Shoulder ROM WFL Yes Elbow/Forearm Range of Motion Elbow/Forearm Measured in Degrees Right Active Elbow/Forearm ROM WFL Yes Left Active Elbow/Forearm ROM WFL Yes Hip Goniometric Range of Motion Hip Measured in Degrees Right Active Hip ROM WFL Yes Left Active Hip ROM WFL Yes Knee Goniometric Range of Motion Knee Measured in Degrees Right Knee ROM WFL Yes Left Knee ROM WFL Yes Ankle and Foot Goniometric Range of Motion Ankle and Foot Measured in Degrees Right Active Ankle/Foot ROM WFL Yes Left Active Ankle/Foot ROM WFL Yes PT-OP-M Strength Start: 09/15/18 15:24 Freq: Status: Active Protocol: Document 09/15/18 16:41 EA (Rec: 09/15/18 17:14 EA [id number]) Trunk Strength Trunk Manual Muscle Testing Reason Not Measured WFL Shoulder Strength Shoulder Manual Muscle Testing Right Flexion 4 Good Extension 4 Good Abduction (C5) 4 Good Adduction 4 Good External Rotation 4 Good Internal Rotation 4 Good Horizontal Abduction 4 Good Horizontal Adduction 4 Good Left Flexion 4 Good Extension 4 Good Abduction (C5) 4 Good Adduction 4 Good External Rotation 4 Good Internal Rotation 4 Good Horizontal Abduction 4 Good Horizontal Adduction 4 Good Hip Strength Hip Manual Muscle Testing Right Flexion (L2) 4 Good Extension (S1) 4 Good Abduction 4 Good Adduction 4 Good External Rotation 4 Good Internal Rotation 4 Good Left Flexion (L2) 4 Good Extension (S1) 4 Good Abduction 4 Good Adduction 4 Good External Rotation 4 Good Internal Rotation 4 Good Knee Strength Knee Manual Muscle Testing Right Flexion (S2) 4+ Good+ Extension (L3) 4+ Good+ Left Flexion (S2) 4+ Good+ Extension (L3) 4+ Good+ Ankle/Foot Strength Ankle and Foot Manual Muscle Testing Right Dorsiflexion (L4) 4+ Good+ Plantarflexion (S1) 4+ Good+ Inversion 4+ Good+ Eversion (S1) 4+ Good+ Left Dorsiflexion (L4) 4+ Good+ Plantarflexion (S1) 4+ Good+ Inversion 4+ Good+ Eversion (S1) 4+ Good+ PT-OP-Q Treatments Start: 09/15/18 15:24 Freq: Status: Active Protocol: Document 11/02/18 13:51 EA (Rec: 11/02/18 14:23 EA [id number]) Cardio Equipment Recumbent Stepper (Sci-Fit) Duration (Minutes) 7 Resistance 3.5 Seat Position 6 Therapeutic Exercises Standing Exercises 5 Standing Exercise Name sit to stand to 12 chair Reps/Minutes x 10 reps x 2 Comments no hand support 4 Standing Exercise Name side stepping ball passing Reps/Minutes x 6 lines 3 Standing Exercise Name DB shoulder press Side bilateral Resistance 2 lbs Reps/Minutes x15 reps 1 Standing Exercise Name side step squat Side bilateral Resistance GTB Reps/Minutes x 12ft x 2 lines Neuro Re-Education Treatment Balance Activities 1 Details heel to toe gait/tandem walk Equipment YTB Comments x 10 ft x 4 lines FWD/BWD Coordination Activities 3 Details Beam balance Reps/Duration x 6 lines Comments CGA 2 Details foot rita step over Equipment 4lbs AW Reps/Duration x 4 lines Comments SBA 1 Details Cross stepping/grape avila Reps/Duration x 12 ft x 2 sets Comments SBA PT-OP-T Assessment and Plan Start: 09/15/18 15:24 Freq: Status: Active Protocol: Document 11/02/18 14:27 EA (Rec: 11/02/18 14:31 EA [id number]) Physical Therapy Assessment Assessment Summary Assessment Pt demonstrates improved TUG < 7 seconds (Low fall risk), no instability with head motion during ambulation, no support stairs. Patient is currently independent at home and is functional very well except outdoors activities due to seizure activities. Overall patient is progressing very well. She is agreeable to be seen after 3 weeks from today 's date for follow up. Physical Therapy Plan Next Visit Focus/Plan Next Note Type Discharge Summary Next Visit Plan Discharge if no more complaint or fully independent.
--- NOTE | 2018-11-29 12:56 | PT.OTN ---
Current Diagnoses Epilepsy, unspecified, not intractable, without status epilepticus (11/29/18) Migraine, unspecified, not intractable, without status migrainosus (11/29/18) Altered mental status, unspecified (11/29/18) Physical Therapy Treatment Note PT-OP-A Visit Information Start: 09/15/18 15:24 Freq: Status: Active Protocol: Document 10/26/18 14:29 EA (Rec: 10/26/18 14:33 EA [id number]) Out-Patient Physical Therapy Visit Information Visit Information Visit Type Treatment Note Visit Start Time 13:50 Visit Stop Time 14:30 Total Visit Minutes 40 Visit Number 10 PT-OP-B Current Condition Start: 09/15/18 15:24 Freq: Status: Active Protocol: Document 09/15/18 16:41 EA (Rec: 09/15/18 17:14 EA [id number]) Current Condition History of Current Condition Onset Date June/2018 Current Complaints general body weakness, gait and balance History of Current Condition Narrative: Patient's reports that patient was hospitalized at [facility] due to epilepsy on August 07 2018 . mentioned that patient was confined to bed for almost 1 1/2 month then started to rehab at [facility]. Pt discharged to home but requires assist and mobility aid with limited mobility. Recalled fall 4x at SNF with no major injury. stated that patient is currently out of walker and has been walking with him most of the days of the week. He stated that she requires supervision as patient dizziness and balance tends to limit her mobility. Prior Treatments and Tests Most recent after onset: MRI, CT x 2 at and [facility] with no significant results [facility] EEG: Epilepsy Currently medicated for epileplsy Future Testing and Treatments Planned 09/22/18: MRI at [facility] Treatment Goals Patient/Caregiver Goals 1. Patient wants to be able to walk for more than 10 blocks 2. Patient wants to be independent again in all ADL's Prior Functional Status Baseline Function- ADL's Independent Baseline Function- Mobility Independent Baseline Function- Gait unlimited with no AD Baseline Function- Work/School Retired Baseline Function- Recreation/Hobbies Used to perform daily fitness routine Current Functional Impairments (Reported) Functional Limitations- ADL's Indep in all ADL's except with driving, showering, outdoor walks, cooking Functional Limitations- Mobility/Gait Limited to < 8 blocks with SBA Functional Limitations- Work/School Retired Functional Limitations- Recreation/ Unable to performe regular Hobbies fitnesss routine Personal Factors Other Personal Factors That May Effect Decreased cognitive function Therapy/Recovery PT-OP-C Subjective Start: 09/15/18 15:24 Freq: Status: Active Protocol: Document 11/29/18 12:43 EA (Rec: 11/29/18 12:54 EA [id number]) OP-PT Subjective Patient Comments Patient Comments Pt reports she has been doing alot better after last session until she was stressed last week due to her condition; states feels her body is cold. She reports that hse been independent at home and backyard work, however unable to drive yet due to fear of seizure. She is agreeable to discharge today and agreed to continue home exercises. PT-OP-D Balance Start: 09/15/18 15:24 Freq: Status: Active Protocol: Document 11/29/18 12:55 EA (Rec: 11/29/18 12:56 EA [id number]) Balance Tests Tandem Tandem Standing > 10 sec Tinetti Balance Assessment Sitting Balance Sitting Balance Steady, safe Arising from Chair Ability to Arise Able, w/o using arms Attempts to Arise Arises on 1st attempt Standing Balance Immediate Standing Balance Steady w/o support Standing Balance Narrow stance w/o support Nudged Response Steady Standing with Eyes Closed Steady Turning Step Pattern Turning 360 Degrees Continuous steps Stability Turning 360 Degrees Steady Sitting Down Sitting Down Safe, steady Gait and Step Initiation of Gait No hesitancy Right Foot Step Length Does pass stance foot Right Foot Step Height Completely clears floor Left Foot Step Length Does pass stance foot Left Foot Step Height Completely clears floor Step Description Step Symmetry Step length appears equal Step Continuity Steps appear continuous Gait Description Path Description Straight Trunk Description No sway Walking Stance Heels together Scoring and Interpretation Tinetti Composite Score (points) 28 Interpretation of Scores Low risk for falls (>24) Tinetti Impairment Rating from Composite 0% Impaired (Score 28) Score PT-OP-E Functional Tests Start: 09/15/18 15:24 Freq: Status: Active Protocol: Document 11/29/18 12:54 EA (Rec: 11/29/18 12:55 EA [id number]) Functional Tests Timed Up and Go (TUG) Score <7 TUG Impairment Rating 0% Impaired (Score 10) Tinetti Balance and Gait Assessment Composite Score Impairment Rating 0% Impaired (Score 28) PT-OP-G Mobility & Gait Start: 09/15/18 15:24 Freq: Status: Active Protocol: Document 09/15/18 16:41 EA (Rec: 09/15/18 17:14 EA [id number]) OP Mobility Evaluation Bed Mobility Rolling indep Supine to and from Sit indep Transfers Sit to Stand indep Bed to Chair Transfers Indep OP Gait Assessment Gait Gait Assistance Required: Standby Assistance Distance (Feet) 100 Able to Maintain Weight Bearing Status Yes During Gait Assistive Devices Assistive Device None Gait Deviations General Gait Pattern Within Normal Limits Factors Limiting Gait Function Factors Limiting Gait Function Decreased Activity Tolerance Decreased Strength Poor Safety Awareness Stair Climbing Evaluation Evaluation Level of Assist On Stairs Standby Assistance Technique/Endurance Stair Climbing Direction Ascend and Descend Stair Climbing Technique Step to Step Number of Steps Climbed 6 Stair Climbing Set # Repetitions (reps) 1 PT-OP-H Neuro Start: 09/15/18 15:24 Freq: Status: Active Protocol: Document 09/15/18 16:41 EA (Rec: 09/15/18 17:14 EA [id number]) Coordination Evaluation Upper Extremity Tests Left Finger to Nose Test normal performance but requires few practice/cues Finger to Therapist's Finger Test Normal but requires cues and practices Finger Opposition Test Normal Performance Pronation/Supination Test Normal Performance Pointing and Past Pointing Test Normal Performance Lower Extremity Tests Heel on Moreno Test Normal Performance Foot Tapping Test Normal Performance Toe to Examiner's Finger Test Normal Performance Deep Tendon Reflex & Clonus Assessment Deep Tendon Reflex Bilateral Brachioradialis Deep Tendon Reflex 3+ Normal But Brisk Bilateral Patellar Deep Tendon Reflex 3+ Normal But Brisk Ankle Clonus Bilateral Clonus Assessment Absent Vital Signs Blood Pressure Sitting Blood Pressure (90/60-120/80 mmHg) 130/80 H Blood Pressure Source Automatic Cuff Manual Cuff Respirations Respiratory Rate at Rest (12-24 breaths/ 17 min) Respiratory Effort Non-Labored PT-OP-J Posture/Palpation/Skin Start: 09/15/18 15:24 Freq: Status: Active Protocol: Document 09/15/18 16:41 EA (Rec: 09/15/18 17:14 EA [id number]) Posture Evaluation Comments Posture Comments WNL Palpation Assessment Location One Palpation Location Both upper and lower limbs Palpation Findings None/Normal PT-OP-K Range of Motion Start: 09/15/18 15:24 Freq: Status: Active Protocol: Document 09/15/18 17:16 EA (Rec: 09/15/18 17:18 EA [id number]) Shoulder Goniometric Range of Motion Shoulder Right Active Shoulder ROM WFL Yes Left Active Shoulder ROM WFL Yes Elbow/Forearm Range of Motion Elbow/Forearm Right Active Elbow/Forearm ROM WFL Yes Left Active Elbow/Forearm ROM WFL Yes Hip Goniometric Range of Motion Hip Right Active Hip ROM WFL Yes Left Active Hip ROM WFL Yes Knee Goniometric Range of Motion Knee Right Knee ROM WFL Yes Left Knee ROM WFL Yes Ankle and Foot Goniometric Range of Motion Ankle and Foot Right Active Ankle/Foot ROM WFL Yes Left Active Ankle/Foot ROM WFL Yes PT-OP-M Strength Start: 09/15/18 15:24 Freq: Status: Active Protocol: Document 09/15/18 16:41 EA (Rec: 09/15/18 17:14 EA [id number]) Trunk Strength Trunk Manual Muscle Testing Reason Not Measured WFL Shoulder Strength Shoulder Manual Muscle Testing Right Flexion 4 Good Extension 4 Good Abduction (C5) 4 Good Adduction 4 Good External Rotation 4 Good Internal Rotation 4 Good Horizontal Abduction 4 Good Horizontal Adduction 4 Good Left Flexion 4 Good Extension 4 Good Abduction (C5) 4 Good Adduction 4 Good External Rotation 4 Good Internal Rotation 4 Good Horizontal Abduction 4 Good Horizontal Adduction 4 Good Hip Strength Hip Manual Muscle Testing Right Flexion (L2) 4 Good Extension (S1) 4 Good Abduction 4 Good Adduction 4 Good External Rotation 4 Good Internal Rotation 4 Good Left Flexion (L2) 4 Good Extension (S1) 4 Good Abduction 4 Good Adduction 4 Good External Rotation 4 Good Internal Rotation 4 Good Knee Strength Knee Manual Muscle Testing Right Flexion (S2) 4+ Good+ Extension (L3) 4+ Good+ Left Flexion (S2) 4+ Good+ Extension (L3) 4+ Good+ Ankle/Foot Strength Ankle and Foot Manual Muscle Testing Right Dorsiflexion (L4) 4+ Good+ Plantarflexion (S1) 4+ Good+ Inversion 4+ Good+ Eversion (S1) 4+ Good+ Left Dorsiflexion (L4) 4+ Good+ Plantarflexion (S1) 4+ Good+ Inversion 4+ Good+ Eversion (S1) 4+ Good+ PT-OP-Q Treatments Start: 09/15/18 15:24 Freq: Status: Active Protocol: Document 11/29/18 12:43 EA (Rec: 11/29/18 12:54 EA [id number]) Cardio Equipment Recumbent Stepper (Sci-Fit) Duration (Minutes) 7 Resistance 3.5 Seat Position 6 Gym Equipment Shuttle Recovery Bilateral Squats Details blue Resistance 125# Shuttle Recovery Platform Stable Reps/Time 2x20 Therapeutic Exercises Standing Exercises 5 Standing Exercise Name sit to stand to 12 chair Reps/Minutes x 10 reps x 2 Comments no hand support 4 Standing Exercise Name side stepping ball passing Reps/Minutes x 6 lines 1 Standing Exercise Name side step squat Side bilateral Resistance GTB Reps/Minutes x 12ft x 2 lines Self-Care/Home Management Treatment Education Patient Education Home Exercise Program Safety Caregiver Education Patient and were educated with general body exercises to perform at home. PT-OP-T Assessment and Plan Start: 09/15/18 15:24 Freq: Status: Active Protocol: Document 11/29/18 12:43 EA (Rec: 11/29/18 12:54 EA [id number]) Physical Therapy Assessment Goals Four Impairment Gait assistance with uneven and obstacles Card Grinder Helper Goal (LTG) Patient will navigate uneven surfaces and obstacles without fall. LTG Duration Goal met Three Impairment Stand Functional reach score of < 10 Card Grinder Helper Goal (LTG) Stand functional reach result of > 10 LTG Duration Goal Met Two Impairment Impaired distance mobility Group Home Goal (LTG) Patient will ambulate > 10 blocks with distant supervision LTG Duration Goal met One Impairment TUG 11 secs Card Grinder Helper Goal (LTG) TUG results of < 10 LTG Duration Goal met Assessment Summary Assessment PT exhibits maintain TUG < 7 seconds (Low fall risk), with high scores on mobility tests, perform balance and agility tests with no signs of instability. Stairs descent requires slight rails support but stable. Overall patient demonstrates ability to perform activities independent and safe, therefore patient is good to discharge today. Physical Therapy Plan Frequency and Duration Frequency of Treatment Once week Duration of Treatment 1 Plan of Care Start Date 11/29/18 Plan of Care End Date 12/02/18 Discharge Physical Therapy Discharge Reasons Goals Met
--- NOTE | 2018-11-29 12:56 | PT.OPPOC ---
Current Diagnoses Epilepsy, unspecified, not intractable, without status epilepticus (11/29/18) Migraine, unspecified, not intractable, without status migrainosus (11/29/18) Altered mental status, unspecified (11/29/18) Provider Visit Care Team Role Provider Type Debbie Paredes PA-C Primary Care Provider Advanced Press Offbearer Specialty: Medical Address: [address] [place] [address], [id number] Email: [email or web address] Melquiades Vazquez ND Attending Provider Non-Staff Specialty: Internal Medicine Address: [address] [place] [address], [facility] [address], [place], [address] Email: Plan Of Care PT-OP-T Assessment and Plan Start: 09/15/18 15:24 Freq: Status: Active Protocol: Document 11/29/18 12:43 EA (Rec: 11/29/18 12:54 EA [id number]) Physical Therapy Assessment Goals Four Impairment Gait assistance with uneven and obstacles Chairlift Operator Goal (LTG) Patient will navigate uneven surfaces and obstacles wihtout fall. LTG Duration Goal met Three Impairment Stand Functional reach score of < 10 Alf Goal (LTG) Stand functional reach result of > 10 LTG Duration Goal Met Two Impairment Impaired distance mobility Chairlift Operator Goal (LTG) Patient will ambulate > 10 blocks with distant supervision LTG Duration Goal met One Impairment TUG 11 secs Chairlift Operator Goal (LTG) TUG results of < 10 LTG Duration Goal met Assessment Summary Assessment PT exhibits maintain TUG < 7 seconds (Low fall risk), with high scores on mobility tests, perform balance and agility tests with no signs of instability. Stairs descent requires slight rails support but stable. Overall patient demonstrates ability to perform activities independent and safe, therefore patient is good to discharge today. Physical Therapy Plan Frequency and Duration Frequency of Treatment Once week Duration of Treatment 1 Plan of Care Start Date 11/29/18 Plan of Care End Date 12/02/18 Discharge Physical Therapy Discharge Reasons Goals Met Plan of Care Dates Plan of Care Start Date 11/29/18 Plan of Care End Date 12/02/18 Please Sign and Return: I have reviewed this Plan of Care and certify that the skilled therapy services above are required to meet the patient?s needs. Physician Signature Date Printed Name and Credentials Clinical Instructor Signature Printed Name and Credentials
== END 2019-01-18 15:08 | disposition home or self-care (01) ==
LOC: PHYS 12:15
PROVIDERS: PCP Physician Assistant; Visit Provider Hospitalist
DX: R41.82 Altered mental status, unspecified (principal); G40.909 Epilepsy, unspecified, not intractable, without status epilepticus; G43.909 Migraine, unspecified, not intractable, without status migrainosus
CPT/HCPCS: 97110; 97112; 97162; 97535

== ENCOUNTER → 2019-01-31 10:11 | Outpatient (CLI) | payer MEDICARE, OTHER, SELFPAY ==
[2018-07-08 19:36] VITALS: BMI 29.5
[2019-02-07 12:58] LABS: Lacosamide 10.8 mcg/mL
== END ==
PROVIDERS: Family Provider Physician Assistant; PCP Physician Assistant; Visit Provider Psychiatry & Neurology Neurology
DX: G40.119 Localization-related (focal) (partial) symptomatic epilepsy and epileptic syndromes with simple partial seizures, intractable, without status epilepticus (principal)
CPT/HCPCS: 36415; 80299

== ENCOUNTER 2019-03-13 15:30 | Outpatient (RCR) | payer MEDICARE, OTHER, SELFPAY ==
[2018-07-08 19:36] VITALS: BMI 29.5
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
== END 2019-03-16 14:02 ==
LOC: SP 15:30
PROVIDERS: Family Provider Physician Assistant; PCP Physician Assistant; Visit Provider Physician Assistant
DX: R41.82 Altered mental status, unspecified (principal); G40.909 Epilepsy, unspecified, not intractable, without status epilepticus; G43.909 Migraine, unspecified, not intractable, without status migrainosus
CPT/HCPCS: 92507; 96105

== ENCOUNTER → 2019-03-21 13:28 | Outpatient (CLI) | payer MEDICARE, OTHER, SELFPAY ==
[2018-07-08 19:36] VITALS: BMI 29.5
[2019-03-21 14:28] LABS: Alanine Aminotransferase 39 IU/L (9-52); Albumin 4.8 g/dL (3.5-5.0); Albumin Globulin Ratio 1.7 (1.0-2.8); Alkaline Phosphatase 110 U/L (38-126); Aspartate Aminotransferase 36 IU/L (14-36); BUN Creatinine Ratio 18.6 (6-22); Bilirubin Total 0.8 mg/dL (0.2-1.3); Blood Urea Nitrogen 13 mg/dL (7-17); Calcium 9.9 mg/dL (8.4-10.2); Carbon Dioxide 28 mmol/L (22-32); Chloride 103 mmol/L (98-107); Cholesterol 173 mg/dL (140-199); Estimated Glomerular Filt Rate > 60.0 mL/min (>60); Globulin 2.9 g/dL (1.7-4.1); Glucose 90 mg/dL (80-110); HDL Cholesterol 80 mg/dL (40-60); HEMOLYSIS < 15 (0-50); LDL Cholesterol Calculated 68 mg/dL (<100); Potassium 4.4 mmol/L (3.4-5.1); Sodium 141 mmol/L (137-145); Total Protein 7.7 g/dL (6.3-8.2); Triglycerides 124 mg/dL (35-150)
[2019-03-21 16:08] LABS: Microalbumi Creatinin Ratio Ur 7.4 ug/mg CR (<30); Microalbumin Urine Random 0.9 mg/dL (0-1.6)
== END ==
PROVIDERS: PCP Physician Assistant; Visit Provider Physician Assistant
DX: E78.2 Mixed hyperlipidemia (principal); I10 Essential (primary) hypertension
CPT/HCPCS: 36415; 80053; 80061; 82043; 82570

== ENCOUNTER → 2020-04-26 15:07 | Outpatient (CLI) | payer MEDICARE, OTHER, SELFPAY ==
[2018-07-08 19:36] VITALS: BMI 29.5
[2020-04-27 09:22] LABS: Add Manual Diff / Slide Review NO; Basophils Absolute Auto 100 /uL (0-100); Eosinophils Absolute Auto 100 /uL (0-450); Eosinophils Percent Auto 0.9 % (2-4); Hematocrit 45.5 % (36-46); Hemoglobin 14.9 g/dL (12.0-16.0); Lymphocytes Absolute Auto 2200 /uL (1100-4500); Mean Corpuscular HGB Conc 32.7 % (30-36); Mean Corpuscular Volume 91.8 fL (80-100); Monocytes Absolute Auto 400 /uL (0-900); Monocytes Percent Auto 5.7 % (3-14); Neutrophils Absolute Auto 3700 /uL (1500-7000); Neutrophils Percent Auto 58.4 % (50-75); Platelet Count 228 X10^3/uL (150-400); Red Blood Cell Count 4.96 X10^6/uL (4.0-5.2); Red Cell Distribution Width 14.3 % (11.6-14.8); White Blood Cell Count 6.4 X10^3/uL (4.5-11.0)
[2020-04-27 11:33] LABS: TSH w/ Reflex to FT4 1.29 uIU/mL (0.47-4.68)
== END ==
PROVIDERS: PCP Registered Nurse Diabetes Educator; Referring Provider Registered Nurse Diabetes Educator; Visit Provider Registered Nurse Diabetes Educator
DX: I10 Essential (primary) hypertension (principal); Z12.11 Encounter for screening for malignant neoplasm of colon; Z13.220 Encounter for screening for lipoid disorders
CPT/HCPCS: 36415; 80053; 80061; 84443; 85025

== ENCOUNTER → 2020-04-27 12:32 | Outpatient (ROUT) | payer MEDICARE, OTHER, SELFPAY ==
[2018-07-08 19:36] VITALS: BMI 29.5
[2020-04-27 12:55] LABS: Alanine Aminotransferase 24 IU/L (<35); Albumin 4.6 g/dL (3.5-5.0); Albumin Globulin Ratio 1.5 (1.0-2.8); Alkaline Phosphatase 93 U/L (38-126); Aspartate Aminotransferase 33 IU/L (14-36); BUN Creatinine Ratio 20.8 (6-22); Bilirubin Total 0.6 mg/dL (0.2-1.3); Blood Urea Nitrogen 15 mg/dL (7-17); Calcium 9.4 mg/dL (8.4-10.2); Carbon Dioxide 30 mmol/L (22-32); Chloride 104 mmol/L (98-107); Cholesterol 157 mg/dL (140-199); Estimated Glomerular Filt Rate > 60.0 mL/min (>60); Globulin 3.1 g/dL (1.7-4.1); Glucose 93 mg/dL (80-110); HDL Cholesterol 82 mg/dL (40-60); HEMOLYSIS < 15 (0-50); LDL Cholesterol Calculated 57 mg/dL (<100); Potassium 4.2 mmol/L (3.4-5.1); Sodium 140 mmol/L (137-145); Total Protein 7.7 g/dL (6.3-8.2); Triglycerides 89 mg/dL (35-150)
== END ==
PROVIDERS: PCP Registered Nurse Diabetes Educator; Visit Provider Registered Nurse Diabetes Educator
DX: Z12.11 Encounter for screening for malignant neoplasm of colon (principal); I10 Essential (primary) hypertension; Z13.220 Encounter for screening for lipoid disorders
CPT/HCPCS: 80053; 80061

== ENCOUNTER → 2020-08-19 13:17 | Outpatient (CLI) | payer MEDICARE, OTHER, SELFPAY ==
[2020-04-29 16:25] VITALS: BMI 29.5
[2020-08-19] MEDS: COVID-19 VACC, Ad26(JANSSEN)/PF 0.5 ML IM (13:32)
== END ==
PROVIDERS: PCP Registered Nurse Diabetes Educator; Visit Provider Internal Medicine
DX: Z23 Encounter for immunization (principal)
CPT/HCPCS: 0031A; 91303

== ENCOUNTER → 2021-08-14 14:14 | Outpatient (CLI) | payer MEDICARE, OTHER, SELFPAY ==
[2021-08-01 15:27] VITALS: BMI 29.5
[2021-08-14 15:46] LABS: Hemoglobin 14.9 g/dL (12.0-16.0); Mean Corpuscular HGB Conc 33.1 % (30-36); Mean Corpuscular Hemoglobin 29.6 PG (26-34); Mean Corpuscular Volume 89.5 fL (80-100); Platelet Count 227 X10^3/uL (150-400); Red Blood Cell Count 5.03 X10^6/uL (4.0-5.2); Red Cell Distribution Width 13.6 % (11.6-14.8); White Blood Cell Count 6.1 X10^3/uL (4.5-11.0)
[2021-08-14 16:26] LABS: Alanine Aminotransferase 21 IU/L (<35); Albumin 4.9 g/dL (3.5-5.0); Albumin Globulin Ratio 1.5 (1.0-2.8); Alkaline Phosphatase 85 U/L (38-126); Aspartate Aminotransferase 30 IU/L (14-36); BUN Creatinine Ratio 17.9 (6-22); Bilirubin Total 0.8 mg/dL (0.2-1.3); Blood Urea Nitrogen 15 mg/dL (7-17); Carbon Dioxide 32 mmol/L (22-32); Chloride 105 mmol/L (98-107); Cholesterol 183 mg/dL (140-199); Estimated Glomerular Filt Rate > 60.0 mL/min (>60); Globulin 3.3 g/dL (1.7-4.1); Glucose 95 mg/dL (80-110); HDL Cholesterol 93 mg/dL (40-60); HEMOLYSIS < 15 (0-50); LDL Cholesterol Calculated 68 mg/dL (<100); Potassium 4.7 mmol/L (3.4-5.1); Sodium 141 mmol/L (137-145); Total Protein 8.2 g/dL (6.3-8.2); Triglycerides 109 mg/dL (35-150)
[2021-08-14 16:56] LABS: TSH w/ Reflex to FT4 1.38 uIU/mL (0.47-4.68)
== END ==
PROVIDERS: PCP Registered Nurse Diabetes Educator; Referring Provider Registered Nurse Diabetes Educator; Visit Provider Registered Nurse Diabetes Educator
DX: E78.2 Mixed hyperlipidemia (principal); I10 Essential (primary) hypertension
CPT/HCPCS: 36415; 80053; 80061; 84443; 85027

== ENCOUNTER → 2022-04-03 14:54 | Outpatient (CLI) | payer MEDICARE, OTHER, SELFPAY ==
[2021-08-01 15:27] VITALS: BMI 29.5
[2022-04-03 18:55] LABS: Vitamin B12 471 pg/mL (239-931)
== END ==
PROVIDERS: PCP Registered Nurse Diabetes Educator; Referring Provider Psychiatry & Neurology Neurology; Visit Provider Psychiatry & Neurology Neurology
DX: R20.2 Paresthesia of skin (principal)
CPT/HCPCS: 36415; 82607

== ENCOUNTER → 2022-05-18 15:04 | Outpatient (CLI) | payer MEDICARE, OTHER, SELFPAY ==
[2021-08-01 15:27] VITALS: BMI 29.5
[2022-05-19 03:52] LABS: Vitamin B12 546 pg/mL (239-931)
[2022-05-24 12:40] LABS: Lacosamide 10.9 ug/mL (5.0-10.0)
== END ==
PROVIDERS: PCP Registered Nurse Diabetes Educator; Referring Provider Psychiatry & Neurology Neurology; Visit Provider Psychiatry & Neurology Neurology
DX: G40.219 Localization-related (focal) (partial) symptomatic epilepsy and epileptic syndromes with complex partial seizures, intractable, without status epilepticus (principal)
CPT/HCPCS: 36415; 80235; 82607

== ENCOUNTER → 2022-09-29 11:51 | Outpatient (CLI) | payer MEDICARE, OTHER, SELFPAY ==
[2021-08-01 15:27] VITALS: BMI 29.5
[2022-09-29 12:54] LABS: Hematocrit 42.2 % (36-46); Hemoglobin 14.2 g/dL (12.0-16.0); Mean Corpuscular HGB Conc 33.6 % (30-36); Mean Corpuscular Hemoglobin 29.9 PG (26-34); Platelet Count 227 X10^3/uL (150-400); Red Blood Cell Count 4.74 X10^6/uL (4.0-5.2); Red Cell Distribution Width 13.7 % (11.6-14.8); White Blood Cell Count 5.8 X10^3/uL (4.5-11.0)
[2022-09-29 13:17] LABS: Alanine Aminotransferase 21 IU/L (<35); Albumin 4.6 g/dL (3.5-5.0); Albumin Globulin Ratio 1.6 (1.0-2.8); Alkaline Phosphatase 89 U/L (38-126); Aspartate Aminotransferase 28 IU/L (14-36); BUN Creatinine Ratio 19.2 (6-22); Bilirubin Total 0.7 mg/dL (0.2-1.3); Blood Urea Nitrogen 15 mg/dL (7-17); Calcium 9.5 mg/dL (8.4-10.2); Carbon Dioxide 30 mmol/L (22-32); Chloride 102 mmol/L (98-107); Cholesterol 163 mg/dL (140-199); Estimated Glomerular Filt Rate > 60 mL/min (>60); Globulin 2.9 g/dL (1.7-4.1); Glucose 86 mg/dL (80-110); HDL Cholesterol 84 mg/dL (40-60); HEMOLYSIS < 15 (0-50); LDL Cholesterol Calculated 61 mg/dL (<100); Potassium 4.1 mmol/L (3.4-5.1); Sodium 140 mmol/L (137-145); Total Protein 7.5 g/dL (6.3-8.2); Triglycerides 90 mg/dL (35-150)
[2022-09-29 13:46] LABS: TSH w/ Reflex to FT4 1.21 uIU/mL (0.47-4.68)
== END ==
PROVIDERS: PCP Registered Nurse Diabetes Educator; Referring Provider Registered Nurse Diabetes Educator; Visit Provider Registered Nurse Diabetes Educator
DX: E78.2 Mixed hyperlipidemia (principal); I10 Essential (primary) hypertension; Z13.220 Encounter for screening for lipoid disorders
CPT/HCPCS: 36415; 80053; 80061; 84443; 85027

== ENCOUNTER → 2023-07-02 18:44 | Outpatient (CLI) | payer MEDICARE, OTHER, SELFPAY ==
[2021-08-01 15:27] VITALS: BMI 29.5
== END ==
PROVIDERS: PCP Registered Nurse Diabetes Educator; Visit Provider Physician Assistant
DX: N39.0 Urinary tract infection, site not specified (principal)
CPT/HCPCS: 87086

== ENCOUNTER 2023-07-03 22:31 | Emergency (ER) | payer MEDICARE, OTHER, SELFPAY ==
[2021-08-01 15:27] VITALS: BMI 29.5
[2023-07-03 22:35] VITALS: BMI 25.9
--- NOTE | 2023-07-03 22:47 | DI.CT.S_ITS ---
PROCEDURE: CT HEAD/BRAIN WO CON INDICATIONS: increasing confusion TECHNIQUE: Noncontrast 4.5 mm thick angled axial sections acquired from the foramen magnum to the vertex, with coronal and sagittal reformats. For radiation dose reduction, the following was used: automated exposure control, adjustment of mA and/or kV according to patient size. COMPARISON: [facility], CT, CT HEAD/BRAIN WO CON, 07/15/2018, 8:46. [facility], CT, CT HEAD/BRAIN WO CON, 07/08/2018, 12:04. FINDINGS: Image quality: Diagnostic. CSF spaces: Basal cisterns are patent. No extra-axial fluid collections. The ventricles are symmetric in size and shape. Brain: No intracranial bleeds or masses. There is cerebral volume loss for age, with resultant ventricular and sulcal prominence. There are periventricular and deep white matter chronic small vessel ischemic changes. There is intracranial internal carotid artery atherosclerosis. Skull and face: Calvarium and visualized facial bones appear intact, without suspicious lesions. Sinuses: Visualized sinuses and mastoids are clear. IMPRESSION: No acute intracranial pathology. Quality of visualization is somewhat limited by patient motion during image acquisition. Dictated by: Nilton Barcenas M.D. on 07/04/2023 at 0:54 Approved by: Nilton Barcenas M.D. on 07/04/2023 at 0:55
--- NOTE | 2023-07-04 00:03 | DI.CT.S_ITS ---
PROCEDURE: CT ABDOMEN PELVIS W CON INDICATIONS: rlq pain TECHNIQUE: After the administration of intravenous contrast, axial sections acquired from the lung bases to the pubic symphysis. Coronal and sagittal reformats were performed. For radiation dose reduction, the following was used: automated exposure control, adjustment of mA and/or kV according to patient size. COMPARISON: None. FINDINGS: Image quality: Diagnostic. Lower Chest: No significant findings. ABDOMEN: Liver: No solid mass. Gallbladder: No radiopaque gallstones or wall thickening. Biliary ducts: No biliary dilation. Pancreas: No ductal dilation. Spleen: Size is within normal limits. Adrenal Glands: No adrenal nodules. Kidneys and Ureters: No hydronephrosis. No solid mass. No complex renal cystic lesion which requires follow up. Stomach and Bowel: Normal colonic caliber, without significant wall thickening. Peritoneum: No abnormal intraperitoneal fluid. No free air. Ventral Wall: No hernia. Abdominal Nodes: No retroperitoneal or mesenteric adenopathy by size criteria. Vessels: Aorta and inferior vena cava are normal in size. PELVIS: Pelvic Organs: Unremarkable. Bladder: Unremarkable. Pelvic Nodes: No enlarged lymph nodes. Miscellaneous: No inguinal hernias are seen. Bones: No aggressive osseous abnormality. IMPRESSION: No acute disease. A normal or abnormal appendix could not be located. No secondary CT evidence of acute appendicitis is found, however. Dictated by: Nilton Barcenas M.D. on 07/04/2023 at 1:08 Approved by: Nilton Barcenas M.D. on 07/04/2023 at 1:09
[2023-07-04 00:11] LABS: Add Manual Diff / Slide Review NO; Basophils Absolute Auto 100 /uL (0-100); Basophils Percent Auto 0.8 % (0-2); Eosinophils Absolute Auto 0 /uL (0-450); Eosinophils Percent Auto 0.2 % (2-4); Hematocrit 45.2 % (36-46); Hemoglobin 15.3 g/dL (12.0-16.0); Lymphocytes Absolute Auto 2400 /uL (1100-4500); Lymphocytes Percent Auto 26.4 % (25-40); Mean Corpuscular HGB Conc 33.9 % (30-36); Mean Corpuscular Hemoglobin 30.4 PG (26-34); Mean Corpuscular Volume 89.7 fL (80-100); Monocytes Absolute Auto 600 /uL (0-900); Monocytes Percent Auto 6.1 % (3-14); Neutrophils Absolute Auto 6000 /uL (1500-7000); Neutrophils Percent Auto 66.5 % (50-75); Platelet Count 254 X10^3/uL (150-400); Red Blood Cell Count 5.04 X10^6/uL (4.0-5.2); Red Cell Distribution Width 13.6 % (11.6-14.8); White Blood Cell Count 9.1 X10^3/uL (4.5-11.0)
[2023-07-04] MEDS: LORazepam 2 MG/ML INJ 0.5 MG IV (00:15)
[2023-07-04 00:21] LABS: Lactate (Lactic Acid) 1.8 mmol/L (0.7-2.1)
[2023-07-04 00:23] LABS: Acetaminophen < 10 ug/mL (10-30); Alanine Aminotransferase 29 IU/L (<35); Albumin Globulin Ratio 1.2 (1.0-2.8); Alkaline Phosphatase 90 U/L (38-126); BUN Creatinine Ratio 23.6 (6-22); Bilirubin Total 1.1 mg/dL (0.2-1.3); Blood Urea Nitrogen 17 mg/dL (7-17); Calcium 10.2 mg/dL (8.4-10.2); Carbon Dioxide 23 mmol/L (22-32); Chloride 102 mmol/L (98-107); Creatine Kinase 65 U/L (30-135); Estimated Glomerular Filt Rate > 60 mL/min (>60); Ethanol (ETOH) < 10 mg/dL; Globulin 4.2 g/dL (1.7-4.1); Glucose 111 mg/dL (80-110); Salicylate < 1.0 mg/dL (<20); Sodium 138 mmol/L (137-145); Total Protein 9.2 g/dL (6.3-8.2)
[2023-07-04 00:26] LABS: HEMOLYSIS 60 (0-50)
[2023-07-04 00:28] LABS: Aspartate Aminotransferase 45 IU/L (14-36); Potassium 4.5 mmol/L (3.4-5.1)
[2023-07-04 00:34] LABS: Troponin I < 0.012 ng/mL (0.01-0.034)
[2023-07-04 00:53] LABS: Thyroid Stimulating Hormone 2.04 uIU/mL (0.47-4.68)
--- NOTE | 2023-07-04 01:07 | ED_ITS ---
HPI - Psych <Marquita Fraia, DO - Last Filed: 07/04/23 18:00> General Chief Complaint: Psychiatric Symptoms Stated Complaint: psych symptoms Time Seen by Provider: 07/03/23 22:47 Source: patient and family Mode of arrival: Ambulatory History of Present Illness HPI Narrative: Patient is a 68-year-old female history of anxiety, hypertension hyperlipidemia presenting today with acute confusion. She was accompanied by her and her son who are the primary historians. He report that she has been confused for the past couple of days. Hallucinating talking to a man named Adelaida. He does not exist. She is obsessed with a fiberoptic cable of some sort. She was seen and evaluated walk-in clinic yesterday diagnosed with a UTI. Started on Pyridium and Macrobid. However family states that she was having some of these hallucination odd like behaviors yesterday but intensified throughout the day today. This is never happened to her before. She is quite paranoid. Refusing to have vitals refusing blood work. Rarely not able to function or make own decisions. She also is complaining of some right lower quadrant pain. She does not me to touch lower apparently at the walk-in clinic they palpated and it hurt. Family is very supportive. They state that she has had significant life stressors in October of last year her mother 2 weeks later [id number] few weeks later found out had cancer. She at baseline worries in his anxious. Related Data Home Medications Medication Instructions Recorded Confirmed lacosamide 100 mg tablet (Vimpat) See Rx Instructions PO BID 03/28/19 07/04/23 escitalopram oxalate 10 mg tablet 10 mg PO DAILY 07/04/23 07/04/23 Previous Rx's Medication Instructions Recorded losartan 50 mg tablet 50 mg PO DAILY #90 tabs 10/06/22 metoprolol succinate 25 mg 12.5 mg (1/2 x 25 mg) PO DAILY #45 10/06/22 tablet,extended release 24 hr tabs rosuvastatin 10 mg tablet 10 mg PO QPM #90 tabs 10/06/22 nitrofurantoin 100 mg PO Q12H 5 days #10 caps 07/02/23 monohydrate/macrocrystals 100 mg capsule (Macrobid) phenazopyridine 200 mg tablet 200 mg PO TID PRN pain 6 doses #6 07/02/23 (Pyridium) tabs Allergies Allergy/AdvReac Type Severity Reaction Status Date / Time No Known Drug Allergies Allergy Verified 07/04/23 16:48 Patient History <Marquita Faria DO - Last Filed: 07/04/23 18:00> Medical History (Updated 07/04/23 @ 12:48 by Octavia Agarwal RN) Anxiety Migraines Mixed hyperlipidemia (05/28/16) Essential hypertension (05/28/16) Surgical History Hx of section (~1980) Family History Father History of high blood pressure Social History household members: spouse and children Smoking Status: Never smoker second hand exposure: No alcohol intake: never substance use type: does not use Smoking Status: Never smoker alcohol intake frequency: 0-2 drinks per day Substance Use Type: does not use Exam <Marquita Faria DO - Last Filed: 07/04/23 18:00> Initial Vital Signs Initial Vital Signs: Vital Signs Pulse Rate 70 07/04/23 01:26 Respiratory Rate 18 07/04/23 01:26 Blood Pressure 163/72 H 07/04/23 01:26 Pulse Oximetry 98 07/04/23 01:26 Oxygen Delivery Method Room Air 07/04/23 01:26 GENERAL: Alert 68-year-old female and in no acute distress. HEENT: Head atraumatic,EOMI, pupils reactive, face symmetric, moist mucous membranes CARDIOVASCULAR: Regular rate and rhythm without murmurs, rubs or gallops. RESPIRATORY: Breath sounds equal bilaterally, no wheezes rales or rhonchi. ABDOMEN: Soft, minor right lower quadrant pain no guarding no rebound EXTREMITIES: Normal range of motion, no clubbing or edema. Neurovascularly intact NEUROLOGICAL: Alert and oriented x1.Normal gait and speech pacing around the SKIN: Warm, dry, no laceration, no petechiae, no rashes or lesions. Psych Appearance: grossly normal Speech and Movement: agitated and restless Mood: paranoid Attitude: guarded Thought Process: illogical Thought Content: obsessions and suicidality Judgment: poor <Nuno Gomez DO - Last Filed: 07/04/23 17:40> Initial Vital Signs Initial Vital Signs: Vital Signs Pulse Rate 70 07/04/23 01:26 Respiratory Rate 18 07/04/23 01:26 Blood Pressure 163/72 H 07/04/23 01:26 Pulse Oximetry 98 07/04/23 01:26 Oxygen Delivery Method Room Air 07/04/23 01:26 Course <Marquita Faria DO - Last Filed: 07/04/23 18:00> Orders Ordered: Discontinued Medications Lorazepam (Lorazepam 0.5 Mg Tablet) 1 mg PO NOW ONE Stop: 07/03/23 23:58 Last Admin: 07/04/23 01:14 Dose: Not Given Documented By: ROLY Lorazepam (Lorazepam 2 Mg/Ml Inj) 0.5 mg IV NOW ONE Stop: 07/04/23 00:04 Last Admin: 07/04/23 00:15 Dose: 0.5 mg Documented By: ROLY Vital Signs Vital signs: Vital Signs - 8 hr 07/04/23 12:44 Pulse Rate 86 Respiratory Rate 16 Blood Pressure 137/66 Pulse Oximetry 18 L Oxygen Delivery Method Room Air <Nuno Gomez DO - Last Filed: 07/04/23 17:40> Orders Ordered: Discontinued Medications Lorazepam (Lorazepam 0.5 Mg Tablet) 1 mg PO NOW ONE Stop: 07/03/23 23:58 Last Admin: 07/04/23 01:14 Dose: Not Given Documented By: ROLY Lorazepam (Lorazepam 2 Mg/Ml Inj) 0.5 mg IV NOW ONE Stop: 07/04/23 00:04 Last Admin: 07/04/23 00:15 Dose: 0.5 mg Documented By: ROLY Vital Signs Vital signs: Vital Signs - 8 hr 07/04/23 12:44 Pulse Rate 86 Respiratory Rate 16 Blood Pressure 137/66 Pulse Oximetry 18 L Oxygen Delivery Method Room Air MDM - Psych <Marquita Faria DO - Last Filed: 07/04/23 18:00> Lab Data 07/03/23 23:55 07/03/23 23:55 Labs: Lab Results 07/03/23 07/04/23 07/04/23 Range/Units 23:55 02:00 02:00 WBC 9.1 (4.5-11.0) X10^3/uL RBC 5.04 (4.0-5.2) X10^6/uL Hgb 15.3 (12.0-16.0) g/dL Hct 45.2 (36-46) % MCV 89.7 (80-100) fL MCH 30.4 (26-34) PG MCHC 33.9 (30-36) % RDW 13.6 (11.6-14.8) % Plt Count 254 (150-400) X10^3/uL Neut % (Auto) 66.5 (50-75) % Lymph % (Auto) 26.4 (25-40) % [place] % (Auto) 6.1 (3-14) % Eos % (Auto) 0.2 L (2-4) % Baso % (Auto) 0.8 (0-2) % Neut # (Auto) 6000 (0812-3885) /uL Lymph # (Auto) 2400 (0550-2666) /uL [place] # (Auto) 600 (0-900) /uL Eos # (Auto) 0 (0-450) /uL Baso # (Auto) 100 (0-100) /uL Sodium 138 (137-145) mmol/L Potassium 4.5 (3.4-5.1) mmol/L Chloride 102 (98-107) mmol/L Carbon Dioxide 23 (22-32) mmol/L BUN 17 (7-17) mg/dL Creatinine 0.72 (0.52-1.04) mg/dL Estimated GFR > 60 (>60) mL/min BUN/Creatinine Ratio 23.6 H (6-22) Glucose 111 H (80-110) mg/dL Lactate 1.8 (0.7-2.1) mmol/L Calcium 10.2 (8.4-10.2) mg/dL Magnesium (1.6-2.3) mg/dL Total Bilirubin 1.1 (0.2-1.3) mg/dL AST 45 H (14-36) IU/L ALT 29 (<35) IU/L Alkaline Phosphatase 90 (38-126) U/L Total Creatine Kinase 65 (30-135) U/L Troponin I < 0.012 (0.01-0.034) ng/mL Total Protein 9.2 H (6.3-8.2) g/dL Albumin 5.0 (3.5-5.0) g/dL Globulin 4.2 H (1.7-4.1) g/dL Albumin/Globulin Ratio 1.2 (1.0-2.8) TSH 2.04 (0.47-4.68) uIU/mL Urine Color Yellow Urine Appearance Clear Urine pH 5.0 Not Reportable (4.5-8.0) Ur Specific Felicity 1.015 (1.000-1.035) Urine Protein Negative (Negative) Urine Glucose (UA) Negative (Negative) g/dL Urine Ketones 1+ H (NEGATIVE) Urine Occult Blood Negative (Negative) Urine Nitrate Negative (Negative) Urine Bilirubin Negative (NEGATIVE) Urine Urobilinogen 0.2 (0.2) E.U./dL Ur Leukocyte Esterase Negative (NEGATIVE) Urine RBC None seen (0-5/HPF) Urine WBC None seen (0-5/HPF) Ur Squamous Epith Cells 0-1 /hpf D (0-5/HPF) Urine Bacteria None seen (None) Ur Culture Indicated? Cult not indicated Vol Urine Centrifuged 10ml (spun) Salicylates < 1.0 (<20) mg/dL U Opiates 300ng/mL cut Negative (Negative) Ur Oxycodone Screen Negative (Negative) Urine Methadone Screen Negative (Negative) Acetaminophen < 10 (10-30) ug/mL Ur Barbiturates Screen Negative (Negative) U Tricyclic Antidepress Negative (Negative) Ur Phencyclidine Scrn Negative (Negative) Ur Amphetamines Screen Negative (Negative) U Methamphetamines Scrn Negative (Negative) Ur MDMA Scrn (Ecstasy) Negative (Negative) U Benzodiazepines Scrn Negative (Negative) Urine Cocaine Screen Negative (Negative) U Marijuana (THC) Screen Negative (Negative) Urine Specific Felicity Not Reportable Ethyl Alcohol < 10 ( - 10) mg/dL Ur Creatinine Not Reportable SARS-CoV-2 (PCR) Negative (Negative) 07/04/23 Range/Units 07:07 WBC (4.5-11.0) X10^3/uL RBC (4.0-5.2) X10^6/uL Hgb (12.0-16.0) g/dL Hct (36-46) % MCV (80-100) fL MCH (26-34) PG MCHC (30-36) % RDW (11.6-14.8) % Plt Count (150-400) X10^3/uL Neut % (Auto) (50-75) % Lymph % (Auto) (25-40) % Vermillion % (Auto) (3-14) % Eos % (Auto) (2-4) % Baso % (Auto) (0-2) % Neut # (Auto) (7164-6887) /uL Lymph # (Auto) (7231-5754) /uL Vermillion # (Auto) (0-900) /uL Eos # (Auto) (0-450) /uL Baso # (Auto) (0-100) /uL Sodium (137-145) mmol/L Potassium (3.4-5.1) mmol/L Chloride (98-107) mmol/L Carbon Dioxide (22-32) mmol/L BUN (7-17) mg/dL Creatinine (0.52-1.04) mg/dL Estimated GFR (>60) mL/min BUN/Creatinine Ratio (6-22) Glucose (80-110) mg/dL Lactate (0.7-2.1) mmol/L Calcium (8.4-10.2) mg/dL Magnesium 2.0 (1.6-2.3) mg/dL Total Bilirubin (0.2-1.3) mg/dL AST (14-36) IU/L ALT (<35) IU/L Alkaline Phosphatase (38-126) U/L Total Creatine Kinase (30-135) U/L Troponin I (0.01-0.034) ng/mL Total Protein (6.3-8.2) g/dL Albumin (3.5-5.0) g/dL Globulin (1.7-4.1) g/dL Albumin/Globulin Ratio (1.0-2.8) TSH (0.47-4.68) uIU/mL Urine Color Urine Appearance Urine pH (4.5-8.0) Ur Specific Felicity (1.000-1.035) Urine Protein (Negative) Urine Glucose (UA) (Negative) g/dL Urine Ketones (NEGATIVE) Urine Occult Blood (Negative) Urine Nitrate (Negative) Urine Bilirubin (NEGATIVE) Urine Urobilinogen (0.2) E.U./dL Ur Leukocyte Esterase (NEGATIVE) Urine RBC (0-5/HPF) Urine WBC (0-5/HPF) Ur Squamous Epith Cells (0-5/HPF) Urine Bacteria (None) Ur Culture Indicated? Vol Urine Centrifuged Salicylates (<20) mg/dL U Opiates 300ng/mL cut (Negative) Ur Oxycodone Screen (Negative) Urine Methadone Screen (Negative) Acetaminophen (10-30) ug/mL Ur Barbiturates Screen (Negative) U Tricyclic Antidepress (Negative) Ur Phencyclidine Scrn (Negative) Ur Amphetamines Screen (Negative) U Methamphetamines Scrn (Negative) Ur MDMA Scrn (Ecstasy) (Negative) U Benzodiazepines Scrn (Negative) Urine Cocaine Screen (Negative) U Marijuana (THC) Screen (Negative) Urine Specific Felicity Ethyl Alcohol ( - 10) mg/dL Ur Creatinine SARS-CoV-2 (PCR) (Negative) Imaging Data CT scan - head: Radiologist's Impression: PROCEDURE: CT HEAD/BRAIN WO CON INDICATIONS: increasing confusion TECHNIQUE: Noncontrast 4.5 mm thick angled axial sections acquired from the foramen magnum to the vertex, with coronal and sagittal reformats. For radiation dose reduction, the following was used: automated exposure control, adjustment of mA and/or kV according to patient size. COMPARISON: [facility], CT, CT HEAD/BRAIN WO CON, 07/15/2018, 8:46. [facility], CT, CT HEAD/BRAIN WO CON, 07/08/2018, 12:04. FINDINGS: Image quality: Diagnostic. CSF spaces: Basal cisterns are patent. No extra-axial fluid collections. The ventricles are symmetric in size and shape. Brain: No intracranial bleeds or masses. There is cerebral volume loss for age, with resultant ventricular and sulcal prominence. There are periventricular and deep white matter chronic small vessel ischemic changes. There is intracranial internal carotid artery atherosclerosis. Skull and face: Calvarium and visualized facial bones appear intact, without suspicious lesions. Sinuses: Visualized sinuses and mastoids are clear. IMPRESSION: No acute intracranial pathology. Quality of visualization is somewhat limited by patient motion during image acquisition. Dictated by: Nilton Barcenas M.D. on 07/04/2023 at 0:54 Approved by: Nilton Barcenas M.D. on 07/04/2023 at 0:55 CT scan - abdomen/pelvis: Radiologist's Impression: PROCEDURE: CT ABDOMEN PELVIS W CON INDICATIONS: rlq pain TECHNIQUE: After the administration of intravenous contrast, axial sections acquired from the lung bases to the pubic symphysis. Coronal and sagittal reformats were performed. For radiation dose reduction, the following was used: automated exposure control, adjustment of mA and/or kV according to patient size. COMPARISON: None. FINDINGS: Image quality: Diagnostic. Lower Chest: No significant findings. ABDOMEN: Liver: No solid mass. Gallbladder: No radiopaque gallstones or wall thickening. Biliary ducts: No biliary dilation. Pancreas: No ductal dilation. Spleen: Size is within normal limits. Adrenal Glands: No adrenal nodules. Kidneys and Ureters: No hydronephrosis. No solid mass. No complex renal cystic lesion which requires follow up. Stomach and Bowel: Normal colonic caliber, without significant wall thickening. Peritoneum: No abnormal intraperitoneal fluid. No free air. Ventral Wall: No hernia. Abdominal Nodes: No retroperitoneal or mesenteric adenopathy by size criteria. Vessels: Aorta and inferior vena cava are normal in size. PELVIS: Pelvic Organs: Unremarkable. Bladder: Unremarkable. Pelvic Nodes: No enlarged lymph nodes. Miscellaneous: No inguinal hernias are seen. Bones: No aggressive osseous abnormality. IMPRESSION: No acute disease. A normal or abnormal appendix could not be located. No secondary CT evidence of acute appendicitis is found, however. Dictated by: Nilton Barcenas M.D. on 07/04/2023 at 1:08 ECG Data Interpretation: Sinus rhythm rate 71 MS interval 142 QRS [address] changes no T-wave inversions MDM Narrative Medical decision making narrative: Patient is 68-year-old female presents today with paranoia hallucinations. She is talking about a fiberoptic cable and demand name Juan Carlos. Family states that this is very abnormal. Blood work and imaging have been reviewed blood work does not show any significant abnormality no leukocytosis no anemia no electrolyte abnormality negative for toxins no UTI today thyroid is normal Imaging head CT and abdominal CT do not show any abnormalities Speaking at length with family and patient patient is actually voluntary and would like to get some help. [facility] is reviewing. Patient signed out to Dr. Gomez <Nuno Gomez, DO - Last Filed: 07/04/23 17:40> Lab Data Labs: Lab Results 07/03/23 07/04/23 07/04/23 Range/Units 23:55 02:00 02:00 WBC 9.1 (4.5-11.0) X10^3/uL RBC 5.04 (4.0-5.2) X10^6/uL Hgb 15.3 (12.0-16.0) g/dL Hct 45.2 (36-46) % MCV 89.7 (80-100) fL MCH 30.4 (26-34) PG MCHC 33.9 (30-36) % RDW 13.6 (11.6-14.8) % Plt Count 254 (150-400) X10^3/uL Neut % (Auto) 66.5 (50-75) % Lymph % (Auto) 26.4 (25-40) % Vermillion % (Auto) 6.1 (3-14) % Eos % (Auto) 0.2 L (2-4) % Baso % (Auto) 0.8 (0-2) % Neut # (Auto) 6000 (3709-3705) /uL Lymph # (Auto) 2400 (4177-1254) /uL [place]illion # (Auto) 600 (0-900) /uL Eos # (Auto) 0 (0-450) /uL Baso # (Auto) 100 (0-100) /uL Sodium 138 (137-145) mmol/L Potassium 4.5 (3.4-5.1) mmol/L Chloride 102 (98-107) mmol/L Carbon Dioxide 23 (22-32) mmol/L BUN 17 (7-17) mg/dL Creatinine 0.72 (0.52-1.04) mg/dL Estimated GFR > 60 (>60) mL/min BUN/Creatinine Ratio 23.6 H (6-22) Glucose 111 H (80-110) mg/dL Lactate 1.8 (0.7-2.1) mmol/L Calcium 10.2 (8.4-10.2) mg/dL Magnesium (1.6-2.3) mg/dL Total Bilirubin 1.1 (0.2-1.3) mg/dL AST 45 H (14-36) IU/L ALT 29 (<35) IU/L Alkaline Phosphatase 90 (38-126) U/L Total Creatine Kinase 65 (30-135) U/L Troponin I < 0.012 (0.01-0.034) ng/mL Total Protein 9.2 H (6.3-8.2) g/dL Albumin 5.0 (3.5-5.0) g/dL Globulin 4.2 H (1.7-4.1) g/dL Albumin/Globulin Ratio 1.2 (1.0-2.8) TSH 2.04 (0.47-4.68) uIU/mL Urine Color Yellow Urine Appearance Clear Urine pH 5.0 Not Reportable (4.5-8.0) Ur Specific Felicity 1.015 (1.000-1.035) Urine Protein Negative (Negative) Urine Glucose (UA) Negative (Negative) g/dL Urine Ketones 1+ H (NEGATIVE) Urine Occult Blood Negative (Negative) Urine Nitrate Negative (Negative) Urine Bilirubin Negative (NEGATIVE) Urine Urobilinogen 0.2 (0.2) E.U./dL Ur Leukocyte Esterase Negative (NEGATIVE) Urine RBC None seen (0-5/HPF) Urine WBC None seen (0-5/HPF) Ur Squamous Epith Cells 0-1 /hpf D (0-5/HPF) Urine Bacteria None seen (None) Ur Culture Indicated? Cult not indicated Vol Urine Centrifuged 10ml (spun) Salicylates < 1.0 (<20) mg/dL U Opiates 300ng/mL cut Negative (Negative) Ur Oxycodone Screen Negative (Negative) Urine Methadone Screen Negative (Negative) Acetaminophen < 10 (10-30) ug/mL Ur Barbiturates Screen Negative (Negative) U Tricyclic Antidepress Negative (Negative) Ur Phencyclidine Scrn Negative (Negative) Ur Amphetamines Screen Negative (Negative) U Methamphetamines Scrn Negative (Negative) Ur MDMA Scrn (Ecstasy) Negative (Negative) U Benzodiazepines Scrn Negative (Negative) Urine Cocaine Screen Negative (Negative) U Marijuana (THC) Screen Negative (Negative) Urine Specific Felicity Not Reportable Ethyl Alcohol < 10 ( - 10) mg/dL Ur Creatinine Not Reportable SARS-CoV-2 (PCR) Negative (Negative) 07/04/23 Range/Units 07:07 WBC (4.5-11.0) X10^3/uL RBC (4.0-5.2) X10^6/uL Hgb (12.0-16.0) g/dL Hct (36-46) % MCV (80-100) fL MCH (26-34) PG MCHC (30-36) % RDW (11.6-14.8) % Plt Count (150-400) X10^3/uL Neut % (Auto) (50-75) % Lymph % (Auto) (25-40) % [place] % (Auto) (3-14) % Eos % (Auto) (2-4) % Baso % (Auto) (0-2) % Neut # (Auto) (0114-7392) /uL Lymph # (Auto) (9940-0206) /uL Vermillion # (Auto) (0-900) /uL Eos # (Auto) (0-450) /uL Baso # (Auto) (0-100) /uL Sodium (137-145) mmol/L Potassium (3.4-5.1) mmol/L Chloride (98-107) mmol/L Carbon Dioxide (22-32) mmol/L BUN (7-17) mg/dL Creatinine (0.52-1.04) mg/dL Estimated GFR (>60) mL/min BUN/Creatinine Ratio (6-22) Glucose (80-110) mg/dL Lactate (0.7-2.1) mmol/L Calcium (8.4-10.2) mg/dL Magnesium 2.0 (1.6-2.3) mg/dL Total Bilirubin (0.2-1.3) mg/dL AST (14-36) IU/L ALT (<35) IU/L Alkaline Phosphatase (38-126) U/L Total Creatine Kinase (30-135) U/L Troponin I (0.01-0.034) ng/mL Total Protein (6.3-8.2) g/dL Albumin (3.5-5.0) g/dL Globulin (1.7-4.1) g/dL Albumin/Globulin Ratio (1.0-2.8) TSH (0.47-4.68) uIU/mL Urine Color Urine Appearance Urine pH (4.5-8.0) Ur Specific Felicity (1.000-1.035) Urine Protein (Negative) Urine Glucose (UA) (Negative) g/dL Urine Ketones (NEGATIVE) Urine Occult Blood (Negative) Urine Nitrate (Negative) Urine Bilirubin (NEGATIVE) Urine Urobilinogen (0.2) E.U./dL Ur Leukocyte Esterase (NEGATIVE) Urine RBC (0-5/HPF) Urine WBC (0-5/HPF) Ur Squamous Epith Cells (0-5/HPF) Urine Bacteria (None) Ur Culture Indicated? Vol Urine Centrifuged Salicylates (<20) mg/dL U Opiates 300ng/mL cut (Negative) Ur Oxycodone Screen (Negative) Urine Methadone Screen (Negative) Acetaminophen (10-30) ug/mL Ur Barbiturates Screen (Negative) U Tricyclic Antidepress (Negative) Ur Phencyclidine Scrn (Negative) Ur Amphetamines Screen (Negative) U Methamphetamines Scrn (Negative) Ur MDMA Scrn (Ecstasy) (Negative) U Benzodiazepines Scrn (Negative) Urine Cocaine Screen (Negative) U Marijuana (THC) Screen (Negative) Urine Specific Felicity Ethyl Alcohol ( - 10) mg/dL Ur Creatinine SARS-CoV-2 (PCR) (Negative) MDM Narrative Medical decision making narrative: Patient is 68-year-old female presents today with paranoia hallucinations. She is talking about a fiberoptic cable and demand name Juan Carlos. Family states that this is very abnormal. Blood work and imaging have been reviewed blood work does not show any significant abnormality no leukocytosis no anemia no electrolyte abnormality negative for toxins no UTI today thyroid is normal Imaging head CT and abdominal CT do not show any abnormalities Speaking at length with family and patient patient is actually voluntary and would like to get some help. [facility] is reviewing. Patient signed out to Dr. Patricia Gomez: Received turned over. Review patient's history and physical exam. Yesterday the patient was diagnosed with a urinary tract infection however the review of those notes show that her urinalysis had leukocyte esterase however the micro had bacteria but also quite a few epi cells. She was not having symptoms of the time. I question as to whether or not this is actually a urinary tract infection. Urine culture was pending. It also appears that the patient's symptoms that she presents with today have been going on longer than just the past couple days. Patient has been seen by social work. No facilities have capability of accepting patient. Family was comfortable taking patient home. They stated that the patient has been prescribed new anxiety medicine but she is yet to take this. I recommend that they start taking this. Will have them follow-up with primary care provider. They were given return precautions. They expressed understanding and agreement. Discharge Plan Departure Patient Disposition: Home Clinical Impression: Anxiety, Hallucinations, Mixed hyperlipidemia Instructions: DI for Anxiety -- Adult Activity Restrictions/Additional Instructions: Recommend that Lisette continue to take all of her medications as directed to include the antibiotics that she was just prescribed a couple days ago. I also recommend that you start the anxiety medicine that was prescribed previously. Your primary doctor will receive an e-mail along with the emergency department social media senior associate to try to help schedule follow-up appointments. Return to the emergency department for new or worsening symptoms. Prescriptions: No Action phenazopyridine [Pyridium] 200 mg tablet 200 mg PO TID PRN (Reason: pain) Qty: 6 0RF nitrofurantoin monohyd/m-cryst [Macrobid] 100 mg capsule 100 mg PO Q12H 5 Days Qty: 10 0RF Rx Instructions: must administer with a meal/food losartan 50 mg tablet 50 mg PO DAILY Qty: 90 3RF metoprolol succinate 25 mg tablet extended release 24 hr 12.5 mg PO DAILY Qty: 45 3RF rosuvastatin 10 mg tablet 10 mg PO QPM Qty: 90 3RF Vimpat 100 mg tablet See Rx Instructions PO BID Rx Instructions: 1 1/2 TABS PO BID escitalopram oxalate 10 mg tablet 10 mg PO DAILY Rx Instructions: taking half tab for one week Referrals: Navneet Restrepo ARNP [Primary Care Provider] - Stand Alone Forms: Patient Portal/API
[2023-07-04 01:26] VITALS: BP 163/72; PULSE 70; RESP 18; O2SAT 98
[2023-07-04 02:19] LABS: Urine Amphetamines Negative (Negative); Urine Barbiturates Negative (Negative); Urine Benzodiazepines Negative (Negative); Urine Cocaine Negative (Negative); Urine MDMA Negative (Negative); Urine Methadone Negative (Negative); Urine Methamphetamines Negative (Negative); Urine Opiates Negative (Negative); Urine Oxycodone Negative (Negative); Urine Phencyclidine Negative (Negative); Urine THC Negative (Negative); Urine Tricyclic Antidepressant Negative (Negative)
[2023-07-04 02:24] LABS: COVID19 -Nasal RAPID Negative (Negative)
[2023-07-04 02:45] LABS: Appearance Urine UA CLEAR; Bilirubin Urine UA NEGATIVE (NEGATIVE); Color Urine UA YELLOW; Glucose Urine UA NEGATIVE (Negative); Ketones Urine UA 1+ (NEGATIVE); Leukocyte Esterase Urine UA NEGATIVE (NEGATIVE); Nitrite Urine UA NEGATIVE (Negative); Occult Blood Urine UA NEGATIVE (Negative); Protein Urine UA NEGATIVE (Negative); Specific Gravity Urine UA 1.015 (1.000-1.035); Urobilinogen Urine UA 0.2 E.U./dL (0.2)
[2023-07-04 02:52] LABS: Bacteria Urine None Seen; Culture Indicated Urine Cult Not Indicated; RBC Urine None Seen (0-5/HPF); Squamous Epithelial Cell Urine 0-1 /HPF (0-5/HPF); Urine Volume 10mL (spun); WBC Urine None Seen (0-5/HPF)
[2023-07-04 06:00] VITALS: BP 148/61; PULSE 84; RESP 16; TEMP 36.6; O2SAT 98
--- NOTE | 2023-07-04 06:44 | PC.NURSE ---
Received call from [facility] inpt psych staff. Updated information provided. States she will be presenting pt during rounds at 0700 & will call back to let us know if they will accept pt.
--- NOTE | 2023-07-04 07:38 | PC.NURSE ---
TAE from [facility] inpatient psych called to inform us they would be unable to accept patient due to her lack of prior psych history and having a UTI yesterday. He states his provider thinks the patient needs to clear up from the UTI.
--- NOTE | 2023-07-04 09:25 | PC.NURSE ---
Pt's son reports over the past year that patient has been experiencing her talking to her in his sleep, per the pt's son. Son reports that they didnt think anything concerning about this at the time, since the has been known to talk in his sleep previously. However, now patient is talking to people who are not present, and son explains how the patient believes there is something wrong with her guts all shifted towards one side of her body. She talks about a doctor who is going to come to the house to visit and explain everything that is wrong with her abdomen to us ( and son). Pt's son describes pt as being paranoid. He mentioned patient being seen at [facility] ago for a seizure, which may have been due to excessive stress at that time. Pt's son reports that patient will say things that make sense, and then add nonsense that doesnt make sense.
--- NOTE | 2023-07-04 11:14 | CM.SWNOTE ---
Discharge Planning/Care Management ED Psychiatric Symptoms Assessment Start: 07/03/23 22:44 Freq: Status: Active Protocol: Document 07/03/23 22:47 GC (Rec: 07/03/23 23:27 GC [id number]) Psychiatric Symptoms Assessment Symptoms/Complaint Altered Mental Status Duration Changing Over Time History Of Same No Context Significant Life Stressor, Unknown Improves With Nothing Worsens With Nothing Associated Psychiatric Symptoms Delusions Associated Symptoms Confusion Level of Observation Continuous Precautions Safety precautions initiated Safety Interventions Constant observation Level of Consciousness Alert,Inappropriate Patient Orientation Name Patient Behavior/Mood Confused,Fearful,Suspicious, Uncooperative Ability to Follow Directions Fair Patient Cognition Impaired Yes Affect Description Fearful,Suspicious Patient Appearance Well Groomed Thought Process: Disorganized,Confabulating Nausea/Vomiting None Document 07/04/23 00:44 GC (Rec: 07/04/23 02:12 GC [id number]) Psychiatric Symptoms Assessment Symptoms/Complaint Altered Mental Status Duration Intermittent History Of Same No Context Significant Life Stressor, Unknown Improves With Nothing Worsens With Nothing Associated Psychiatric Symptoms Delusions Associated Symptoms Confusion Level of Observation Continuous Precautions Safety precautions initiated Room placement non-ligature mitigated room Level of Consciousness Alert,Awake,Disoriented, Inappropriate Patient Orientation Name Patient Behavior/Mood Anxious,Confused,Suspicious Patient Cognition Impaired Yes Affect Description Suspicious Patient Appearance Well Groomed Nausea/Vomiting None Document 07/04/23 02:00 GC (Rec: 07/04/23 05:27 GC [id number]) Psychiatric Symptoms Assessment Patient sleeping - not awakened for Yes: Family at bedside symptom reassessment Document 07/04/23 04:00 GC (Rec: 07/04/23 05:27 GC [id number]) Psychiatric Symptoms Assessment Patient sleeping - not awakened for Yes symptom reassessment [employer] - 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 Pt has normal mental status at baseline, is followed for a seizure disorder and has chronic anxiety, but no hx of psychiatric episodes in the past. She is reportedly responding to internal stimuli -auditory and visual, and became agitated last night stating that some man was trying to do experiments on her with a fiber optic cable, that her intestines were on the wrong side of her body, hearing and responding to voices. She is found to be calm and cooperative in the ED . Both her son and are at bedside and very supportive. Precipitating Event(s) Family share that pt has had several recent family deaths very close together, as well as resulting conflicts and stress over some members of her family contesting her mother's Last Will and Testament. She was seen in the walk-in clinic yesterday and was diagnosed with a UTI, however her ED evaluation was negative for a UTI. The ED provider feels as though this is an acute psychotic episode most likely triggered by a series of stressful life events-family agree. In October of last year her mother , 2- weeks later her dwbwsmf-[id number] , then a few weeks later she found out her had cancer. Pt was started on Lorazam once in the ED, however she has not had any since around midnight. She remains altered, is still hallucinating and delusional, but oriented to self, place. Family had initially wanted inpt voluntary psychiatric placement, however they don't want her to be placed outside of the area. [facility] declined, [facility] declined, [facility] will have a bed tomorrow and will continue to review. Family would prefer OP f/u by her PCP , if pt is able to be started on an appropriate antipsychotic here in the ED. ED team is exploring the possibility of getting a provider/provider consult from Psychiatry today if possible. Patient Strengths Pt is aware that she is not thinking clearly, she demonstrates strong family trust and connections here in the ED, and is expressing wanting help. Current Behavioral Health Provider(s) N/A Include Facility, Provider, Ph. # Psych. Hx Mental Health and Chemical N/A Dependency Family Hx of Behavioral Abuse N/A Psychosocial information & Support Family Systems Presenting Problem N/A Legal Matters - Outstanding Issues None Orientation (Person/Place/Time) Person/Place, confusional overall, looks to family for cueing. Stated Mood Calm, cooperative Affect (Congruent with Mood?) Affect is congruent w/mood Thought Content - Specify/Describe Some of her memory is intact Obsessions, Delusions, Hallucinations re: recalling events, although the timing is off. She continues to think a man is coming to explain to her why her intestines are on the opposite side of her body, and is complaining of flank pain (no medical evidence of cause) . She still believes that this man was experimenting on her, and is responding to internal stimuli. Thought Processes (Fznygof-Mvtqwqiz-Lfti disorganized/psychosis Npyubhec-Ipuujeqr-Sldleykylf- Crlesguqhxtykg-Wcxjvqu-Qahinmacjhlh- Thought Blocking) Speech (Fucigc-Ugwg-Ozdzzmd-Rapid-Soft- slow Loud-Pressured) Motor (Vdelev-Iilmqhqml-Bcuq-Other) slow Insight (Sllj-Edqq-Dgvh/Limited) poor Judgement (Ycfs-Zggl-Aiyi/Limited) poor Impulse Control (Adequate-Impaired) impaired Memory (Tbcztsunt-Vsznnw-Wstuoo, remote Impaired-Intact) Concentration (Intact-Impaired) impaired Attention (Intact-Impaired) impaired Behavior (Appropriate-Inappropriate) appropriate Suicidal Ideation (Plan) No Homicidal Ideation (Plan) No Intervention Met with family and assessment their concerns and the events precipitating her need for emergency intervention. ED staff have already ruled out 2 -primary, local psych facilites for placement, this [employer] INST[employer]ER will explore if there are any further inpt options in the local area, otherwise family prefer OP f/u. RA Plan [employer] D[employer] INSTALLER will explore a few more inpt voluntary placement options, however family does not want pt to be placed outside of the immediate area. Secondary plan is to possibly start an antipsychotic here in the ED, with immediate OP f /u with her PCP, Navneet Restrepo, once d/c'd, hopefully at the first of the week. This [employer] D[employer] INSTALLER will notify her PCP of this ED encounter and need for urgent f/u.
[2023-07-04 12:44] VITALS: BP 137/66; PULSE 86; RESP 16; O2SAT 18
--- NOTE | 2023-07-04 18:27 | DI.RAD.S_ITS ---
PROCEDURE: XR CHEST 1V INDICATIONS: possible infections TECHNIQUE: One view of the chest was acquired. COMPARISON: [facility], CR, XR CHEST 1V, 07/08/2018, 18:46. [facility], CT, CT ABDOMEN PELVIS W CON, 07/04/2023, 0:34. [facility], CR, XR CHEST 1V, 07/15/2018, 9:21. FINDINGS: Surgical changes and devices: None. Lungs and pleura: Lungs are clear. No pleural effusions or pneumothorax. Mediastinum: The cardiac contours are within normal limits. The aorta demonstrates calcification and tortuosity. Bones and chest wall: No suspicious bony lesions. Overlying soft tissues appear unremarkable. IMPRESSION: No acute cardiopulmonary abnormality is seen. No focal infiltrates are seen. Dictated by: Clayton Estrada M.D. on 07/04/2023 at 17:51 Approved by: Clayton Estrada M.D. on 07/04/2023 at 17:52
== END 2023-07-04 12:48 | disposition home or self-care (01) ==
PROVIDERS: Emergency Medicine; Emergency Provider Emergency Medicine; PCP Registered Nurse Diabetes Educator
DX: F41.9 Anxiety disorder, unspecified (principal); R44.3 Hallucinations, unspecified; R41.0 Disorientation, unspecified; E78.2 Mixed hyperlipidemia; R10.31 Right lower quadrant pain; Z20.822 Contact with and (suspected) exposure to COVID-19
CPT/HCPCS: 36415; 70450; 71045; 74177; 80053; 80305; 80320; 80329; 81001; 82550; 83605; 83735; 84443; 84484; 85025; 87635; 93005; 96374; 99284; G0480; J2060; Q9967

== ENCOUNTER 2023-07-04 16:38 | Emergency (ER) | payer MEDICARE, OTHER, SELFPAY ==
[2021-08-01 15:27] VITALS: BMI 29.5
[2023-07-04 16:42] VITALS: BP 110/59; PULSE 57; RESP 14; TEMP 36.4; O2SAT 98; BMI 25.4
--- NOTE | 2023-07-04 17:48 | PC.NURSE ---
Addendum entered by Tamika Carrizales R.N. 07/04/23 20:41: Woke patient up repositioning blood pressure cuff, appeared briefly confused but once fully awake patient knew situation and place. Son who is present in the room asked if patient was given anything to help her sleep, notified him that she had not. Original Note: During assessment patient answered all the alert and oriented questions correctly, denied auditory or visual hallucinations. , Jose, and son, Rodriguez, endorse paranoia that she is full of radioactive material that will rupture from her which occurred during c/o nausea with vomiting. Patient does endorse nausea during assessment. Family states patient immediately fell asleep when she got home and after her episode of vomiting laid on the floor in a ball. Patient appears tired, keeping eyes closed during assessment and attempts to start IV, but is cooperative. Both and son state they have not had much sleep recently. Son states that patient appeared more lucid prior to discharge and is concerned with new episode of paranoia. Patient denies SI/HI.
[2023-07-04 18:00] LABS: Add Manual Diff / Slide Review NO; Basophils Absolute Auto 0 /uL (0-100); Basophils Percent Auto 0.4 % (0-2); Eosinophils Absolute Auto 0 /uL (0-450); Hemoglobin 13.7 g/dL (12.0-16.0); Lymphocytes Absolute Auto 900 /uL (1100-4500); Lymphocytes Percent Auto 6.6 % (25-40); Mean Corpuscular HGB Conc 33.5 % (30-36); Mean Corpuscular Hemoglobin 29.7 PG (26-34); Mean Corpuscular Volume 88.6 fL (80-100); Monocytes Absolute Auto 600 /uL (0-900); Monocytes Percent Auto 4.2 % (3-14); Neutrophils Absolute Auto 12400 /uL (1500-7000); Neutrophils Percent Auto 88.8 % (50-75); Platelet Count 213 X10^3/uL (150-400); Red Blood Cell Count 4.62 X10^6/uL (4.0-5.2)
[2023-07-04 18:17] LABS: Acetaminophen < 10 ug/mL (10-30); Alanine Aminotransferase 22 IU/L (<35); Albumin 4.4 g/dL (3.5-5.0); Albumin Globulin Ratio 1.3 (1.0-2.8); Alkaline Phosphatase 85 U/L (38-126); Aspartate Aminotransferase 28 IU/L (14-36); BUN Creatinine Ratio 23.9 (6-22); Bilirubin Total 0.7 mg/dL (0.2-1.3); Blood Urea Nitrogen 17 mg/dL (7-17); Calcium 9.6 mg/dL (8.4-10.2); Carbon Dioxide 27 mmol/L (22-32); Chloride 102 mmol/L (98-107); Estimated Glomerular Filt Rate > 60 mL/min (>60); Ethanol (ETOH) < 10 mg/dL; Globulin 3.3 g/dL (1.7-4.1); Glucose 128 mg/dL (80-110); HEMOLYSIS < 15 (0-50); Magnesium 1.9 mg/dL (1.6-2.3); Potassium 4.2 mmol/L (3.4-5.1); Salicylate < 1.0 mg/dL (<20); Sodium 139 mmol/L (137-145); Total Protein 7.7 g/dL (6.3-8.2)
[2023-07-04 18:23] LABS: COVID19 -Nasal RAPID Negative (Negative)
[2023-07-04 18:39] VITALS: PULSE 64; O2SAT 100
--- NOTE | 2023-07-04 18:44 | ED_ITS ---
HPI - Psych <Marquita Faria DO - Last Filed: 07/06/23 00:53> General Chief Complaint: Psychiatric Symptoms Stated Complaint: PSYCH ISSUE Time Seen by Provider: 07/04/23 16:59 Source: patient and family Mode of arrival: Ambulatory History of Present Illness HPI Narrative: Patient is 68-year-old female history of anxiety seen evaluated by myself last night monitored attempted placement for paranoia social work was involved in care but unfortunately no bed availability. Family chose to take patient home. She was released about 4 hours ago and returns with ongoing symptoms. Family previously at bedside all night last night but not present now. Family per nursing no reports that she is full of radioactive material rupture from her. She apparently had an episode of vomiting and laid on the floor. She had full workup yesterday including head CT abdominal CT blood work. She is currently calm minimally participating in questioning and exam. Son at bedside state that they went home but then she threw up once and started having some paranoid thoughts about radioactive activity. He has been calm and cooperative here no obvious evidence of paranoia today Related Data Home Medications Medication Instructions Recorded Confirmed escitalopram oxalate 10 mg tablet 10 mg PO DAILY 07/04/23 07/05/23 lacosamide 100 mg tablet (Vimpat) See Rx Instructions PO BID 07/05/23 07/05/23 Previous Rx's Medication Instructions Recorded losartan 50 mg tablet 50 mg PO DAILY #90 tabs 10/06/22 metoprolol succinate 25 mg 12.5 mg (1/2 x 25 mg) PO DAILY #45 10/06/22 tablet,extended release 24 hr tabs rosuvastatin 10 mg tablet 10 mg PO QPM #90 tabs 10/06/22 nitrofurantoin 100 mg PO Q12H 5 days #10 caps 07/02/23 monohydrate/macrocrystals 100 mg capsule (Macrobid) Allergies Allergy/AdvReac Type Severity Reaction Status Date / Time No Known Drug Allergies Allergy Verified 07/05/23 17:10 Patient History <Marquita Faria DO - Last Filed: 07/06/23 00:53> Medical History Anxiety Migraines Mixed hyperlipidemia (05/28/16) Essential hypertension (05/28/16) Surgical History Hx of section (~1980) Family History Father History of high blood pressure Social History household members: spouse and children Smoking Status: Never smoker second hand exposure: No alcohol intake: never substance use type: does not use Smoking Status: Never smoker alcohol intake frequency: 0-2 drinks per day Substance Use Type: does not use Exam <Marquita Faria DO - Last Filed: 07/06/23 00:53> Initial Vital Signs Initial Vital Signs: Vital Signs Temperature 97.6 F 07/04/23 16:42 Pulse Rate 57 L 07/04/23 16:42 Respiratory Rate 14 07/04/23 16:42 Blood Pressure 110/59 L 07/04/23 16:42 Pulse Oximetry 98 07/04/23 16:42 Oxygen Delivery Method Room Air 07/04/23 16:42 GENERAL: Alert 68-year-old female HEENT: Head atraumatic,EOMI, pupils reactive, face symmetric, moist mucous membranes CARDIOVASCULAR: Regular rate and rhythm without murmurs, rubs or gallops. RESPIRATORY: Breath sounds equal bilaterally, no wheezes rales or rhonchi. ABDOMEN: Soft, nontender. Normoactive bowel sounds all 4 quadrants. No guarding or rebound. EXTREMITIES: Normal range of motion, no clubbing or edema. Neurovascularly intact NEUROLOGICAL: No focal deficits SKIN: Warm, dry, no laceration, no petechiae, no rashes or lesions. <Yanci Han DO - Last Filed: 07/06/23 09:38> Initial Vital Signs Initial Vital Signs: Vital Signs Temperature 97.6 F 07/04/23 16:42 Pulse Rate 57 L 07/04/23 16:42 Respiratory Rate 14 07/04/23 16:42 Blood Pressure 110/59 L 07/04/23 16:42 Pulse Oximetry 98 07/04/23 16:42 Oxygen Delivery Method Room Air 07/04/23 16:42 Procedures <Marquita Faria DO - Last Filed: 07/06/23 00:53> Lumbar Puncture Patient Position: upright Skin Prep: 0.5% Chlorhexidine/Alcohol Local Anesthetic: lidocaine 1% Amount of anesthesia used (mL): 5 Spinal Needle Gauge: 20G Interspace Used: L4-L5 Complications: Need to have other Practitioner Attempt and unable to obtain CSF Course <Marquita Faria DO - Last Filed: 07/06/23 00:53> Orders Ordered: Discontinued Medications Sodium Chloride (Normal Saline 0.9%) 1,000 mls @ 1,000 mls/hr IV BOLUS ONE Stop: 07/04/23 23:19 Last Infusion: 07/04/23 23:40 Dose: Infused Documented By: Admin: 07/04/23 22:22 Dose: 1,000 mls/hr Documented By: SB Sodium Chloride (Normal Saline 0.9%) 1,000 mls @ 150 mls/hr IV CONT LUIS Last Infusion: 07/05/23 08:31 Dose: Infused Documented By: Admin: 07/04/23 23:46 Dose: 150 mls/hr Documented By: RUBIO Lidocaine HCl (Lidocaine 1% (Pf) 5 Ml) 5 ml INJ NOW ONE Stop: 07/04/23 22:14 Last Admin: 07/04/23 22:19 Dose: 5 ml Documented By: SB Vital Signs Vital signs: Vital Signs - 8 hr 07/05/23 01:40 07/05/23 04:33 07/05/23 05:00 Pulse Rate 84 Respiratory Rate 18 Blood Pressure 145/66 H 115/58 L 128/61 Pulse Oximetry 97 Oxygen Delivery Method Room Air 07/05/23 05:30 Pulse Rate Respiratory Rate Blood Pressure 122/59 L Pulse Oximetry Oxygen Delivery Method <Yanci Han, - Last Filed: 07/06/23 09:38> Orders Ordered: Discontinued Medications Sodium Chloride (Normal Saline 0.9%) 1,000 mls @ 1,000 mls/hr IV BOLUS ONE Stop: 07/04/23 23:19 Last Infusion: 07/04/23 23:40 Dose: Infused Documented By: Admin: 07/04/23 22:22 Dose: 1,000 mls/hr Documented By: SB Sodium Chloride (Normal Saline 0.9%) 1,000 mls @ 150 mls/hr IV CONT LUIS Last Infusion: 07/05/23 08:31 Dose: Infused Documented By: Admin: 07/04/23 23:46 Dose: 150 mls/hr Documented By: RUBIO Lidocaine HCl (Lidocaine 1% (Pf) 5 Ml) 5 ml INJ NOW ONE Stop: 07/04/23 22:14 Last Admin: 07/04/23 22:19 Dose: 5 ml Documented By: SAKINA Vital Signs Vital signs: Vital Signs - 8 hr 07/05/23 01:40 07/05/23 04:33 07/05/23 05:00 Pulse Rate 84 Respiratory Rate 18 Blood Pressure 145/66 H 115/58 L 128/61 Pulse Oximetry 97 Oxygen Delivery Method Room Air 07/05/23 05:30 Pulse Rate Respiratory Rate Blood Pressure 122/59 L Pulse Oximetry Oxygen Delivery Method MDM - Psych <Marquita Faria DO - Last Filed: 07/06/23 00:53> Lab Data 07/05/23 07:20 07/05/23 07:20 Labs: Lab Results 07/04/23 07/04/23 07/04/23 Range/Units 17:55 18:04 18:55 WBC 14.0 H D (4.5-11.0) X10^3/uL RBC 4.62 (4.0-5.2) X10^6/uL Hgb 13.7 (12.0-16.0) g/dL Hct 41.0 (36-46) % MCV 88.6 (80-100) fL MCH 29.7 (26-34) PG MCHC 33.5 (30-36) % RDW 14.0 (11.6-14.8) % Plt Count 213 (150-400) X10^3/uL Neut % (Auto) 88.8 H D (50-75) % Lymph % (Auto) 6.6 L (25-40) % Piatt % (Auto) 4.2 (3-14) % Eos % (Auto) 0.0 L (2-4) % Baso % (Auto) 0.4 (0-2) % Neut # (Auto) 14728 H (5192-0064) /uL Lymph # (Auto) 900 L (1361-8349) /uL Piatt # (Auto) 600 (0-900) /uL Eos # (Auto) 0 (0-450) /uL Baso # (Auto) 0 (0-100) /uL Sodium 139 (137-145) mmol/L Potassium 4.2 (3.4-5.1) mmol/L Chloride 102 (98-107) mmol/L Carbon Dioxide 27 (22-32) mmol/L BUN 17 (7-17) mg/dL Creatinine 0.71 (0.52-1.04) mg/dL Estimated GFR > 60 (>60) mL/min BUN/Creatinine Ratio 23.9 H (6-22) Glucose 128 H (80-110) mg/dL Lactate 1.6 (0.7-2.1) mmol/L Calcium 9.6 (8.4-10.2) mg/dL Magnesium 1.9 (1.6-2.3) mg/dL Total Bilirubin 0.7 (0.2-1.3) mg/dL AST 28 (14-36) IU/L ALT 22 (<35) IU/L Alkaline Phosphatase 85 (38-126) U/L Total Protein 7.7 (6.3-8.2) g/dL Albumin 4.4 (3.5-5.0) g/dL Globulin 3.3 (1.7-4.1) g/dL Albumin/Globulin Ratio 1.3 (1.0-2.8) Procalcitonin 0.04 (<0.5) ng/mL TSH 1.87 (0.47-4.68) uIU/mL Free T4 1.33 (0.78-2.19) ng/dL Urine RBC (0-5/HPF) Urine WBC (0-5/HPF) Ur Squamous Epith Cells (0-5/HPF) Urine Bacteria (None) Ur Culture Indicated? Vol Urine Centrifuged Salicylates < 1.0 (<20) mg/dL U Opiates 300ng/mL cut (Negative) Ur Oxycodone Screen (Negative) Urine Methadone Screen (Negative) Acetaminophen < 10 (10-30) ug/mL Ur Barbiturates Screen (Negative) U Tricyclic Antidepress (Negative) Ur Phencyclidine Scrn (Negative) Ur Amphetamines Screen (Negative) U Methamphetamines Scrn (Negative) Ur MDMA Scrn (Ecstasy) (Negative) U Benzodiazepines Scrn (Negative) Urine Cocaine Screen (Negative) U Marijuana (THC) Screen (Negative) Urine pH Urine Specific [place] Ethyl Alcohol < 10 ( - 10) mg/dL Ur Creatinine SARS-CoV-2 (PCR) Negative (Negative) 07/04/23 07/05/23 Range/Units 22:24 07:20 WBC 9.1 (4.5-11.0) X10^3/uL RBC 3.88 L (4.0-5.2) X10^6/uL Hgb 11.8 L (12.0-16.0) g/dL Hct 34.8 L (36-46) % MCV 89.6 (80-100) fL MCH 30.5 (26-34) PG MCHC 34.0 (30-36) % RDW 14.1 (11.6-14.8) % Plt Count 189 (150-400) X10^3/uL Neut % (Auto) 62.7 D (50-75) % Lymph % (Auto) 28.6 D (25-40) % Piatt % (Auto) 7.4 (3-14) % Eos % (Auto) 0.6 L (2-4) % Baso % (Auto) 0.7 (0-2) % Neut # (Auto) 5700 (3234-1959) /uL Lymph # (Auto) 2600 (4339-7049) /uL Piatt # (Auto) 700 (0-900) /uL Eos # (Auto) 100 (0-450) /uL Baso # (Auto) 100 (0-100) /uL Sodium 138 (137-145) mmol/L Potassium 3.7 (3.4-5.1) mmol/L Chloride 110 H (98-107) mmol/L Carbon Dioxide 24 (22-32) mmol/L BUN 12 (7-17) mg/dL Creatinine 0.59 (0.52-1.04) mg/dL Estimated GFR > 60 (>60) mL/min BUN/Creatinine Ratio 20.3 (6-22) Glucose 84 (80-110) mg/dL Lactate (0.7-2.1) mmol/L Calcium 8.7 (8.4-10.2) mg/dL Magnesium (1.6-2.3) mg/dL Total Bilirubin (0.2-1.3) mg/dL AST (14-36) IU/L ALT (<35) IU/L Alkaline Phosphatase (38-126) U/L Total Protein (6.3-8.2) g/dL Albumin (3.5-5.0) g/dL Globulin (1.7-4.1) g/dL Albumin/Globulin Ratio (1.0-2.8) Procalcitonin (<0.5) ng/mL TSH (0.47-4.68) uIU/mL Free T4 (0.78-2.19) ng/dL Urine RBC None seen (0-5/HPF) Urine WBC 0-1/hpf (0-5/HPF) Ur Squamous Epith Cells 0-1 /hpf (0-5/HPF) Urine Bacteria Occasional (0-1) (None) Ur Culture Indicated? Cult not indicated Vol Urine Centrifuged 10ml (spun) Salicylates (<20) mg/dL U Opiates 300ng/mL cut Negative (Negative) Ur Oxycodone Screen Negative (Negative) Urine Methadone Screen Negative (Negative) Acetaminophen (10-30) ug/mL Ur Barbiturates Screen Negative (Negative) U Tricyclic Antidepress Negative (Negative) Ur Phencyclidine Scrn Negative (Negative) Ur Amphetamines Screen Negative (Negative) U Methamphetamines Scrn Negative (Negative) Ur MDMA Scrn (Ecstasy) Negative (Negative) U Benzodiazepines Scrn Positive H (Negative) Urine Cocaine Screen Negative (Negative) U Marijuana (THC) Screen Negative (Negative) Urine pH Not Reportable Urine Specific [place] Not Reportable Ethyl Alcohol ( - 10) mg/dL Ur Creatinine Not Reportable SARS-CoV-2 (PCR) (Negative) Urine Dip Bedside Urine Glucose Negative Bedside Urine Bilirubin - Negative Bedside Urine Ketone +++ 80 Urine Specific [place] 1.030 Bedside Urine Occult Blood - Negative Bedside Urine pH 5.5 Bedside Urine Protein +/- 15 Bedside Urine Urobilinogen - Negative Bedside Urine Nitrite - Negative Bedside Urine Leukocytes - Negative Esterase Imaging Data Chest x-ray: Radiologist's Impression: PROCEDURE: XR CHEST 1V INDICATIONS: possible infections TECHNIQUE: One view of the chest was acquired. COMPARISON: [facility], CR, XR CHEST 1V, 07/08/2018, 18:46. [facility], CT, CT ABDOMEN PELVIS W CON, 07/04/2023, 0:34. [facility], CR, XR CHEST 1V, 07/15/2018, 9:21. FINDINGS: Surgical changes and devices: None. Lungs and pleura: Lungs are clear. No pleural effusions or pneumothorax. Mediastinum: The cardiac contours are within normal limits. The aorta demonstrates calcification and tortuosity. Bones and chest wall: No suspicious bony lesions. Overlying soft tissues appear unremarkable. IMPRESSION: No acute cardiopulmonary abnormality is seen. No focal infiltrates are seen. Dictated by: Clayton Estrada M.D. on 07/04/2023 at 17:51 MDM Narrative Medical decision making narrative: Patient is a 68-year-old female presenting 2nd time for paranoia. Urine culture grew lactobacillus no evidence of UTI. She is not currently it paranoid and seems okay. Blood work has been reviewed she does leukocytosis of 14 previously 9.1 she is mild left shift, no significant electrolyte lactate 1.6 procalcitonin 0.04 Chest x-ray no acute cardiopulmonary process Patient has metabolic encephalopathy paranoia with no leukocytosis. She is afebrile seems less paranoid and confused. However no obvious source of infection no concern for severe sepsis. Not really having neck pain or meningitis. Lumbar puncture attempted but not successful low suspicion but needed to rule out other cause of metabolic encephalopathy. Patient cooperative in the ED. will need to look for voluntary placement again tomorrow Signed out to Dr. Han <Yanci Han, DO - Last Filed: 07/06/23 09:38> Lab Data Labs: Lab Results 07/04/23 07/04/23 07/04/23 Range/Units 17:55 18:04 18:55 WBC 14.0 H D (4.5-11.0) X10^3/uL RBC 4.62 (4.0-5.2) X10^6/uL Hgb 13.7 (12.0-16.0) g/dL Hct 41.0 (36-46) % MCV 88.6 (80-100) fL MCH 29.7 (26-34) PG MCHC 33.5 (30-36) % RDW 14.0 (11.6-14.8) % Plt Count 213 (150-400) X10^3/uL Neut % (Auto) 88.8 H D (50-75) % Lymph % (Auto) 6.6 L (25-40) % Piatt % (Auto) 4.2 (3-14) % Eos % (Auto) 0.0 L (2-4) % Baso % (Auto) 0.4 (0-2) % Neut # (Auto) 29195 H (0079-6072) /uL Lymph # (Auto) 900 L (9049-1544) /uL Piatt # (Auto) 600 (0-900) /uL Eos # (Auto) 0 (0-450) /uL Baso # (Auto) 0 (0-100) /uL Sodium 139 (137-145) mmol/L Potassium 4.2 (3.4-5.1) mmol/L Chloride 102 (98-107) mmol/L Carbon Dioxide 27 (22-32) mmol/L BUN 17 (7-17) mg/dL Creatinine 0.71 (0.52-1.04) mg/dL Estimated GFR > 60 (>60) mL/min BUN/Creatinine Ratio 23.9 H (6-22) Glucose 128 H (80-110) mg/dL Lactate 1.6 (0.7-2.1) mmol/L Calcium 9.6 (8.4-10.2) mg/dL Magnesium 1.9 (1.6-2.3) mg/dL Total Bilirubin 0.7 (0.2-1.3) mg/dL AST 28 (14-36) IU/L ALT 22 (<35) IU/L Alkaline Phosphatase 85 (38-126) U/L Total Protein 7.7 (6.3-8.2) g/dL Albumin 4.4 (3.5-5.0) g/dL Globulin 3.3 (1.7-4.1) g/dL Albumin/Globulin Ratio 1.3 (1.0-2.8) Procalcitonin 0.04 (<0.5) ng/mL TSH 1.87 (0.47-4.68) uIU/mL Free T4 1.33 (0.78-2.19) ng/dL Urine RBC (0-5/HPF) Urine WBC (0-5/HPF) Ur Squamous Epith Cells (0-5/HPF) Urine Bacteria (None) Ur Culture Indicated? Vol Urine Centrifuged Salicylates < 1.0 (<20) mg/dL U Opiates 300ng/mL cut (Negative) Ur Oxycodone Screen (Negative) Urine Methadone Screen (Negative) Acetaminophen < 10 (10-30) ug/mL Ur Barbiturates Screen (Negative) U Tricyclic Antidepress (Negative) Ur Phencyclidine Scrn (Negative) Ur Amphetamines Screen (Negative) U Methamphetamines Scrn (Negative) Ur MDMA Scrn (Ecstasy) (Negative) U Benzodiazepines Scrn (Negative) Urine Cocaine Screen (Negative) U Marijuana (THC) Screen (Negative) Urine pH Urine Specific [place] Ethyl Alcohol < 10 ( - 10) mg/dL Ur Creatinine SARS-CoV-2 (PCR) Negative (Negative) 07/04/23 07/05/23 Range/Units 22:24 07:20 WBC 9.1 (4.5-11.0) X10^3/uL RBC 3.88 L (4.0-5.2) X10^6/uL Hgb 11.8 L (12.0-16.0) g/dL Hct 34.8 L (36-46) % MCV 89.6 (80-100) fL MCH 30.5 (26-34) PG MCHC 34.0 (30-36) % RDW 14.1 (11.6-14.8) % Plt Count 189 (150-400) X10^3/uL Neut % (Auto) 62.7 D (50-75) % Lymph % (Auto) 28.6 D (25-40) % Piatt % (Auto) 7.4 (3-14) % Eos % (Auto) 0.6 L (2-4) % Baso % (Auto) 0.7 (0-2) % Neut # (Auto) 5700 (1414-5905) /uL Lymph # (Auto) 2600 (9366-0164) /uL Piatt # (Auto) 700 (0-900) /uL Eos # (Auto) 100 (0-450) /uL Baso # (Auto) 100 (0-100) /uL Sodium 138 (137-145) mmol/L Potassium 3.7 (3.4-5.1) mmol/L Chloride 110 H (98-107) mmol/L Carbon Dioxide 24 (22-32) mmol/L BUN 12 (7-17) mg/dL Creatinine 0.59 (0.52-1.04) mg/dL Estimated GFR > 60 (>60) mL/min BUN/Creatinine Ratio 20.3 (6-22) Glucose 84 (80-110) mg/dL Lactate (0.7-2.1) mmol/L Calcium 8.7 (8.4-10.2) mg/dL Magnesium (1.6-2.3) mg/dL Total Bilirubin (0.2-1.3) mg/dL AST (14-36) IU/L ALT (<35) IU/L Alkaline Phosphatase (38-126) U/L Total Protein (6.3-8.2) g/dL Albumin (3.5-5.0) g/dL Globulin (1.7-4.1) g/dL Albumin/Globulin Ratio (1.0-2.8) Procalcitonin (<0.5) ng/mL TSH (0.47-4.68) uIU/mL Free T4 (0.78-2.19) ng/dL Urine RBC None seen (0-5/HPF) Urine WBC 0-1/hpf (0-5/HPF) Ur Squamous Epith Cells 0-1 /hpf (0-5/HPF) Urine Bacteria Occasional (0-1) (None) Ur Culture Indicated? Cult not indicated Vol Urine Centrifuged 10ml (spun) Salicylates (<20) mg/dL U Opiates 300ng/mL cut Negative (Negative) Ur Oxycodone Screen Negative (Negative) Urine Methadone Screen Negative (Negative) Acetaminophen (10-30) ug/mL Ur Barbiturates Screen Negative (Negative) U Tricyclic Antidepress Negative (Negative) Ur Phencyclidine Scrn Negative (Negative) Ur Amphetamines Screen Negative (Negative) U Methamphetamines Scrn Negative (Negative) Ur MDMA Scrn (Ecstasy) Negative (Negative) U Benzodiazepines Scrn Positive H (Negative) Urine Cocaine Screen Negative (Negative) U Marijuana (THC) Screen Negative (Negative) Urine pH Not Reportable Urine Specific [place] Not Reportable Ethyl Alcohol ( - 10) mg/dL Ur Creatinine Not Reportable SARS-CoV-2 (PCR) (Negative) Urine Dip Bedside Urine Glucose Negative Bedside Urine Bilirubin - Negative Bedside Urine Ketone +++ 80 Urine Specific [place] 1.030 Bedside Urine Occult Blood - Negative Bedside Urine pH 5.5 Bedside Urine Protein +/- 15 Bedside Urine Urobilinogen - Negative Bedside Urine Nitrite - Negative Bedside Urine Leukocytes - Negative Esterase MDM Narrative Medical decision making narrative: Patient is a 68-year-old female presenting 2nd time for paranoia. Urine culture grew lactobacillus no evidence of UTI. She is not currently it paranoid and seems okay. Blood work has been reviewed she does leukocytosis of 14 previously 9.1 she is mild left shift, no significant electrolyte lactate 1.6 procalcitonin 0.04 Chest x-ray no acute cardiopulmonary process Patient has metabolic encephalopathy paranoia with no leukocytosis. She is afebrile seems less paranoid and confused. However no obvious source of infection no concern for severe sepsis. Not really having neck pain or meningitis. Lumbar puncture attempted but not successful low suspicion but needed to rule out other cause of metabolic encephalopathy. Patient cooperative in the ED. will need to look for voluntary placement again tomorrow Signed out to Dr. Han Patient signed out to myself. Patient has been medically cleared. Had a UTI on the 24/11 but appears to have cleared her urine she is continued to be on antibiotics. Patient met with [facility]. Family was seeking voluntary placement but facilities refused patient. After discussion with [facility] plan for discharge home but was noted in her chart that she has had atypical migraine with encephalopathy. She has also had neurology visits. Plan for patient to reestablish with Neurology, patient was given referral back to her prior neurologist as well as more local. Family felt comfortable with patient returning home at this time. Discharge Plan Departure Patient Disposition: Home Clinical Impression: Paranoia Activity Restrictions/Additional Instructions: Follow up at your appointment with Navneet Restrepo today at 4:30pm. It may be helpful to follow up with neurology as well, contacts included for local neurology in [place] as well as the neurologist you saw in 2019 Continue your current medications, including the antibiotic prescribed. Please return as needed for new or concerning symptoms. Prescriptions: No Action nitrofurantoin monohyd/m-cryst [Macrobid] 100 mg capsule 100 mg PO Q12H 5 Days Qty: 10 0RF Rx Instructions: must administer with a meal/food losartan 50 mg tablet 50 mg PO DAILY Qty: 90 3RF metoprolol succinate 25 mg tablet extended release 24 hr 12.5 mg PO DAILY Qty: 45 3RF rosuvastatin 10 mg tablet 10 mg PO QPM Qty: 90 3RF Vimpat 100 mg tablet See Rx Instructions PO BID Rx Instructions: 1 TAB PO BID escitalopram oxalate 10 mg tablet 10 mg PO DAILY Rx Instructions: taking half tab for one week Referrals: Timbo Otto MD [Non-Staff] - Navneet Restrepo ARNP [Primary Care Provider] - Kendrick Sanchez MD [Non-Staff] - Stand Alone Forms: Patient Portal/API
[2023-07-04 18:53] LABS: Free T4, Direct Thyroxine 1.33 ng/dL (0.78-2.19)
[2023-07-04 19:00] VITALS: PULSE 60; O2SAT 100
[2023-07-04 19:02] VITALS: PULSE 61; O2SAT 99
[2023-07-04 19:07] LABS: Thyroid Stimulating Hormone 1.87 uIU/mL (0.47-4.68)
[2023-07-04 19:36] LABS: Lactate (Lactic Acid) 1.6 mmol/L (0.7-2.1)
[2023-07-04 19:54] LABS: Procalcitonin 0.04 ng/mL (<0.5)
[2023-07-04 20:41] VITALS: BP 137/83; PULSE 79; RESP 16; O2SAT 98
[2023-07-04] MEDS: LIDOCAINE 1% (PF) 5 ML INJ (22:19)
[2023-07-04] MEDS: SODIUM CHLORIDE 0.9% 1,000 ML 1000 ML IV (22:22)
[2023-07-04 22:47] VITALS: PULSE 87; RESP 18; TEMP 36.5; O2SAT 98
[2023-07-04 23:04] LABS: UR Morphine/Opiate cutoff 300 Negative (Negative); Urine Amphetamines Negative (Negative); Urine Barbiturates Negative (Negative); Urine Benzodiazepines Positive (Negative); Urine Cocaine Negative (Negative); Urine MDMA Negative (Negative); Urine Methadone Negative (Negative); Urine Methamphetamines Negative (Negative); Urine Oxycodone Negative (Negative); Urine Phencyclidine Negative (Negative); Urine Tetrahydrocannabinol Negative (Negative); Urine Tricyclic Antidepressant Negative (Negative)
[2023-07-04 23:06] LABS: Bacteria Urine Occasional (0-1); Culture Indicated Urine Cult Not Indicated; RBC Urine None Seen (0-5/HPF); Squamous Epithelial Cell Urine 0-1 /HPF (0-5/HPF); Urine Volume 10mL (spun); WBC Urine 0-1/HPF (0-5/HPF)
[2023-07-04] MEDS: SODIUM CHLORIDE 0.9% 1,000 ML 150 ML IV (23:46)
[2023-07-05] VITALS (8 sets, daily range): BP systolic 115–148; BP diastolic 58–95; PULSE 64–84; RESP 12–18; TEMP 37.2; O2SAT 95–100
[2023-07-05 08:00] LABS: Add Manual Diff / Slide Review NO; Basophils Absolute Auto 100 /uL (0-100); Basophils Percent Auto 0.7 % (0-2); Eosinophils Absolute Auto 100 /uL (0-450); Eosinophils Percent Auto 0.6 % (2-4); Hematocrit 34.8 % (36-46); Hemoglobin 11.8 g/dL (12.0-16.0); Lymphocytes Absolute Auto 2600 /uL (1100-4500); Lymphocytes Percent Auto 28.6 % (25-40); Mean Corpuscular Hemoglobin 30.5 PG (26-34); Mean Corpuscular Volume 89.6 fL (80-100); Monocytes Absolute Auto 700 /uL (0-900); Monocytes Percent Auto 7.4 % (3-14); Neutrophils Absolute Auto 5700 /uL (1500-7000); Neutrophils Percent Auto 62.7 % (50-75); Platelet Count 189 X10^3/uL (150-400); Red Blood Cell Count 3.88 X10^6/uL (4.0-5.2); Red Cell Distribution Width 14.1 % (11.6-14.8); White Blood Cell Count 9.1 X10^3/uL (4.5-11.0)
[2023-07-05 08:14] LABS: BUN Creatinine Ratio 20.3 (6-22); Blood Urea Nitrogen 12 mg/dL (7-17); Calcium 8.7 mg/dL (8.4-10.2); Carbon Dioxide 24 mmol/L (22-32); Chloride 110 mmol/L (98-107); Estimated Glomerular Filt Rate > 60 mL/min (>60); Glucose 84 mg/dL (80-110); HEMOLYSIS < 15 (0-50); Potassium 3.7 mmol/L (3.4-5.1); Sodium 138 mmol/L (137-145)
--- NOTE | 2023-07-05 08:25 | PC.NURSE ---
Faxed packet to [facility]
--- NOTE | 2023-07-05 08:35 | PC.NURSE ---
Pt currently asleep in room and appears to be resting comfortably. Pt given breakfast tray from dietary.
--- NOTE | 2023-07-05 10:18 | PC.NURSE ---
Pt is sitting up in bed and son is at bedside. Pt states that she feels ok but she does not understand why she is being held here. Process of finding pt bed explained to pt but she is still not understanding why. Pt denies any pain, n/v. Pt is a&o to person, place and time. Pt unable to verbalize why she is here. Pt believes that there are fiber optics in her abd and that her internal organs are being pushed to the side.
--- NOTE | 2023-07-05 12:58 | CM.SWNOTE ---
ED SUPERVISOR [employer] EFFICIENCY Assessment Note Patient is 68 y/o female who presents to ED for the second time in 24 hours due to family's concern for patient's worsening paranoia and delusions. Patient endorses concern for nausea and not feeling good. See SHAILA Garrison's assessment from patient's ED presentation yesterday. Patient discharged to home with outpatient f/u with scheduled PCP appt with provider CHERYL Antony. Meli attempted inpatient placement at [facility], [facility] and [facility]. [facility] and [facility] declined and [facility] did not have beds. SUPERVISOR [employer] EFFICIENCY calls [facility] and they decline patient again. This morning ED team faxes clinicals for review at [facility] and SUPER[employer]OR [employer]Y calls to follow up on referral and it is reported that the Psychiatrist has not reviewed patient again. SUPERVISOR CELL EFFICIENCY calls [facility], as ED faxes clinicals for review today and it is reported that they are still reviewing. SUPERVISOR [employer] EFFICIENCY calls [facility] and it is reported they do not have beds. SUPERVISOR [employer] EFFICIENCY enters room to meet with patient, present in room is patient's son Maxx. Patient's son calls patient's spouse to come in as well. Patient provides consent for family to be present. Patient presents as A/Ox4, calm, coherent but anxious. Patient presents with soft spoken demeanor. Patient endorses she is at the ED due to concerns for her nausea and not feeling well. Patient's son discusses concerns regarding witnessed paranioa and delusions patient has endorsed previously. Patient's son endorses concerns for patient's recent episodes of delusions and paranoia. Son reports that patient was convinced someone was going to do a procedure on patient, patient had concerns she is full of radiation and was afraid to throw up inside. Son reports that patient has had thoughts of zoroastrianism and not going to heaven and reports that they are not a jehovah's witness family. Son reports that patient has had concerns that her spouse is attending a sabianism where he is poked with needles. Patient endorses increase in life stressors in the last five years since patient's initial seizure and rehabilitation from that, the loss of her mother and having to be the executor the estate, her 's stage 4 cancer diagnosis, as well as the loss of other family members. Patient endorses recent thoughts of and thinking about her mother, patient endorses episodes of crying. Patient has a Neurologist Dr. Trejo who prescribed Escitalopram 10mg, but patient states she has not been taking it. Son reports he has noticed patient's paranoia that spouse is cheating on her about a year ago. But recently patient has been presenting with concerns that a man was coming to perform surgery on her or putting fiber optics in her body. Patient endorses that she sometimes experiences hearing voices and having a conversation with someone that is helping her. Patient resides at home with spouse, son and daughter. Patient endorses independence with ADLs, it is reported that patient does not drive but son and spouse can drive her. Son reports concern that patient spends a lot of time at home. Patient denies SI, HI or any recent substance or ETOH use. Patient endorses she wants to discharge to home, patient states she will follow up with PCP today and open to follow up with Neurology. SUPERVISOR [employer] EFFICIENCY discusses outpatient and patient presents as open to that and open to trying medications prescribed for her. It is the opinion of this SUPERVISOR [employer]ICIENCY that patient is safe to d/c to home with family and outpatient follow up. Local Inpatient hospitals are not accepting patient at this time and patient is not interested in voluntary hospitalization. Patient does not present as gravely disabled and is not a threat to herself or others at this time. Patient and family feel safe with patient to d/c to home. Patient has scheduled PCP appt today at 1630 with Navneet Restrepo, PCP has been informed about patient's presentation to ED. Patient's family state they have reached out to patient's Neurologist for follow up as well. SUPER[employer]OR [employer]IENCY provides patient and family with list of MH providers that accept Medicare insurance. SUPER[employer]OR [employer]Y reviews this with ED provider who indicates agreement and understanding. Plan: patient to d/c to home with family, patient to f/u with PCP today, patient to f/u with Neurology and patient to seek outpatient MH providers. SHAILA Hooks
== END 2023-07-05 13:07 | disposition home or self-care (01) ==
PROVIDERS: Emergency Medicine; Emergency Provider Emergency Medicine; PCP Registered Nurse Diabetes Educator
DX: F22 Delusional disorders (principal); F41.9 Anxiety disorder, unspecified; R41.0 Disorientation, unspecified; E78.2 Mixed hyperlipidemia; R10.31 Right lower quadrant pain; Z20.822 Contact with and (suspected) exposure to COVID-19
CPT/HCPCS: 36415; 62270; 71045; 74177; 80048; 80053; 80305; 80320; 80329; 81003; 81015; 83605; 83735; 84145; 84439; 84443; 85025; 87040; 87635; 96360; 96361; 96374; 99284; G0480; J2060; Q9967

== ENCOUNTER 2024-03-03 15:20 | Emergency (ER) | payer MEDICARE, OTHER, SELFPAY ==
[2021-08-01 15:27] VITALS: BMI 29.5
[2024-03-03] VITALS (10 sets, daily range): BP systolic 130–186; BP diastolic 60–104; PULSE 56–66; RESP 12–22; TEMP 36.4; O2SAT 96–99; BMI 27.3
[2024-03-03] MEDS: ONDANSETRON 4 MG/2 ML INJ IV (16:56)
[2024-03-03 17:03] LABS: Basophils Absolute Auto 100 /uL (0-100); Eosinophils Absolute Auto 100 /uL (0-450); Mean Corpuscular Volume 89.3 fL (80-100); Monocytes Absolute Auto 600 /uL (0-900); Neutrophils Percent Auto 48.3 % (50-75)
--- NOTE | 2024-03-03 17:05 | ED_ITS ---
HPI - Nausea/Vomiting/Diarrhea General Chief complaint: Nausea/Vomiting/Diarrhea Stated complaint: stroke symptoms Time Seen by Provider: 03/03/24 16:19 History of Present Illness HPI Narrative: 68-year-old female history of anxiety and paranoia presents today with abnormal presentation of difficulty breathing. She reports a normal day eating breakfast doing around house having a normal lunch. Has been was sleeping. She reports that she was doing dishes when suddenly she felt like she had to sit in the chair. She has not sure why. She did not pass out she did not wake up on the floor or on the table. She was able to walk over to the recliner where her was sleeping. He woke up to her having some stridorous sounds and difficulty breathing. He tried to have her move both her arms she was really unable to hold up both arms. Symptoms lasted for less than 3 minutes. There was no shaking foaming at the mouth or confusion afterwards. Related Data Home Medications Medication Instructions Recorded Confirmed lacosamide 100 mg tablet (Vimpat) See Rx Instructions PO BID 07/05/23 08/31/23 hydroxyzine HCl 25 mg tablet mg PO 07/14/23 07/14/23 Previous Rx's Medication Instructions Recorded escitalopram oxalate 5 mg tablet 5 mg PO DAILY #90 tabs 08/31/23 hydroxyzine HCl 25 mg tablet 25 mg PO QID PRN anxiety #90 tabs 08/31/23 losartan 50 mg tablet 50 mg PO DAILY #90 tabs 08/31/23 metoprolol succinate 25 mg 12.5 mg (1/2 x 25 mg) PO DAILY #45 08/31/23 tablet,extended release 24 hr tabs rosuvastatin 10 mg tablet 10 mg PO QPM #90 tabs 08/31/23 Allergies Allergy/AdvReac Type Severity Reaction Status Date / Time No Known Drug Allergies Allergy Verified 08/31/23 14:47 Patient History Medical History (Updated 03/03/24 @ 19:07 by Marquita Faria DO) Anxiety Migraines Mixed hyperlipidemia (05/28/16) Essential hypertension (05/28/16) Surgical History Hx of section (~1980) Family History Father History of high blood pressure Social History household members: spouse and children Smoking Status: Never smoker second hand exposure: No alcohol intake: never substance use type: does not use Smoking Status: Never smoker alcohol intake frequency: 0-2 drinks per day Substance Use Type: does not use Exam Initial Vital Signs Initial Vital Signs: Vital Signs Temperature 97.5 F L 03/03/24 15:27 Pulse Rate 59 L 03/03/24 15:27 Respiratory Rate 16 03/03/24 15:27 Blood Pressure 130/60 03/03/24 15:27 Pulse Oximetry 97 03/03/24 15:27 Oxygen Delivery Method Room Air 03/03/24 15:27 GENERAL: Alert well-appearing 68-year-old female and in no acute distress. HEENT: Head atraumatic,EOMI, pupils reactive, face symmetric, moist mucous membranes CARDIOVASCULAR: Regular rate and rhythm without murmurs, rubs or gallops. RESPIRATORY: Breath sounds equal bilaterally, no wheezes rales or rhonchi. ABDOMEN: Soft, nontender. Normoactive bowel sounds all 4 quadrants. No guarding or rebound. EXTREMITIES: Normal range of motion, no clubbing or edema. Neurovascularly intact NEUROLOGICAL: Alert and oriented x4.Normal gait and speech. Cranial nerves II through XII grossly intact. Good qkybrh-ip-amys, good jysh-ks-zfdx, strength equal bilaterally, no dysarthria or aphasia, sensation in tact to soft touch bilaterally, no visual changes, no facial droop SKIN: Warm, dry, no laceration, no petechiae, no rashes or lesions. Scores NIH Stroke Scale Level of Conciousness: Alert, keenly responsive Ask month/age: Answers both questions correctly. Open/close eyes, close hand: Performs both tasks correctly Best gaze horizontal: Normal Visual pan: No visual loss Facial palsy: Normal symetrical movement Left arm drift: No drift for full 10 sec Right arm drift: No drift for full 10 sec Left leg drift: No drift for full 5 sec Right leg drift: No drift for full 5 sec Limb ataxia: Absent Sensory on face/arms/legs: Normal, no sensory loss Best language: No aphasia, normal Dysarthria: Normal Extinction or inattention: No abnormality Total NIH Stroke scale score: 0 Course Orders Ordered: Discontinued Medications Sodium Chloride (Normal Saline 0.9%) 1,000 mls @ 1,000 mls/hr IV BOLUS ONE Stop: 03/03/24 18:43 Last Infusion: 03/03/24 19:13 Dose: Infused Documented By: Admin: 03/03/24 18:19 Dose: 1,000 mls/hr Documented By: JOCELYNE Ondansetron HCl (Ondansetron 4 Mg/2 Ml Inj) 4 mg IV NOW PRN PRN Reason: Nausea And Vomiting Last Admin: 03/03/24 16:56 Dose: 4 mg Documented By: PENNY Ondansetron HCl (Ondansetron 4 Mg Odt) 4 mg SL NOW PRN PRN Reason: Nausea And Vomiting Vital Signs Vital signs: Vital Signs - 8 hr 03/03/24 15:27 Temperature 97.5 F L Pulse Rate 59 L Respiratory Rate 16 Blood Pressure 130/60 Pulse Oximetry 97 Oxygen Delivery Method Room Air MDM - Nausea/Vomiting/Diarrhea Lab Data 03/03/24 15:48 03/03/24 15:48 Labs: Lab Results 03/03/24 Range/Units 15:48 WBC 8.0 (4.5-11.0) X10^3/uL RBC 4.83 (4.0-5.2) X10^6/uL Hgb 14.4 (12.0-16.0) g/dL Hct 43.1 (36-46) % MCV 89.3 (80-100) fL MCH 29.7 (26-34) PG MCHC 33.3 (30-36) % RDW 14.2 (11.6-14.8) % Plt Count 189 (150-400) X10^3/uL Neut % (Auto) 48.3 L (50-75) % Lymph % (Auto) 41.5 H (25-40) % [place] % (Auto) 7.7 (3-14) % Eos % (Auto) 1.2 L (2-4) % Baso % (Auto) 1.3 (0-2) % Neut # (Auto) 3900 (1217-4575) /uL Lymph # (Auto) 3300 (3262-3612) /uL [place] # (Auto) 600 (0-900) /uL Eos # (Auto) 100 (0-450) /uL Baso # (Auto) 100 (0-100) /uL Sodium 140 (137-145) mmol/L Potassium 4.1 (3.4-5.1) mmol/L Chloride 107 (98-107) mmol/L Carbon Dioxide 23 (22-32) mmol/L BUN 15 (7-17) mg/dL Creatinine 0.75 (0.52-1.04) mg/dL Estimated GFR > 60 (>60) mL/min BUN/Creatinine Ratio 20.0 (6-22) Glucose 115 H (80-110) mg/dL Calcium 9.5 (8.4-10.2) mg/dL Total Bilirubin 0.7 (0.2-1.3) mg/dL AST 37 H (14-36) IU/L ALT 18 (<35) IU/L Alkaline Phosphatase 97 (38-126) U/L Total Protein 7.7 (6.3-8.2) g/dL Albumin 4.5 (3.5-5.0) g/dL Globulin 3.2 (1.7-4.1) g/dL Albumin/Globulin Ratio 1.4 (1.0-2.8) Lipase 79 (23-300) U/L Point of Care Testing Glucose POC 102 Urine Dip Bedside Urine Glucose Negative Bedside Urine Bilirubin - Negative Bedside Urine Ketone ++ 40 Urine Specific [place] 1.025 Bedside Urine Occult Blood - Negative Bedside Urine pH 5.5 Bedside Urine Protein - Negative Bedside Urine Urobilinogen - Negative Bedside Urine Nitrite - Negative Bedside Urine Leukocytes - Negative Esterase ECG Data Attestation: I personally reviewed and interpreted this ECG as follows: Prior ECG tracings: available for review Interpretation: Normal sinus rhythm rate 64 NM interval 156 QRS 80 QTC 425 T-wave inversion noted in 3 similar to previous EKGs MDM Narrative Medical decision making narrative: MDM CC: Nausea difficulty breathing Complicating co-morbidities: Anxiety paranoia Data collected from: , son, patient Medical records reviewed: Previous ED visits Differential considered: Adverse reaction, anxiety, infection, seizure, stroke is unlikely no focal deficits Exam documented above, pertinent findings include: Alert oriented x4 NIH stroke scale is 0 abdomen soft nontender no difficulty breathing no stridor Lab Test results independently reviewed as above. Pertinent findings: CBC shows no leukocytosis WBCs 8.0 area no anemia hemoglobin 14.4/43.1 CMP shows normal electrolytes and renal function creatinine 0.75, bilirubin liver enzymes within normal limits lipase is 79 Urinalysis negative for infection Independently reviewed EKG as above no ischemia or arrhythmia Imaging studies independently reviewed: None Consultations: None Treatments: IV fluids Re-evaluations: Patient remains stable without change we have alert talking no focal deficits Discussion: 68-year-old female presents today with an atypical episode she was having some increased breathing it sounds like panic but she denies having any triggers for panic attack. Does have like her is undergoing cancer treatment which is quite stressful for her. Family initially was concern for stroke but she did not have any weakness facial droop or slurring of speech. Does not sound like a seizure episode she was not shaking foaming at the mouth or loss of consciousness. Blood work has been reviewed stable she was having some nausea but never really vomiting. Her abdomen is soft. No sign of infection. She was given fluids to help with urine sample only. At this time there is no need for imaging. Unclear exactly what happened but appears well now Discharge Plan Departure Patient Disposition: Home Clinical Impression: Anxiety Activity Restrictions/Additional Instructions: *You have been diagnosed with anxiety reaction *What to do: At this time unclear what happened today I do not think stroke or seizure. Blood work today is overall reassuring. No evidence of infection no need for antibiotics *Continue to take medications as directed *Follow up with your primary care provider in 2-3 days or call [phone] *Return to ER if you should have increased confusion difficulty breathing chest or any new, worsening or concerning symptoms Prescriptions: No Action hydroxyzine HCl 25 mg tablet PO Vimpat 100 mg tablet See Rx Instructions PO BID Rx Instructions: 1 TAB PO BID escitalopram oxalate 5 mg tablet 5 mg PO DAILY Qty: 90 1RF hydroxyzine HCl 25 mg tablet 25 mg PO QID PRN (Reason: anxiety) Qty: 90 1RF losartan 50 mg tablet 50 mg PO DAILY Qty: 90 1RF metoprolol succinate 25 mg tablet extended release 24 hr 12.5 mg PO DAILY Qty: 45 1RF rosuvastatin 10 mg tablet 10 mg PO QPM Qty: 90 1RF Referrals: Navneet Restrepo ARNP [Primary Care Provider] - Stand Alone Forms: Patient Portal/API
[2024-03-03 17:06] LABS: Alanine Aminotransferase 18 IU/L (<35); Albumin 4.5 g/dL (3.5-5.0); Albumin Globulin Ratio 1.4 (1.0-2.8); Alkaline Phosphatase 97 U/L (38-126); Aspartate Aminotransferase 37 IU/L (14-36); Bilirubin Total 0.7 mg/dL (0.2-1.3); Blood Urea Nitrogen 15 mg/dL (7-17); Calcium 9.5 mg/dL (8.4-10.2); Carbon Dioxide 23 mmol/L (22-32); Chloride 107 mmol/L (98-107); Estimated Glomerular Filt Rate > 60 mL/min (>60); Globulin 3.2 g/dL (1.7-4.1); Glucose 115 mg/dL (80-110); HEMOLYSIS 33 (0-50); Potassium 4.1 mmol/L (3.4-5.1); Sodium 140 mmol/L (137-145); Total Protein 7.7 g/dL (6.3-8.2)
[2024-03-03 17:08] LABS: Add Manual Diff / Slide Review NO; Basophils Percent Auto 1.3 % (0-2); Eosinophils Percent Auto 1.2 % (2-4); Hematocrit 43.1 % (36-46); Hemoglobin 14.4 g/dL (12.0-16.0); Lymphocytes Absolute Auto 3300 /uL (1100-4500); Lymphocytes Percent Auto 41.5 % (25-40); Mean Corpuscular HGB Conc 33.3 % (30-36); Mean Corpuscular Hemoglobin 29.7 PG (26-34); Monocytes Percent Auto 7.7 % (3-14); Neutrophils Absolute Auto 3900 /uL (1500-7000); Platelet Count 189 X10^3/uL (150-400); Red Blood Cell Count 4.83 X10^6/uL (4.0-5.2); Red Cell Distribution Width 14.2 % (11.6-14.8)
--- NOTE | 2024-03-03 17:14 | EKG_ITS ---
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
[2024-03-03 17:31] LABS: Lipase 79 U/L (23-300)
[2024-03-03] MEDS: SODIUM CHLORIDE 0.9% 1,000 ML 1000 ML IV (18:19)
== END 2024-03-03 19:16 | disposition home or self-care (01) ==
PROVIDERS: Emergency Provider Emergency Medicine; PCP Registered Nurse Diabetes Educator
DX: F41.9 Anxiety disorder, unspecified (principal); R29.700 NIHSS score 0; R07.9 Chest pain, unspecified
CPT/HCPCS: 80053; 81003; 82962; 83690; 85025; 93005; 93010; 96361; 96374; 99283; 99284; J2405

== ENCOUNTER 2024-12-31 09:40 | Emergency (ER) | payer MEDICARE, OTHER, SELFPAY ==
[2021-08-01 15:27] VITALS: BMI 29.5
[2024-12-31] VITALS (7 sets, daily range): BP systolic 122–159; BP diastolic 61–95; PULSE 65–83; RESP 12–27; TEMP 37.8–39; O2SAT 95–99
--- NOTE | 2024-12-31 09:40 | DI.CT.S_ITS ---
PROCEDURE: CT STROKE INDICATIONS: Positive BE-FAST, Stroke symptoms TECHNIQUE: Noncontrast 4.5 mm thick angled axial sections acquired from the foramen magnum to the vertex, with coronal reformats. For radiation dose reduction, the following was used: automated exposure control, adjustment of mA and/or kV according to patient size. COMPARISON: None. FINDINGS: Image quality: Diagnostic. CSF spaces: Basal cisterns are patent. No extra-axial fluid collections. Ventricles are normal in size and shape. Brain: No midline shift. No intracranial mass effect or hemorrhage. [place]- white matter interface is normal. Skull and face: Calvarium and visualized facial bones are intact, without suspicious lesions. Sinuses: Visualized sinuses and mastoids are clear. IMPRESSION: Age-appropriate atrophy and chronic ischemic change. No intracranial hemorrhage. This study fulfills neurological imaging criteria for inclusion or exclusion of acute stroke therapies based on available published neurological imaging guidelines. Note: Critical results were discussed with Dr. George at 08:52 AM [place] time on 12/31/24 Approved by: Shravan Latif M.D. on 12/31/2024 at 8:54
--- NOTE | 2024-12-31 09:40 | DI.RAD.S_ITS ---
PROCEDURE: XR CHEST 1V INDICATIONS: Possible stroke TECHNIQUE: One view of the chest was acquired. COMPARISON: [facility], , XR CHEST 1V, 07/04/2023, 18:38. FINDINGS: Surgical changes and devices: None. Lungs and pleura: Lungs are clear. No pleural effusions or pneumothorax. Mediastinum: Mediastinal contours appear normal. Heart size is normal. Bones and chest wall: No suspicious bony lesions. Overlying soft tissues appear unremarkable. IMPRESSION: No acute cardiopulmonary abnormality is seen. Approved by: Shravan Latif M.D. on 12/31/2024 at 9:54
--- NOTE | 2024-12-31 09:40 | DI.CT.S_ITS ---
PROCEDURE: CT ANGIO HEAD AND NECK INDICATIONS: code stroke TECHNIQUE: After the administration of intravenous contrast, 1 mm thick sections acquired from the aortic arch through the [place] of [place]. 3-dimensional wuxwfua-hejfafida-qncsvlorcl (MIP) and/or volume rendering reformats were acquired of the central intracranial vasculature and neck separately. For radiation dose reduction, the following was used: automated exposure control, adjustment of mA and/or kV according to patient size. COMPARISON: None. FINDINGS: Image quality: Diagnostic. Cerebral CT Angiogram: Internal carotid arteries: No acute findings. Intracranial ICA are patent with no significant stenosis. No occlusion. No aneurysm. Mild atherosclerotic vascular calcification cavernous ICA bilateral Anterior cerebral arteries: Unremarkable. No significant stenosis. No occlusion. No aneurysm. Middle cerebral arteries: Unremarkable. No significant stenosis. No occlusion. No aneurysm. Posterior cerebral arteries: Unremarkable. No significant stenosis. No occlusion. No aneurysm. Basilar artery: Unremarkable. No significant stenosis. No occlusion. No aneurysm. Vertebral arteries: Unremarkable as visualized. Dural venous sinuses: Unremarkable given phase of enhancement. Other: Arterial phase appearance of the brain parenchyma is unremarkable. Neck CT Angiogram: Internal carotid arteries: Unremarkable. No significant stenosis. No dissection or occlusion. Common carotid arteries: Unremarkable. No significant stenosis. No dissection or occlusion. External carotid arteries: Unremarkable. No occlusion. Vertebral arteries: Unremarkable. No significant stenosis. No dissection or occlusion. Aortic Arch and Mediastinum: Partially visualized aortic arch unremarkable without evidence of aneurysm. Origins of the great vessels unremarkable. Other: Arterial phase soft tissues of the neck and chest are unremarkable. IMPRESSION: Mild atherosclerotic vascular calcification without hemodynamically significant stenosis, large vessel occlusion or aneurysm throughout the head and neck. Any quantitative measurements of stenosis were performed using NASCET criteria. Approved by: Shravan Latif M.D. on 12/31/2024 at 9:09
--- NOTE | 2024-12-31 09:53 | EKG_ITS ---
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
--- NOTE | 2024-12-31 09:54 | ED_ITS ---
HPI - General Adult General Chief complaint: Neuro Symptoms/Deficit Stated complaint: code stroke Time Seen by Provider: 12/31/24 09:54 History of Present Illness HPI narrative: 69 years old female with history of migraine, seizure disorder brought in by ambulance for code stroke. The ambulance was called for a fall and was on the floor between her bedroom and bathroom then proposal lead writer noticed weakness on the left arm and slight left facial droop so the code stroke was called. As per the son she has been vomiting since last night and also complain of headache. Her son noticed slight facial drooping last night as well. At 4:00 a.m. she was able to walk to the bathroom by herself but at 7:00 a.m. she needed assistance to walk to the bathroom. At 9:00 a.m. today she was found on the floor. In the ED she was able to move her right arm and right leg follow commands as well as deviated her gaze to the left and the right. She was able to move slightly on her left arm and left leg. She is not on any blood thinner. No witness seizure per the family. He was having similar symptoms in 2019 and was in [facility] then was started on seizure medication since then. She had no history of stroke. She has poor historian. Blood sugar at the scene was 92. Her NIH score was 8 when she got to our ED. Related Data Home Medications ?Medication ?Instructions ?Recorded ?Confirmed lacosamide 100 mg tablet (Vimpat) See Rx Instructions PO BID 07/05/23 09/18/24 Previous Rx's ?Medication ?Instructions ?Recorded escitalopram oxalate 5 mg tablet 5 mg PO DAILY #90 tab s 08/31/23 hydroxyzine HCl 25 mg tablet 25 mg PO QID PRN anxiety #90 tabs 03/21/24 losartan 50 mg tablet 50 mg PO DAILY #90 tabs 09/05 09/29 metoprolol succinate 25 mg 12.5 mg (1/2 x 25 mg) PO DA KATHERINE #45 09/18/24 tablet,extended release 24 hr tabs rosuvastatin 10 mg tablet 10 mg PO QPM #90 tabs Allergies Allergy/AdvReac Type Severity Reaction Status Date / Time No Known Drug Allergies Allergy Verified 12/31/24 10:22 Review of Systems Review of Systems Narrative: Positive for left arm and left leg weakness. Altered mental status. Nausea vomiting. Headache. Patient History Medical History (Updated 12/31/24 @ 11:15 by Blanco George MD) Anxiety Migraines Mixed hyperlipidemia (05/28/16) Essential hypertension (05/28/16) Surgical History Hx of section (~1980) Family History Father History of high blood pressure Social History household members: spouse and children Smoking Status: Never smoker second hand exposure: No alcohol intake: never substance use type: does not use alcohol intake frequency: 0-2 drinks per day Exam Initial Vital Signs Initial Vital Signs: Vital Signs Temperature 101.0 F H 12/31/24 10:10 Pulse Rate 83 12/31/24 10:10 Respiratory Rate 20 12/31/24 10:10 Blood Pressure 122/95 H 12/31/24 10:10 Pulse Oximetry 98 12/31/24 10:10 Oxygen Delivery Method Room Air 12/31/24 10:10 Const General: cooperative and ill appearing Eyes Pupils: PERRL EOM: EOM intact bilaterally Resp Other: Clear to auscultation bilaterally. No respiratory distress. Cardio Other: Normal S1-S2 without murmur. Regular rhythm. GI Other: Soft nontender without distention. No guarding or rebound tenderness. Skin General: no rashes or lesions noted Neuro Other: Confusion. Weak on the left arm and left leg. Slight facial droop on the left during the resting face. Extrem Other: No pedal edema in both legs. Course Course Additional Information: 12/31/2024, 9:54 a.m. Got a phone call from radiologist for the CT head without contrast showed no acute finding. 12/31/2024 10:15 a.m. talked to the neurologist, Dr. Zarco on-call about patient presentation and the neurologist would talk to her attending and call us back. 12/31/2024, 11:07 a.m. the patient was given TNK. I told back to the neurologist on-call and awaiting fall ED accepting doctor at [facility] to talk to. Orders Ordered: Discontinued Medications Ceftriaxone Sodium 2,000 mg/ (Sodium Chloride) 100 mls @ 200 mls/hr IV NOW ONE Stop: 12/31/24 11:22 Last Infusion: 12/31/24 12:05 Dose: 200 mls/hr Documented By: MARIA DEL CARMEN Admin: 12/31/24 11:40 Dose: 200 mls/hr Documented By: MARIA DEL CARMEN Acetaminophen (Ofirmev) 1,000 mg in 100 mls @ 400 mls/hr IV Q6H PRN PRN Reason: Fever/Mild Pain (1-3) Last Infusion: 12/31/24 12:05 Dose: 400 mls/hr Documented By: MARIA DEL CARMEN Admin: 12/31/24 11:57 Dose: 400 mls/hr Documented By: MARIA DEL CARMEN Ondansetron HCl (Ondansetron 4 Mg/2 Ml Inj) 4 mg IV NOW PRN PRN Reason: Nausea And Vomiting Last Admin: 12/31/24 09:59 Dose: 4 mg Documented By: MARÍA Ondansetron HCl (Ondansetron 4 Mg Odt) 4 mg PO NOW PRN PRN Reason: Nausea And Vomiting Tenecteplase (Tenecteplase 50 Mg Vial) 12 mg 0.25 mg/kg (12 mg) IV NOW ONE Stop: 12/31/24 10:46 Last Admin: 12/31/24 11:04 Dose: 12 mg Documented By: MARIA DEL CARMEN Co-signed By: MARÍA(2) Vital Signs Vital signs: Vital Signs - 8 hr 12/31/24 10:10 12/31/24 11:30 Temperature 101.0 F H 101.7 F H Pulse Rate 83 65 Respiratory Rate 20 16 Blood Pressure 122/95 H 137/81 Pulse Oximetry 98 96 Oxygen Delivery Method Room Air Room Air Medical Decision Making Lab Data 12/31/24 10:30 12/31/24 10:30 Labs: Lab Results 12/31/24 12/31/24 12/31/24 Range/Units 10:09 10:30 11:20 WBC 11.9 H (4.5-11.0) X10^3/uL RBC 4.47 (4.0-5.2) X10^6/uL Hgb 13.6 (12.0-16.0) g/dL Hct 40.5 (36-46) % MCV 90.6 (80-100) fL MCH 30.5 (26-34) PG MCHC 33.6 (30-36) % RDW 13.9 (11.6-14.8) % Plt Count 175 (150-400) X10^3/uL Neut % (Auto) 93.6 H (50-75) % Lymph % (Auto) 4.4 L (25-40) % [place] % (Auto) 1.7 L (3-14) % Eos % (Auto) 0.0 L (2-4) % Baso % (Auto) 0.3 (0-2) % Neut # (Auto) 58029 H (3438-6059) /uL Lymph # (Auto) 500 L (5141-1674) /uL [place] # (Auto) 200 (0-900) /uL Eos # (Auto) 0 (0-450) /uL Baso # (Auto) 0 (0-100) /uL PT 12.0 (9.4-12.5) SECONDS INR 1.1 (0.9-1.3) APTT 22 L (25.1-36.5) SECONDS Sodium 135 L (137-145) mmol/L Potassium 4.2 (3.4-5.1) mmol/L Chloride 101 (98-107) mmol/L Carbon Dioxide 24 (22-32) mmol/L BUN 12 (7-17) mg/dL Creatinine 0.59 (0.52-1.04) mg/dL Estimated GFR > 60 (>60) mL/min BUN/Creatinine Ratio 20.3 (6-22) Glucose 107 H (70-99) mg/dL Lactate 2.9 H (0.7-2.1) mmol/L Calcium 9.2 (8.4-10.2) mg/dL Total Bilirubin 1.0 (0.2-1.3) mg/dL AST 39 H (14-36) IU/L ALT 34 (<35) IU/L Alkaline Phosphatase 89 (38-126) U/L Total Creatine Kinase 26 L (30-135) U/L Troponin I < 0.012 (0.01-0.034) ng/mL Total Protein 7.7 (6.3-8.2) g/dL Albumin 4.8 (3.5-5.0) g/dL Globulin 2.9 (1.7-4.1) g/dL Albumin/Globulin Ratio 1.7 (1.0-2.8) Urine Color Urine Appearance Urine pH (4.5-8.0) Ur Specific [place] (1.000-1.035) Urine Protein (Negative) Urine Glucose (UA) (Negative) g/dL Urine Ketones (NEGATIVE) Urine Occult Blood (Negative) Urine Nitrate (Negative) Urine Bilirubin (NEGATIVE) Urine Urobilinogen (0.2) E.U./dL Ur Leukocyte Esterase (NEGATIVE) Urine RBC (0-5/HPF) Urine WBC (0-5/HPF) Ur Squamous Epith Cells (0-5/HPF) Urine Bacteria (None) Ur Culture Indicated? Vol Urine Centrifuged U Opiates 300ng/mL cut (Negative) Ur Oxycodone Screen (Negative) Urine Methadone Screen (Negative) Ur Barbiturates Screen (Negative) U Tricyclic Antidepress (Negative) Ur Phencyclidine Scrn (Negative) Ur Amphetamines Screen (Negative) U Methamphetamines Scrn (Negative) Ur MDMA Scrn (Ecstasy) (Negative) U Benzodiazepines Scrn (Negative) Urine Cocaine Screen (Negative) U Marijuana (THC) Screen (Negative) Urine Specific [place] Ur Creatinine SARS-CoV-2 (PCR) Negative (Negative) Influenza A (RT-PCR) Flu a negative (NEGATIVE) Influenza B (RT-PCR) Flu b negative (NEGATIVE) RSV (PCR) Negative (Negative) 12/31/24 12/31/24 Range/Units 11:37 11:37 WBC (4.5-11.0) X10^3/uL RBC (4.0-5.2) X10^6/uL Hgb (12.0-16.0) g/dL Hct (36-46) % MCV (80-100) fL MCH (26-34) PG MCHC (30-36) % RDW (11.6-14.8) % Plt Count (150-400) X10^3/uL Neut % (Auto) (50-75) % Lymph % (Auto) (25-40) % [place] % (Auto) (3-14) % Eos % (Auto) (2-4) % Baso % (Auto) (0-2) % Neut # (Auto) (2758-0058) /uL Lymph # (Auto) (3078-7590) /uL [place] # (Auto) (0-900) /uL Eos # (Auto) (0-450) /uL Baso # (Auto) (0-100) /uL PT (9.4-12.5) SECONDS INR (0.9-1.3) APTT (25.1-36.5) SECONDS Sodium (137-145) mmol/L Potassium (3.4-5.1) mmol/L Chloride (98-107) mmol/L Carbon Dioxide (22-32) mmol/L BUN (7-17) mg/dL Creatinine (0.52-1.04) mg/dL Estimated GFR (>60) mL/min BUN/Creatinine Ratio (6-22) Glucose (70-99) mg/dL Lactate (0.7-2.1) mmol/L Calcium (8.4-10.2) mg/dL Total Bilirubin (0.2-1.3) mg/dL AST (14-36) IU/L ALT (<35) IU/L Alkaline Phosphatase (38-126) U/L Total Creatine Kinase (30-135) U/L Troponin I (0.01-0.034) ng/mL Total Protein (6.3-8.2) g/dL Albumin (3.5-5.0) g/dL Globulin (1.7-4.1) g/dL Albumin/Globulin Ratio (1.0-2.8) Urine Color Yellow Urine Appearance Clear Urine pH 7.0 Not Reportable (4.5-8.0) Ur Specific [place] 1.010 (1.000-1.035) Urine Protein Negative (Negative) Urine Glucose (UA) Negative (Negative) g/dL Urine Ketones 2+ H (NEGATIVE) Urine Occult Blood Trace-intact (Negative) Urine Nitrate Negative (Negative) Urine Bilirubin Negative (NEGATIVE) Urine Urobilinogen 0.2 (0.2) E.U./dL Ur Leukocyte Esterase Negative (NEGATIVE) Urine RBC 1-5/hpf (0-5/HPF) Urine WBC 0-1/hpf (0-5/HPF) Ur Squamous Epith Cells 0-1 /hpf (0-5/HPF) Urine Bacteria None seen (None) Ur Culture Indicated? Cult not indicated Vol Urine Centrifuged 10ml (spun) U Opiates 300ng/mL cut Negative (Negative) Ur Oxycodone Screen Negative (Negative) Urine Methadone Screen Negative (Negative) Ur Barbiturates Screen Negative (Negative) U Tricyclic Antidepress Negative (Negative) Ur Phencyclidine Scrn Negative (Negative) Ur Amphetamines Screen Negative (Negative) U Methamphetamines Scrn Negative (Negative) Ur MDMA Scrn (Ecstasy) Negative (Negative) U Benzodiazepines Scrn Negative (Negative) Urine Cocaine Screen Negative (Negative) U Marijuana (THC) Screen Negative (Negative) Urine Specific [place] Not Reportable Ur Creatinine Not Reportable SARS-CoV-2 (PCR) (Negative) Influenza A (RT-PCR) (NEGATIVE) Influenza B (RT-PCR) (NEGATIVE) RSV (PCR) (Negative) Imaging Data CTA head and neck: Radiologist's Impression: PROCEDURE: CT ANGIO HEAD AND NECK INDICATIONS: code stroke TECHNIQUE: After the administration of intravenous contrast, 1 mm thick sections acquired from the aortic arch through the [place] of [place]. 3-dimensional [id number] (MIP) and/or volume rendering reformats were acquired of the central intracranial vasculature and neck separately. For radiation dose reduction, the following was used: automated exposure control, adjustment of mA and/or kV according to patient size. COMPARISON: None. FINDINGS: Image quality: Diagnostic. Cerebral CT Angiogram: Internal carotid arteries: No acute findings. Intracranial ICA are patent with no significant stenosis. No occlusion. No aneurysm. Mild atherosclerotic vascular calcification cavernous ICA bilateral Anterior cerebral arteries: Unremarkable. No significant stenosis. No occlusion. No aneurysm. Middle cerebral arteries: Unremarkable. No significant stenosis. No occlusion. No aneurysm. Posterior cerebral arteries: Unremarkable. No significant stenosis. No occlusion. No aneurysm. Basilar artery: Unremarkable. No significant stenosis. No occlusion. No aneurysm. Vertebral arteries: Unremarkable as visualized. Dural venous sinuses: Unremarkable given phase of enhancement. Other: Arterial phase appearance of the brain parenchyma is unremarkable. Neck CT Angiogram: Internal carotid arteries: Unremarkable. No significant stenosis. No dissection or occlusion. Common carotid arteries: Unremarkable. No significant stenosis. No dissection or occlusion. External carotid arteries: Unremarkable. No occlusion. Vertebral arteries: Unremarkable. No significant stenosis. No dissection or occlusion. Aortic Arch and Mediastinum: Partially visualized aortic arch unremarkable without evidence of aneurysm. Origins of the great vessels unremarkable. Other: Arterial phase soft tissues of the neck and chest are unremarkable. IMPRESSION: Mild atherosclerotic vascular calcification without hemodynamically significant stenosis, large vessel occlusion or aneurysm throughout the head and neck. Any quantitative measurements of stenosis were performed using NASCET criteria. Approved by: Shravan Latif M.D. on 12/31/2024 at 9:09 Chest x-ray: Radiologist's Impression: PROCEDURE: XR CHEST 1V INDICATIONS: Possible stroke TECHNIQUE: One view of the chest was acquired. COMPARISON: [facility], XR CHEST 1V, 07/04/2023, 18:38. FINDINGS: Surgical changes and devices: None. Lungs and pleura: Lungs are clear. No pleural effusions or pneumothorax. Mediastinum: Mediastinal contours appear normal. Heart size is normal. Bones and chest wall: No suspicious bony lesions. Overlying soft tissues appear unremarkable. IMPRESSION: No acute cardiopulmonary abnormality is seen. CT scan - head: Radiologist's Impression: PROCEDURE: CT STROKE INDICATIONS: Positive BE-FAST, Stroke symptoms TECHNIQUE: Noncontrast 4.5 mm thick angled axial sections acquired from the foramen magnum to the vertex, with coronal reformats. For radiation dose reduction, the following was used: automated exposure control, adjustment of mA and/or kV according to patient size. COMPARISON: None. FINDINGS: Image quality: Diagnostic. CSF spaces: Basal cisterns are patent. No extra-axial fluid collections. Ventricles are normal in size and shape. Brain: No midline shift. No intracranial mass effect or hemorrhage. [place]- white matter interface is normal. Skull and face: Calvarium and visualized facial bones are intact, without suspicious lesions. Sinuses: Visualized sinuses and mastoids are clear. IMPRESSION: Age-appropriate atrophy and chronic ischemic change. No intracranial hemorrhage. This study fulfills neurological imaging criteria for inclusion or exclusion of acute stroke therapies based on available published neurological imaging guidelines. Note: Critical results were discussed with Dr. George at 08:52 AM [place] time on 12/31/24 Approved by: Shravan Latif M.D. on 12/31/2024 at 8:54 ECG Data Interpretation: EKG showed normal sinus rhythm at 92 beats per minute without ischemic ST-T changes. MDM Narrative Additional Information: 69 years old female came today after the family found her on the floor with left-sided weakness, slight left facial droop brought in by ambulance after she had a fall at 9:00 a.m.. He was normal as per family at 7:00 a.m. as the son helped her to the bathroom at that time. Her son reported that she had headache and vomiting last night. She is not on any blood thinner and denied history of stroke but take seizure medication. No witnessed seizure at home. During the ED stay she has a weakness on the left arm and left leg and slight left facial droop. The patient is poor historian and confused. His blood sugar at the scene was 92. Her NIH score was 8 when she got to our ED. I discussed the case with stroke neurologist at [facility] agree with TNK. After discussing the risks and benefits with the family including her and her son about the TNK that could cause bleed between 2-6% they agree with the TNK to be given. The TNK was given at 11:07 a.m.. The patient was accepted to [facility] by flight. Septic workup was sent due to fever 101.1 in the ED and she was started on IV Rocephin. Critical Care Time Critical Care Time Attestation: I spent at least 35 minute critical care time for this patient. Discharge Plan Departure Patient Disposition: [facility] Clinical Impression: Acute ischemic stroke, Acute left-sided muscle weakness Prescriptions: No Action hydroxyzine HCl 25 mg tablet 25 mg PO QID PRN (Reason: anxiety) Qty: 90 1RF losartan 50 mg tablet 50 mg PO DAILY Qty: 90 1RF metoprolol succinate 25 mg tablet extended release 24 hr 12.5 mg PO DAILY Qty: 45 1RF rosuvastatin 10 mg tablet 10 mg PO QPM Qty: 90 1RF Vimpat 100 mg tablet See Rx Instructions PO BID Rx Instructions: 1 TAB PO BID escitalopram oxalate 5 mg tablet 5 mg PO DAILY Qty: 90 1RF Referrals: Navneet Restrepo ARNP [Primary Care Provider, Medical]
[2024-12-31] MEDS: ONDANSETRON 4 MG/2 ML INJ IV (09:59)
[2024-12-31 10:54] LABS: Add Manual Diff / Slide Review NO; Hematocrit 40.5 % (36-46); Hemoglobin 13.6 g/dL (12.0-16.0); Lymphocytes Absolute Auto 500 /uL (1100-4500); Mean Corpuscular HGB Conc 33.6 % (30-36); Mean Corpuscular Hemoglobin 30.5 PG (26-34); Mean Corpuscular Volume 90.6 fL (80-100); Platelet Count 175 X10^3/uL (150-400)
[2024-12-31 10:55] LABS: INR 1.1 (0.9-1.3); Prothrombin Time 12.0 SECONDS (9.4-12.5)
[2024-12-31 10:55] LABS: Influenza A - CEPHEID Flu A NEGATIVE (NEGATIVE); Influenza B - CEPHEID Flu B NEGATIVE (NEGATIVE)
[2024-12-31 10:58] LABS: PTT Partial Thromboplastin Tim 22 SECONDS (25.1-36.5)
[2024-12-31 10:59] LABS: COVID-19 CEPHEID 4-PLEX PCR Negative (Negative)
[2024-12-31 11:00] LABS: Alanine Aminotransferase 34 IU/L (<35); Albumin 4.8 g/dL (3.5-5.0); Albumin Globulin Ratio 1.7 (1.0-2.8); Alkaline Phosphatase 89 U/L (38-126); Blood Urea Nitrogen 12 mg/dL (7-17); Calcium 9.2 mg/dL (8.4-10.2); Carbon Dioxide 24 mmol/L (22-32); Chloride 101 mmol/L (98-107); Creatine Kinase 26 U/L (30-135); Estimated Glomerular Filt Rate > 60 mL/min (>60); Globulin 2.9 g/dL (1.7-4.1); Glucose 107 mg/dL (70-99); HEMOLYSIS 38 (0-50); Potassium 4.2 mmol/L (3.4-5.1); Sodium 135 mmol/L (137-145); Total Protein 7.7 g/dL (6.3-8.2)
[2024-12-31] MEDS: TENECTEPLASE 50 MG VIAL 12 MG IV (11:04)
[2024-12-31 11:11] LABS: Troponin I < 0.012 ng/mL (0.01-0.034)
[2024-12-31] MEDS: cefTRIAXone 2,000 MG in SODIUM CHLORIDE 0.9% 100 ML 200 MG IV (11:40)
[2024-12-31 11:44] LABS: Appearance Urine UA CLEAR; Bilirubin Urine UA NEGATIVE (NEGATIVE); Color Urine UA YELLOW; Glucose Urine UA NEGATIVE (Negative); Ketones Urine UA 2+ (NEGATIVE); Leukocyte Esterase Urine UA NEGATIVE (NEGATIVE); Nitrite Urine UA NEGATIVE (Negative); Occult Blood Urine UA TRACE-INTACT (Negative); Protein Urine UA NEGATIVE (Negative); Specific Gravity Urine UA 1.010 (1.000-1.035); Urobilinogen Urine UA 0.2 E.U./dL (0.2)
[2024-12-31 11:45] LABS: pH Urine UA 7.0 (4.5-8.0)
[2024-12-31 11:51] LABS: Urine MDMA Negative (Negative); Urine Methamphetamines Negative (Negative); Urine THC Negative (Negative); Urine Tricyclic Antidepressant Negative (Negative)
[2024-12-31] MEDS: ACETAMINOPHEN IV 1,000 MG/100 ML VIAL 400 MG IV (11:57)
[2024-12-31 11:58] LABS: Culture Indicated Urine Cult Not Indicated
[2024-12-31 12:06] LABS: Lactate (Lactic Acid) 2.9 mmol/L (0.7-2.1)
[2024-12-31 13:34] LABS: Reflexed Lactate in 2 Hours Y
== END 2024-12-31 12:09 | disposition short-term general hospital (02) ==
PROVIDERS: Emergency Provider Emergency Medicine; PCP Registered Nurse Diabetes Educator
DX: I63.9 Cerebral infarction, unspecified (principal); M62.81 Muscle weakness (generalized); R29.708 NIHSS score 8; I10 Essential (primary) hypertension; W18.30XA Fall on same level, unspecified, initial encounter
CPT/HCPCS: 36415; 51701; 70450; 70496; 70498; 71045; 80053; 80305; 81001; 82550; 82962; 83605; 84484; 85025; 85610; 85730; 87040; 87637; 93005; 96365; 96375; 99284; 99291; 99292; J3101; J0131; J0696; J2405; Q9967

== ENCOUNTER → 2025-01-12 08:48 | Outpatient (CLI) | payer MEDICARE, OTHER, SELFPAY ==
[2021-08-01 15:27] VITALS: BMI 29.5
[2025-01-12 10:35] LABS: Add Manual Diff / Slide Review NO; Hematocrit 32.5 % (36-46); Hemoglobin 11.0 g/dL (12.0-16.0); Lymphocytes Absolute Auto 1100 /uL (1100-4500); Mean Corpuscular HGB Conc 33.9 % (30-36); Mean Corpuscular Hemoglobin 31.2 PG (26-34); Mean Corpuscular Volume 91.8 fL (80-100); Platelet Count 389 X10^3/uL (150-400)
[2025-01-12 11:11] LABS: Alanine Aminotransferase 27 IU/L (<35); Blood Urea Nitrogen 17 mg/dL (7-17); Chloride 108 mmol/L (98-107); Estimated Glomerular Filt Rate > 60 mL/min (>60); HEMOLYSIS < 15 (0-50); Potassium 4.0 mmol/L (3.4-5.1); Sodium 140 mmol/L (137-145)
[2025-01-12 12:40] LABS: Albumin 4.0 g/dL (3.5-5.0); Albumin Globulin Ratio 1.4 (1.0-2.8); Alkaline Phosphatase 77 U/L (38-126); Calcium 9.1 mg/dL (8.4-10.2); Carbon Dioxide 23 mmol/L (22-32); Globulin 2.8 g/dL (1.7-4.1); Glucose 91 mg/dL (70-99); Total Protein 6.8 g/dL (6.3-8.2)
== END ==
PROVIDERS: PCP Registered Nurse Diabetes Educator; Referring Provider Psychiatry & Neurology Neurology; Visit Provider Psychiatry & Neurology Neurology
DX: R41.82 Altered mental status, unspecified (principal)
CPT/HCPCS: 36415; 80048; 80076; 80202; 85025